=== PATIENT | male | born 1955 | race Caucasian/White ===

== ENCOUNTER 2016-11-09 12:14 | Inpatient (IN) | payer MEDICARE, MEDICAID ==
--- NOTE | 2016-11-09 12:50 | EDM.PDOC ---
ED HPI GI/ABDOMINAL - General Chief Complaint: Abdominal Pain Stated Complaint: SENT FROM [place] Time Seen by Provider: 11/09/16 12:39 Source of Information: Reports: Patient, Provider History Limitations: Reports: No limitations - History of Present Illness INITIAL COMMENTS - FREE TEXT/NARRATIVE: The patient presents with dehydration. He had a renal transplant about 11 years ago. For the past 10 days he has had nausea and vomiting. He lost about [address] Metz today and he did some labs. His creatinine is at 2.9. His baseline is about 1.26. His influenza was negative. His WBC was slightly elevated at 11.5. His Hgb was low at 12.4. He sent him up here for admission and rehydration. Timing/Duration: Reports: Day(s): () Location: generalized Quality: Reports: ache Severity: mild Context: Denies: sick contact, bad/questionable food, out of country travel, recent surgery, recent trauma, lifting, activity/exercise Associated Symptoms: Reports: loss of appetite, nausea/vomiting. Denies: chest pain, diarrhea, fever/chills - Related Data Allergies/ADRs: Allergies Allergy/AdvReac Type Severity Reaction Status Date / Time No Known Allergies Allergy Verified 11/09/16 12:51 Home Meds: Home Meds Aspirin 325 mg PO DAILY 12/10/13 [History] Atenolol 50 mg PO DAILY 12/10/13 [History] Cilostazol [Pletal] 100 mg PO BID 12/10/13 [History] Diclofenac Sodium 25 mg PO DAILY PRN 12/10/13 [History] Isradipine [Dynacirc CR] 5 mg PO DAILY 12/10/13 [History] Lisinopril [Prinivil] 2.5 mg PO DAILY 12/10/13 [History] Mycophenolate Mofetil [Cellcept] 500 mg PO QID 12/10/13 [History] Omeprazole [Prilosec] 20 mg PO TID 12/10/13 [History] Pentoxifylline [TRENtal] 400 mg PO TID 12/10/13 [History] Tacrolimus [Prograf] 1 mg PO BID 12/10/13 [History] traMADol [Ultram] 50 mg PO TID PRN 12/10/13 [History] valACYclovir HCl [Valtrex] 500 mg PO TID 12/10/13 [History] Past Medical History Other HEENT History: left eye blindness Other Dermatologic History: skin graft - Past Surgical History Other HEENT Surgeries/Procedures: PTK to left eye, laser to B numerous times Other Musculoskeletal Surgeries/Procedures:: toe removal starting in 2005; no toes remain on right and 3 remain on left ED ROS GENERAL - Review of Systems Review Of Systems: See Below Constitutional: Reports: no symptoms HEENT: Reports: No symptoms Respiratory: Reports: no symptoms Cardiovascular: Reports: No symptoms Endocrine: Reports: no symptoms GI/Abdominal: Reports: Abdominal pain, Nausea, Vomiting. Denies: Diarrhea : Reports: no symptoms Musculoskeletal: Reports: no symptoms Skin: Reports: no symptoms Neurological: Reports: no symptoms ED EXAM, GI/ABD - Physical Exam Exam: See Below Exam Limited By: No limitations General Appearance: alert, no apparent distress Ears: normal external exam Nose: normal inspection Throat/Mouth: Other (Mucus membranes are dry) Head: atraumatic, normocephalic Neck: normal inspection Respiratory/Chest: no respiratory distress, lungs clear, normal breath sounds Cardiovascular: regular rate, rhythm, no edema, no murmur GI/Abdominal: soft, non tender, no organomegaly, no mass Back Exam: normal inspection Extremities: normal inspection Course - Vital Signs Last Recorded V/S: Last Vital Signs Temp 97.1 F 11/09/16 12:54 Pulse 72 11/09/16 12:54 Resp 16 11/09/16 12:54 BP 84/54 L 11/09/16 12:54 Pulse Ox 99 11/09/16 12:54 - Orders/Labs/Meds Orders: Active Orders 24 hr Category Date Time Status Cardiac Monitoring [RC] . DIRECTED Care 11/09/16 12:55 Active Peripheral IV Care [RC] . DIRECTED Care 11/09/16 12:55 Active Sodium Chloride 0.9% [Normal Saline] 1,000 ml Med 11/09/16 13:00 Active IV .BOLUS Sodium Chloride 0.9% [Saline Flush] Med 11/09/16 12:55 Active 10 ml FLUSH ASDIRECTED PRN ED Antiemetic Medication Reflex [OM.PC] Stat Oth 11/09/16 12:55 Ordered Peripheral IV Insertion Adult [OM.PC] Stat Oth 11/09/16 12:55 Ordered Medication Orders Sodium Chloride (Normal Saline) 1,000 mls @ 1,000 mls/hr IV .BOLUS RUTH ANN Last Admin: 11/09/16 13:15 Dose: 1,000 mls/hr Sodium Chloride (Saline Flush) 10 ml FLUSH ASDIRECTED PRN PRN Reason: Keep Vein Open Last Admin: 11/09/16 12:50 Dose: 10 ml Meds: Medications Generic Name Dose Route Start Last Admin Trade Name Freq PRN Reason Stop Dose Admin Sodium Chloride 1,000 mls @ 1,000 mls/hr 11/09/16 13:00 11/09/16 13:15 Normal Saline IV 1,000 mls/hr .BOLUS RUTH ANN Administration Sodium Chloride 10 ml 11/09/16 12:55 11/09/16 12:50 Saline Flush FLUSH 10 ml ASDIRECTED PRN Administration Keep Vein Open Discontinued Medications Generic Name Dose Route Start Last Admin Trade Name Freq PRN Reason Stop Dose Admin Ondansetron HCl 4 mg 11/09/16 12:55 11/09/16 13:21 Zofran IVPUSH 11/09/16 12:56 Not Given ONETIME ONE - Re-Assessments/Exams Free Text/Narrative Re-Assessment/Exam: 11/09/16 13:20 I ordered an IV NS 1L bolus and I talked with Dr Ngo and he accepted the patient. His BP is low at 81. Departure - Departure Time of Disposition: 13:25 Disposition: Admitted As Inpatient 68 Condition: poor Clinical Impression: Dehydration, Renal insufficiency, History of renal transplantation - My Orders Last 24 Hours: My Active Orders 11/09/16 12:55 Cardiac Monitoring [RC] . DIRECTED Peripheral IV Care [RC] . DIRECTED Sodium Chloride 0.9% [Saline Flush] 10 ml FLUSH ASDIRECTED PRN ED Antiemetic Medication Reflex [OM.PC] Stat Peripheral IV Insertion Adult [OM.PC] Stat 11/09/16 13:00 Sodium Chloride 0.9% [Normal Saline] 1,000 ml IV .BOLUS - Assessment/Plan Last 24 Hours: My Active Orders 11/09/16 12:55 Cardiac Monitoring [RC] . DIRECTED Peripheral IV Care [RC] . DIRECTED Sodium Chloride 0.9% [Saline Flush] 10 ml FLUSH ASDIRECTED PRN ED Antiemetic Medication Reflex [OM.PC] Stat Peripheral IV Insertion Adult [OM.PC] Stat 11/09/16 13:00 Sodium Chloride 0.9% [Normal Saline] 1,000 ml IV .BOLUS
[2016-11-09] MEDS ORDERED: Ondansetron 4 MG/2 ML SDV IVPUSH ONE (12:55)
[2016-11-09] MEDS ORDERED: Sodium Chloride 0.9% 10 ML Syringe FLUSH PRN (12:55)
[2016-11-09] MEDS ORDERED: Sodium Chloride 0.9% 1,000 ML IV SCH (13:00)
--- NOTE | 2016-11-09 13:15 | PCM.HP ---
H&P History of Present Illness - General Date of Service: 11/09/16 Source of Information: Patient, Old records, Provider, RN notes reviewed History Limitations: Reports: No limitations - History of Present Illness Initial Comments - Free Text/Narative: This is 71 yo white with past medical hx/o HTN, PVD, Renal transplant currently on anti-rejection medications who comes in with complaints of severe dehydration associated with nausea, vomiting and reduced oral intake. Hi symptom started over 10 days ago and has been intermittent in nature. He also admits to 14lbs weight loss. He denies any recent changes on his home medications. Patient got his renal transplant 11 years ago in [place]. His last follow up with them was over 1 year ago. 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 Patient was initially seen at his PCP office and he was found to have abnormal renal labs. Therefore he was sent to ED for further evaluation and medical management. Patient is full code. - Related Data Allergies/Adverse Reactions: Allergies Allergy/AdvReac Type Severity Reaction Status Date / Time No Known Allergies Allergy Verified 11/09/16 12:51 Home Medications: Home Meds Aspirin 325 mg PO DAILY 12/10/13 [History] Atenolol 50 mg PO DAILY 12/10/13 [History] Cilostazol [Pletal] 100 mg PO BID 12/10/13 [History] Diclofenac Sodium 25 mg PO DAILY PRN 12/10/13 [History] Isradipine [Dynacirc CR] 5 mg PO DAILY 12/10/13 [History] Lisinopril [Prinivil] 2.5 mg PO DAILY 12/10/13 [History] Mycophenolate Mofetil [Cellcept] 500 mg PO QID 12/10/13 [History] Omeprazole [Prilosec] 20 mg PO TID 12/10/13 [History] Pentoxifylline [TRENtal] 400 mg PO TID 12/10/13 [History] Tacrolimus [Prograf] 1 mg PO BID 12/10/13 [History] traMADol [Ultram] 50 mg PO TID PRN 12/10/13 [History] valACYclovir HCl [Valtrex] 500 mg PO TID 12/10/13 [History] Past Medical History HEENT History: Reports: Impaired vision Other HEENT History: left eye blindness Cardiovascular History: Reports: Other (see below) Other Cardiovascular History: unsure if he has had stents Genitourinary History: Reports: Acute renal failure, Other (see below) Other Genitourinary History: kidney transplant Musculoskeletal History: Reports: Amputation Other Musculoskeletal History: toes bilaterally Endocrine/Metabolic History: Reports: Diabetes, type I Other Dermatologic History: skin graft - Past Surgical History Other HEENT Surgeries/Procedures: PTK to left eye, laser to B numerous times Other Musculoskeletal Surgeries/Procedures:: toe removal starting in 2005; no toes remain on right and 3 remain on left Social & Family History - Family History Family Medical History: Noncontributory - Tobacco Use Smoking Status *Q: Former Smoker Used Tobacco, but Quit: Yes Month Tobacco Last Used: 06/16 - Caffeine Use Caffeine Use: Reports: Soda, Tea - Recreational Drug Use Recreational Drug Use: No H&P Review of Systems - Review of Systems: Review Of Systems: See Below General: Reports: decreased appetite. Denies: fever, chills HEENT: Reports: no symptoms Pulmonary: Denies: shortness of breath Cardiovascular: Denies: chest pain Gastrointestinal: Reports: Decreased appetite, Nausea, Vomiting. Denies: Abdominal pain Genitourinary: Reports: no symptoms Musculoskeletal: Reports: no symptoms Skin: Denies: cyanosis, pruritis, rash Psychiatric: Denies: depression, anxiety, hallucinations Neurological: Denies: trouble speaking, difficulty walking, gait disturbance Hematologic/Lymphatic: Reports: no symptoms Immunologic: Reports: no symptoms Exam - Exam Exam: See Below - Vital Signs Vital Signs: Last Vital Signs Temp 36.2 C 11/09/16 12:54 Pulse 72 11/09/16 12:54 Resp 16 11/09/16 12:54 BP 84/54 L 11/09/16 12:54 Pulse Ox 99 11/09/16 12:54 Weight: 68.039 kg - Exam General: alert, oriented, cooperative, other (cachexia). No: mild distress HEENT: Conjunctiva clear, EACs clear, EOMI, Hearing intact, Nares patent, Normal nasal septum, Posterior pharynx clear, PERRLA. No: Mucosa moist & pink Neck: supple, trachea midline, 2+ carotid pulse wo bruit Lungs: Clear to auscultation, Normal respiratory effort Cardiovascular: regular rate, regular rhythm Abdomen: normal bowel sounds, soft. No: organomegaly (Male) Exam: Deferred Rectal (Males) Exam: Deferred Back Exam: normal inspection, decreased range of motion Extremities: normal inspection, normal pulses. No: clubbing, cyanosis, calf tenderness, edema Peripheral Pulses: 3+: posterior tibial (L), posterior tibial (R), dorsalis pedis (L), dorsalis pedis (R) Skin: warm, dry, intact Neuro Extensive - Mental Status: oriented x3, normal cognition, memory intact Neuro Extensive - Motor, Sensory, Reflexes: CN II-XII intact, normal gait Psychiatric: alert, normal affect, normal mood *Q Meaningful Use (ADM) - VTE *Q VTE Criteria *Q: - Stroke *Q Stroke Criteria *Q: - AMI *Q AMI Criteria *Q: Problem List Initiated/Reviewed/Updated: Yes Orders Last 24hrs: Active Orders 24 hr Category Date Time Status Cardiac Monitoring [RC] . DIRECTED Care 11/09/16 12:55 Active Peripheral IV Care [RC] . DIRECTED Care 11/09/16 12:55 Active Sodium Chloride 0.9% [Normal Saline] 1,000 ml Med 11/09/16 13:00 Active IV .BOLUS Sodium Chloride 0.9% [Saline Flush] Med 11/09/16 12:55 Active 10 ml FLUSH ASDIRECTED PRN ED Antiemetic Medication Reflex [OM.PC] Stat Oth 11/09/16 12:55 Ordered Peripheral IV Insertion Adult [OM.PC] Stat Oth 11/09/16 12:55 Ordered Medication Orders Sodium Chloride (Normal Saline) 1,000 mls @ 1,000 mls/hr IV .BOLUS RUTH ANN Sodium Chloride (Saline Flush) 10 ml FLUSH ASDIRECTED PRN PRN Reason: Keep Vein Open Assessment/Plan Comment:: Assessment/Plan: Acute: Acute Kidney Injury- Non-Oliguric - 2/2 Volume loss form GI with poor oral intake - Risk Factors: Renal transplant, NSAID/ACEI use - Baseline Cr 1.2, here is 2.9 today and BUN is 86 - Strict Is/Os - Avoid Nephrotoxic Agents if all possible - Renal U/S to assess renal function and extra-renal abnormality Orthostatic Hypotension - SBP 96 mmHg in presentation to ED - After receiving 1L NS, his SBP improved to the 90s - Continue IV Hydration Severe Dehydration - 2/2 GI Loss: 10 day hx/o Nausea or Vomiting - Aggressive IV Hydration - He looks clinically dry - Follow Up lab this evening Renal Transplant Patient - 11 year ago on Tacrolimus and Micophenolate Mofetil - Will monitor, I do not think he warrants BK/CARMENZA virus work up at this time - He is afebrile and and WBC is slightly elevated at 11.5 (normal 4-11) - Continue anti-rejection drugs Oral Candidiasis - Tongue and mouth oropharyngeal: full of fungus - May need EGD to r/o esophageal candidiasis since he is in immuno- suppressed state - He is high risk due to immuno-suppressant state - Pharmacy to start renaly dosed anti-fungal agent Weight Loss over 14 Lbs - Defer work up outpatient - Dietary consult Screening Influenza, Negative Plan: Admit to the floor Resume Home Meds except: ACEI, Trental, Tramadol, and Diclofenac Routine AM Labs PT/OT consult SW/CM for d/c planning Repeat lab later today Code status: 1 Additional orders as above
[2016-11-09] MEDS ORDERED: Sodium Chloride 0.9% 1,000 ML IV ONE ×2 (14:49→19:00)
[2016-11-09] MEDS ORDERED: Promethazine 12.5 MG in Sodium Chloride 0.9% 50 ML IV PRN (15:09)
[2016-11-09] MEDS ORDERED: Acetaminophen/HYDROcodone 325-5 MG Tab PO PRN (15:09)
[2016-11-09] MEDS ORDERED: Temazepam 15 MG Cap PO PRN (15:09)
[2016-11-09] MEDS ORDERED: Ondansetron 4 MG/2 ML SDV IV PRN (15:09)
[2016-11-09] MEDS ORDERED: Bisacodyl 5 MG Tab PO PRN (15:09)
[2016-11-09] MEDS ORDERED: Albuterol/Ipratropium 3.0-0.5 MG/3 ML Neb Soln NEB PRN (15:09)
[2016-11-09] MEDS ORDERED: LORazepam 2 MG/ML MDV IV PRN (15:09)
[2016-11-09] MEDS ORDERED: Docusate Sodium 100 MG Cap PO PRN (15:09)
[2016-11-09] MEDS ORDERED: HYDROmorphone 0.5 MG/0.5 ML Syringe IVPUSH PRN (15:09)
[2016-11-09] MEDS ORDERED: Polyethylene Glycol 3350 Powder 17 GM Packet PO PRN (15:09)
[2016-11-09] MEDS ORDERED: Acetaminophen 325 MG Tab PO PRN (15:09)
[2016-11-09] MEDS ORDERED: Metoprolol Tartrate 5 MG/5 ML SDV IVPUSH PRN (15:25)
[2016-11-09] MEDS ORDERED: hydrALAZINE 20 MG/ML SDV IVPUSH PRN (15:25)
[2016-11-09] MEDS: Sodium Chloride 0.9% 1,000 ML IV SCH ×2 (16:23→20:20)
[2016-11-09] MEDS ORDERED: Fluconazole 100 MG Tab PO ONE (18:00)
--- NOTE | 2016-11-09 19:20 | US ---
Renal ultrasound: Multiple real-time images were obtained of the left sided transplant kidney. No hydronephrosis is seen. Small cyst noted within the lower pole measuring 1.1 cm. No additional abnormality is noted. Resistivity indices are normal. Prevoid volume within the bladder is 189 mL and post void volume is 2 mL which is normal. Impression: 1. Small cyst within the lower pole of the left kidney. 2. Renal ultrasound of transplant kidney is otherwise unremarkable. Normal resistivity indices are seen. Diagnostic code #2
[2016-11-09] MEDS: Mycophenolate Mofetil 250 MG Cap PO SCH ×2 (19:30→21:53)
[2016-11-09] MEDS: CILOSTAZOL 100 MG PO SCH ×2 (19:33→20:04)
[2016-11-09] MEDS: Pantoprazole 40 MG Tab.CR PO SCH ×2 (19:35→20:04)
[2016-11-09] MEDS: Tacrolimus 1 MG Cap PO SCH (20:04)
[2016-11-09] MEDS: Lisinopril 2.5 MG Tab PO SCH (20:12)
[2016-11-09] MEDS ORDERED: valACYclovir 500 MG Tab PO SCH (21:00)
[2016-11-09] MEDS ORDERED: Potassium Chloride 20 MEQ Tab.ER PO ONE (22:11)
[2016-11-10] MEDS: Sodium Chloride 0.9% 1,000 ML IV SCH ×3 (00:52→17:44)
[2016-11-10] MEDS ORDERED: OMEPRAZOLE PO SCH (06:00)
[2016-11-10] MEDS ORDERED: Potassium Chloride 20 MEQ Tab.ER PO ONE (07:45)
[2016-11-10] MEDS ORDERED: Magnesium Sulfate/Water 2 GM in Premix Bag 1 BAG IV ONE (07:45)
--- NOTE | 2016-11-10 08:32 | PCM.PN ---
- General Info Date of Service: 11/10/16 Admission Dx/Problem (Free Text): Reymundo is seen this morning, sleeping in bed. He arouses easily. He answers yes/ no questions but does not participate in other conversations. Very flat affect. States no pain this morning, nausea has resolved. No vomiting or diarrhea. He feels generally weak. Afebrile overnight Functional Status: Reports: pain controlled, tolerating diet, ambulating ( minimal; weak), urinating. Denies: new symptoms - Review of Systems General: Reports: weakness, fatigue, malaise HEENT: Reports: no symptoms Pulmonary: Reports: no symptoms Cardiovascular: Reports: no symptoms Gastrointestinal: Reports: Nausea (minimal; improved). Denies: Diarrhea, Vomiting Genitourinary: Reports: no symptoms Musculoskeletal: Reports: no symptoms Skin: Reports: no symptoms Neurological: Reports: no symptoms Psychiatric: Reports: no symptoms - Patient Data Vitals - most recent: Last Vital Signs Temp 99.1 F 11/10/16 05:02 Pulse 93 11/10/16 05:02 Resp 12 11/10/16 05:02 BP 155/72 H 11/10/16 05:02 Pulse Ox 95 11/10/16 05:02 Weight - most recent: 129 lb 9.6 oz I&O - last 24 hours: Intake & Output 11/09/16 11/10/16 11/10/16 22:59 06:59 14:59 Intake Total 400 3884 Output Total 250 1725 Balance 150 2159 Lab Results last 24 hrs: Laboratory Results - last 24 hr 11/09/16 11/09/16 11/09/16 Range/Units 18:36 20:00 20:00 WBC (4.23-9.07) K/mm3 RBC (4.63-6.08) M/mm3 Hgb (13.7-17.5) gm/L Hct (40.1-51.0) % MCV (79.0-92.2) fl MCH (25.7-32.2) pg MCHC (32.2-35.5) g/dl RDW Std Deviation (35.1-43.9) fL Plt Count (163-337) K/mm3 MPV (9.4-12.3) fl Neut % (Auto) (34.0-67.9) % Lymph % (Auto) (21.8-53.1) % [place] % (Auto) (5.3-12.2) % Eos % (Auto) (0.8-7.0) Baso % (Auto) (0.1-1.2) % Neut # (1.78-5.38) K/mm3 Lymph # (1.32-3.57) K/mm3 Est[place] # (0.30-0.82) K/mm3 Eos # (0.04-0.54) K/mm3 Baso # (0.01-0.08) K/mm3 Manual Slide Review Sodium 137 (136-145) mEq/L Potassium 3.4 L (3.5-5.1) mEq/L Chloride 108 H (98-107) mEq/L Carbon Dioxide 16 L (21-32) mEq/L Anion Gap 16.4 H (5-15) BUN 78 H (7-18) mg/dL Creatinine 2.2 H (0.7-1.3) mg/dL Est Cr Clr Drug Dosing TNP Estimated GFR (MDRD) 31 (>60) mL/min BUN/Creatinine Ratio 35.5 H (14-18) Glucose 142 H (74-106) mg/dL Calcium 7.6 L (8.5-10.1) mg/dL Magnesium (1.8-2.4) mg/dl C-Reactive Protein 11.4 H* (<1.0) mg/dL Urine Color Yellow (Yellow) Urine Appearance Clear (Clear) Urine pH 6.0 (5.0-8.0) Ur Specific [place] 1.015 (1.005-1.030) Urine Protein Trace H (Negative) Urine Glucose (UA) Negative (Negative) Urine Ketones 1+ H (Negative) Urine Occult Blood 1+ H (Negative) Urine Nitrite Negative (Negative) Urine Bilirubin Negative (Negative) Urine Urobilinogen 0.2 (0.2-1.0) Ur Leukocyte Esterase 2+ H (Negative) Urine RBC 0-5 (0-5) /hpf Urine WBC 40-50 H (0-5) /hpf Urine WBC Clumps Few (NOT SEEN) /hpf Ur Epithelial Cells 0-5 (0-5) /hpf Urine Bacteria Moderate H (FEW) /hpf Urine Mucus Not seen (FEW) /hpf 11/10/16 11/10/16 Range/Units 05:06 05:06 WBC 11.38 H (4.23-9.07) K/mm3 RBC 3.89 L (4.63-6.08) M/mm3 Hgb 11.5 L (13.7-17.5) gm/L Hct 34.6 L (40.1-51.0) % MCV 88.9 (79.0-92.2) fl MCH 29.6 (25.7-32.2) pg MCHC 33.2 (32.2-35.5) g/dl RDW Std Deviation 43.9 (35.1-43.9) fL Plt Count 257 (163-337) K/mm3 MPV 11.0 (9.4-12.3) fl Neut % (Auto) 85.5 H (34.0-67.9) % Lymph % (Auto) 3.3 L (21.8-53.1) % [place] % (Auto) 10.5 (5.3-12.2) % Eos % (Auto) 0.2 L (0.8-7.0) Baso % (Auto) 0.1 (0.1-1.2) % Neut # 9.73 H (1.78-5.38) K/mm3 Lymph # 0.38 L (1.32-3.57) K/mm3 [place] # 1.20 H (0.30-0.82) K/mm3 Eos # 0.02 L (0.04-0.54) K/mm3 Baso # 0.01 (0.01-0.08) K/mm3 Manual Slide Review Abnormal smear Sodium 139 (136-145) mEq/L Potassium 3.1 L (3.5-5.1) mEq/L Chloride 108 H (98-107) mEq/L Carbon Dioxide 15 L (21-32) mEq/L Anion Gap 19.1 H (5-15) BUN 60 H (7-18) mg/dL Creatinine 1.9 H (0.7-1.3) mg/dL Est Cr Clr Drug Dosing 34.81 Estimated GFR (MDRD) 36 (>60) mL/min BUN/Creatinine Ratio 31.6 H (14-18) Glucose 133 H (74-106) mg/dL Calcium 8.2 L (8.5-10.1) mg/dL Magnesium 1.7 L (1.8-2.4) mg/dl C-Reactive Protein 14.8 H* (<1.0) mg/dL Urine Color (Yellow) Urine Appearance (Clear) Urine pH (5.0-8.0) Ur Specific [place] (1.005-1.030) Urine Protein (Negative) Urine Glucose (UA) (Negative) Urine Ketones (Negative) Urine Occult Blood (Negative) Urine Nitrite (Negative) Urine Bilirubin (Negative) Urine Urobilinogen (0.2-1.0) Ur Leukocyte Esterase (Negative) Urine RBC (0-5) /hpf Urine WBC (0-5) /hpf Urine WBC Clumps (NOT SEEN) /hpf Ur Epithelial Cells (0-5) /hpf Urine Bacteria (FEW) /hpf Urine Mucus (FEW) /hpf [place] Results last 24 hrs: Microbiology 11/09/16 18:36 Urine Culture - Preliminary Urine, Clean Catch Gram Negative Rods Med Orders - Current: Current Medications Acetaminophen (Tylenol) 650 mg PO Q4H PRN PRN Reason: Pain (Mild 1-3)/fever Acetaminophen/Hydrocodone Bitart ([place] 325-5 Mg) 1 tab PO Q4H PRN PRN Reason: Pain (moderate 4-6) Albuterol/Ipratropium (Duoneb 3.0-0.5 Mg/3 Ml) 3 ml NEB Q4H PRN PRN Reason: Shortness Of Breath/wheezing Aspirin (Ecotrin) 325 mg PO DAILY [facility] Bisacodyl (Dulcolax) 5 mg PO DAILY PRN PRN Reason: Constipation Cilostazol (Pletal) 50 mg PO BID [facility] Last Admin: 11/09/16 20:04 Dose: Not Given Clotrimazole (Mycelex) 10 mg PO 5XDAY [facility] Docusate Sodium (Colace) 100 mg PO BID PRN PRN Reason: Constipation Fluconazole (Diflucan) 50 mg PO DAILY [facility] Hydralazine HCl (Apresoline) 20 mg IVPUSH Q4H PRN PRN Reason: Hypertension Hydromorphone HCl (Dilaudid) 0.25 mg IVPUSH Q2H PRN PRN Reason: Pain (severe 7-10) Promethazine HCl 12.5 mg/ (Sodium Chloride) 50.5 mls @ 100 mls/hr IV Q6H PRN PRN Reason: Nausea/Vomiting Sodium Chloride (Normal Saline) 1,000 mls @ 125 mls/hr IV ASDIRECTED [facility] Last Admin: 11/10/16 00:52 Dose: 125 mls/hr Levofloxacin/Dextrose 750 mg/ (Premix) 150 mls @ 100 mls/hr IV Q48H [facility] Magnesium Sulfate 2 gm/ Premix 50 mls @ 25 mls/hr IV ONETIME ONE Stop: 11/10/16 09:44 Lisinopril (Prinivil) 2.5 mg PO BEDTIME [facility] Last Admin: 11/09/16 20:12 Dose: Not Given Lorazepam (Ativan) 1 mg IV Q6H PRN PRN Reason: Anxiety Magnesium Sulfate (Pharmacy To Dose - Magnesium Replacement) 1 dose .XX ASDIRECTED [facility] Metoprolol Tartrate (Lopressor) 5 mg IVPUSH Q4H PRN PRN Reason: Tachycardia Metoprolol Tartrate (Lopressor) 50 mg PO Q12HR [facility] Mycophenolate Mofetil (Cellcept) 500 mg PO QID [facility] Last Admin: 11/09/16 21:53 Dose: 500 mg (Travoprost [ Travatan Z] 1 Drop)* Own Med* 1 drop EYEBOTH BEDTIME [facility] Last Admin: 11/09/16 21:53 Dose: 1 drop Ondansetron HCl (Zofran) 4 mg IV Q6H PRN PRN Reason: Nausea/Vomiting Omeprazole *Own Med* 0 each PO ACBREAKFAST [facility] Last Admin: 11/10/16 05:23 Dose: 1 each Polyethylene Glycol (Miralax) 17 gm PO DAILY PRN PRN Reason: Constipation Potassium Chloride (Pharmacy To Dose - Potassium Replacement) 0 dose .XX ASDIRECTED PRN PRN Reason: RX DOSE Senna/Docusate Sodium (Senna Plus) 1 tab PO BID PRN PRN Reason: Constipation Sodium Chloride (Saline Flush) 10 ml FLUSH ASDIRECTED PRN PRN Reason: Keep Vein Open Last Admin: 11/09/16 12:50 Dose: 10 ml Tacrolimus (Prograf) 1 mg PO BID [facility] Last Admin: 11/09/16 20:04 Dose: Not Given Temazepam (Restoril) 15 mg PO BEDTIME PRN PRN Reason: Sleep Discontinued Medications Atenolol (Tenormin) 50 mg PO DAILY [facility] Fluconazole (Diflucan) 200 mg PO ONETIME ONE Stop: 11/09/16 18:01 Last Admin: 11/09/16 18:53 Dose: 200 mg Sodium Chloride (Normal Saline) 1,000 mls @ 1,000 mls/hr IV .BOLUS [facility] Last Admin: 11/09/16 13:15 Dose: 1,000 mls/hr Sodium Chloride (Normal Saline) 1,000 mls @ 1,000 mls/hr IV ONETIME ONE Stop: 11/09/16 15:48 Last Admin: 11/09/16 15:06 Dose: 1,000 mls/hr Sodium Chloride (Normal Saline) 1,000 mls @ 999 mls/hr IV ONETIME ONE Stop: 11/09/16 20:00 Last Admin: 11/09/16 19:04 Dose: 999 mls/hr Lisinopril (Prinivil) 2.5 mg PO DAILY [facility] Last Admin: 11/09/16 19:38 Dose: 2.5 mg Ondansetron HCl (Zofran) 4 mg IVPUSH ONETIME ONE Stop: 11/09/16 12:56 Last Admin: 11/09/16 13:21 Dose: Not Given Pantoprazole Sodium (Protonix) 40 mg PO TID [facility] Last Admin: 11/09/16 20:04 Dose: Not Given Potassium Chloride (Klor-Con M20) 20 meq PO ONETIME ONE Stop: 11/09/16 22:12 Last Admin: 11/09/16 22:20 Dose: 20 meq Potassium Chloride (Klor-Con M20) 40 meq PO ONETIME ONE Stop: 11/10/16 07:46 Valacyclovir HCl (Valtrex) 500 mg PO TID [facility] Last Admin: 11/09/16 20:05 Dose: Not Given - Exam Quality Assessment: DVT prophylaxis General: alert, oriented, cooperative, no acute distress, other (flat affect; thin) HEENT: Pupils equal, Pupils reactive, EOMI Neck: supple Lungs: Clear to auscultation, Normal respiratory effort, Decreased breath sounds (to bases) Cardiovascular: regular rate, regular rhythm, murmurs (grade 2-3 systolic) Abdomen: bowel sounds present, soft, no tenderness. No: rigidity, rebound, guarding, tenderness (Male) Exam: Deferred Extremities: no edema, no calf tenderness Peripheral Pulses: 1+: dorsalis pedis (L), dorsalis pedis (R) Skin: warm, dry, intact Wound/Incisions: healing well Neurological: no new focal deficit Psy/Mental Status: alert, normal mood, other (flat affect; minimally interactive unless asked yes/no questions this morning) - Problem List & Annotations (1) QUINTON (acute kidney injury) SNOMED Code(s): 54502190 Code(s): N17.9 - ACUTE KIDNEY FAILURE, UNSPECIFIED Status: Acute Priority : High Current Visit: Yes (2) Dehydration SNOMED Code(s): 57993234 Code(s): E86.0 - DEHYDRATION Status: Acute Priority: High Current Visit : Yes (3) Renal insufficiency SNOMED Code(s): 943855912 Code(s): N28.9 - DISORDER OF KIDNEY AND URETER, UNSPECIFIED Status: Chronic Priority: Medium Current Visit: Yes (4) History of renal transplantation Status: Chronic Priority: Medium Current Visit: Yes - Problem List Review Problem List Initiated/Reviewed/Updated: Yes - My Orders Last 24 Hours: My Active Orders 11/10/16 07:30 Levofloxacin/Dextrose 5%-Water [Levaquin in D5W 750 MG/150 ML] 750 mg Premix Bag 1 bag IV Q48H 11/10/16 08:18 RT Incentive Spirometry [RC] Q2HWA Turn, Cough, Deep Breathe [RC] Q2HWA 11/10/16 09:00 Metoprolol Tartrate [Lopressor] 50 mg PO Q12HR 11/10/16 10:00 Clotrimazole [Mycelex] 10 mg PO 5XDAY - Plan Plan:: Assessment/Plan: Acute: Acute Kidney Injury- Non-Oliguric - 2/2 Volume loss form GI with poor oral intake - Risk Factors: Renal transplant, NSAID/ACEI use - Baseline Cr 1.2, here is 2.9 today and BUN is 86--- improved this morning to 1.9 - Strict Is/Os - Avoid Nephrotoxic Agents if all possible - pharmacy to renal dose all meds - Renal U/S to assess renal function and extra-renal abnormality--- No acute findings on US Severe Dehydration - 2/2 GI Loss: 10 day hx/o Nausea or Vomiting - Aggressive IV Hydration - He looks clinically dry--still looks dry this morning; wt is up 3 lbs - Follow labs daily AUTI - Culture with GNR this morning - Start IV Levaquin- pending sensitivity Renal Transplant Patient - 11 year ago on Tacrolimus and Micophenolate Mofetil - Will monitor, do not think he warrants BK/CARMENZA virus work up at this time - He is afebrile and and WBC is slightly elevated at 11.5 (normal 4-11)-- stable this morning - Continue anti-rejection drugs Oral Candidiasis - Tongue and mouth oropharyngeal: full of fungus - May need EGD to r/o esophageal candidiasis since he is in immuno- suppressed state - He is high risk due to immuno-suppressant state - Pharmacy to start renaly dosed anti-fungal agent -Will add mycelex troches today Weight Loss over 14 Lbs -- up 3 this am - Cont close I&O and daily wt's - Defer work up outpatient - Dietary consult Screening Influenza, Negative Heart murmur - Patient states is chronic; unsure of how long or last echo - Will request records/echo from [place]; none done here on file; PCP is Dr. Metz--contacted medical records- nothing found back to 2013, they are checking with [facility] and will let me know. - Will obtain echocardiogram for eval. Resolved: Orthostatic Hypotension - SBP 96 mmHg in presentation to ED - After receiving 1L NS, his SBP improved to the 90s - Continue IV Hydration Plan: Admit to the floor Resume Home Meds except: ACEI, Trental, Tramadol, and Diclofenac Routine AM Labs PT/OT consult SW/CM for d/c planning Code status: 1 Additional orders as above
[2016-11-10] MEDS ORDERED: LISINOPRIL 2.5 MG PO SCH (09:00)
[2016-11-10] MEDS: Levofloxacin/Dextrose 5%-Water 750 MG in Premix Bag 1 BAG IV SCH (09:14)
[2016-11-10] MEDS: Metoprolol Tartrate 50 MG Tab PO SCH ×2 (09:20→22:28)
[2016-11-10] MEDS: Fluconazole 100 MG Tab PO SCH (09:20)
[2016-11-10] MEDS: CILOSTAZOL 100 MG PO SCH (09:21)
[2016-11-10] MEDS: Mycophenolate Mofetil 250 MG Cap PO SCH ×4 (09:27→22:24)
[2016-11-10] MEDS: Tacrolimus 1 MG Cap PO SCH ×2 (09:28→22:31)
[2016-11-10] MEDS: Clotrimazole 10 MG Troche PO SCH ×4 (10:12→22:32)
[2016-11-10] MEDS: Aspirin 325 MG Tab.EC PO SCH (10:14)
[2016-11-10] MEDS ORDERED: ATENOLOL 50 MG PO SCH (17:00)
--- NOTE | 2016-11-10 17:00 | PCM.CONSN ---
- General Info Date of Service: 11/10/16 - Patient Data Vitals - most recent: Last Vital Signs Temp 99.4 F 11/10/16 12:00 Pulse 77 11/10/16 12:00 Resp 20 11/10/16 12:00 BP 115/44 L 11/10/16 12:00 Pulse Ox 95 11/10/16 12:00 Weight - most recent: 58.786 kg I&O - last 24 hours: Intake & Output 11/10/16 11/10/16 11/10/16 07:59 15:59 23:59 Intake Total 360 Balance 360 Med Orders - Current: Current Medications Acetaminophen (Tylenol) 650 mg PO Q4H PRN PRN Reason: Pain (Mild 1-3)/fever Last Admin: 11/10/16 10:55 Dose: 650 mg Acetaminophen/Hydrocodone Bitart ([place] 325-5 Mg) 1 tab PO Q4H PRN PRN Reason: Pain (moderate 4-6) Albuterol/Ipratropium (Duoneb 3.0-0.5 Mg/3 Ml) 3 ml NEB Q4H PRN PRN Reason: Shortness Of Breath/wheezing Aspirin (Ecotrin) 325 mg PO DAILY [facility] Last Admin: 11/10/16 10:14 Dose: Not Given Bisacodyl (Dulcolax) 5 mg PO DAILY PRN PRN Reason: Constipation Cilostazol (Pletal) 50 mg PO BID [facility] Clotrimazole (Mycelex) 10 mg PO 5XDAY [facility] Last Admin: 11/10/16 13:10 Dose: 10 mg Docusate Sodium (Colace) 100 mg PO BID PRN PRN Reason: Constipation Fluconazole (Diflucan) 50 mg PO DAILY [facility] Last Admin: 11/10/16 09:20 Dose: 50 mg Hydralazine HCl (Apresoline) 20 mg IVPUSH Q4H PRN PRN Reason: Hypertension Hydromorphone HCl (Dilaudid) 0.25 mg IVPUSH Q2H PRN PRN Reason: Pain (severe 7-10) Promethazine HCl 12.5 mg/ (Sodium Chloride) 50.5 mls @ 100 mls/hr IV Q6H PRN PRN Reason: Nausea/Vomiting Sodium Chloride (Normal Saline) 1,000 mls @ 125 mls/hr IV ASDIRECTED [facility] Last Admin: 11/10/16 09:09 Dose: 125 mls/hr Levofloxacin/Dextrose 750 mg/ (Premix) 150 mls @ 100 mls/hr IV Q48H [facility] Last Admin: 11/10/16 09:14 Dose: 100 mls/hr Lisinopril (Prinivil) 2.5 mg PO BEDTIME [facility] Last Admin: 11/09/16 20:12 Dose: Not Given Lorazepam (Ativan) 1 mg IV Q6H PRN PRN Reason: Anxiety Magnesium Sulfate (Pharmacy To Dose - Magnesium Replacement) 1 dose .XX ASDIRECTED [facility] Metoprolol Tartrate (Lopressor) 5 mg IVPUSH Q4H PRN PRN Reason: Tachycardia Metoprolol Tartrate (Lopressor) 50 mg PO Q12HR [facility] Last Admin: 11/10/16 09:20 Dose: 50 mg Mycophenolate Mofetil (Cellcept) 500 mg PO QID [facility] Last Admin: 11/10/16 13:10 Dose: 500 mg Ondansetron HCl (Zofran) 4 mg IV Q6H PRN PRN Reason: Nausea/Vomiting Pantoprazole Sodium (Protonix) 40 mg PO ACBREAKFAST [facility] Travoprost (Travatan (Z)) 0 each EYEBOTH BEDTIME [facility] Polyethylene Glycol (Miralax) 17 gm PO DAILY PRN PRN Reason: Constipation Potassium Chloride (Pharmacy To Dose - Potassium Replacement) 0 dose .XX ASDIRECTED PRN PRN Reason: RX DOSE Senna/Docusate Sodium (Senna Plus) 1 tab PO BID PRN PRN Reason: Constipation Sodium Chloride (Saline Flush) 10 ml FLUSH ASDIRECTED PRN PRN Reason: Keep Vein Open Last Admin: 11/09/16 12:50 Dose: 10 ml Tacrolimus (Prograf) 1 mg PO BID [facility] Last Admin: 11/10/16 09:28 Dose: 1 mg Temazepam (Restoril) 15 mg PO BEDTIME PRN PRN Reason: Sleep Discontinued Medications Atenolol (Tenormin) 50 mg PO DAILY [facility] Cilostazol (Pletal) 50 mg PO BID [facility] Last Admin: 11/10/16 09:21 Dose: 50 mg Fluconazole (Diflucan) 200 mg PO ONETIME ONE Stop: 11/09/16 18:01 Last Admin: 11/09/16 18:53 Dose: 200 mg Sodium Chloride (Normal Saline) 1,000 mls @ 1,000 mls/hr IV .BOLUS [facility] Last Admin: 11/09/16 13:15 Dose: 1,000 mls/hr Sodium Chloride (Normal Saline) 1,000 mls @ 1,000 mls/hr IV ONETIME ONE Stop: 11/09/16 15:48 Last Admin: 11/09/16 15:06 Dose: 1,000 mls/hr Sodium Chloride (Normal Saline) 1,000 mls @ 999 mls/hr IV ONETIME ONE Stop: 11/09/16 20:00 Last Admin: 11/09/16 19:04 Dose: 999 mls/hr Magnesium Sulfate 2 gm/ Premix 50 mls @ 25 mls/hr IV ONETIME ONE Stop: 11/10/16 09:44 Last Admin: 11/10/16 10:54 Dose: 25 mls/hr Lisinopril (Prinivil) 2.5 mg PO DAILY [facility] Last Admin: 11/09/16 19:38 Dose: 2.5 mg (Travoprost [ Travatan Z] 1 Drop)* Own Med* 1 drop EYEBOTH BEDTIME [facility] Last Admin: 11/09/16 21:53 Dose: 1 drop Ondansetron HCl (Zofran) 4 mg IVPUSH ONETIME ONE Stop: 11/09/16 12:56 Last Admin: 11/09/16 13:21 Dose: Not Given Pantoprazole Sodium (Protonix) 40 mg PO TID [facility] Last Admin: 11/09/16 20:04 Dose: Not Given Omeprazole *Own Med* 0 each PO ACBREAKFAST [facility] Last Admin: 11/10/16 05:23 Dose: 1 each Potassium Chloride (Klor-Con M20) 20 meq PO ONETIME ONE Stop: 11/09/16 22:12 Last Admin: 11/09/16 22:20 Dose: 20 meq Potassium Chloride (Klor-Con M20) 40 meq PO ONETIME ONE Stop: 11/10/16 07:46 Last Admin: 11/10/16 09:19 Dose: 40 meq Valacyclovir HCl (Valtrex) 500 mg PO TID [facility] Last Admin: 11/09/16 20:05 Dose: Not Given Consult PN Assessment/Plan Procedures: Procedures ASSAY OF AMYLASE (09/12/16) ASSAY OF LIPASE (09/12/16) ASSAY OF PROTEIN URINE (09/12/16) ASSAY OF TACROLIMUS (05/09/16) ASSAY OF URINE CREATININE (09/12/16) COMPLETE CBC W/AUTO DIFF WBC (09/12/16) DETECT AGENT NOS DNA QUANT (09/12/16) GLYCOSYLATED HEMOGLOBIN TEST (09/12/16) HEPATITIS C AB TEST (01/04/16) LIPID PANEL (09/12/16) METABOLIC PANEL TOTAL CA (09/12/16) PT EVAL LOW COMPLEX 20 MIN (10/02/16) PT EVALUATION (08/11/16) RMVL DEVITAL TIS 20 CM/< (10/02/16) ROUTINE VENIPUNCTURE (07/05/16) Problem List Initiated/Reviewed/Updated: Yes Plan: surgical consult dictated VIKTORIA
[2016-11-10] MEDS: Lisinopril 2.5 MG Tab PO SCH (22:27)
[2016-11-11] MEDS: Sodium Chloride 0.9% 1,000 ML IV SCH ×2 (02:45→11:00)
[2016-11-11] MEDS: Pantoprazole 40 MG Tab.CR PO SCH (06:38)
[2016-11-11] MEDS: Clotrimazole 10 MG Troche PO SCH (06:39)
--- NOTE | 2016-11-11 07:54 | PCM.PN ---
- General Info Date of Service: 11/11/16 Admission Dx/Problem (Free Text): Reymundo is seen this morning, sleeping in bed. He arouses easily. He answers yes/ no questions but does not participate in other conversations. Very flat affect. States no pain this morning, nausea has resolved. No vomiting or diarrhea. He feels generally weak. Afebrile overnight Subjective Update: Follow Up Functional Status: Reports: pain controlled, tolerating diet, urinating. Denies : new symptoms - Review of Systems General: Denies: fever, weakness, fatigue, malaise, chills HEENT: Reports: no symptoms Pulmonary: Denies: shortness of breath Cardiovascular: Denies: chest pain, palpitations, dyspnea on exertion Gastrointestinal: Denies: Abdominal pain, Decreased appetite, Nausea, Vomiting Genitourinary: Reports: no symptoms Musculoskeletal: Reports: no symptoms Skin: Reports: no symptoms Neurological: Denies: confusion Psychiatric: Denies: depression, anxiety, hallucinations Systems Review Comment:: No overnight or acute issues. He is fairly stable. He has no new complaints. His WBC is now down to 11K from 1.38. K is still low at 3.4. His Mg is 1.7 and CRP is essentially the same at 14.3. His renal function appears to be responding well. - Patient Data Vitals - most recent: Last Vital Signs Temp 37.9 C 11/11/16 05:14 Pulse 79 11/11/16 05:14 Resp 22 H 11/11/16 05:14 BP 144/63 H 11/11/16 05:14 Pulse Ox 95 11/11/16 05:14 Weight - most recent: 58.786 kg I&O - last 24 hours: Intake & Output 11/10/16 11/11/16 11/11/16 22:59 06:59 14:59 Intake Total 1336 1447 Balance 2276 1447 Lab Results last 24 hrs: Laboratory Results - last 24 hr 11/11/16 11/11/16 Range/Units 04:33 04:33 WBC 11.00 H (4.23-9.07) K/mm3 RBC 3.45 L (4.63-6.08) M/mm3 Hgb 10.3 L (13.7-17.5) gm/L Hct 30.9 L (40.1-51.0) % MCV 89.6 (79.0-92.2) fl MCH 29.9 (25.7-32.2) pg MCHC 33.3 (32.2-35.5) g/dl RDW Std Deviation 44.4 H (35.1-43.9) fL Plt Count 232 (163-337) K/mm3 MPV 10.8 (9.4-12.3) fl Neut % (Auto) 86.3 H (34.0-67.9) % Lymph % (Auto) 4.0 L (21.8-53.1) % [place] % (Auto) 8.2 (5.3-12.2) % Eos % (Auto) 0.7 L (0.8-7.0) Baso % (Auto) 0.1 (0.1-1.2) % Neut # 9.49 H (1.78-5.38) K/mm3 Lymph # 0.44 L (1.32-3.57) K/mm3 [place] # 0.90 H (0.30-0.82) K/mm3 Eos # 0.08 (0.04-0.54) K/mm3 Baso # 0.01 (0.01-0.08) K/mm3 Manual Slide Review Abnormal smear Sodium 138 (136-145) mEq/L Potassium 3.4 L (3.5-5.1) mEq/L Chloride 111 H (98-107) mEq/L Carbon Dioxide 15 L (21-32) mEq/L Anion Gap 15.4 H (5-15) BUN 34 H (7-18) mg/dL Creatinine 1.5 H (0.7-1.3) mg/dL Est Cr Clr Drug Dosing 44.09 mL/min Estimated GFR (MDRD) 48 (>60) mL/min BUN/Creatinine Ratio 22.7 H (14-18) Glucose 108 H (74-106) mg/dL Calcium 7.9 L (8.5-10.1) mg/dL Magnesium 1.7 L (1.8-2.4) mg/dl Med Orders - Current: Current Medications Acetaminophen (Tylenol) 650 mg PO Q4H PRN PRN Reason: Pain (Mild 1-3)/fever Last Admin: 11/10/16 10:55 Dose: 650 mg Acetaminophen/Hydrocodone Bitart ([place] 325-5 Mg) 1 tab PO Q4H PRN PRN Reason: Pain (moderate 4-6) Albuterol/Ipratropium (Duoneb 3.0-0.5 Mg/3 Ml) 3 ml NEB Q4H PRN PRN Reason: Shortness Of Breath/wheezing Aspirin (Ecotrin) 325 mg PO DAILY COUNT INCLUDES [facility] Last Admin: 11/10/16 10:14 Dose: Not Given Bisacodyl (Dulcolax) 5 mg PO DAILY PRN PRN Reason: Constipation Cilostazol (Pletal) 50 mg PO BID COUNT INCLUDES [facility] Last Admin: 11/10/16 22:30 Dose: 50 mg Clotrimazole (Mycelex) 10 mg PO 5XDAY COUNT INCLUDES [facility] Last Admin: 11/11/16 06:39 Dose: 10 mg Docusate Sodium (Colace) 100 mg PO BID PRN PRN Reason: Constipation Fluconazole (Diflucan) 50 mg PO DAILY COUNT INCLUDES [facility] Last Admin: 11/10/16 09:20 Dose: 50 mg Hydralazine HCl (Apresoline) 20 mg IVPUSH Q4H PRN PRN Reason: Hypertension Hydromorphone HCl (Dilaudid) 0.25 mg IVPUSH Q2H PRN PRN Reason: Pain (severe 7-10) Promethazine HCl 12.5 mg/ (Sodium Chloride) 50.5 mls @ 100 mls/hr IV Q6H PRN PRN Reason: Nausea/Vomiting Sodium Chloride (Normal Saline) 1,000 mls @ 125 mls/hr IV ASDIRECTED COUNT INCLUDES THE [facility] Last Admin: 11/11/16 02:45 Dose: 125 mls/hr Levofloxacin/Dextrose 750 mg/ (Premix) 150 mls @ 100 mls/hr IV Q48H COUNT INCLUDES [facility] Last Admin: 11/10/16 09:14 Dose: 100 mls/hr Sodium Chloride (Normal Saline) 250 mls @ 999 mls/hr IV ASDIRECTED COUNT INCLUDES [facility] Lisinopril (Prinivil) 2.5 mg PO BEDTIME COUNT INCLUDES [facility] Last Admin: 11/10/16 22:27 Dose: 2.5 mg Lorazepam (Ativan) 1 mg IV Q6H PRN PRN Reason: Anxiety Magnesium Sulfate (Pharmacy To Dose - Magnesium Replacement) 1 dose .XX ASDIRECTED COUNT INCLUDES THE [facility] Metoprolol Tartrate (Lopressor) 5 mg IVPUSH Q4H PRN PRN Reason: Tachycardia Metoprolol Tartrate (Lopressor) 50 mg PO Q12HR COUNT INCLUDES [facility] Last Admin: 11/10/16 22:28 Dose: 50 mg Mycophenolate Mofetil (Cellcept) 500 mg PO QID COUNT INCLUDES [facility] Last Admin: 11/10/16 22:24 Dose: 500 mg Non-Formulary Medication (Atenolol/Chlorthalidone [Tenoretic 50]) 1 tab PO DAILY COUNT INCLUDES [facility] Ondansetron HCl (Zofran) 4 mg IV Q6H PRN PRN Reason: Nausea/Vomiting Pantoprazole Sodium (Protonix) 40 mg PO ACBREAKFAST COUNT INCLUDES [facility] Last Admin: 11/11/16 06:38 Dose: 40 mg Travoprost (Travatan (Z)) 0 each EYEBOTH BEDTIME COUNT INCLUDES [facility] Last Admin: 11/10/16 22:31 Dose: 1 each Polyethylene Glycol (Miralax) 17 gm PO DAILY PRN PRN Reason: Constipation Potassium Chloride (Pharmacy To Dose - Potassium Replacement) 0 dose .XX ASDIRECTED PRN PRN Reason: RX DOSE Senna/Docusate Sodium (Senna Plus) 1 tab PO BID PRN PRN Reason: Constipation Sodium Chloride (Saline Flush) 10 ml FLUSH ASDIRECTED PRN PRN Reason: Keep Vein Open Last Admin: 11/09/16 12:50 Dose: 10 ml Tacrolimus (Prograf) 1 mg PO BID COUNT INCLUDES [facility] Last Admin: 11/10/16 22:31 Dose: 1 mg Temazepam (Restoril) 15 mg PO BEDTIME PRN PRN Reason: Sleep Discontinued Medications Atenolol (Tenormin) 50 mg PO DAILY COUNT INCLUDES [facility] Cilostazol (Pletal) 50 mg PO BID COUNT INCLUDES [facility] Last Admin: 11/10/16 09:21 Dose: 50 mg Fluconazole (Diflucan) 200 mg PO ONETIME ONE Stop: 11/09/16 18:01 Last Admin: 11/09/16 18:53 Dose: 200 mg Sodium Chloride (Normal Saline) 1,000 mls @ 1,000 mls/hr IV .BOLUS COUNT INCLUDES THE [facility] Last Admin: 11/09/16 13:15 Dose: 1,000 mls/hr Sodium Chloride (Normal Saline) 1,000 mls @ 1,000 mls/hr IV ONETIME ONE Stop: 11/09/16 15:48 Last Admin: 11/09/16 15:06 Dose: 1,000 mls/hr Sodium Chloride (Normal Saline) 1,000 mls @ 999 mls/hr IV ONETIME ONE Stop: 11/09/16 20:00 Last Admin: 11/09/16 19:04 Dose: 999 mls/hr Magnesium Sulfate 2 gm/ Premix 50 mls @ 25 mls/hr IV ONETIME ONE Stop: 11/10/16 09:44 Last Admin: 11/10/16 10:54 Dose: 25 mls/hr Lisinopril (Prinivil) 2.5 mg PO DAILY COUNT INCLUDES [facility] Last Admin: 11/09/16 19:38 Dose: 2.5 mg (Travoprost [ Travatan Z] 1 Drop)* Own Med* 1 drop EYEBOTH BEDTIME COUNT INCLUDES THE [facility] Last Admin: 11/09/16 21:53 Dose: 1 drop Ondansetron HCl (Zofran) 4 mg IVPUSH ONETIME ONE Stop: 11/09/16 12:56 Last Admin: 11/09/16 13:21 Dose: Not Given Pantoprazole Sodium (Protonix) 40 mg PO TID COUNT INCLUDES THE [facility] Last Admin: 11/09/16 20:04 Dose: Not Given Omeprazole *Own Med* 0 each PO ACBREAKFAST COUNT INCLUDES THE [facility] Last Admin: 11/10/16 05:23 Dose: 1 each Potassium Chloride (Klor-Con M20) 20 meq PO ONETIME ONE Stop: 11/09/16 22:12 Last Admin: 11/09/16 22:20 Dose: 20 meq Potassium Chloride (Klor-Con M20) 40 meq PO ONETIME ONE Stop: 11/10/16 07:46 Last Admin: 11/10/16 09:19 Dose: 40 meq Valacyclovir HCl (Valtrex) 500 mg PO TID COUNT INCLUDES THE [facility] Last Admin: 11/09/16 20:05 Dose: Not Given - Exam General: alert, oriented, cooperative, no acute distress, other (Appears weak and cachectic) HEENT: Pupils equal, Pupils reactive, EOMI, Mucous membr. moist/pink, Other ( oropharyngeal fungus) Neck: supple, trachea midline, no JVD Lungs: Normal respiratory effort, Decreased breath sounds, Crackles, Rales Cardiovascular: regular rate, regular rhythm, murmurs Abdomen: bowel sounds present, soft, no tenderness, no distension (Male) Exam: Deferred Back Exam: normal inspection, decreased range of motion Extremities: no edema, normal pulses, no tenderness/swelling, no clubbing, no cyanosis, no calf tenderness Peripheral Pulses: 3+: posterior tibial (L), posterior tibial (R), dorsalis pedis (L), dorsalis pedis (R) Skin: warm, dry, intact Neurological: no new focal deficit Psy/Mental Status: alert, normal affect, normal mood - Problem List Review Problem List Initiated/Reviewed/Updated: Yes - My Orders Last 24 Hours: My Active Orders 11/10/16 09:42 Transfer Patient (Change bed) [ADT] Routine 11/10/16 10:42 Pantoprazole [Protonix] 40 mg PO ACBREAKFAST 11/10/16 10:44 Patient's Own Medication [Ptom] 0 each EYEBOTH BEDTIME 11/10/16 19:00 Patient Status [ADT] Routine 11/10/16 21:00 Cilostazol [Pletal] 50 mg PO BID 11/11/16 07:48 CRP [C-REACTIVE PROTEIN] [CHEM] Urgent 11/11/16 08:00 Sodium Chloride 0.9% [Normal Saline] 250 ml IV ASDIRECTED 11/11/16 09:00 Atenolol/Chlorthalidone [Tenoretic 50] 1 tab PO DAILY 11/12/16 05:11 CRP [C-REACTIVE PROTEIN] [CHEM] AM 11/13/16 05:11 CRP [C-REACTIVE PROTEIN] [CHEM] AM 11/14/16 05:11 CRP [C-REACTIVE PROTEIN] [CHEM] AM 11/15/16 05:11 CRP [C-REACTIVE PROTEIN] [CHEM] AM - Plan Plan:: Assessment/Plan: Acute: Acute Kidney Injury- Non-Oliguric, Improving - 2/2 Volume loss form GI with poor oral intake - Risk Factors: Renal transplant, NSAID/ACEI use - Baseline Cr 1.2, here is 2.9 today and BUN is 86--- continues to improve, he is now at 1.5 - Strict Is/Os - Avoid Nephrotoxic Agents if all possible - pharmacy to renal dose all meds - Renal U/S to assess renal function and extra-renal abnormality--- No acute findings on US AUTI - Culture with Klebsiella Oxytoca - Sensitive to IV Levaquin- continue current ATB Renal Transplant Patient, Stable - 11 year ago on Tacrolimus and Micophenolate Mofetil - Will monitor, do not think he warrants BK/CARMENZA virus work up at this time - Continue anti-rejection drugs Oral Candidiasis - Tongue and mouth oropharyngeal: full of fungus - May need EGD to r/o esophageal candidiasis since he is in immuno- suppressed state - He is high risk due to immuno-suppressant state - Continue antifungal agent - Consider EGD to r/o fungal esophagitis (which could be affecting his oral intake i.e. weight loss) Weight Loss over 14 Lbs -- up 3 this am - Cont close I&O and daily wt's - Defer work up outpatient - Dietary following Heart murmur - Patient states is chronic; unsure of how long or last echo - Will request records/echo from [place]; none done here on file; PCP is Dr. Metz--contacted medical records- nothing found back to 2013, they are checking with [facility] and will let me know. - Repeat 2D echo completed, awaiting final report Resolved: Orthostatic Hypotension - SBP 96 mmHg in presentation to ED - After receiving 1L NS, his SBP improved to the 90s - Continue IV Hydration S/p Severe Dehydration - 2/2 GI Loss: 10 day hx/o Nausea or Vomiting - Aggressive IV Hydration - He looks clinically dry--still looks dry this morning; wt is up 3 lbs - Follow labs daily Plan: He remains clinically stable Continue current treatment Dr. Latif following, may consider EGD Sunday Resume Home Meds except: ACEI, Trental, Tramadol, and Diclofenac Routine AM Labs Change IVF rate tot 50 cc/hr Hold HCTZ BP med Bumex 0.5 mg IVP BID x 2 doses only Continue PT/OT SW/CM for d/c planning Code status: 1 Additional orders as above
[2016-11-11] MEDS ORDERED: Sodium Chloride 0.9% 250 ML IV SCH (08:00)
[2016-11-11] MEDS ORDERED: CHLORTHALIDONE PO SCH (09:00)
[2016-11-11] MEDS ORDERED: ATENOLOL PO SCH (09:00)
--- NOTE | 2016-11-11 10:50 | PCM.CONSN ---
- General Info Date of Service: 11/11/16 Admission Dx/Problem (Free Text): Reymundo is seen this morning, sleeping in bed. He arouses easily. He answers yes/ no questions but does not participate in other conversations. Very flat affect. States no pain this morning, nausea has resolved. No vomiting or diarrhea. He feels generally weak. Afebrile overnight Functional Status: Reports: pain controlled - Review of Systems General: Reports: weakness HEENT: Reports: no symptoms Pulmonary: Reports: no symptoms Gastrointestinal: Reports: No symptoms - Patient Data Vitals - most recent: Last Vital Signs Temp 98.8 F 11/11/16 08:14 Pulse 73 11/11/16 08:14 Resp 20 11/11/16 08:14 BP 111/63 11/11/16 08:14 Pulse Ox 95 11/11/16 08:14 Weight - most recent: 58.786 kg I&O - last 24 hours: Intake & Output 11/10/16 11/11/16 11/11/16 23:59 07:59 15:59 Intake Total 2276 1647 0 Balance 2276 1647 0 Lab Results last 24 hrs: Laboratory Results - last 24 hr 11/11/16 11/11/16 11/11/16 Range/Units 04:33 04:33 04:33 WBC 11.00 H (4.23-9.07) K/mm3 RBC 3.45 L (4.63-6.08) M/mm3 Hgb 10.3 L (13.7-17.5) gm/L Hct 30.9 L (40.1-51.0) % MCV 89.6 (79.0-92.2) fl MCH 29.9 (25.7-32.2) pg MCHC 33.3 (32.2-35.5) g/dl RDW Std Deviation 44.4 H (35.1-43.9) fL Plt Count 232 (163-337) K/mm3 MPV 10.8 (9.4-12.3) fl Neut % (Auto) 86.3 H (34.0-67.9) % Lymph % (Auto) 4.0 L (21.8-53.1) % [place] % (Auto) 8.2 (5.3-12.2) % Eos % (Auto) 0.7 L (0.8-7.0) Baso % (Auto) 0.1 (0.1-1.2) % Neut # 9.49 H (1.78-5.38) K/mm3 Lymph # 0.44 L (1.32-3.57) K/mm3 [place] # 0.90 H (0.30-0.82) K/mm3 Eos # 0.08 (0.04-0.54) K/mm3 Baso # 0.01 (0.01-0.08) K/mm3 Manual Slide Review Abnormal smear Sodium 138 (136-145) mEq/L Potassium 3.4 L (3.5-5.1) mEq/L Chloride 111 H (98-107) mEq/L Carbon Dioxide 15 L (21-32) mEq/L Anion Gap 15.4 H (5-15) BUN 34 H (7-18) mg/dL Creatinine 1.5 H (0.7-1.3) mg/dL Est Cr Clr Drug Dosing 44.09 mL/min Estimated GFR (MDRD) 48 (>60) mL/min BUN/Creatinine Ratio 22.7 H (14-18) Glucose 108 H (74-106) mg/dL Calcium 7.9 L (8.5-10.1) mg/dL Magnesium 1.7 L (1.8-2.4) mg/dl C-Reactive Protein 14.3 H* (<1.0) mg/dL Med Orders - Current: Current Medications Acetaminophen (Tylenol) 650 mg PO Q4H PRN PRN Reason: Pain (Mild 1-3)/fever Last Admin: 11/10/16 10:55 Dose: 650 mg Acetaminophen/Hydrocodone Bitart ([place] 325-5 Mg) 1 tab PO Q4H PRN PRN Reason: Pain (moderate 4-6) Albuterol/Ipratropium (Duoneb 3.0-0.5 Mg/3 Ml) 3 ml NEB Q4H PRN PRN Reason: Shortness Of Breath/wheezing Aspirin (Ecotrin) 325 mg PO DAILY [facility] Last Admin: 11/10/16 10:14 Dose: Not Given Bisacodyl (Dulcolax) 5 mg PO DAILY PRN PRN Reason: Constipation Bumetanide (Bumex) 0.5 mg IVPUSH BID@0900,1800 [facility] Stop: 11/11/16 18:01 Cilostazol (Pletal) 50 mg PO BID [facility] Last Admin: 11/10/16 22:30 Dose: 50 mg Docusate Sodium (Colace) 100 mg PO BID PRN PRN Reason: Constipation Fluconazole (Diflucan) 50 mg PO DAILY [facility] Last Admin: 11/10/16 09:20 Dose: 50 mg Hydralazine HCl (Apresoline) 20 mg IVPUSH Q4H PRN PRN Reason: Hypertension Hydromorphone HCl (Dilaudid) 0.25 mg IVPUSH Q2H PRN PRN Reason: Pain (severe 7-10) Promethazine HCl 12.5 mg/ (Sodium Chloride) 50.5 mls @ 100 mls/hr IV Q6H PRN PRN Reason: Nausea/Vomiting Sodium Chloride (Normal Saline) 1,000 mls @ 125 mls/hr IV ASDIRECTED [facility] Last Admin: 11/11/16 02:45 Dose: 125 mls/hr Levofloxacin/Dextrose 750 mg/ (Premix) 150 mls @ 100 mls/hr IV Q48H [facility] Last Admin: 11/10/16 09:14 Dose: 100 mls/hr Magnesium Sulfate 2 gm/ Premix 50 mls @ 25 mls/hr IV ONETIME ONE Stop: 11/11/16 12:59 Lisinopril (Prinivil) 2.5 mg PO BEDTIME [facility] Last Admin: 11/10/16 22:27 Dose: 2.5 mg Lorazepam (Ativan) 1 mg IV Q6H PRN PRN Reason: Anxiety Magnesium Sulfate (Pharmacy To Dose - Magnesium Replacement) 1 dose .XX ASDIRECTED [facility] Metoprolol Tartrate (Lopressor) 5 mg IVPUSH Q4H PRN PRN Reason: Tachycardia Metoprolol Tartrate (Lopressor) 50 mg PO Q12HR [facility] Last Admin: 11/10/16 22:28 Dose: 50 mg Mycophenolate Mofetil (Cellcept) 500 mg PO QID [facility] Last Admin: 11/10/16 22:24 Dose: 500 mg Ondansetron HCl (Zofran) 4 mg IV Q6H PRN PRN Reason: Nausea/Vomiting Pantoprazole Sodium (Protonix) 40 mg PO ACBREAKFAST [facility] Last Admin: 03/11/17 06:38 Dose: 40 mg Travoprost (Travatan (Z)) 0 each EYEBOTH BEDTIME [facility] Last Admin: 11/10/16 22:31 Dose: 1 each Atenolol/Chlorthalidone [ Tenoretic 50] 0 each PO DAILY [facility] Polyethylene Glycol (Miralax) 17 gm PO DAILY PRN PRN Reason: Constipation Potassium Chloride (Pharmacy To Dose - Potassium Replacement) 0 dose .XX ASDIRECTED PRN PRN Reason: RX DOSE Senna/Docusate Sodium (Senna Plus) 1 tab PO BID PRN PRN Reason: Constipation Sodium Chloride (Saline Flush) 10 ml FLUSH ASDIRECTED PRN PRN Reason: Keep Vein Open Last Admin: 11/09/16 12:50 Dose: 10 ml Tacrolimus (Prograf) 1 mg PO BID [facility] Last Admin: 11/10/16 22:31 Dose: 1 mg Temazepam (Restoril) 15 mg PO BEDTIME PRN PRN Reason: Sleep Discontinued Medications Atenolol (Tenormin) 50 mg PO DAILY [facility] Cilostazol (Pletal) 50 mg PO BID [facility] Last Admin: 11/10/16 09:21 Dose: 50 mg Clotrimazole (Mycelex) 10 mg PO 5XDAY [facility] Last Admin: 11/11/16 06:39 Dose: 10 mg Fluconazole (Diflucan) 200 mg PO ONETIME ONE Stop: 11/09/16 18:01 Last Admin: 11/09/16 18:53 Dose: 200 mg Sodium Chloride (Normal Saline) 1,000 mls @ 1,000 mls/hr IV .BOLUS [facility] Last Admin: 11/09/16 13:15 Dose: 1,000 mls/hr Sodium Chloride (Normal Saline) 1,000 mls @ 1,000 mls/hr IV ONETIME ONE Stop: 11/09/16 15:48 Last Admin: 11/09/16 15:06 Dose: 1,000 mls/hr Sodium Chloride (Normal Saline) 1,000 mls @ 999 mls/hr IV ONETIME ONE Stop: 11/09/16 20:00 Last Admin: 11/09/16 19:04 Dose: 999 mls/hr Magnesium Sulfate 2 gm/ Premix 50 mls @ 25 mls/hr IV ONETIME ONE Stop: 11/10/16 09:44 Last Admin: 11/10/16 10:54 Dose: 25 mls/hr Sodium Chloride (Normal Saline) 250 mls @ 999 mls/hr IV ASDIRECTED [facility] Lisinopril (Prinivil) 2.5 mg PO DAILY [facility] Last Admin: 11/09/16 19:38 Dose: 2.5 mg (Travoprost [ Travatan Z] 1 Drop)* Own Med* 1 drop EYEBOTH BEDTIME [facility] Last Admin: 11/09/16 21:53 Dose: 1 drop Ondansetron HCl (Zofran) 4 mg IVPUSH ONETIME ONE Stop: 11/09/16 12:56 Last Admin: 11/09/16 13:21 Dose: Not Given Pantoprazole Sodium (Protonix) 40 mg PO TID [facility] Last Admin: 11/09/16 20:04 Dose: Not Given Omeprazole *Own Med* 0 each PO ACBREAKFAST [facility] Last Admin: 11/10/16 05:23 Dose: 1 each Potassium Chloride (Klor-Con M20) 20 meq PO ONETIME ONE Stop: 11/09/16 22:12 Last Admin: 11/09/16 22:20 Dose: 20 meq Potassium Chloride (Klor-Con M20) 40 meq PO ONETIME ONE Stop: 11/10/16 07:46 Last Admin: 11/10/16 09:19 Dose: 40 meq Valacyclovir HCl (Valtrex) 500 mg PO TID [facility] Last Admin: 11/09/16 20:05 Dose: Not Given - Exam General: alert, oriented Lungs: Clear to auscultation, Normal respiratory effort Abdomen: bowel sounds present, soft, no tenderness, no distension Consult PN Assessment/Plan Procedures: Procedures ASSAY OF AMYLASE (09/12/16) ASSAY OF LIPASE (09/12/16) ASSAY OF PROTEIN URINE (09/12/16) ASSAY OF TACROLIMUS (05/09/16) ASSAY OF URINE CREATININE (09/12/16) COMPLETE CBC W/AUTO DIFF WBC (09/12/16) DETECT AGENT NOS DNA QUANT (09/12/16) GLYCOSYLATED HEMOGLOBIN TEST (09/12/16) HEPATITIS C AB TEST (01/04/16) LIPID PANEL (09/12/16) METABOLIC PANEL TOTAL CA (09/12/16) PT EVAL LOW COMPLEX 20 MIN (10/02/16) PT EVALUATION (08/11/16) RMVL DEVITAL TIS 20 CM/< (10/02/16) ROUTINE VENIPUNCTURE (07/05/16) Problem List Initiated/Reviewed/Updated: Yes My Orders last 24 hours: My Active Orders 11/11/16 Breakfast NPO [Nothing Per Oral Diet] [DIET] paln is to proceed with EGD on Sunday discussed the procedure with the pt he understand and consents. VIKTORIA
[2016-11-11] MEDS ORDERED: Magnesium Sulfate/Water 2 GM in Premix Bag 1 BAG IV ONE (11:00)
[2016-11-11] MEDS: Aspirin 325 MG Tab.EC PO SCH ×2 (11:28→11:32)
[2016-11-11] MEDS: Bumetanide 1 MG/4 ML MDV IVPUSH SCH ×2 (11:28→18:30)
[2016-11-11] MEDS: Mycophenolate Mofetil 250 MG Cap PO SCH ×4 (11:28→21:14)
[2016-11-11] MEDS: Tacrolimus 1 MG Cap PO SCH ×2 (11:28→21:14)
[2016-11-11] MEDS: Fluconazole 100 MG Tab PO SCH (11:29)
[2016-11-11] MEDS: Potassium Chloride 20 MEQ Tab.ER PO SCH ×2 (11:29→15:12)
[2016-11-11] MEDS: Metoprolol Tartrate 50 MG Tab PO SCH ×2 (11:29→21:13)
--- NOTE | 2016-11-12 00:25 | PCM.PN ---
- General Info Date of Service: 11/12/16 Admission Dx/Problem (Free Text): Reymundo is seen this morning, sleeping in bed. He arouses easily. He answers yes/ no questions but does not participate in other conversations. Very flat affect. States no pain this morning, nausea has resolved. No vomiting or diarrhea. He feels generally weak. Afebrile overnight Subjective Update: Follow Up Functional Status: Reports: pain controlled, tolerating diet, urinating. Denies : new symptoms - Review of Systems General: Denies: fever, weakness, fatigue, chills HEENT: Reports: no symptoms Pulmonary: Denies: shortness of breath Cardiovascular: Denies: chest pain Gastrointestinal: Denies: Abdominal pain, Nausea, Vomiting Genitourinary: Reports: no symptoms Musculoskeletal: Reports: no symptoms Skin: Reports: no symptoms Neurological: Denies: confusion Psychiatric: Denies: depression, anxiety, hallucinations Systems Review Comment:: No overnight or acute issues. He states "I'm fine". He is afebrile w/o leukocytosis. His K is no 3.8, Cr is 1.4, and CRP is 9.8. He has no new complaints. - Patient Data Vitals - most recent: Last Vital Signs Temp 37.1 C 11/11/16 20:39 Pulse 71 11/11/16 21:13 Resp 20 11/11/16 20:39 BP 115/60 11/11/16 21:13 Pulse Ox 97 11/11/16 20:39 Weight - most recent: 58.786 kg I&O - last 24 hours: Intake & Output 11/11/16 11/11/16 11/12/16 14:59 22:59 07:59 Intake Total 0 1010 Output Total 200 Balance 0 810 Lab Results last 24 hrs: Laboratory Results - last 24 hr 11/11/16 11/11/16 11/11/16 Range/Units 04:33 04:33 04:33 WBC 11.00 H (4.23-9.07) K/mm3 RBC 3.45 L (4.63-6.08) M/mm3 Hgb 10.3 L (13.7-17.5) gm/L Hct 30.9 L (40.1-51.0) % MCV 89.6 (79.0-92.2) fl MCH 29.9 (25.7-32.2) pg MCHC 33.3 (32.2-35.5) g/dl RDW Std Deviation 44.4 H (35.1-43.9) fL Plt Count 232 (163-337) K/mm3 MPV 10.8 (9.4-12.3) fl Neut % (Auto) 86.3 H (34.0-67.9) % Lymph % (Auto) 4.0 L (21.8-53.1) % [place] % (Auto) 8.2 (5.3-12.2) % Eos % (Auto) 0.7 L (0.8-7.0) Baso % (Auto) 0.1 (0.1-1.2) % Neut # 9.49 H (1.78-5.38) K/mm3 Lymph # 0.44 L (1.32-3.57) K/mm3 [place] # 0.90 H (0.30-0.82) K/mm3 Eos # 0.08 (0.04-0.54) K/mm3 Baso # 0.01 (0.01-0.08) K/mm3 Manual Slide Review Abnormal smear Sodium 138 (136-145) mEq/L Potassium 3.4 L (3.5-5.1) mEq/L Chloride 111 H (98-107) mEq/L Carbon Dioxide 15 L (21-32) mEq/L Anion Gap 15.4 H (5-15) BUN 34 H (7-18) mg/dL Creatinine 1.5 H (0.7-1.3) mg/dL Est Cr Clr Drug Dosing 44.09 mL/min Estimated GFR (MDRD) 48 (>60) mL/min BUN/Creatinine Ratio 22.7 H (14-18) Glucose 108 H (74-106) mg/dL Calcium 7.9 L (8.5-10.1) mg/dL Magnesium 1.7 L (1.8-2.4) mg/dl C-Reactive Protein 14.3 H* (<1.0) mg/dL Med Orders - Current: Current Medications Acetaminophen (Tylenol) 650 mg PO Q4H PRN PRN Reason: Pain (Mild 1-3)/fever Last Admin: 11/10/16 10:55 Dose: 650 mg Acetaminophen/Hydrocodone Bitart ([place] 325-5 Mg) 1 tab PO Q4H PRN PRN Reason: Pain (moderate 4-6) Albuterol/Ipratropium (Duoneb 3.0-0.5 Mg/3 Ml) 3 ml NEB Q4H PRN PRN Reason: Shortness Of Breath/wheezing Aspirin (Ecotrin) 325 mg PO DAILY [facility] Last Admin: 11/11/16 11:32 Dose: Not Given Bisacodyl (Dulcolax) 5 mg PO DAILY PRN PRN Reason: Constipation Cilostazol (Pletal) 50 mg PO BID [facility] Last Admin: 11/11/16 21:12 Dose: 50 mg Docusate Sodium (Colace) 100 mg PO BID PRN PRN Reason: Constipation Fluconazole (Diflucan) 50 mg PO DAILY [facility] Last Admin: 11/11/16 11:29 Dose: 50 mg Hydralazine HCl (Apresoline) 20 mg IVPUSH Q4H PRN PRN Reason: Hypertension Hydromorphone HCl (Dilaudid) 0.25 mg IVPUSH Q2H PRN PRN Reason: Pain (severe 7-10) Promethazine HCl 12.5 mg/ (Sodium Chloride) 50.5 mls @ 100 mls/hr IV Q6H PRN PRN Reason: Nausea/Vomiting Levofloxacin/Dextrose 750 mg/ (Premix) 150 mls @ 100 mls/hr IV Q48H [facility] Last Admin: 11/10/16 09:14 Dose: 100 mls/hr Sodium Chloride (Normal Saline) 1,000 mls @ 50 mls/hr IV ASDIRECTED [facility] Last Admin: 11/11/16 11:00 Dose: 50 mls/hr Lisinopril (Prinivil) 2.5 mg PO BEDTIME [facility] Last Admin: 11/10/16 22:27 Dose: 2.5 mg Lorazepam (Ativan) 1 mg IV Q6H PRN PRN Reason: Anxiety Magnesium Sulfate (Pharmacy To Dose - Magnesium Replacement) 1 dose .XX ASDIRECTED [facility] Metoprolol Tartrate (Lopressor) 5 mg IVPUSH Q4H PRN PRN Reason: Tachycardia Metoprolol Tartrate (Lopressor) 50 mg PO Q12HR [facility] Last Admin: 11/11/16 21:13 Dose: 50 mg Mycophenolate Mofetil (Cellcept) 500 mg PO QID [facility] Last Admin: 11/11/16 21:14 Dose: 500 mg Ondansetron HCl (Zofran) 4 mg IV Q6H PRN PRN Reason: Nausea/Vomiting Pantoprazole Sodium (Protonix) 40 mg PO ACBREAKFAST [facility] Last Admin: 11/11/16 06:38 Dose: 40 mg Travoprost (Travatan (Z)) 0 each EYEBOTH BEDTIME [facility] Last Admin: 11/11/16 21:14 Dose: 1 each Polyethylene Glycol (Miralax) 17 gm PO DAILY PRN PRN Reason: Constipation Potassium Chloride (Pharmacy To Dose - Potassium Replacement) 0 dose .XX ASDIRECTED PRN PRN Reason: RX DOSE Senna/Docusate Sodium (Senna Plus) 1 tab PO BID PRN PRN Reason: Constipation Sodium Chloride (Saline Flush) 10 ml FLUSH ASDIRECTED PRN PRN Reason: Keep Vein Open Last Admin: 11/09/16 12:50 Dose: 10 ml Tacrolimus (Prograf) 1 mg PO BID [facility] Last Admin: 11/11/16 21:14 Dose: 1 mg Temazepam (Restoril) 15 mg PO BEDTIME PRN PRN Reason: Sleep Discontinued Medications Atenolol (Tenormin) 50 mg PO DAILY [facility] Bumetanide (Bumex) 0.5 mg IVPUSH BID@0900,1800 [facility] Stop: 11/11/16 18:01 Last Admin: 11/11/16 18:30 Dose: 0.5 mg Cilostazol (Pletal) 50 mg PO BID [facility] Last Admin: 11/10/16 09:21 Dose: 50 mg Clotrimazole (Mycelex) 10 mg PO 5XDAY [facility] Last Admin: 11/11/16 06:39 Dose: 10 mg Fluconazole (Diflucan) 200 mg PO ONETIME ONE Stop: 11/09/16 18:01 Last Admin: 11/09/16 18:53 Dose: 200 mg Sodium Chloride (Normal Saline) 1,000 mls @ 1,000 mls/hr IV .BOLUS [facility] Last Admin: 11/09/16 13:15 Dose: 1,000 mls/hr Sodium Chloride (Normal Saline) 1,000 mls @ 1,000 mls/hr IV ONETIME ONE Stop: 11/09/16 15:48 Last Admin: 11/09/16 15:06 Dose: 1,000 mls/hr Sodium Chloride (Normal Saline) 1,000 mls @ 125 mls/hr IV ASDIRECTED [facility] Stop: 11/11/16 09:00 Last Admin: 11/11/16 02:45 Dose: 125 mls/hr Sodium Chloride (Normal Saline) 1,000 mls @ 999 mls/hr IV ONETIME ONE Stop: 11/09/16 20:00 Last Admin: 11/09/16 19:04 Dose: 999 mls/hr Magnesium Sulfate 2 gm/ Premix 50 mls @ 25 mls/hr IV ONETIME ONE Stop: 11/10/16 09:44 Last Admin: 11/10/16 10:54 Dose: 25 mls/hr Sodium Chloride (Normal Saline) 250 mls @ 999 mls/hr IV ASDIRECTED [facility] Magnesium Sulfate 2 gm/ Premix 50 mls @ 25 mls/hr IV ONETIME ONE Stop: 11/11/16 12:59 Last Admin: 11/11/16 11:30 Dose: 25 mls/hr Lisinopril (Prinivil) 2.5 mg PO DAILY [facility] Last Admin: 11/09/16 19:38 Dose: 2.5 mg (Travoprost [ Travatan Z] 1 Drop)* Own Med* 1 drop EYEBOTH BEDTIME [facility] Last Admin: 11/09/16 21:53 Dose: 1 drop Ondansetron HCl (Zofran) 4 mg IVPUSH ONETIME ONE Stop: 11/09/16 12:56 Last Admin: 11/09/16 13:21 Dose: Not Given Pantoprazole Sodium (Protonix) 40 mg PO TID [facility] Last Admin: 11/09/16 20:04 Dose: Not Given Omeprazole *Own Med* 0 each PO ACBREAKFAST [facility] Last Admin: 11/10/16 05:23 Dose: 1 each Atenolol/Chlorthalidone [ Tenoretic 50] 0 each PO DAILY [facility] Potassium Chloride (Klor-Con M20) 20 meq PO ONETIME ONE Stop: 11/09/16 22:12 Last Admin: 11/09/16 22:20 Dose: 20 meq Potassium Chloride (Klor-Con M20) 40 meq PO ONETIME ONE Stop: 11/10/16 07:46 Last Admin: 11/10/16 09:19 Dose: 40 meq Potassium Chloride (Klor-Con M20) 20 meq PO Q3H [facility] Stop: 11/11/16 14:01 Last Admin: 11/11/16 15:12 Dose: 20 meq Valacyclovir HCl (Valtrex) 500 mg PO TID [facility] Last Admin: 11/09/16 20:05 Dose: Not Given - Exam General: alert, oriented, cooperative, no acute distress, other (cachectic and looks exhausted) HEENT: Pupils equal, Pupils reactive, EOMI, Mucous membr. moist/pink Neck: supple, trachea midline, no JVD, no thyromegaly Lungs: Normal respiratory effort, Decreased breath sounds Cardiovascular: regular rate, regular rhythm, murmurs Abdomen: bowel sounds present, soft, no tenderness, no distension (Male) Exam: Deferred Back Exam: normal inspection, decreased range of motion Extremities: no edema, normal pulses, no tenderness/swelling, no clubbing, no cyanosis, no calf tenderness Peripheral Pulses: 2+: dorsalis pedis (L), dorsalis pedis (R) Skin: warm, dry, intact Neurological: no new focal deficit Psy/Mental Status: alert, normal affect, depressed - Problem List Review Problem List Initiated/Reviewed/Updated: Yes - My Orders Last 24 Hours: My Active Orders 11/11/16 11:00 Sodium Chloride 0.9% [Normal Saline] 1,000 ml IV ASDIRECTED 11/12/16 05:11 CRP [C-REACTIVE PROTEIN] [CHEM] AM 11/13/16 05:11 CRP [C-REACTIVE PROTEIN] [CHEM] AM 11/14/16 05:11 CRP [C-REACTIVE PROTEIN] [CHEM] AM 11/15/16 05:11 CRP [C-REACTIVE PROTEIN] [CHEM] AM - Plan Plan:: Assessment/Plan: Acute: Acute Kidney Injury- Non-Oliguric, Continues to Improve - 2/2 Volume loss form GI with poor oral intake - Risk Factors: Renal transplant, NSAID/ACEI use - Baseline Cr 1.2, here is 2.9 today and BUN is 86--- continues to improve, he is now at 1.5 - Strict Is/Os - Avoid Nephrotoxic Agents if all possible - pharmacy to renal dose all meds - Renal U/S to assess renal function and extra-renal abnormality--- No acute findings on US AUTI, Improving - Culture with Klebsiella Oxytoca - Sensitive to IV Levaquin (3rd day)- continue current ATB Renal Transplant Patient, Stable - 11 year ago on Tacrolimus and Micophenolate Mofetil - Will monitor, do not think he warrants BK/CARMENZA virus work up at this time - Continue anti-rejection drugs Oral Candidiasis - Tongue and mouth oropharyngeal: full of fungus - May need EGD to r/o esophageal candidiasis since he is in immuno- suppressed state - He is high risk due to immuno-suppressant state - Continue antifungal agent - Consider EGD to r/o fungal esophagitis (which could be affecting his oral intake i.e. weight loss) Weight Loss over 14 Lbs -- up 3 this am - Cont close I&O and daily wt's - Defer work up outpatient - Dietary following Heart murmur - Patient states is chronic; unsure of how long or last echo - Will request records/echo from [facility]; none done here on file; PCP is Dr. Metz--contacted medical records- nothing found back to 2013, they are checking with [facility] and will let me know. - Repeat 2D echo completed, awaiting final report Resolved: Orthostatic Hypotension - SBP 96 mmHg in presentation to ED - After receiving 1L NS, his SBP improved to the 90s - Continue IV Hydration S/p Severe Dehydration - 2/2 GI Loss: 10 day hx/o Nausea or Vomiting - Aggressive IV Hydration - He looks clinically dry--still looks dry this morning; wt is up 3 lbs - Follow labs daily Plan: He remains clinically stable Continue current treatment Dr. Latif following, may consider EGD Sunday Hold: ACEI, Trental, Tramadol, and Diclofenac Routine AM Labs Continue PT/OT SW/CM for d/c planning Code status: 1 Additional orders as above LOS anticipate > 96 hrs due complexity of presenting illness.
[2016-11-12] MEDS: Levofloxacin/Dextrose 5%-Water 750 MG in Premix Bag 1 BAG IV SCH (06:54)
[2016-11-12] MEDS: Pantoprazole 40 MG Tab.CR PO SCH (06:54)
[2016-11-12] MEDS: Aspirin 325 MG Tab.EC PO SCH (09:03)
[2016-11-12] MEDS: Metoprolol Tartrate 50 MG Tab PO SCH ×3 (09:03→20:02)
[2016-11-12] MEDS: Mycophenolate Mofetil 250 MG Cap PO SCH ×4 (09:03→19:59)
[2016-11-12] MEDS: Fluconazole 100 MG Tab PO SCH (09:03)
[2016-11-12] MEDS: Tacrolimus 1 MG Cap PO SCH ×2 (09:04→19:59)
[2016-11-12] MEDS ORDERED: Magnesium Sulfate/Water 2 GM in Premix Bag 1 BAG IV ONE (12:00)
[2016-11-13] MEDS: Pantoprazole 40 MG Tab.CR PO SCH (05:43)
[2016-11-13] MEDS: Sodium Chloride 0.9% 1,000 ML IV SCH ×2 (06:00→23:35)
[2016-11-13] MEDS: Metoprolol Tartrate 50 MG Tab PO SCH ×2 (08:20→23:49)
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
[2016-11-13] MEDS ORDERED: Magnesium Sulfate/Water 2 GM in Premix Bag 1 BAG IV ONE (09:30)
--- NOTE | 2016-11-13 10:32 | PCM.PREANE ---
Preanesthetic Assessment - ANESTHESIA/TRANSFUSION/FAMILY HX Anesthesia/Transfusion History: Prior Anesthesia (no prob), Prior Transfusion Family History of Anesthesia Reaction: No - REVIEW OF SYSTEMS Constitutional: Reports: fever (100.2 few days ago), feeling ill, unintentional weight loss (14 pounds) [employer]: Reports: no symptoms Respiratory: Reports: no symptoms Cardiovascular: Reports: blood pressure problem GI: Reports: diarrhea Other: Reports: easy bruising - PHYSICAL ASSESSMENT HR: 69 O2 Sat by Pulse Oximetry: 96 RR: 17 BP: 123/65 Temp: 97.0 F Vital Signs: Last Vital Signs Temp 97.0 F 11/13/16 07:59 Pulse 69 11/13/16 08:20 Resp 17 11/13/16 07:59 BP 123/65 11/13/16 08:20 Pulse Ox 96 11/13/16 07:59 Height: 5 ft 10 in Weight: 61.326 kg NPO Status Date: 11/13/16 NPO Status Time: 00:00 ASA Class: 3 Mental Status: alert & oriented x3 Airway Class: Mallampati = 1 Dentition: Reports: dentures (top and bottom) Thyro-Mental Finger Breadths: 3 Mouth Opening Finger Breadths: 3 ROM/Head Extension: full Respiratory Status: lungs clear to auscultation bilaterally Cardiovascular Status: regular rate & rhythm, normal S1, S2, no murmur, blood pressure WNL - LAB Values: Laboratory Last Values WBC 6.05 K/mm3 (4.23-9.07) 11/13/16 06:42 RBC 3.68 M/mm3 (4.63-6.08) L 11/13/16 06:42 Hgb 10.9 gm/L (13.7-17.5) L 11/13/16 06:42 Hct 33.4 % (40.1-51.0) L 11/13/16 06:42 MCV 90.8 fl (79.0-92.2) 11/13/16 06:42 MCH 29.6 pg (25.7-32.2) 11/13/16 06:42 MCHC 32.6 g/dl (32.2-35.5) 11/13/16 06:42 RDW Std Deviation 47.7 fL (35.1-43.9) H 11/13/16 06:42 Plt Count 264 K/mm3 (163-337) 11/13/16 06:42 MPV 10.2 fl (9.4-12.3) 11/13/16 06:42 Neut % (Auto) 76.8 % (34.0-67.9) H 11/13/16 06:42 Lymph % (Auto) 12.2 % (21.8-53.1) L 11/13/16 06:42 [place] % (Auto) 7.3 % (5.3-12.2) 11/13/16 06:42 Eos % (Auto) 2.3 (0.8-7.0) 11/13/16 06:42 Baso % (Auto) 0.2 % (0.1-1.2) 11/13/16 06:42 Neut # 4.65 K/mm3 (1.78-5.38) 11/13/16 06:42 Lymph # 0.74 K/mm3 (1.32-3.57) L 11/13/16 06:42 [place] # 0.44 K/mm3 (0.30-0.82) 11/13/16 06:42 Eos # 0.14 K/mm3 (0.04-0.54) 11/13/16 06:42 Baso # 0.01 K/mm3 (0.01-0.08) 11/13/16 06:42 Manual Slide Review Abnormal smear 11/12/16 04:54 Sodium 144 mEq/L (136-145) 11/13/16 06:42 Potassium 4.4 mEq/L (3.5-5.1) 11/13/16 06:42 Chloride 116 mEq/L (98-107) H 11/13/16 06:42 Carbon Dioxide 20 mEq/L (21-32) L 11/13/16 06:42 Anion Gap 12.4 (5-15) 11/13/16 06:42 BUN 21 mg/dL (7-18) H 11/13/16 06:42 Creatinine 1.3 mg/dL (0.7-1.3) 11/13/16 06:42 Est Cr Clr Drug Dosing 53.07 mL/min 11/13/16 06:42 Estimated GFR (MDRD) 57 mL/min (>60) 11/13/16 06:42 BUN/Creatinine Ratio 16.2 (14-18) 11/13/16 06:42 Glucose 97 mg/dL (74-106) 11/13/16 06:42 Calcium 8.1 mg/dL (8.5-10.1) L 11/13/16 06:42 Magnesium 1.7 mg/dl (1.8-2.4) L 11/13/16 06:42 C-Reactive Protein 5.0 mg/dL (<1.0) H* 11/13/16 06:42 Urine Color Yellow (Yellow) 11/09/16 18:36 Urine Appearance Clear (Clear) 11/09/16 18:36 Urine pH 6.0 (5.0-8.0) 11/09/16 18:36 Ur Specific [place] 1.015 (1.005-1.030) 11/09/16 18:36 Urine Protein Trace (Negative) H 11/09/16 18:36 Urine Glucose (UA) Negative (Negative) 11/09/16 18:36 Urine Ketones 1+ (Negative) H 11/09/16 18:36 Urine Occult Blood 1+ (Negative) H 11/09/16 18:36 Urine Nitrite Negative (Negative) 11/09/16 18:36 Urine Bilirubin Negative (Negative) 11/09/16 18:36 Urine Urobilinogen 0.2 (0.2-1.0) 11/09/16 18:36 Ur Leukocyte Esterase 2+ (Negative) H 11/09/16 18:36 Urine RBC 0-5 /hpf (0-5) 11/09/16 18:36 Urine WBC 40-50 /hpf (0-5) H 11/09/16 18:36 Urine WBC Clumps Few /hpf (NOT SEEN) 11/09/16 18:36 Ur Epithelial Cells 0-5 /hpf (0-5) 11/09/16 18:36 Urine Bacteria Moderate /hpf (FEW) H 11/09/16 18:36 Urine Mucus Not seen /hpf (FEW) 11/09/16 18:36 - ALLERGIES Allergies/Adverse Reactions: Allergies Allergy/AdvReac Type Severity Reaction Status Date / Time No Known Allergies Allergy Verified 11/09/16 12:51 - BLOOD Blood Available: No - ANESTHESIA PLAN Medication Ordered: Betablocker Beta Ning: Atenolol Beta-Ning Last Dose Date: 11/13/16 Beta-Ning Last Dose Time: 08:20 Anesthesia Type Planned: MAC - ACKNOWLEDGEMENTS Pt an appropriate candidate for the planned anesthesia: Yes Alternatives and risks of anesthesia discussed w pt/guardian: Yes Pt/Guardian understands and agree with anesthesia plan: Yes PreAnesthesia Questionnaire HEENT History: Reports: Impaired vision Other HEENT History: left eye blindness Cardiovascular History: Reports: Other (see below) Other Cardiovascular History: unsure if he has had stents Respiratory History: Reports: None Gastrointestinal History: Reports: GERD Genitourinary History: Reports: Acute renal failure, Other (see below) Other Genitourinary History: kidney transplant Musculoskeletal History: Reports: Amputation Other Musculoskeletal History: toes bilaterally Endocrine/Metabolic History: Reports: Diabetes, type I (previously) 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 Other Immunologic History: Kidney transplant Dermatologic History: Reports: None Other Dermatologic History: skin graft - Infectious Disease History Infectious Disease History: Reports: Chicken pox, Influenza, Shingles - Past Surgical History HEENT Surgical History: Reports: Eye surgery Other HEENT Surgeries/Procedures: PTK to left eye, laser to B numerous times Female Surgical History: Reports: Other (see below) (kidney transplant and pancreatic transplant) Other Musculoskeletal Surgeries/Procedures:: toe removal starting in 2005; no toes remain on right and 3 remain on left - SUBSTANCE USE Smoking Status *Q: Former Smoker (quit 2 years ago) Tobacco Use Within Last Twelve Months: Smokeless Tobacco (none since november 01) Second Hand Smoke Exposure: No Days Per Week of Alcohol Use: 1 (1-5 times per year) Date of Last Drink: 11/06/16 Time of Last Drink: 19:00 Recreational Drug Use History: No Recreational Drug Type: Reports: LSD (Acid) (greater than 10 years), Marijuana/ Hashish - HOME MEDS Home Medications: Home Meds Aspirin 325 mg PO DAILY 12/10/13 [History] Cilostazol [Pletal] 100 mg PO BID 12/10/13 [History] Lisinopril [Prinivil] 2.5 mg PO BEDTIME 12/10/13 [History] Mycophenolate Mofetil [Cellcept] 500 mg PO QID 12/10/13 [History] Omeprazole [Prilosec] 20 mg PO ACBREAKFAST 12/10/13 [History] Tacrolimus [Prograf] 1 mg PO BID 12/10/13 [History] Travoprost [Travatan Z] 1 drop OP BEDTIME 11/09/16 [History] Atenolol/Chlorthalidone [Tenoretic 50] 1 tab PO DAILY 11/10/16 [History] - CURRENT (IN HOUSE) MEDS Current Meds: Current Medications Acetaminophen (Tylenol) 650 mg PO Q4H PRN PRN Reason: Pain (Mild 1-3)/fever Last Admin: 11/10/16 10:55 Dose: 650 mg Acetaminophen/Hydrocodone Bitart (Nursery 325-5 Mg) 1 tab PO Q4H PRN PRN Reason: Pain (moderate 4-6) Albuterol/Ipratropium (Duoneb 3.0-0.5 Mg/3 Ml) 3 ml NEB Q4H PRN PRN Reason: Shortness Of Breath/wheezing Aspirin (Ecotrin) 325 mg PO DAILY [facility] Last Admin: 11/12/16 09:03 Dose: Not Given Bisacodyl (Dulcolax) 5 mg PO DAILY PRN PRN Reason: Constipation Cilostazol (Pletal) 50 mg PO BID [facility] Last Admin: 11/12/16 20:02 Dose: Not Given Docusate Sodium (Colace) 100 mg PO BID PRN PRN Reason: Constipation Fluconazole (Diflucan) 50 mg PO DAILY [facility] Last Admin: 11/12/16 09:03 Dose: 50 mg Hydralazine HCl (Apresoline) 20 mg IVPUSH Q4H PRN PRN Reason: Hypertension Hydromorphone HCl (Dilaudid) 0.25 mg IVPUSH Q2H PRN PRN Reason: Pain (severe 7-10) Promethazine HCl 12.5 mg/ (Sodium Chloride) 50.5 mls @ 100 mls/hr IV Q6H PRN PRN Reason: Nausea/Vomiting Levofloxacin/Dextrose 750 mg/ (Premix) 150 mls @ 100 mls/hr IV Q48H [facility] Last Admin: 11/12/16 06:54 Dose: 100 mls/hr Sodium Chloride (Normal Saline) 1,000 mls @ 50 mls/hr IV ASDIRECTED [facility] Last Admin: 11/13/16 06:00 Dose: 50 mls/hr Magnesium Sulfate 2 gm/ Premix 50 mls @ 25 mls/hr IV ONETIME ONE Stop: 11/13/16 11:29 Last Admin: 11/13/16 08:36 Dose: 25 mls/hr Lisinopril (Prinivil) 2.5 mg PO BEDTIME [facility] Last Admin: 11/10/16 22:27 Dose: 2.5 mg Lorazepam (Ativan) 1 mg IV Q6H PRN PRN Reason: Anxiety Magnesium Oxide (Magnesium Oxide) 400 mg PO BID [facility] Magnesium Sulfate (Pharmacy To Dose - Magnesium Replacement) 1 dose .XX ASDIRECTED [facility] Metoprolol Tartrate (Lopressor) 5 mg IVPUSH Q4H PRN PRN Reason: Tachycardia Metoprolol Tartrate (Lopressor) 50 mg PO Q12HR [facility] Last Admin: 11/13/16 08:20 Dose: 50 mg Mycophenolate Mofetil (Cellcept) 500 mg PO QID [facility] Last Admin: 11/12/16 19:59 Dose: 500 mg Ondansetron HCl (Zofran) 4 mg IV Q6H PRN PRN Reason: Nausea/Vomiting Pantoprazole Sodium (Protonix) 40 mg PO ACBREAKFAST [facility] Last Admin: 11/13/16 05:43 Dose: Not Given Travoprost (Travatan (Z)) 0 each EYEBOTH BEDTIME [facility] Last Admin: 11/12/16 20:02 Dose: 1 each Polyethylene Glycol (Miralax) 17 gm PO DAILY PRN PRN Reason: Constipation Potassium Chloride (Pharmacy To Dose - Potassium Replacement) 0 dose .XX ASDIRECTED PRN PRN Reason: RX DOSE Senna/Docusate Sodium (Senna Plus) 1 tab PO BID PRN PRN Reason: Constipation Sodium Chloride (Saline Flush) 10 ml FLUSH ASDIRECTED PRN PRN Reason: Keep Vein Open Last Admin: 11/09/16 12:50 Dose: 10 ml Tacrolimus (Prograf) 1 mg PO BID [facility] Last Admin: 11/12/16 19:59 Dose: 1 mg Temazepam (Restoril) 15 mg PO BEDTIME PRN PRN Reason: Sleep Discontinued Medications Atenolol (Tenormin) 50 mg PO DAILY [facility] Bumetanide (Bumex) 0.5 mg IVPUSH BID@0900,1800 [facility] Stop: 11/11/16 18:01 Last Admin: 11/11/16 18:30 Dose: 0.5 mg Cilostazol (Pletal) 50 mg PO BID [facility] Last Admin: 11/10/16 09:21 Dose: 50 mg Clotrimazole (Mycelex) 10 mg PO 5XDAY [facility] Last Admin: 11/11/16 06:39 Dose: 10 mg Fluconazole (Diflucan) 200 mg PO ONETIME ONE Stop: 11/09/16 18:01 Last Admin: 11/09/16 18:53 Dose: 200 mg Sodium Chloride (Normal Saline) 1,000 mls @ 1,000 mls/hr IV .BOLUS [facility] Last Admin: 11/09/16 13:15 Dose: 1,000 mls/hr Sodium Chloride (Normal Saline) 1,000 mls @ 1,000 mls/hr IV ONETIME ONE Stop: 11/09/16 15:48 Last Admin: 11/09/16 15:06 Dose: 1,000 mls/hr Sodium Chloride (Normal Saline) 1,000 mls @ 125 mls/hr IV ASDIRECTED [facility] Stop: 11/11/16 09:00 Last Admin: 11/11/16 02:45 Dose: 125 mls/hr Sodium Chloride (Normal Saline) 1,000 mls @ 999 mls/hr IV ONETIME ONE Stop: 11/09/16 20:00 Last Admin: 11/09/16 19:04 Dose: 999 mls/hr Magnesium Sulfate 2 gm/ Premix 50 mls @ 25 mls/hr IV ONETIME ONE Stop: 11/10/16 09:44 Last Admin: 11/10/16 10:54 Dose: 25 mls/hr Sodium Chloride (Normal Saline) 250 mls @ 999 mls/hr IV ASDIRECTED [facility] Magnesium Sulfate 2 gm/ Premix 50 mls @ 25 mls/hr IV ONETIME ONE Stop: 11/11/16 12:59 Last Admin: 11/11/16 11:30 Dose: 25 mls/hr Magnesium Sulfate 2 gm/ Premix 50 mls @ 25 mls/hr IV ONETIME ONE Stop: 11/12/16 13:59 Last Admin: 11/12/16 13:10 Dose: 25 mls/hr Lisinopril (Prinivil) 2.5 mg PO DAILY [facility] Last Admin: 11/09/16 19:38 Dose: 2.5 mg (Travoprost [ Travatan Z] 1 Drop)* Own Med* 1 drop EYEBOTH BEDTIME [facility] Last Admin: 11/09/16 21:53 Dose: 1 drop Ondansetron HCl (Zofran) 4 mg IVPUSH ONETIME ONE Stop: 11/09/16 12:56 Last Admin: 11/09/16 13:21 Dose: Not Given Pantoprazole Sodium (Protonix) 40 mg PO TID [facility] Last Admin: 11/09/16 20:04 Dose: Not Given Omeprazole *Own Med* 0 each PO ACBREAKFAST [facility] Last Admin: 11/10/16 05:23 Dose: 1 each Atenolol/Chlorthalidone [ Tenoretic 50] 0 each PO DAILY [facility] Potassium Chloride (Klor-Con M20) 20 meq PO ONETIME ONE Stop: 11/09/16 22:12 Last Admin: 11/09/16 22:20 Dose: 20 meq Potassium Chloride (Klor-Con M20) 40 meq PO ONETIME ONE Stop: 11/10/16 07:46 Last Admin: 11/10/16 09:19 Dose: 40 meq Potassium Chloride (Klor-Con M20) 20 meq PO Q3H [facility] Stop: 11/11/16 14:01 Last Admin: 11/11/16 15:12 Dose: 20 meq Valacyclovir HCl (Valtrex) 500 mg PO TID [facility] Last Admin: 11/09/16 20:05 Dose: Not Given
--- NOTE | 2016-11-13 10:36 | PCM.PN ---
<Charline Pradhan M - Last Filed: 11/13/16 10:31> - General Info Date of Service: 11/13/16 Admission Dx/Problem (Free Text): Reymundo is seen this morning, doing well. Slept well, no c/o pain/discomfort. Weight is up. Appetite is up. Energy is slowly returning. He is scheduled for EGD with Dr. Latif this morning. Labs are improved. VSS. Functional Status: Reports: pain controlled (denies c/o pain; no nausea/vomiting ), tolerating diet (is NPO this am for EGD), ambulating, urinating. Denies: new symptoms - Review of Systems General: Reports: no symptoms HEENT: Reports: no symptoms Pulmonary: Reports: no symptoms Cardiovascular: Reports: no symptoms Gastrointestinal: Reports: No symptoms Genitourinary: Reports: no symptoms Musculoskeletal: Reports: no symptoms Skin: Reports: no symptoms Neurological: Reports: no symptoms Psychiatric: Reports: no symptoms - Patient Data Vitals - most recent: Last Vital Signs Temp 97.0 F 11/13/16 07:59 Pulse 69 11/13/16 08:20 Resp 17 11/13/16 07:59 BP 123/65 11/13/16 08:20 Pulse Ox 96 11/13/16 07:59 Weight - most recent: 61.326 kg I&O - last 24 hours: Intake & Output 11/12/16 11/13/16 11/13/16 22:59 06:59 14:59 Intake Total 2245 1600 Output Total 450 1300 Balance 1795 300 Lab Results last 24 hrs: Laboratory Results - last 24 hr 11/13/16 11/13/16 Range/Units 06:42 06:42 WBC 6.05 (4.23-9.07) K/mm3 RBC 3.68 L (4.63-6.08) M/mm3 Hgb 10.9 L (13.7-17.5) gm/L Hct 33.4 L (40.1-51.0) % MCV 90.8 (79.0-92.2) fl MCH 29.6 (25.7-32.2) pg MCHC 32.6 (32.2-35.5) g/dl RDW Std Deviation 47.7 H (35.1-43.9) fL Plt Count 264 (163-337) K/mm3 MPV 10.2 (9.4-12.3) fl Neut % (Auto) 76.8 H (34.0-67.9) % Lymph % (Auto) 12.2 L (21.8-53.1) % Lee % (Auto) 7.3 (5.3-12.2) % Eos % (Auto) 2.3 (0.8-7.0) Baso % (Auto) 0.2 (0.1-1.2) % Neut # 4.65 (1.78-5.38) K/mm3 Lymph # 0.74 L (1.32-3.57) K/mm3 Lee # 0.44 (0.30-0.82) K/mm3 Eos # 0.14 (0.04-0.54) K/mm3 Baso # 0.01 (0.01-0.08) K/mm3 Sodium 144 (136-145) mEq/L Potassium 4.4 (3.5-5.1) mEq/L Chloride 116 H (98-107) mEq/L Carbon Dioxide 20 L (21-32) mEq/L Anion Gap 12.4 (5-15) BUN 21 H (7-18) mg/dL Creatinine 1.3 (0.7-1.3) mg/dL Est Cr Clr Drug Dosing 53.07 mL/min Estimated GFR (MDRD) 57 (>60) mL/min BUN/Creatinine Ratio 16.2 (14-18) Glucose 97 (74-106) mg/dL Calcium 8.1 L (8.5-10.1) mg/dL Magnesium 1.7 L (1.8-2.4) mg/dl C-Reactive Protein 5.0 H* (<1.0) mg/dL Med Orders - Current: Current Medications Acetaminophen (Tylenol) 650 mg PO Q4H PRN PRN Reason: Pain (Mild 1-3)/fever Last Admin: 11/10/16 10:55 Dose: 650 mg Acetaminophen/Hydrocodone Bitart (Atkins 325-5 Mg) 1 tab PO Q4H PRN PRN Reason: Pain (moderate 4-6) Albuterol/Ipratropium (Duoneb 3.0-0.5 Mg/3 Ml) 3 ml NEB Q4H PRN PRN Reason: Shortness Of Breath/wheezing Aspirin (Ecotrin) 325 mg PO DAILY PENDING SALE TO [facility] Last Admin: 11/12/16 09:03 Dose: Not Given Bisacodyl (Dulcolax) 5 mg PO DAILY PRN PRN Reason: Constipation Cilostazol (Pletal) 50 mg PO BID PENDING SALE TO [facility] Last Admin: 11/12/16 20:02 Dose: Not Given Docusate Sodium (Colace) 100 mg PO BID PRN PRN Reason: Constipation Fluconazole (Diflucan) 50 mg PO DAILY PENDING SALE TO [facility] Last Admin: 11/12/16 09:03 Dose: 50 mg Hydralazine HCl (Apresoline) 20 mg IVPUSH Q4H PRN PRN Reason: Hypertension Hydromorphone HCl (Dilaudid) 0.25 mg IVPUSH Q2H PRN PRN Reason: Pain (severe 7-10) Promethazine HCl 12.5 mg/ (Sodium Chloride) 50.5 mls @ 100 mls/hr IV Q6H PRN PRN Reason: Nausea/Vomiting Levofloxacin/Dextrose 750 mg/ (Premix) 150 mls @ 100 mls/hr IV Q48H PENDING SALE TO [facility] Last Admin: 11/12/16 06:54 Dose: 100 mls/hr Sodium Chloride (Normal Saline) 1,000 mls @ 50 mls/hr IV ASDIRECTED PENDING SALE TO [facility] Last Admin: 11/13/16 06:00 Dose: 50 mls/hr Magnesium Sulfate 2 gm/ Premix 50 mls @ 25 mls/hr IV ONETIME ONE Stop: 11/13/16 11:29 Last Admin: 11/13/16 08:36 Dose: 25 mls/hr Lisinopril (Prinivil) 2.5 mg PO BEDTIME PENDING SALE TO [facility] Last Admin: 11/10/16 22:27 Dose: 2.5 mg Lorazepam (Ativan) 1 mg IV Q6H PRN PRN Reason: Anxiety Magnesium Oxide (Magnesium Oxide) 400 mg PO BID PENDING SALE TO [facility] Magnesium Sulfate (Pharmacy To Dose - Magnesium Replacement) 1 dose .XX ASDIRECTED PENDING SALE TO [facility] Metoprolol Tartrate (Lopressor) 5 mg IVPUSH Q4H PRN PRN Reason: Tachycardia Metoprolol Tartrate (Lopressor) 50 mg PO Q12HR PENDING SALE TO [facility] Last Admin: 11/13/16 08:20 Dose: 50 mg Mycophenolate Mofetil (Cellcept) 500 mg PO QID PENDING SALE TO [facility] Last Admin: 11/12/16 19:59 Dose: 500 mg Ondansetron HCl (Zofran) 4 mg IV Q6H PRN PRN Reason: Nausea/Vomiting Pantoprazole Sodium (Protonix) 40 mg PO ACBREAKFAST PENDING SALE TO [facility] Last Admin: 11/13/16 05:43 Dose: Not Given Travoprost (Travatan (Z)) 0 each EYEBOTH BEDTIME PENDING SALE TO [facility] Last Admin: 11/12/16 20:02 Dose: 1 each Polyethylene Glycol (Miralax) 17 gm PO DAILY PRN PRN Reason: Constipation Potassium Chloride (Pharmacy To Dose - Potassium Replacement) 0 dose .XX ASDIRECTED PRN PRN Reason: RX DOSE Senna/Docusate Sodium (Senna Plus) 1 tab PO BID PRN PRN Reason: Constipation Sodium Chloride (Saline Flush) 10 ml FLUSH ASDIRECTED PRN PRN Reason: Keep Vein Open Last Admin: 11/09/16 12:50 Dose: 10 ml Tacrolimus (Prograf) 1 mg PO BID PENDING SALE TO [facility] Last Admin: 11/12/16 19:59 Dose: 1 mg Temazepam (Restoril) 15 mg PO BEDTIME PRN PRN Reason: Sleep Discontinued Medications Atenolol (Tenormin) 50 mg PO DAILY PENDING SALE TO [facility] Bumetanide (Bumex) 0.5 mg IVPUSH BID@0900,1800 PENDING SALE TO [facility] Stop: 11/11/16 18:01 Last Admin: 11/11/16 18:30 Dose: 0.5 mg Cilostazol (Pletal) 50 mg PO BID PENDING SALE TO [facility] Last Admin: 11/10/16 09:21 Dose: 50 mg Clotrimazole (Mycelex) 10 mg PO 5XDAY PENDING SALE TO [facility] Last Admin: 11/11/16 06:39 Dose: 10 mg Fluconazole (Diflucan) 200 mg PO ONETIME ONE Stop: 11/09/16 18:01 Last Admin: 11/09/16 18:53 Dose: 200 mg Sodium Chloride (Normal Saline) 1,000 mls @ 1,000 mls/hr IV .BOLUS PENDING SALE TO [facility] Last Admin: 11/09/16 13:15 Dose: 1,000 mls/hr Sodium Chloride (Normal Saline) 1,000 mls @ 1,000 mls/hr IV ONETIME ONE Stop: 11/09/16 15:48 Last Admin: 11/09/16 15:06 Dose: 1,000 mls/hr Sodium Chloride (Normal Saline) 1,000 mls @ 125 mls/hr IV ASDIRECTED RUTH ANN Stop: 11/11/16 09:00 Last Admin: 11/11/16 02:45 Dose: 125 mls/hr Sodium Chloride (Normal Saline) 1,000 mls @ 999 mls/hr IV ONETIME ONE Stop: 11/09/16 20:00 Last Admin: 11/09/16 19:04 Dose: 999 mls/hr Magnesium Sulfate 2 gm/ Premix 50 mls @ 25 mls/hr IV ONETIME ONE Stop: 11/10/16 09:44 Last Admin: 11/10/16 10:54 Dose: 25 mls/hr Sodium Chloride (Normal Saline) 250 mls @ 999 mls/hr IV ASDIRECTED RUTH ANN Magnesium Sulfate 2 gm/ Premix 50 mls @ 25 mls/hr IV ONETIME ONE Stop: 11/11/16 12:59 Last Admin: 11/11/16 11:30 Dose: 25 mls/hr Magnesium Sulfate 2 gm/ Premix 50 mls @ 25 mls/hr IV ONETIME ONE Stop: 11/12/16 13:59 Last Admin: 11/12/16 13:10 Dose: 25 mls/hr Lisinopril (Prinivil) 2.5 mg PO DAILY PENDING SALE TO [facility] Last Admin: 11/09/16 19:38 Dose: 2.5 mg (Travoprost [ Travatan Z] 1 Drop)* Own Med* 1 drop EYEBOTH BEDTIME PENDING SALE TO [facility] Last Admin: 11/09/16 21:53 Dose: 1 drop Ondansetron HCl (Zofran) 4 mg IVPUSH ONETIME ONE Stop: 11/09/16 12:56 Last Admin: 11/09/16 13:21 Dose: Not Given Pantoprazole Sodium (Protonix) 40 mg PO TID RUTH ANN Last Admin: 11/09/16 20:04 Dose: Not Given Omeprazole *Own Med* 0 each PO ACBREAKFAST PENDING SALE TO [facility] Last Admin: 11/10/16 05:23 Dose: 1 each Atenolol/Chlorthalidone [ Tenoretic 50] 0 each PO DAILY PENDING SALE TO [facility] Potassium Chloride (Klor-Con M20) 20 meq PO ONETIME ONE Stop: 11/09/16 22:12 Last Admin: 11/09/16 22:20 Dose: 20 meq Potassium Chloride (Klor-Con M20) 40 meq PO ONETIME ONE Stop: 11/10/16 07:46 Last Admin: 11/10/16 09:19 Dose: 40 meq Potassium Chloride (Klor-Con M20) 20 meq PO Q3H PENDING SALE TO [facility] Stop: 11/11/16 14:01 Last Admin: 11/11/16 15:12 Dose: 20 meq Valacyclovir HCl (Valtrex) 500 mg PO TID PENDING SALE TO [facility] Last Admin: 11/09/16 20:05 Dose: Not Given - Exam Quality Assessment: DVT prophylaxis General: alert, oriented, cooperative, no acute distress HEENT: Pupils equal, Pupils reactive, EOMI, Mucous membr. moist/pink Neck: supple Lungs: Clear to auscultation, Normal respiratory effort, Decreased breath sounds (to bases) Cardiovascular: regular rate, regular rhythm, murmurs Abdomen: bowel sounds present, soft, no tenderness (Male) Exam: Deferred Extremities: no edema, no calf tenderness Peripheral Pulses: 1+: dorsalis pedis (L), dorsalis pedis (R) Neurological: no new focal deficit Psy/Mental Status: alert, normal affect, normal mood - Problem List & Annotations (1) QUINTON (acute kidney injury) SNOMED Code(s): 30235250 Code(s): N17.9 - ACUTE KIDNEY FAILURE, UNSPECIFIED Status: Resolved Priority: High Current Visit: Yes (2) Dehydration SNOMED Code(s): 24345693 Code(s): E86.0 - DEHYDRATION Status: Resolved Priority: High Current Visit: Yes (3) Renal insufficiency SNOMED Code(s): 478093547 Code(s): N28.9 - DISORDER OF KIDNEY AND URETER, UNSPECIFIED Status: Chronic Priority: Medium Current Visit: Yes (4) History of renal transplantation Status: Chronic Priority: Medium Current Visit: Yes (5) Oral candidiasis SNOMED Code(s): 73098744 Code(s): B37.0 - CANDIDAL STOMATITIS Status: Resolved Priority: High Current Visit: Yes (6) Immunosuppressed status SNOMED Code(s): 73313989 Code(s): D89.9 - DISORDER INVOLVING THE IMMUNE MECHANISM, UNSPECIFIED Status: Chronic Current Visit: Yes (7) Hypomagnesemia SNOMED Code(s): 376172130 Code(s): E83.42 - HYPOMAGNESEMIA Status: Acute Current Visit: Yes - Problem List Review Problem List Initiated/Reviewed/Updated: Yes - Plan Plan:: Assessment/Plan: Acute: Acute Kidney Injury- Non-Oliguric, Continues to Improve---Resolved - 2/2 Volume loss form GI with poor oral intake - Risk Factors: Renal transplant, NSAID/ACEI use - Baseline Cr 1.2, here is 2.9 today and BUN is 86--- continues to improve - Strict Is/Os - Avoid Nephrotoxic Agents if all possible - pharmacy to renal dose all meds - Renal U/S to assess renal function and extra-renal abnormality--- No acute findings on US AUTI, Improving-- will repeat UA today - Culture with Klebsiella Oxytoca - Sensitive to IV Levaquin (3rd day)- continue current ATB -- will plan to dc home on Bactrim Renal Transplant Patient, Stable; chronic immunosuppressed state - 11 year ago on Tacrolimus and Micophenolate Mofetil - Will monitor, do not think he warrants BK/CARMENZA virus work up at this time - Continue anti-rejection drugs Oral Candidiasis - Tongue and mouth oropharyngeal: full of fungus - May need EGD to r/o esophageal candidiasis since he is in immuno- suppressed state - He is high risk due to immuno-suppressant state - Continue antifungal agent - Consider EGD to r/o fungal esophagitis (which could be affecting his oral intake i.e. weight loss)-- scheduled this morning with Dr. Latif Weight Loss over 14 Lbs -- up 3 this am - Cont close I&O and daily wt's - Defer work up outpatient - Dietary following Heart murmur - Patient states is chronic; unsure of how long or last echo - Will request records/echo from [place]; none done here on file; PCP is Dr. Metz--contacted medical records- nothing found back to 2013, they are checking with [facility] and will let me know. - Repeat 2D echo completed, EF at 60%, mild hypokinesis Resolved: Orthostatic Hypotension - SBP 96 mmHg in presentation to ED - After receiving 1L NS, his SBP improved to the 90s - Continue IV Hydration S/p Severe Dehydration - 2/2 GI Loss: 10 day hx/o Nausea or Vomiting - Aggressive IV Hydration - He looks clinically dry--still looks dry this morning; wt is up 3 lbs - Follow labs daily Plan: He remains clinically stable Continue current treatment Dr. Latif following, EGD Sunday Hold: ACEI, Trental, Tramadol, and Diclofenac Routine AM Labs Continue PT/OT SW/CM for d/c planning Code status: 1 Additional orders as above LOS anticipate > 96 hrs due complexity of presenting illness. <Dung Ngo T - Last Filed: 11/13/16 12:24> - Patient Data Vitals - most recent: Last Vital Signs Temp 36.1 C 11/13/16 10:39 Pulse 69 11/13/16 10:39 Resp 17 11/13/16 10:39 BP 123/65 11/13/16 10:39 Pulse Ox 96 11/13/16 10:39 I&O - last 24 hours: Intake & Output 11/12/16 11/13/16 11/13/16 22:59 06:59 14:59 Intake Total 2245 1600 Output Total 450 1300 Balance 1795 300 Lab Results last 24 hrs: Laboratory Results - last 24 hr 11/13/16 11/13/16 Range/Units 06:42 06:42 WBC 6.05 (4.23-9.07) K/mm3 RBC 3.68 L (4.63-6.08) M/mm3 Hgb 10.9 L (13.7-17.5) gm/L Hct 33.4 L (40.1-51.0) % MCV 90.8 (79.0-92.2) fl MCH 29.6 (25.7-32.2) pg MCHC 32.6 (32.2-35.5) g/dl RDW Std Deviation 47.7 H (35.1-43.9) fL Plt Count 264 (163-337) K/mm3 MPV 10.2 (9.4-12.3) fl Neut % (Auto) 76.8 H (34.0-67.9) % Lymph % (Auto) 12.2 L (21.8-53.1) % Lee % (Auto) 7.3 (5.3-12.2) % Eos % (Auto) 2.3 (0.8-7.0) Baso % (Auto) 0.2 (0.1-1.2) % Neut # 4.65 (1.78-5.38) K/mm3 Lymph # 0.74 L (1.32-3.57) K/mm3 Lee # 0.44 (0.30-0.82) K/mm3 Eos # 0.14 (0.04-0.54) K/mm3 Baso # 0.01 (0.01-0.08) K/mm3 Sodium 144 (136-145) mEq/L Potassium 4.4 (3.5-5.1) mEq/L Chloride 116 H (98-107) mEq/L Carbon Dioxide 20 L (21-32) mEq/L Anion Gap 12.4 (5-15) BUN 21 H (7-18) mg/dL Creatinine 1.3 (0.7-1.3) mg/dL Est Cr Clr Drug Dosing 53.07 mL/min Estimated GFR (MDRD) 57 (>60) mL/min BUN/Creatinine Ratio 16.2 (14-18) Glucose 97 (74-106) mg/dL Calcium 8.1 L (8.5-10.1) mg/dL Magnesium 1.7 L (1.8-2.4) mg/dl C-Reactive Protein 5.0 H* (<1.0) mg/dL Med Orders - Current: Current Medications Acetaminophen (Tylenol) 650 mg PO Q4H PRN PRN Reason: Pain (Mild 1-3)/fever Last Admin: 11/10/16 10:55 Dose: 650 mg Acetaminophen/Hydrocodone Bitart (Atkins 325-5 Mg) 1 tab PO Q4H PRN PRN Reason: Pain (moderate 4-6) Albuterol/Ipratropium (Duoneb 3.0-0.5 Mg/3 Ml) 3 ml NEB Q4H PRN PRN Reason: Shortness Of Breath/wheezing Aspirin (Ecotrin) 325 mg PO DAILY PENDING SALE TO [facility] Last Admin: 11/12/16 09:03 Dose: Not Given Bisacodyl (Dulcolax) 5 mg PO DAILY PRN PRN Reason: Constipation Cilostazol (Pletal) 50 mg PO BID PENDING SALE TO [facility] Last Admin: 11/12/16 20:02 Dose: Not Given Docusate Sodium (Colace) 100 mg PO BID PRN PRN Reason: Constipation Fluconazole (Diflucan) 50 mg PO DAILY PENDING SALE TO [facility] Last Admin: 11/12/16 09:03 Dose: 50 mg Hydralazine HCl (Apresoline) 20 mg IVPUSH Q4H PRN PRN Reason: Hypertension Hydromorphone HCl (Dilaudid) 0.25 mg IVPUSH Q2H PRN PRN Reason: Pain (severe 7-10) Promethazine HCl 12.5 mg/ (Sodium Chloride) 50.5 mls @ 100 mls/hr IV Q6H PRN PRN Reason: Nausea/Vomiting Levofloxacin/Dextrose 750 mg/ (Premix) 150 mls @ 100 mls/hr IV Q48H PENDING SALE TO [facility] Last Admin: 11/12/16 06:54 Dose: 100 mls/hr Sodium Chloride (Normal Saline) 1,000 mls @ 50 mls/hr IV ASDIRECTED PENDING SALE TO [facility] Last Admin: 11/13/16 06:00 Dose: 50 mls/hr Lisinopril (Prinivil) 2.5 mg PO BEDTIME PENDING SALE TO [facility] Last Admin: 11/10/16 22:27 Dose: 2.5 mg Lorazepam (Ativan) 1 mg IV Q6H PRN PRN Reason: Anxiety Magnesium Oxide (Magnesium Oxide) 400 mg PO BID PENDING SALE TO [facility] Magnesium Sulfate (Pharmacy To Dose - Magnesium Replacement) 1 dose .XX ASDIRECTED PENDING SALE TO [facility] Metoprolol Tartrate (Lopressor) 5 mg IVPUSH Q4H PRN PRN Reason: Tachycardia Metoprolol Tartrate (Lopressor) 50 mg PO Q12HR PENDING SALE TO [facility] Last Admin: 11/13/16 08:20 Dose: 50 mg Mycophenolate Mofetil (Cellcept) 500 mg PO QID PENDING SALE TO [facility] Last Admin: 11/12/16 19:59 Dose: 500 mg Ondansetron HCl (Zofran) 4 mg IV Q6H PRN PRN Reason: Nausea/Vomiting Pantoprazole Sodium (Protonix) 40 mg PO ACBREAKFAST PENDING SALE TO [facility] Last Admin: 11/13/16 05:43 Dose: Not Given Travoprost (Travatan (Z)) 0 each EYEBOTH BEDTIME PENDING SALE TO [facility] Last Admin: 11/12/16 20:02 Dose: 1 each Polyethylene Glycol (Miralax) 17 gm PO DAILY PRN PRN Reason: Constipation Potassium Chloride (Pharmacy To Dose - Potassium Replacement) 0 dose .XX ASDIRECTED PRN PRN Reason: RX DOSE Senna/Docusate Sodium (Senna Plus) 1 tab PO BID PRN PRN Reason: Constipation Sodium Chloride (Saline Flush) 10 ml FLUSH ASDIRECTED PRN PRN Reason: Keep Vein Open Last Admin: 11/09/16 12:50 Dose: 10 ml Tacrolimus (Prograf) 1 mg PO BID PENDING SALE TO [facility] Last Admin: 11/12/16 19:59 Dose: 1 mg Temazepam (Restoril) 15 mg PO BEDTIME PRN PRN Reason: Sleep Discontinued Medications Atenolol (Tenormin) 50 mg PO DAILY PENDING SALE TO [facility] Bumetanide (Bumex) 0.5 mg IVPUSH BID@0900,1800 PENDING SALE TO [facility] Stop: 11/11/16 18:01 Last Admin: 11/11/16 18:30 Dose: 0.5 mg Cilostazol (Pletal) 50 mg PO BID PENDING SALE TO [facility] Last Admin: 11/10/16 09:21 Dose: 50 mg Clotrimazole (Mycelex) 10 mg PO 5XDAY PENDING SALE TO [facility] Last Admin: 11/11/16 06:39 Dose: 10 mg Fentanyl (Sublimaze) Confirm Administered Dose 100 mcg .ROUTE .STK-MED ONE Stop: 11/13/16 11:52 Fluconazole (Diflucan) 200 mg PO ONETIME ONE Stop: 11/09/16 18:01 Last Admin: 11/09/16 18:53 Dose: 200 mg Sodium Chloride (Normal Saline) 1,000 mls @ 1,000 mls/hr IV .BOLUS PENDING SALE TO [facility] Last Admin: 11/09/16 13:15 Dose: 1,000 mls/hr Sodium Chloride (Normal Saline) 1,000 mls @ 1,000 mls/hr IV ONETIME ONE Stop: 11/09/16 15:48 Last Admin: 11/09/16 15:06 Dose: 1,000 mls/hr Sodium Chloride (Normal Saline) 1,000 mls @ 125 mls/hr IV ASDIRECTED PENDING SALE TO [facility] Stop: 11/11/16 09:00 Last Admin: 11/11/16 02:45 Dose: 125 mls/hr Sodium Chloride (Normal Saline) 1,000 mls @ 999 mls/hr IV ONETIME ONE Stop: 11/09/16 20:00 Last Admin: 11/09/16 19:04 Dose: 999 mls/hr Magnesium Sulfate 2 gm/ Premix 50 mls @ 25 mls/hr IV ONETIME ONE Stop: 11/10/16 09:44 Last Admin: 11/10/16 10:54 Dose: 25 mls/hr Sodium Chloride (Normal Saline) 250 mls @ 999 mls/hr IV ASDIRECTED RUTH ANN Magnesium Sulfate 2 gm/ Premix 50 mls @ 25 mls/hr IV ONETIME ONE Stop: 11/11/16 12:59 Last Admin: 11/11/16 11:30 Dose: 25 mls/hr Magnesium Sulfate 2 gm/ Premix 50 mls @ 25 mls/hr IV ONETIME ONE Stop: 11/12/16 13:59 Last Admin: 11/12/16 13:10 Dose: 25 mls/hr Magnesium Sulfate 2 gm/ Premix 50 mls @ 25 mls/hr IV ONETIME ONE Stop: 11/13/16 11:29 Last Admin: 11/13/16 08:36 Dose: 25 mls/hr Lidocaine HCl (Lidocaine 1%) Confirm Administered Dose 4 ml .ROUTE .STK-MED ONE Stop: 11/13/16 11:08 Lisinopril (Prinivil) 2.5 mg PO DAILY PENDING SALE TO [facility] Last Admin: 11/09/16 19:38 Dose: 2.5 mg (Travoprost [ Travatan Z] 1 Drop)* Own Med* 1 drop EYEBOTH BEDTIME PENDING SALE TO [facility] Last Admin: 11/09/16 21:53 Dose: 1 drop Ondansetron HCl (Zofran) 4 mg IVPUSH ONETIME ONE Stop: 11/09/16 12:56 Last Admin: 11/09/16 13:21 Dose: Not Given Pantoprazole Sodium (Protonix) 40 mg PO TID PENDING SALE TO [facility] Last Admin: 11/09/16 20:04 Dose: Not Given Omeprazole *Own Med* 0 each PO ACBREAKFAST PENDING SALE TO [facility] Last Admin: 11/10/16 05:23 Dose: 1 each Atenolol/Chlorthalidone [ Tenoretic 50] 0 each PO DAILY PENDING SALE TO [facility] Potassium Chloride (Klor-Con M20) 20 meq PO ONETIME ONE Stop: 11/09/16 22:12 Last Admin: 11/09/16 22:20 Dose: 20 meq Potassium Chloride (Klor-Con M20) 40 meq PO ONETIME ONE Stop: 11/10/16 07:46 Last Admin: 11/10/16 09:19 Dose: 40 meq Potassium Chloride (Klor-Con M20) 20 meq PO Q3H PENDING SALE TO [facility] Stop: 11/11/16 14:01 Last Admin: 11/11/16 15:12 Dose: 20 meq Propofol (Diprivan 20 Ml) Confirm Administered Dose 200 mg .ROUTE .STK-MED ONE Stop: 11/13/16 11:08 Valacyclovir HCl (Valtrex) 500 mg PO TID PENDING SALE TO [facility] Last Admin: 11/09/16 20:05 Dose: Not Given - My Orders Last 24 Hours: My Active Orders 11/13/16 09:00 Magnesium Oxide 400 mg PO BID 11/14/16 05:11 CRP [C-REACTIVE PROTEIN] [CHEM] AM 11/15/16 05:11 CRP [C-REACTIVE PROTEIN] [CHEM] AM
[2016-11-13] MEDS ORDERED: Lidocaine 1% 2 ML SDV ONE (11:07)
[2016-11-13] MEDS ORDERED: Propofol 200 MG/20 ML SDV ONE (11:07)
[2016-11-13] MEDS ORDERED: fentaNYL 100 MCG/2 ML SDV ONE (11:51)
--- NOTE | 2016-11-13 12:04 | PCM.OPNOTE ---
- General Post-Op/Procedure Note Date of Surgery/Procedure: 11/13/16 Operative Procedure(s): EGD with bx Pre Op Diagnosis: nausea and vomiting Post-Op Diagnosis: Same Anesthesia Technique: MAC Primary Surgeon: Ishaan Latif EBL in mLs: 0 Complications: None Condition: Good Free Text/Narrative:: Intake & Output 11/12/16 11/13/16 11/13/16 23:59 07:59 15:59 Intake Total 2245 1600 Output Total 450 1300 Balance 1795 300
--- NOTE | 2016-11-13 12:56 | PCM48HPAN ---
Post Anesthesia Note - EVALUATION WITHIN 48HRS OF ANESTHETIC Vital Signs in Normal Range: Yes Patient Participated in Evaluation: Yes Respiratory Function Stable: Yes Airway Patent: Yes Cardiovascular Function Stable: Yes Hydration Status Stable: Yes Pain Control Satisfactory: Yes Nausea and Vomiting Control Satisfactory: Yes Mental Status Recovered: Yes
[2016-11-13] MEDS: Fluconazole 100 MG Tab PO SCH (13:18)
[2016-11-13] MEDS: Tacrolimus 1 MG Cap PO SCH ×2 (13:19→20:56)
[2016-11-13] MEDS: Aspirin 325 MG Tab.EC PO SCH (13:20)
[2016-11-13] MEDS: Magnesium Oxide 400 MG Tab PO SCH ×2 (13:20→20:53)
[2016-11-13] MEDS: Mycophenolate Mofetil 250 MG Cap PO SCH ×4 (13:20→20:55)
[2016-11-14] MEDS: Levofloxacin/Dextrose 5%-Water 750 MG in Premix Bag 1 BAG IV SCH (06:29)
[2016-11-14] MEDS: Pantoprazole 40 MG Tab.CR PO SCH (06:29)
--- NOTE | 2016-11-14 07:42 | OR ---
DATE OF OPERATION: 11/13/2016 SURGEON: Ishaan Latfi MD PREOPERATIVE DIAGNOSIS: Nausea and vomiting. POSTOPERATIVE DIAGNOSIS: Nausea and vomiting. OPERATION PERFORMED: EGD with biopsy done under IV sedation. FINDINGS: There are reticular pattern of mucosa noted in the first and second portion of the duodenum. This was biopsied. There were no ulcerations in the duodenum. The pyloric channel was unremarkable. Antrum, body, and cardia of the stomach did not show any acute pathology except for a large gastric bolus undigested food with poor gastric and antral peristalsis. Biopsy of the antrum was done. J-maneuver was performed showing an intact hiatus and the rest of the esophagus did not show any acute pathology. DESCRIPTION OF PROCEDURE: The patient was taken to the operating room, placed in a supine position, connected to monitoring equipment, given IV sedation, placed in left lateral position, bite block was inserted. A video Olympus gastroscope was placed in a posterior oropharynx. Under direct vision, threaded past the cricopharyngeus, down the esophagus in the stomach. The stomach was insufflated and the scope was passed through the pylorus to the second portion of the duodenum. Second portion of the duodenum, duodenal bulb showed a reticular pattern of mucosa which was biopsied. The pattern was not recognized. The pyloric channel, antrum, body, cardia, fundus of the stomach did not show any acute pathology of mucosa, but there was undigested gastric vegetable matter and poor peristalsis in emptying of the stomach. Rest of the J-maneuver demonstrated intact hiatus and the scope was withdrawn into the GE junction which located at 40 cm and did not show any acute pathology. The rest of the esophagus viewed as the scope withdrawn, it was normal. The patient tolerated the procedure, sent to recovery room in a stable condition. ANESTHESIA: ESTIMATED BLOOD LOSS: MMODAL /[id number]
--- NOTE | 2016-11-14 09:59 | PCM.DCSUM1 ---
Discharge Summary - Hospital Course Free Text/Narrative:: This is 71 yo white with past medical hx/o HTN, PVD, Renal transplant currently on anti-rejection medications who comes in with complaints of severe dehydration associated with nausea, vomiting and reduced oral intake. Hi symptom started over 10 days ago and has been intermittent in nature. He also admits to 14lbs+ weight loss. He denies any recent changes on his home medications. Patient is s/p renal transplant 11 years ago in [place]. Patient was initially seen at his PCP office and he was found to have abnormal renal labs. Therefore he was sent to ED for further evaluation and medical management. Patient is full code. Hospitalist service is contacted for admission for acute renal failure, dehydration, nausea and vomiting. Patient was initially placed in observation status then admitted to medical surgical unit for AUTI, dehydration, acute kidney injury, nausea/vomiting and weight loss. Urine culture grew klebsiella bacteria sensitive to levaquin which he was on x 3 days/doses; also sensitive to bactrim which he will be discharged home on. He had significant oral thrush/xavier infection for which he was started on fluconazole, Dr Ngo recommends 14 day course. He underwent EGD evaluation with Dr. Latif for possible esophageal candidiasis as cause/ contributing factor for recent weight loss. Biopsies were taken during endoscopy and pending. Also concern for delayed gastric emptying as large, undigested food bolus was noted. Recommended gastric emptying study to be done as outpatient with PCP. With hydration and resumption of oral intake creatinine/ GFR slowly improved to normal. He had no further vomiting upon admission and nausea improved after the first day or tow. Appetite slowly returned as did energy. He worked with PT/OT who recommended walker as outpatient. He will follow up with PCP, Dr. eMtz within 5-7 days of discharge. Will schedule patient for gastric emptying study with results to Dr. Metz, also for follow up labs of CBC and BMP prior to follow up visit with Dr. Metz. Call placed and discussed case, patient stay with Dr. Metz today. - Discharge Data Discharge Date: 11/14/16 (admit date 11/10/16) Discharge Disposition: Home, Self-Care 01 Condition: Good - Discharge Diagnosis/Problem(s) (1) QUINTON (acute kidney injury) SNOMED Code(s): 58256874 ICD Code: N17.9 - ACUTE KIDNEY FAILURE, UNSPECIFIED Status: Resolved Priority: High Current Visit: Yes (2) Dehydration SNOMED Code(s): 23482842 ICD Code: E86.0 - DEHYDRATION Status: Resolved Priority: High Current Visit: Yes (3) Renal insufficiency SNOMED Code(s): 903583865 ICD Code: N28.9 - DISORDER OF KIDNEY AND URETER, UNSPECIFIED Status: Chronic Priority: Medium Current Visit: Yes (4) History of renal transplantation Status: Chronic Priority: Medium Current Visit: Yes (5) Oral candidiasis SNOMED Code(s): 03931498 ICD Code: B37.0 - CANDIDAL STOMATITIS Status: Resolved Priority: High Current Visit: Yes (6) Immunosuppressed status SNOMED Code(s): 89911313 ICD Code: D89.9 - DISORDER INVOLVING THE IMMUNE MECHANISM, UNSPECIFIED Status: Chronic Current Visit: Yes (7) Hypomagnesemia SNOMED Code(s): 705221294 ICD Code: E83.42 - HYPOMAGNESEMIA Status: Acute Current Visit: Yes - Patient Summary/Data Operative Procedure(s) Performed: EGD with bx Complications: None Consults: General Surgery, Dr. Latif Labs Pending at D/C: None Recommended Follow-up Testing/Procedures: Follow up with Dr. Metz within 5-7 days of discharge -Consider gastric emptying study for ? delayed emptying noted on EGD per Dr. Latif Importance of adequate hydration Small frequent meals Follow up with Dr. Latif in 2 weeks for recheck after EGD Follow up with Nephrology as scheduled Planned Operative Procedure(s) after DC: None Hospital Course: As above - Patient Instructions Diet: Heart Healthy Diet, Low Sodium Activity: As Tolerated Showering/Bathing: May Shower Notify Provider of: Fever, Increased Pain, Swelling and Redness, Nausea and/or Vomiting - Discharge Plan Prescriptions/Med Rec: Metoprolol Tartrate [Lopressor] 50 mg PO Q12HR #60 tablet Fluconazole [Diflucan] 50 mg PO DAILY #8 tablet Magnesium Oxide 400 mg PO BID #60 tablet Sulfamethoxazole/Trimethoprim [Bactrim Ds Tablet] 1 each PO BID #20 tablet Home Medications: Home Meds Aspirin 325 mg PO DAILY 12/10/13 [History] Cilostazol [Pletal] 100 mg PO BID 12/10/13 [History] Lisinopril [Prinivil] 2.5 mg PO BEDTIME 12/10/13 [History] Mycophenolate Mofetil [Cellcept] 500 mg PO QID 12/10/13 [History] Omeprazole [Prilosec] 20 mg PO ACBREAKFAST 12/10/13 [History] Tacrolimus [Prograf] 1 mg PO BID 12/10/13 [History] Travoprost [Travatan Z] 1 drop OP BEDTIME 11/09/16 [History] Fluconazole [Diflucan] 50 mg PO DAILY #8 tablet 11/14/16 [Rx] Magnesium Oxide 400 mg PO BID #60 tablet 11/14/16 [Rx] Metoprolol Tartrate [Lopressor] 50 mg PO Q12HR #60 tablet 11/14/16 [Rx] Sulfamethoxazole/Trimethoprim [Bactrim Ds Tablet] 1 each PO BID #20 tablet 11/14 [Rx] Patient Handouts: Dehydration, Adult, [id number], Chronic Kidney Disease, Urinary Tract Infection, Adult Referrals: Vicente Metz MD [Primary Care Provider] - 11/20/16 1:00 pm Garland Goddard MD [Ordering Only Provider] - 12/01/16 2:00 pm (this appt. is in [place].) - Discharge Summary/Plan Comment DC Time >30 min.: Yes (40 min) - General Info Date of Service: 11/14/16 Admission Dx/Problem (Free Text: Reymundo is seen this morning, doing well. Slept well, no c/o pain/discomfort. Weight is up. Appetite is up. Energy is slowly returning. He had EGD with bx done yesterday with Dr. Latif. Eating this morning, tolerating well thus far. Functional Status: Reports: pain controlled, tolerating diet, ambulating, urinating. Denies: new symptoms - Review of Systems General: Reports: No Symptoms HEENT: Reports: no symptoms Pulmonary: Reports: no symptoms Cardiovascular: Reports: No Symptoms Gastrointestinal: Reports: No symptoms Genitourinary: Reports: no symptoms Musculoskeletal: Reports: no symptoms Skin: Reports: no symptoms Neurological: Reports: No Symptoms Psychiatric: Reports: no symptoms - Patient Data Vitals - Most Recent: Last Vital Signs Temp 98.2 F 11/14/16 04:46 Pulse 64 11/14/16 09:11 Resp 17 11/14/16 09:11 BP 134/70 11/14/16 09:11 Pulse Ox 96 11/14/16 09:11 Weight - Most Recent: 135 lb I&O - Last 24 hours: Intake & Output 11/13/16 11/14/16 11/14/16 22:59 06:59 14:59 Intake Total 665 1400 Output Total 1000 1000 Balance -335 400 Lab Results - Last 24 hrs: Laboratory Results - last 24 hr 11/13/16 11/14/16 11/14/16 Range/Units 17:15 04:43 04:43 WBC 4.28 (4.23-9.07) K/mm3 RBC 3.65 L (4.63-6.08) M/mm3 Hgb 10.7 L (13.7-17.5) gm/L Hct 33.7 L (40.1-51.0) % MCV 92.3 H (79.0-92.2) fl MCH 29.3 (25.7-32.2) pg MCHC 31.8 L (32.2-35.5) g/dl RDW Std Deviation 49.1 H (35.1-43.9) fL Plt Count 267 (163-337) K/mm3 MPV 10.7 (9.4-12.3) fl Neut % (Auto) 72.8 H (34.0-67.9) % Lymph % (Auto) 16.8 L (21.8-53.1) % Hill % (Auto) 7.2 (5.3-12.2) % Eos % (Auto) 2.1 (0.8-7.0) Baso % (Auto) 0.2 (0.1-1.2) % Neut # 3.11 (1.78-5.38) K/mm3 Lymph # 0.72 L (1.32-3.57) K/mm3 Hill # 0.31 (0.30-0.82) K/mm3 Eos # 0.09 (0.04-0.54) K/mm3 Baso # 0.01 (0.01-0.08) K/mm3 Sodium (136-145) mEq/L Potassium (3.5-5.1) mEq/L Chloride (98-107) mEq/L Carbon Dioxide (21-32) mEq/L Anion Gap (5-15) BUN (7-18) mg/dL Creatinine (0.7-1.3) mg/dL Est Cr Clr Drug Dosing mL/min Estimated GFR (MDRD) (>60) mL/min BUN/Creatinine Ratio (14-18) Glucose (74-106) mg/dL Calcium (8.5-10.1) mg/dL C-Reactive Protein 3.4 H* (<1.0) mg/dL Urine Color Straw (Yellow) Urine Appearance Clear (Clear) Urine pH 6.5 (5.0-8.0) Ur Specific [place] 1.020 (1.005-1.030) Urine Protein Negative (Negative) Urine Glucose (UA) Negative (Negative) Urine Ketones Negative (Negative) Urine Occult Blood Negative (Negative) Urine Nitrite Negative (Negative) Urine Bilirubin Negative (Negative) Urine Urobilinogen 0.2 (0.2-1.0) Ur Leukocyte Esterase Negative (Negative) Urine RBC Not seen (0-5) /hpf Urine WBC 0-5 (0-5) /hpf Ur Squamous Epith Cells 0-5 (0-5) /hpf Urine Bacteria Not seen (FEW) /hpf Urine Mucus Not seen (FEW) /hpf / Range/Units 04:43 WBC (4.23-9.07) K/mm3 RBC (4.63-6.08) M/mm3 Hgb (13.7-17.5) gm/L Hct (40.1-51.0) % MCV (79.0-92.2) fl MCH (25.7-32.2) pg MCHC (32.2-35.5) g/dl RDW Std Deviation (35.1-43.9) fL Plt Count (163-337) K/mm3 MPV (9.4-12.3) fl Neut % (Auto) (34.0-67.9) % Lymph % (Auto) (21.8-53.1) % Hill % (Auto) (5.3-12.2) % Eos % (Auto) (0.8-7.0) Baso % (Auto) (0.1-1.2) % Neut # (1.78-5.38) K/mm3 Lymph # (1.32-3.57) K/mm3 Hill # (0.30-0.82) K/mm3 Eos # (0.04-0.54) K/mm3 Baso # (0.01-0.08) K/mm3 Sodium 145 (136-145) mEq/L Potassium 4.5 (3.5-5.1) mEq/L Chloride 115 H (98-107) mEq/L Carbon Dioxide 19 L (21-32) mEq/L Anion Gap 15.5 H (5-15) BUN 19 H (7-18) mg/dL Creatinine 1.1 (0.7-1.3) mg/dL Est Cr Clr Drug Dosing 62.63 mL/min Estimated GFR (MDRD) > 60 (>60) mL/min BUN/Creatinine Ratio 17.3 (14-18) Glucose 103 (74-106) mg/dL Calcium 8.0 L (8.5-10.1) mg/dL C-Reactive Protein (<1.0) mg/dL Urine Color (Yellow) Urine Appearance (Clear) Urine pH (5.0-8.0) Ur Specific [place] (1.005-1.030) Urine Protein (Negative) Urine Glucose (UA) (Negative) Urine Ketones (Negative) Urine Occult Blood (Negative) Urine Nitrite (Negative) Urine Bilirubin (Negative) Urine Urobilinogen (0.2-1.0) Ur Leukocyte Esterase (Negative) Urine RBC (0-5) /hpf Urine WBC (0-5) /hpf Ur Squamous Epith Cells (0-5) /hpf Urine Bacteria (FEW) /hpf Urine Mucus (FEW) /hpf Med Orders - Current: Current Medications Acetaminophen (Tylenol) 650 mg PO Q4H PRN PRN Reason: Pain (Mild 1-3)/fever Last Admin: 11/10/16 10:55 Dose: 650 mg Acetaminophen/Hydrocodone Bitart ([place] 325-5 Mg) 1 tab PO Q4H PRN PRN Reason: Pain (moderate 4-6) Albuterol/Ipratropium (Duoneb 3.0-0.5 Mg/3 Ml) 3 ml NEB Q4H PRN PRN Reason: Shortness Of Breath/wheezing Aspirin (Ecotrin) 325 mg PO DAILY RUTH ANN Last Admin: 11/13/16 13:20 Dose: Not Given Bisacodyl (Dulcolax) 5 mg PO DAILY PRN PRN Reason: Constipation Cilostazol (Pletal) 50 mg PO BID [facility] Last Admin: 11/13/16 20:52 Dose: 50 mg Docusate Sodium (Colace) 100 mg PO BID PRN PRN Reason: Constipation Fluconazole (Diflucan) 50 mg PO DAILY [facility] Last Admin: 11/13/16 13:18 Dose: 50 mg Hydralazine HCl (Apresoline) 20 mg IVPUSH Q4H PRN PRN Reason: Hypertension Hydromorphone HCl (Dilaudid) 0.25 mg IVPUSH Q2H PRN PRN Reason: Pain (severe 7-10) Promethazine HCl 12.5 mg/ (Sodium Chloride) 50.5 mls @ 100 mls/hr IV Q6H PRN PRN Reason: Nausea/Vomiting Levofloxacin/Dextrose 750 mg/ (Premix) 150 mls @ 100 mls/hr IV Q48H [facility] Last Admin: 11/14/16 06:29 Dose: 100 mls/hr Sodium Chloride (Normal Saline) 1,000 mls @ 50 mls/hr IV ASDIRECTED [facility] Last Admin: 11/13/16 23:35 Dose: 50 mls/hr Lisinopril (Prinivil) 2.5 mg PO BEDTIME [facility] Last Admin: 11/10/16 22:27 Dose: 2.5 mg Lorazepam (Ativan) 1 mg IV Q6H PRN PRN Reason: Anxiety Magnesium Oxide (Magnesium Oxide) 400 mg PO BID [facility] Last Admin: 11/13/16 20:53 Dose: 400 mg Magnesium Sulfate (Pharmacy To Dose - Magnesium Replacement) 1 dose .XX ASDIRECTED [facility] Metoprolol Tartrate (Lopressor) 5 mg IVPUSH Q4H PRN PRN Reason: Tachycardia Metoprolol Tartrate (Lopressor) 50 mg PO Q12HR [facility] Last Admin: 11/13/16 23:49 Dose: Not Given Mycophenolate Mofetil (Cellcept) 500 mg PO QID [facility] Last Admin: 11/13/16 20:55 Dose: 500 mg Ondansetron HCl (Zofran) 4 mg IV Q6H PRN PRN Reason: Nausea/Vomiting Pantoprazole Sodium (Protonix) 40 mg PO ACBREAKFAST [facility] Last Admin: 11/14/16 06:29 Dose: 40 mg Travoprost (Travatan (Z)) 0 each EYEBOTH BEDTIME [facility] Last Admin: 11/13/16 20:55 Dose: 1 each Polyethylene Glycol (Miralax) 17 gm PO DAILY PRN PRN Reason: Constipation Potassium Chloride (Pharmacy To Dose - Potassium Replacement) 0 dose .XX ASDIRECTED PRN PRN Reason: RX DOSE Senna/Docusate Sodium (Senna Plus) 1 tab PO BID PRN PRN Reason: Constipation Sodium Chloride (Saline Flush) 10 ml FLUSH ASDIRECTED PRN PRN Reason: Keep Vein Open Last Admin: 11/09/16 12:50 Dose: 10 ml Tacrolimus (Prograf) 1 mg PO BID [facility] Last Admin: 11/13/16 20:56 Dose: 1 mg Temazepam (Restoril) 15 mg PO BEDTIME PRN PRN Reason: Sleep Discontinued Medications Atenolol (Tenormin) 50 mg PO DAILY [facility] Bumetanide (Bumex) 0.5 mg IVPUSH BID@0900,1800 [facility] Stop: 11/11/16 18:01 Last Admin: 11/11/16 18:30 Dose: 0.5 mg Cilostazol (Pletal) 50 mg PO BID [facility] Last Admin: 11/10/16 09:21 Dose: 50 mg Clotrimazole (Mycelex) 10 mg PO 5XDAY [facility] Last Admin: 11/11/16 06:39 Dose: 10 mg Fentanyl (Sublimaze) Confirm Administered Dose 100 mcg .ROUTE .STK-MED ONE Stop: 11/13/16 11:52 Fluconazole (Diflucan) 200 mg PO ONETIME ONE Stop: 11/09/16 18:01 Last Admin: 11/09/16 18:53 Dose: 200 mg Sodium Chloride (Normal Saline) 1,000 mls @ 1,000 mls/hr IV .BOLUS [facility] Last Admin: 11/09/16 13:15 Dose: 1,000 mls/hr Sodium Chloride (Normal Saline) 1,000 mls @ 1,000 mls/hr IV ONETIME ONE Stop: 11/09/16 15:48 Last Admin: 11/09/16 15:06 Dose: 1,000 mls/hr Sodium Chloride (Normal Saline) 1,000 mls @ 125 mls/hr IV ASDIRECTED [facility] Stop: 11/11/16 09:00 Last Admin: 11/11/16 02:45 Dose: 125 mls/hr Sodium Chloride (Normal Saline) 1,000 mls @ 999 mls/hr IV ONETIME ONE Stop: 11/09/16 20:00 Last Admin: 11/09/16 19:04 Dose: 999 mls/hr Magnesium Sulfate 2 gm/ Premix 50 mls @ 25 mls/hr IV ONETIME ONE Stop: 11/10/16 09:44 Last Admin: 11/10/16 10:54 Dose: 25 mls/hr Sodium Chloride (Normal Saline) 250 mls @ 999 mls/hr IV ASDIRECTED [facility] Magnesium Sulfate 2 gm/ Premix 50 mls @ 25 mls/hr IV ONETIME ONE Stop: 11/11/16 12:59 Last Admin: 11/11/16 11:30 Dose: 25 mls/hr Magnesium Sulfate 2 gm/ Premix 50 mls @ 25 mls/hr IV ONETIME ONE Stop: 11/12/16 13:59 Last Admin: 11/12/16 13:10 Dose: 25 mls/hr Magnesium Sulfate 2 gm/ Premix 50 mls @ 25 mls/hr IV ONETIME ONE Stop: 11/13/16 11:29 Last Admin: 11/13/16 08:36 Dose: 25 mls/hr Lidocaine HCl (Lidocaine 1%) Confirm Administered Dose 4 ml .ROUTE .STK-MED ONE Stop: 11/13/16 11:08 Lisinopril (Prinivil) 2.5 mg PO DAILY [facility] Last Admin: 11/09/16 19:38 Dose: 2.5 mg (Travoprost [ Travatan Z] 1 Drop)* Own Med* 1 drop EYEBOTH BEDTIME [facility] Last Admin: 11/09/16 21:53 Dose: 1 drop Ondansetron HCl (Zofran) 4 mg IVPUSH ONETIME ONE Stop: 11/09/16 12:56 Last Admin: 11/09/16 13:21 Dose: Not Given Pantoprazole Sodium (Protonix) 40 mg PO TID [facility] Last Admin: 11/09/16 20:04 Dose: Not Given Omeprazole *Own Med* 0 each PO ACBREAKFAST [facility] Last Admin: 11/10/16 05:23 Dose: 1 each Atenolol/Chlorthalidone [ Tenoretic 50] 0 each PO DAILY [facility] Potassium Chloride (Klor-Con M20) 20 meq PO ONETIME ONE Stop: 11/09/16 22:12 Last Admin: 11/09/16 22:20 Dose: 20 meq Potassium Chloride (Klor-Con M20) 40 meq PO ONETIME ONE Stop: 11/10/16 07:46 Last Admin: 11/10/16 09:19 Dose: 40 meq Potassium Chloride (Klor-Con M20) 20 meq PO Q3H [facility] Stop: 11/11/16 14:01 Last Admin: 11/11/16 15:12 Dose: 20 meq Propofol (Diprivan 20 Ml) Confirm Administered Dose 200 mg .ROUTE .STK-MED ONE Stop: 11/13/16 11:08 Valacyclovir HCl (Valtrex) 500 mg PO TID [facility] Last Admin: 11/09/16 20:05 Dose: Not Given - Exam Quality Assessment: Reports: DVT prophylaxis General: Reports: alert, oriented, cooperative, no acute distress HEENT: Reports: Pupils equal, Pupils reactive, EOMI, Mucous membr. moist/pink Neck: Reports: supple Lungs: Reports: Clear to auscultation, Normal respiratory effort Cardiovascular: Reports: Regular Rate, Regular Rhythm, Murmurs (grade 2 systolic ) Abdomen: Reports: bowel sounds present, soft, no tenderness (Male) Exam: Deferred Rectal (Males) Exam: Deferred Extremities: Reports: no edema Skin: Reports: warm, dry, intact Neurological: Reports: no new focal deficit Psy/Mental Status: Reports: alert, normal affect, normal mood *Q Meaningful Use (DIS) - VTE *Q VTE Criteria *Q: - Stroke *Q Stroke Criteria *Q: - AMI *Q AMI Criteria *Q:
[2016-11-14] MEDS: Magnesium Oxide 400 MG Tab PO SCH (10:17)
[2016-11-14] MEDS: Fluconazole 100 MG Tab PO SCH (10:17)
[2016-11-14] MEDS: Aspirin 325 MG Tab.EC PO SCH ×2 (10:21→10:27)
[2016-11-14] MEDS: Metoprolol Tartrate 50 MG Tab PO SCH (10:21)
[2016-11-14] MEDS: Mycophenolate Mofetil 250 MG Cap PO SCH ×3 (10:22→18:17)
[2016-11-14] MEDS: Tacrolimus 1 MG Cap PO SCH (10:25)
[2016-11-14 16:51] VITALS: BP 142/70
== END 2016-11-14 17:07 | disposition home or self-care (01) | DRG 690 ==
LOC: JD.ED 12:14 → JD.MS 13:30 → JD.ICU 13:30 → UNDOADMIN 13:30 → JD.MS 14:25 → UNDOADMOB 14:25 → JD.MS 14:25 → INTOOBSV 14:25 → JD.MS 11-10 09:00 → OBSVTOIN 11-10 09:00 → UNDOADMOB 11-10 09:00 → INTOOBSV 11-10 09:00 → JD.MS 11-10 09:00 → JD.ICU 11-10 09:42 → INTOOBSV 11-10 09:42 → JD.MS 11-10 09:42 → OBSVTOIN 11-10 09:42 → JD.MS 11-10 09:42 → JD.ICU 11-10 18:21 → JD.MS 11-10 18:21 → UNDODISIN 11-14 17:07
PROVIDERS: ADMIT Internal Medicine; ATTEND Internal Medicine
PROC: 0DB68ZX Excision of Stomach, Via Natural or Artificial Opening Endoscopic, Diagnostic (ICD-10-PCS; principal; 2016-11-13)
DX: N39.0 Urinary tract infection, site not specified (principal); N17.9 Acute kidney failure, unspecified; B37.0 Candidal stomatitis; Z94.0 Kidney transplant status; E86.0 Dehydration; B96.1 Klebsiella pneumoniae [K. pneumoniae] as the cause of diseases classified elsewhere; R11.2 Nausea with vomiting, unspecified; I95.1 Orthostatic hypotension; R01.1 Cardiac murmur, unspecified; E83.42 Hypomagnesemia; D89.9 Disorder involving the immune mechanism, unspecified; N28.9 Disorder of kidney and ureter, unspecified; Z79.82 Long term (current) use of aspirin; Z79.899 Other long term (current) drug therapy; E10.9 Type 1 diabetes mellitus without complications; Z87.891 Personal history of nicotine dependence
CPT/HCPCS: 36415 ×2; 76770; 80048 ×2; 81001; 83735; 85025; 86140 ×2; 87086; 96360; 99285; A9270 ×7; J7040 ×6; J7050; 87088; 87186; 88305; 88305-26; 93306; 96361; 96365; 96375; 97116-GP; 97161-GP; 97165-GO; 97530-GP; 99222; 99232; 99239; 99284; G0378; J1956; J2704; J3010; J3475

== ENCOUNTER 2017-03-26 13:14 | Inpatient (IN) | payer MEDICARE, MEDICAID ==
[2017-03-26] MEDS ORDERED: Sodium Chloride 0.9% 10 ML Syringe FLUSH PRN (13:41)
[2017-03-26] MEDS ORDERED: Sodium Chloride 0.9% 1,000 ML IV SCH (14:00)
--- NOTE | 2017-03-26 15:44 | CR ---
Chest: Portable view of the chest was obtained. Comparison: No previous study. Heart size within normal limits for portable technique. Previous sternotomy is noted. Minimal blunting of the lateral left costophrenic angle is seen with adjacent parenchymal scar which is likely chronic. No acute infiltrates are seen. Old healed right sided rib fractures are noted. Impression: 1. Incidental findings. Nothing acute is identified on portable chest x-ray. Diagnostic code #2
[2017-03-26] MEDS ORDERED: Sodium Chloride 0.9% 1,000 ML IV ONE (15:46)
--- NOTE | 2017-03-26 16:45 | EDM.PDOC ---
ED HPI GENERAL MEDICAL PROBLEM - General Chief Complaint: Cardiovascular Problem Stated Complaint: DEHYDRATED Time Seen by Provider: 03/26/17 13:41 Source of Information: Reports: Patient, RN Notes Reviewed - History of Present Illness INITIAL COMMENTS - FREE TEXT/NARRATIVE: 61-year-old male comes in feeling weak and dizzy. He feels like he is "dehydrated". Does have history of diabetes with "renal and pancreatic transplant. He denies being out in the heat excessively. Appetite and fluid intake has been somewhat down although patient cannot really describe why. No chest or abdominal pain at this time. No fever or chills. No excessive back discomfort. No voiding symptomatology. - Related Data Allergies Allergy/AdvReac Type Severity Reaction Status Date / Time No Known Allergies Allergy Verified 03/26/17 21:16 Home Meds: Home Meds RX: Cilostazol [Pletal] 100 mg PO BID 12/10/13 [History] RX: Lisinopril [Prinivil] 2.5 mg PO BEDTIME 12/10/13 [History] RX: Mycophenolate Mofetil [Cellcept] 500 mg PO QID 12/10/13 [History] RX: Omeprazole [Prilosec] 20 mg PO ACBREAKFAST 12/10/13 [History] RX: Tacrolimus [Prograf] 1 mg PO BID 12/10/13 [History] RX: Travoprost [Travatan Z] 1 drop OP BEDTIME 11/09/16 [History] RX: Atenolol 50 mg PO DAILY 03/27/17 [History] Past Medical History HEENT History: Reports: Impaired Vision Other HEENT History: left eye blindness Cardiovascular History: Reports: Other (See Below) Other Cardiovascular History: unsure if he has had stents Respiratory History: Reports: None Gastrointestinal History: Reports: GERD Genitourinary History: Reports: Acute Renal Failure, Other (See Below) Other Genitourinary History: kidney transplant Musculoskeletal History: Reports: Amputation Other Musculoskeletal History: toes bilaterally Endocrine/Metabolic History: Reports: Diabetes, Type I Immunologic History: Reports: Solid Organ Transplant Other Immunologic History: Kidney transplant Dermatologic History: Reports: None Other Dermatologic History: skin graft - Infectious Disease History Infectious Disease History: Reports: Chicken Pox, Influenza, Shingles - Past Surgical History HEENT Surgical History: Reports: Eye Surgery Other Musculoskeletal Surgeries/Procedures:: toe removal starting in 2005; no toes remain on right and 3 remain on left Dermatological Surgical History: Reports: Skin Graft Social & Family History - Family History Family Medical History: Noncontributory HEENT: Reports: Impaired Vision Cardiac: Reports: Other (See Below) Other Cardiac Family History: Possibly something with mom's heart. Pt unsure. GI: Reports: None : Reports: Other (See Below) Other Family History: Gallbladder removal appendectomy - father. Musculoskeletal: Reports: Arthritis Neurological: Reports: Cerebral Aneurysms, Neuropathy, Diabetic Other Neurological Family History: Dad of hematoma in head. Mother - neuropathy. Endocrine/Metabolic: Reports: Diabetes, Type I Oncologic: Reports: Lymphoma - Tobacco Use Smoking Status *Q: Current Every Day Smoker Years of Tobacco use: 8 Packs/Tins Daily: 0.5 Used Tobacco, but Quit: Yes Month Tobacco Last Used: 06/16 Second Hand Smoke Exposure: No - Caffeine Use Caffeine Use: Reports: Soda - Alcohol Use Days Per Week of Alcohol Use: 1 (1-5 times per year) - Recreational Drug Use Recreational Drug Use: No Drug Use in Last 12 Months: No Recreational Drug Type: Reports: LSD (Acid) (greater than 10 years), Marijuana/ Hashish Recreational Drug Use Frequency: Not Used In Over 6 Months ED ROS GENERAL - Review of Systems Review Of Systems: See Below Constitutional: Reports: Malaise, Fatigue, Decreased Appetite. Denies: Fever, Chills, Diaphoresis HEENT: Reports: Other. Denies: Throat Pain Respiratory: Denies: Shortness of Breath (Mouth does feel dry), Pleuritic Chest Pain Cardiovascular: Denies: Chest Pain Endocrine: Reports: Fatigue GI/Abdominal: Denies: Abdominal Pain, Diarrhea, Nausea, Vomiting : Reports: No Symptoms Musculoskeletal: Reports: No Symptoms Skin: Reports: No Symptoms Neurological: Reports: Weakness. Denies: Numbness, Tingling, Trouble Speaking ( Generalized) ED EXAM, GENERAL - Physical Exam Exam: See Below General Appearance: Alert, No Apparent Distress Eye Exam: Bilateral Eye: PERRL Throat/Mouth: Normal Inspection, Normal Oropharynx Head: No: Facial Swelling Neck: Supple Respiratory/Chest: No Respiratory Distress, Lungs Clear, Normal Breath Sounds Cardiovascular: Regular Rate, Rhythm GI/Abdominal: Soft, Non-Tender. No: Guarding Back Exam: No: CVA Tenderness (L), CVA Tenderness (R) Extremities: Normal Inspection Neurological: Alert, Oriented Skin Exam: Warm, Dry, Normal Color Course - Vital Signs Last Recorded V/S: Last Vital Signs Temp 98.9 F 03/29/17 02:36 Pulse 61 03/29/17 02:30 Resp 17 03/29/17 02:30 BP 144/63 H 03/29/17 02:30 Pulse Ox 97 03/29/17 02:30 - Orders/Labs/Meds Orders: Active Orders 24 hr Category Date Time Status BASIC METABOLIC PANEL,BMP [CHEM] DAILY Lab 03/29/17 05:00 Ordered CBC WITH AUTO DIFF [HEME] DAILY Lab 03/29/17 05:00 Ordered CBC WITH AUTO DIFF [HEME] DAILY Lab 03/30/17 05:00 Ordered CRP [C-REACTIVE PROTEIN] [CHEM] DAILY Lab 03/29/17 05:00 Ordered MAGNESIUM [CHEM] DAILY Lab 03/29/17 05:00 Ordered Medication Orders Acetaminophen (Tylenol) 650 mg PO Q4H PRN PRN Reason: Pain/Fever Last Admin: 03/27/17 03:48 Dose: 650 mg Atenolol (Tenormin) 50 mg PO DAILY [facility] Last Admin: 03/28/17 09:37 Dose: 50 mg Admin: 03/27/17 14:09 Dose: 50 mg Hydralazine HCl (Apresoline) 20 mg IVPUSH Q8H PRN PRN Reason: Hypertension Sodium Chloride (Sodium Chloride 0.45%) 1,000 mls @ 75 mls/hr IV ASDIRECTED [facility] Last Admin: 03/29/17 02:25 Dose: 75 mls/hr Infusion: 03/29/17 01:00 Dose: 75 mls/hr Admin: 03/28/17 11:40 Dose: 75 mls/hr Infusion: 03/28/17 10:18 Dose: 200 mls/hr Admin: 03/28/17 05:18 Dose: 200 mls/hr Infusion: 03/28/17 05:10 Dose: 200 mls/hr Admin: 03/28/17 00:10 Dose: 200 mls/hr Infusion: 03/28/17 00:06 Dose: 200 mls/hr Admin: 03/27/17 19:06 Dose: 200 mls/hr Infusion: 03/27/17 17:47 Dose: 200 mls/hr Admin: 03/27/17 12:47 Dose: 200 mls/hr Infusion: 03/27/17 12:47 Dose: 200 mls/hr Admin: 03/27/17 11:47 Dose: 200 mls/hr Meropenem 500 mg/ Sodium (Chloride) 100 mls @ 200 mls/hr IV Q8H [facility] Last Admin: 03/28/17 23:14 Dose: 200 mls/hr Infusion: 03/28/17 16:51 Dose: 200 mls/hr Admin: 03/28/17 16:21 Dose: 200 mls/hr Latanoprost (Xalatan 0.005% Ophth Soln) 0 ml EYEBOTH BEDTIME [facility] Last Admin: 03/28/17 20:21 Dose: 1 drop Admin: 03/27/17 20:34 Dose: 1 drop Admin: 03/26/17 22:22 Dose: 1 drop Nicotine (Habitrol) 21 mg TRDERM DAILY [facility] Last Admin: 03/28/17 09:43 Dose: Not Given Admin: 03/27/17 09:22 Dose: Not Given Ondansetron HCl (Zofran) 4 mg IVPUSH Q8H PRN PRN Reason: Nausea/Vomiting Pantoprazole Sodium (Protonix) 40 mg PO ACBREAKFAST [facility] Last Admin: 03/28/17 05:26 Dose: 40 mg Admin: 03/27/17 05:37 Dose: 40 mg Tacrolimus 1 Mg Cap* (Own Med) 0 each PO BID [facility] Last Admin: 03/28/17 20:21 Dose: 1 each Admin: 03/28/17 09:43 Dose: 1 each Admin: 03/27/17 20:34 Dose: 1 each Admin: 03/27/17 09:25 Dose: 1 each Mycophenolate Mofetil 250 Mg Cap Own Med 0 each PO QID [facility] Last Admin: 03/28/17 20:20 Dose: 2 each Admin: 03/28/17 16:21 Dose: 2 each Admin: 03/28/17 13:24 Dose: 2 each Admin: 03/28/17 09:43 Dose: 2 each Admin: 03/27/17 20:34 Dose: 500 each Admin: 07/25/17 18:05 Dose: 500 each Admin: 03/27/17 12:48 Dose: 500 each Admin: 03/27/17 09:24 Dose: 500 each Potassium Chloride (Potassium Chloride) 60 meq PO BID [facility] ANN Last Admin: 03/28/17 20:19 Dose: 60 meq Admin: 03/28/17 09:41 Dose: 60 meq Admin: 03/27/17 20:31 Dose: Not Given Admin: 03/27/17 09:32 Dose: Not Given Sodium Chloride (Saline Flush) 10 ml FLUSH ASDIRECTED PRN PRN Reason: Keep Vein Open Last Admin: 03/26/17 13:49 Dose: 10 ml Labs: Laboratory Tests 03/26/17 03/26/17 03/26/17 Range/Units 13:58 13:58 16:59 WBC 6.46 (4.23-9.07) K/mm3 RBC 3.59 L (4.63-6.08) M/mm3 Hgb 10.6 L (13.7-17.5) gm/L Hct 33.0 L (40.1-51.0) % MCV 91.9 (79.0-92.2) fl MCH 29.5 (25.7-32.2) pg MCHC 32.1 L (32.2-35.5) g/dl RDW Std Deviation 42.2 (35.1-43.9) fL Plt Count 191 (163-337) K/mm3 MPV 10.4 (9.4-12.3) fl Neut % (Auto) 78.9 H (34.0-67.9) % Lymph % (Auto) 6.7 L (21.8-53.1) % [place] % (Auto) 13.6 H (5.3-12.2) % Eos % (Auto) 0.5 L (0.8-7.0) Baso % (Auto) 0.0 L (0.1-1.2) % Neut # (Auto) 5.10 (1.78-5.38) K/mm3 Lymph # (Auto) 0.43 L (1.32-3.57) K/mm3 [place] # (Auto) 0.88 H (0.30-0.82) K/mm3 Eos # (Auto) 0.03 L (0.04-0.54) K/mm3 Baso # (Auto) 0.00 L (0.01-0.08) K/mm3 Manual Slide Review Abnormal smear Sodium 140 141 (136-145) mEq/L Potassium 3.3 L 3.2 L (3.5-5.1) mEq/L Chloride 106 109 H (98-107) mEq/L Carbon Dioxide 20 L 20 L (21-32) mEq/L Anion Gap 17.3 H 15.2 H (5-15) BUN 35 H 33 H (7-18) mg/dL Creatinine 3.3 H 2.8 H (0.7-1.3) mg/dL Est Cr Clr Drug Dosing 20.41 24.06 mL/min Estimated GFR (MDRD) 19 23 (>60) mL/min BUN/Creatinine Ratio 10.6 L 11.8 L (14-18) Glucose 110 H 97 (74-106) mg/dL POC Glucose (70-105) mg/dL Hemoglobin A1c (4.50-6.20) % Calcium 8.7 8.0 L (8.5-10.1) mg/dL Magnesium (1.8-2.4) mg/dl Total Bilirubin 0.3 0.2 (0.2-1.0) mg/dL AST 13 L 10 L (15-37) U/L ALT 9 L 9 L (16-63) U/L Alkaline Phosphatase 61 55 (46-116) U/L Troponin I 0.025 (0.00-0.056) ng/mL C-Reactive Protein (<1.0) mg/dL Total Protein 6.7 5.9 L (6.4-8.2) g/dl Albumin 2.8 L 2.4 L (3.4-5.0) g/dl Globulin 3.9 3.5 gm/dL Albumin/Globulin Ratio 0.7 L 0.7 L (1-2) Urine Color (Yellow) Urine Appearance (Clear) Urine pH (5.0-8.0) Ur Specific [place] (1.005-1.030) Urine Protein (Negative) Urine Glucose (UA) (Negative) Urine Ketones (Negative) Urine Occult Blood (Negative) Urine Nitrite (Negative) Urine Bilirubin (Negative) Urine Urobilinogen (0.2-1.0) Ur Leukocyte Esterase (Negative) Urine RBC (0-5) /hpf Urine WBC (0-5) /hpf Ur Epithelial Cells (0-5) /hpf Urine Bacteria (FEW) /hpf Urine Mucus (FEW) /hpf 03/26/17 03/26/17 03/27/17 Range/Units 17:34 21:31 06:05 WBC (4.23-9.07) K/mm3 RBC (4.63-6.08) M/mm3 Hgb (13.7-17.5) gm/L Hct (40.1-51.0) % MCV (79.0-92.2) fl MCH (25.7-32.2) pg MCHC (32.2-35.5) g/dl RDW Std Deviation (35.1-43.9) fL Plt Count (163-337) K/mm3 MPV (9.4-12.3) fl Neut % (Auto) (34.0-67.9) % Lymph % (Auto) (21.8-53.1) % [place] % (Auto) (5.3-12.2) % Eos % (Auto) (0.8-7.0) Baso % (Auto) (0.1-1.2) % Neut # (Auto) (1.78-5.38) K/mm3 Lymph # (Auto) (1.32-3.57) K/mm3 [place] # (Auto) (0.30-0.82) K/mm3 Eos # (Auto) (0.04-0.54) K/mm3 Baso # (Auto) (0.01-0.08) K/mm3 Manual Slide Review Sodium (136-145) mEq/L Potassium (3.5-5.1) mEq/L Chloride (98-107) mEq/L Carbon Dioxide (21-32) mEq/L Anion Gap (5-15) BUN (7-18) mg/dL Creatinine (0.7-1.3) mg/dL Est Cr Clr Drug Dosing mL/min Estimated GFR (MDRD) (>60) mL/min BUN/Creatinine Ratio (14-18) Glucose (74-106) mg/dL POC Glucose 137 H 106 H (70-105) mg/dL Hemoglobin A1c (4.50-6.20) % Calcium (8.5-10.1) mg/dL Magnesium (1.8-2.4) mg/dl Total Bilirubin (0.2-1.0) mg/dL AST (15-37) U/L ALT (16-63) U/L Alkaline Phosphatase (46-116) U/L Troponin I (0.00-0.056) ng/mL C-Reactive Protein (<1.0) mg/dL Total Protein (6.4-8.2) g/dl Albumin (3.4-5.0) g/dl Globulin gm/dL Albumin/Globulin Ratio (1-2) Urine Color Yellow (Yellow) Urine Appearance Clear (Clear) Urine pH 6.0 (5.0-8.0) Ur Specific [place] 1.015 (1.005-1.030) Urine Protein 1+ H (Negative) Urine Glucose (UA) Negative (Negative) Urine Ketones Negative (Negative) Urine Occult Blood Trace-lysed H (Negative) Urine Nitrite Negative (Negative) Urine Bilirubin Negative (Negative) Urine Urobilinogen 0.2 (0.2-1.0) Ur Leukocyte Esterase 2+ H (Negative) Urine RBC 0-5 (0-5) /hpf Urine WBC 50-75 H (0-5) /hpf Ur Epithelial Cells 5-10 H (0-5) /hpf Urine Bacteria Moderate H (FEW) /hpf Urine Mucus Few (FEW) /hpf 03/27/17 03/27/17 03/27/17 Range/Units 06:40 06:40 06:40 WBC 6.26 (4.23-9.07) K/mm3 RBC 3.44 L (4.63-6.08) M/mm3 Hgb 10.5 L (13.7-17.5) gm/L Hct 31.5 L (40.1-51.0) % MCV 91.6 (79.0-92.2) fl MCH 30.5 (25.7-32.2) pg MCHC 33.3 (32.2-35.5) g/dl RDW Std Deviation 42.3 (35.1-43.9) fL Plt Count 310 (163-337) K/mm3 MPV 10.9 (9.4-12.3) fl Neut % (Auto) 82.0 H (34.0-67.9) % Lymph % (Auto) 6.9 L (21.8-53.1) % [place] % (Auto) 10.4 (5.3-12.2) % Eos % (Auto) 0.2 L (0.8-7.0) Baso % (Auto) 0.2 (0.1-1.2) % Neut # (Auto) 5.14 (1.78-5.38) K/mm3 Lymph # (Auto) 0.43 L (1.32-3.57) K/mm3 [place] # (Auto) 0.65 (0.30-0.82) K/mm3 Eos # (Auto) 0.01 L (0.04-0.54) K/mm3 Baso # (Auto) 0.01 (0.01-0.08) K/mm3 Manual Slide Review Abnormal smear Sodium 138 (136-145) mEq/L Potassium 3.3 L (3.5-5.1) mEq/L Chloride 105 (98-107) mEq/L Carbon Dioxide 18 L (21-32) mEq/L Anion Gap 18.3 H (5-15) BUN 25 H (7-18) mg/dL Creatinine 2.2 H (0.7-1.3) mg/dL Est Cr Clr Drug Dosing 30.01 mL/min Estimated GFR (MDRD) 31 (>60) mL/min BUN/Creatinine Ratio 11.4 L (14-18) Glucose 109 H (74-106) mg/dL POC Glucose (70-105) mg/dL Hemoglobin A1c 5.70 (4.50-6.20) % Calcium 8.2 L (8.5-10.1) mg/dL Magnesium 1.5 L (1.8-2.4) mg/dl Total Bilirubin (0.2-1.0) mg/dL AST (15-37) U/L ALT (16-63) U/L Alkaline Phosphatase (46-116) U/L Troponin I (0.00-0.056) ng/mL C-Reactive Protein 11.9 H* (<1.0) mg/dL Total Protein (6.4-8.2) g/dl Albumin (3.4-5.0) g/dl Globulin gm/dL Albumin/Globulin Ratio (1-2) Urine Color (Yellow) Urine Appearance (Clear) Urine pH (5.0-8.0) Ur Specific [place] (1.005-1.030) Urine Protein (Negative) Urine Glucose (UA) (Negative) Urine Ketones (Negative) Urine Occult Blood (Negative) Urine Nitrite (Negative) Urine Bilirubin (Negative) Urine Urobilinogen (0.2-1.0) Ur Leukocyte Esterase (Negative) Urine RBC (0-5) /hpf Urine WBC (0-5) /hpf Ur Epithelial Cells (0-5) /hpf Urine Bacteria (FEW) /hpf Urine Mucus (FEW) /hpf Meds: Medications Generic Name Dose Route Start Last Admin Trade Name Freq PRN Reason Stop Dose Admin Acetaminophen 650 mg 03/27/17 03:12 03/27/17 03:48 Tylenol PO 650 mg Q4H PRN Administration Pain/Fever Atenolol 50 mg 03/27/17 13:30 03/28/17 09:37 Tenormin PO 50 mg DAILY RUTH ANN Administration Hydralazine HCl 20 mg 03/26/17 20:31 Apresoline IVPUSH Q8H PRN Hypertension Sodium Chloride 1,000 mls @ 75 mls/hr 03/27/17 11:00 03/29/17 02:25 Sodium Chloride 0.45% IV 75 mls/hr ASDIRECTED RUTH ANN Administration Meropenem 500 mg/ Sodium 100 mls @ 200 mls/hr 03/28/17 15:00 03/28/17 23:14 Chloride IV 200 mls/hr Q8H R[facility] Administration Latanoprost 0 ml 03/26/17 21:00 03/28/17 20:21 Xalatan 0.005% Ophth Soln EYEBOTH 1 drop BEDTIME [facility] Administration Nicotine 21 mg 03/27/17 09:00 03/28/17 09:43 Habitrol TRDERM Not Given DAILY [facility] Ondansetron HCl 4 mg 03/26/17 20:28 Zofran IVPUSH Q8H PRN Nausea/Vomiting Pantoprazole Sodium 40 mg 03/27/17 06:00 03/28/17 05:26 Protonix PO 40 mg ACBREAKFAST RUTH ANN Administration Tacrolimus 1 Mg Cap* 0 each 03/27/17 09:00 03/28/17 20:21 Own Med PO 1 each BID R[facility] ANN Administration Mycophenolate 0 each 03/27/17 09:00 03/28/17 20:20 Mofetil 250 Mg Cap PO 2 each Own Med QID RUTH ANN Administration Potassium Chloride 60 meq 03/27/17 09:15 03/28/17 20:19 Potassium Chloride PO 60 meq BID RUTH ANN Administration Sodium Chloride 10 ml 03/26/17 13:41 03/26/17 13:49 Saline Flush FLUSH 10 ml ASDIRECTED PRN Administration Keep Vein Open Discontinued Medications Generic Name Dose Route Start Last Admin Trade Name Freq PRN Reason Stop Dose Admin Ceftriaxone Sodium Confirm 03/26/17 18:41 03/26/17 18:43 Rocephin Administered 03/26/17 18:42 Not Given Dose 1 gm IV .STK-MED ONE Dextrose/Water 50 ml 03/26/17 20:26 Dextrose 50% In Water IVPUSH ASDIRECTED PRN Hypoglycemia Sodium Chloride 1,000 mls @ 999 mls/hr 03/26/17 14:00 03/26/17 13:51 Normal Saline IV 999 mls/hr ONETIME RUTH ANN Administration Sodium Chloride 1,000 mls @ 999 mls/hr 03/26/17 15:46 03/26/17 15:48 Normal Saline IV 03/26/17 16:46 999 mls/hr ONETIME ONE Administration Sodium Chloride 1,000 mls @ 75 mls/hr 03/26/17 16:48 03/26/17 16:50 Normal Saline IV 03/27/17 06:07 75 mls/hr NOW STA Administration Ceftriaxone Sodium 1,000 mg/ 50 mls @ 200 mls/hr 03/26/17 18:34 03/26/17 22: 22 Sodium Chloride IV 03/26/17 18:48 Not Given ONETIME ONE Sodium Chloride Confirm 03/26/17 18:41 03/26/17 18:43 Normal Saline Administered 03/26/17 18:42 Not Given Dose 100 mls @ as directed .ROUTE .STK-MED ONE Ceftriaxone Sodium 1 gm/ 100 mls @ 200 mls/hr 03/26/17 18:42 03/26/17 18:43 Sodium Chloride IV 03/26/17 19:11 200 mls/hr NOW STA Administration Sodium Chloride 1,000 mls @ 999 mls/hr 03/26/17 20:15 03/26/17 22:13 Sodium Chloride 0.45% IV 03/26/17 21:16 999 mls/hr ASDIRECTED RUTH ANN Administration Ceftriaxone Sodium 2 gm/ 100 mls @ 200 mls/hr 03/27/17 13:00 03/27/17 12:48 Sodium Chloride IV 200 mls/hr Q24H RUTH ANN Administration Sodium Chloride 1,000 mls @ 200 mls/hr 03/26/17 21:17 03/27/17 05:37 Sodium Chloride 0.45% IV 150 mls/hr ASDIRECTED RUTH ANN Administration Magnesium Sulfate 2 gm/ Premix 50 mls @ 25 mls/hr 03/27/17 18:44 03/27/17 19: 06 IV 03/27/17 20:43 25 mls/hr ONETIME ONE Administration Meropenem 1 gm/ Sodium 100 mls @ 200 mls/hr 03/28/17 09:00 Chloride IV Q8H RUTH ANN Levofloxacin/Dextrose 750 mg/ 150 mls @ 100 mls/hr 03/28/17 09:00 03/28/17 09 :33 Premix IV 100 mls/hr Q24H RUTH ANN Administration Magnesium Sulfate 4 gm/ Premix 100 mls @ 50 mls/hr 03/28/17 09:08 03/28/17 10 :58 IV 03/28/17 11:07 50 mls/hr ONETIME ONE Administration Insulin Aspart 0 unit 03/26/17 22:00 03/27/17 11:02 Novolog SUBCUT Not Given QIDACANDBED [facility] Protocol Latanoprost 0 ml 03/26/17 22:30 03/27/17 03:09 Xalatan 0.005% [facility] EYEBO 03/26/17 22:31 Not Given ONETIME ONE Metoprolol Tartrate 50 mg 03/27/17 09:00 Lopressor PO DAILY [facility] Metoprolol Tartrate 25 mg 03/27/17 09:00 03/27/17 09:23 Lopressor PO Not Given Q12HR R[facility] ANN Mycophenolate Mofetil 500 mg 03/26/17 21:00 03/26/17 22:20 Cellcept PO 500 mg QID RUTH ANN Administration Mycophenolate Mofetil 500 mg 03/26/17 22:15 Cellcept PO ONETIME RUTH ANN Tacrolimus 1 mg 03/26/17 21:00 03/26/17 22:21 Prograf PO 1 mg BID RUTH ANN Administration Tacrolimus 1 mg 03/26/17 22:15 03/26/17 22:20 Prograf PO 03/26/17 22:16 1 mg ONETIME ONE Administration - Re-Assessments/Exams Free Text/Narrative Re-Assessment/Exam: 03/26/17 18:35 I have discussed this with Dr. 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 He believes it is safe to admit him, treat him with IV fluid IV antibiotics here and as long as he gets better over the next 24-48 hours that would be very acceptable. If he is not responding as expected then transfer may be necessary. Departure - Departure Time of Disposition: 18:24 Disposition: Admitted As Inpatient 68 Condition: Serious Clinical Impression: Renal insufficiency, Dehydration UTI (urinary tract infection) Qualifiers: Urinary tract infection type: site unspecified Hematuria presence: without hematuria Qualified Code(s): N39.0 - Urinary tract infection, site not specified ED Communication - Discussed Case With (1) Discussed Case With (1): Admitting Provider (Dr Man, decision to admit at about 18:30.)
[2017-03-26] MEDS ORDERED: Sodium Chloride 0.9% 1,000 ML IV STA (16:48)
[2017-03-26] MEDS ORDERED: cefTRIAXone 1,000 MG in Sodium Chloride 0.9% 50 ML IV ONE (18:34)
[2017-03-26] MEDS ORDERED: Sodium Chloride 0.9% 100 ML ONE (18:41)
[2017-03-26] MEDS ORDERED: cefTRIAXone 1 GM AdvVial IV ONE (18:41)
[2017-03-26] MEDS ORDERED: cefTRIAXone 1 GM in Sodium Chloride 0.9% 100 ML IV STA (18:42)
[2017-03-26] MEDS ORDERED: Sodium Chloride 0.45% 1,000 ML IV SCH (20:15)
--- NOTE | 2017-03-26 20:23 | PCM.HP ---
H&P History of Present Illness - General Date of Service: 03/26/17 Admit Problem/Dx: Admission Diagnosis/Problem Admission Diagnosis/Problem Renal insufficiency Source of Information: Provider History Limitations: Reports: No Limitations - History of Present Illness Initial Comments - Free Text/Narative: 61 year old renal transplant on Cellcept/Prograf presents with gen weakness/ malaise; UA documents AUTI. Also has acute renal failure/pre-renal with dehydration. Also admits to decreased appetite and dizziness. Has has decreased fluid intake as well. Onset of Symptoms: Reports: Unknown/Unsure Duration of Symptoms: Reports: Hour(s):, Getting Worse Location: Reports: Generalized Severity: Moderate Improves with: Reports: Medication Worsens with: Reports: None Associated Symptoms: Reports: Fever/Chills, Malaise, Nausea/Vomiting, Weakness - Related Data Allergies/Adverse Reactions: Allergies Allergy/AdvReac Type Severity Reaction Status Date / Time No Known Allergies Allergy Verified 03/26/17 13:31 Home Medications: Home Meds Cilostazol [Pletal] 100 mg PO BID 12/10/13 [History] Lisinopril [Prinivil] 2.5 mg PO BEDTIME 12/10/13 [History] Mycophenolate Mofetil [Cellcept] 500 mg PO QID 12/10/13 [History] Omeprazole [Prilosec] 20 mg PO ACBREAKFAST 12/10/13 [History] Tacrolimus [Prograf] 1 mg PO BID 12/10/13 [History] Travoprost [Travatan Z] 1 drop OP BEDTIME 11/09/16 [History] Metoprolol Tartrate [Lopressor] 50 mg PO DAILY 03/26/17 [History] Past Medical History HEENT History: Reports: Impaired Vision Other HEENT History: left eye blindness Cardiovascular History: Reports: Other (See Below) Other Cardiovascular History: unsure if he has had stents Respiratory History: Reports: None Gastrointestinal History: Reports: GERD Genitourinary History: Reports: Acute Renal Failure, Other (See Below) Other Genitourinary History: kidney transplant Musculoskeletal History: Reports: Amputation Other Musculoskeletal History: toes bilaterally Endocrine/Metabolic History: Reports: Diabetes, Type I Immunologic History: Reports: Solid Organ Transplant Other Immunologic History: Kidney transplant Dermatologic History: Reports: None Other Dermatologic History: skin graft - Infectious Disease History Infectious Disease History: Reports: Chicken Pox, Influenza, Shingles - Past Surgical History HEENT Surgical History: Reports: Eye Surgery Other Musculoskeletal Surgeries/Procedures:: toe removal starting in 2006; no toes remain on right and 3 remain on left Dermatological Surgical History: Reports: Skin Graft Social & Family History - Family History Family Medical History: Noncontributory HEENT: Reports: Impaired Vision Cardiac: Reports: Other (See Below) Other Cardiac Family History: Possibly something with mom's heart. Pt unsure. GI: Reports: None : Reports: Other (See Below) Other Family History: Gallbladder removal appendectomy - father. Musculoskeletal: Reports: Arthritis Neurological: Reports: Cerebral Aneurysms, Neuropathy, Diabetic Other Neurological Family History: Dad of hematoma in head. Mother - neuropathy. Endocrine/Metabolic: Reports: Diabetes, Type I Oncologic: Reports: Lymphoma - Tobacco Use Smoking Status *Q: Current Every Day Smoker Years of Tobacco use: 8 Packs/Tins Daily: 0.5 Used Tobacco, but Quit: Yes Month Tobacco Last Used: 06/16 Second Hand Smoke Exposure: No - Caffeine Use Caffeine Use: Reports: Soda - Alcohol Use Days Per Week of Alcohol Use: 1 (1-5 times per year) - Recreational Drug Use Recreational Drug Use: No Drug Use in Last 12 Months: No Recreational Drug Type: Reports: LSD (Acid) (greater than 10 years), Marijuana/ Hashish Recreational Drug Use Frequency: Not Used In Over 6 Months H&P Review of Systems - Review of Systems: Review Of Systems: See Below General: Reports: Malaise, Weakness, Fatigue, Decreased Appetite HEENT: Reports: No Symptoms Pulmonary: Reports: No Symptoms Cardiovascular: Reports: No Symptoms Gastrointestinal: Reports: No Symptoms Genitourinary: Reports: No Symptoms Musculoskeletal: Reports: No Symptoms Skin: Reports: No Symptoms Psychiatric: Reports: No Symptoms Neurological: Reports: No Symptoms Hematologic/Lymphatic: Reports: No Symptoms Exam - Exam Exam: See Below - Vital Signs Vital Signs: Last Vital Signs Temp 36.6 C 03/26/17 13:27 Pulse 73 03/26/17 13:27 Resp 19 03/26/17 13:27 BP 120/70 03/26/17 13:27 Pulse Ox 99 03/26/17 13:27 Weight: 59.874 kg - Exam Quality Assessment: DVT Prophylaxis General: Alert, Oriented HEENT: Nares Patent, Normal Nasal Septum, Pupils Equal, Pupils Reactive Neck: Supple, Trachea Midline Lungs: Normal Respiratory Effort Cardiovascular: Regular Rate, Regular Rhythm GI/Abdominal Exam: Normal Bowel Sounds, Soft, Non-Tender, No Organomegaly, No Distention (Male) Exam: Deferred Rectal (Males) Exam: Deferred Back Exam: Normal Inspection Extremities: Normal Inspection Skin: Warm Neurological: Cranial Nerves Intact, Reflexes Equal Bilateral Neuro Extensive - Mental Status: Alert, Oriented x3 Neuro Extensive - Motor, Sensory, Reflexes: CN II-XII Intact Psychiatric: Alert - Patient Data Result Diagrams: 03/26/17 13:58 03/26/17 16:59 *Q Meaningful Use (ADM) - VTE *Q VTE Criteria *Q: - Stroke *Q Stroke Criteria *Q: - AMI *Q AMI Criteria *Q: - Problem List (1) Dehydration SNOMED Code(s): 41962788 ICD Code: E86.0 - DEHYDRATION Status: Acute Current Visit: Yes (2) Renal insufficiency SNOMED Code(s): 306457382, 830131564 ICD Code: N28.9 - DISORDER OF KIDNEY AND URETER, UNSPECIFIED Status: Acute Current Visit: Yes (3) UTI (urinary tract infection) SNOMED Code(s): 97683758 ICD Code: N39.0 - URINARY TRACT INFECTION, SITE NOT SPECIFIED Status: Acute Current Visit: Yes Qualifiers: Urinary tract infection type: site unspecified Hematuria presence: without hematuria Qualified Code(s): N39.0 - Urinary tract infection, site not specified (4) History of renal transplantation Status: Chronic Priority: Medium Current Visit: No (5) Immunosuppressed status SNOMED Code(s): 26718031 ICD Code: D89.9 - DISORDER INVOLVING THE IMMUNE MECHANISM, UNSPECIFIED Status: Chronic Current Visit: No Problem List Initiated/Reviewed/Updated: Yes Orders Last 24hrs: Active Orders 24 hr Category Date Time Status Admission Status [Patient Status] [ADT] Routine ADT 03/26/17 19:42 Active Activity as Tolerated [RC] .Routine Care 03/26/17 20:11 Ordered Antiembolic Devices [RC] PER UNIT ROUTINE Care 03/26/17 20:14 Ordered Vital Signs [RC] PER UNIT ROUTINE Care 03/26/17 20:10 Ordered Consult to Occupational Therapy [OT Evaluation and Cons 03/26/17 20:09 Ordered Treatment] [CONS] Routine Consult to Physical Therapy [PT Evaluation and Cons 03/26/17 20:09 Ordered Treatment] [CONS] Routine Consult to Tractor Trailer Operator [CONS] Routine Cons 03/26/17 20:09 Ordered Heart Healthy Diet [DIET] Diet 03/27/17 Breakfast Ordered Renal Non-Dialysis Diet [DIET] Diet 03/27/17 Breakfast Ordered BASIC METABOLIC PANEL,BMP [CHEM] DAILY Lab 03/27/17 05:00 Ordered BASIC METABOLIC PANEL,BMP [CHEM] DAILY Lab 03/28/17 05:00 Ordered BASIC METABOLIC PANEL,BMP [CHEM] DAILY Lab 03/29/17 05:00 Ordered CRP [C-REACTIVE PROTEIN] [CHEM] DAILY Lab 03/27/17 05:00 Ordered CRP [C-REACTIVE PROTEIN] [CHEM] DAILY Lab 03/28/17 05:00 Ordered CRP [C-REACTIVE PROTEIN] [CHEM] DAILY Lab 03/29/17 05:00 Ordered CULTURE BLOOD [BC] Stat Lab 03/26/17 20:13 Ordered CULTURE BLOOD [BC] Stat Lab 03/26/17 20:13 Ordered MAGNESIUM [CHEM] DAILY Lab 03/27/17 05:00 Ordered MAGNESIUM [CHEM] DAILY Lab 03/28/17 05:00 Ordered MAGNESIUM [CHEM] DAILY Lab 03/29/17 05:00 Ordered Metoprolol Tartrate [Lopressor] Med 03/27/17 09:00 Ordered 25 mg PO Q12HR Mycophenolate Mofetil [Cellcept] Med 03/26/17 21:00 Ordered 500 mg PO QID Omeprazole Med 03/27/17 06:00 Ordered 20 mg PO ACBREAKFAST Sodium Chloride 0.45% 1,000 ml Med 03/26/17 20:15 Ordered IV ASDIRECTED Tacrolimus [Prograf] Med 03/26/17 21:00 Ordered 1 mg PO BID Travoprost [Travatan Z] Med 03/26/17 21:00 Ordered 1 drop OP BEDTIME cefTRIAXone [Rocephin] 2 gm Med 03/27/17 13:00 Ordered Sodium Chloride 0.9% [Normal Saline] 100 ml IV Q24H Blood Culture x2 Reflex Set [OM.PC] Stat Oth 03/26/17 20:13 Ordered SILVERIO Hose [Antiembolic Hose] [OM.PC] Routine Oth 03/26/17 20:14 Ordered Code Status [Resuscitation Status] Routine Resus Stat 03/26/17 20:10 Ordered Medication Orders Sodium Chloride (Normal Saline) 1,000 mls @ 999 mls/hr IV ONETIME RUTH ANN Last Admin: 03/26/17 13:51 Dose: 999 mls/hr Sodium Chloride (Normal Saline) 1,000 mls @ 75 mls/hr IV NOW STA Stop: 03/27/17 06:07 Last Admin: 03/26/17 16:50 Dose: 75 mls/hr Sodium Chloride (Sodium Chloride 0.45%) 1,000 mls @ 999 mls/hr IV ASDIRECTED RUTH ANN Ceftriaxone Sodium 2 gm/ (Sodium Chloride) 100 mls @ 200 mls/hr IV Q24H [facility]UTH ANN Mycophenolate Mofetil (Cellcept) 500 mg PO QID RUTH ANN Non-Formulary Medication (Travoprost [Travatan Z]) 1 drop OP BEDTIME [facility] Non-Formulary Medication (Omeprazole) 20 mg PO ACBREAKFAST RUTH ANN Sodium Chloride (Saline Flush) 10 ml FLUSH ASDIRECTED PRN PRN Reason: Keep Vein Open Last Admin: 03/26/17 13:49 Dose: 10 ml Tacrolimus (Prograf) 1 mg PO BID [facility] Assessment/Plan Comment:: Impression: Renal Transplant/immune suppressed ARF/Dehydration AUTI Chronic Tobacco HTN DM HLD PAD Plan: IVF ATBs Home meds Daily Labs SW/PT/OT DVT/GI prophylaxis
[2017-03-26] MEDS ORDERED: 50% Dextrose in Water 50 ML Syringe IVPUSH PRN (20:26)
[2017-03-26] MEDS ORDERED: Ondansetron 4 MG/2 ML SDV IVPUSH PRN (20:28)
[2017-03-26] MEDS ORDERED: hydrALAZINE 20 MG/ML SDV IVPUSH PRN (20:31)
[2017-03-26] MEDS ORDERED: MYCOPHENOLATE MOFETIL 250 MG PO SCH ×2 (21:00→22:15)
[2017-03-26] MEDS ORDERED: TACROLIMUS 1 MG PO SCH (21:00)
[2017-03-26] MEDS: Latanoprost 0.005% Ophth Soln 2.5 ML Bottle EYEBOTH ONE ×2 (22:14→22:19)
[2017-03-26] MEDS ORDERED: TACROLIMUS 1 MG PO ONE (22:15)
[2017-03-26] MEDS: Latanoprost 0.005% Ophth Soln 2.5 ML Bottle EYEBOTH SCH (22:22)
[2017-03-26] MEDS: Insulin Aspart 100 Units/ML 3 ML Pen SUBCUT SCH (22:22)
[2017-03-26] MEDS: Sodium Chloride 0.45% 1,000 ML IV SCH (23:39)
[2017-03-27] MEDS: Latanoprost 0.005% Ophth Soln 2.5 ML Bottle EYEBOTH ONE (03:09)
[2017-03-27] MEDS ORDERED: Acetaminophen 325 MG Tab PO PRN (03:12)
[2017-03-27] MEDS: Pantoprazole 40 MG Tab.CR PO SCH (05:37)
[2017-03-27] MEDS: Sodium Chloride 0.45% 1,000 ML IV SCH ×4 (05:37→19:06)
[2017-03-27] MEDS: Insulin Aspart 100 Units/ML 3 ML Pen SUBCUT SCH ×2 (08:03→11:02)
[2017-03-27] MEDS ORDERED: Metoprolol Tartrate 50 MG Tab PO SCH (09:00)
[2017-03-27] MEDS ORDERED: Metoprolol Tartrate 25 MG Tab PO SCH (09:00)
[2017-03-27] MEDS: Nicotine 21 MG/24 Hr Patch TRDERM SCH (09:22)
[2017-03-27] MEDS: MYCOPHENOLATE MOFETIL 250 MG PO SCH ×4 (09:24→20:34)
[2017-03-27] MEDS: TACROLIMUS 1 MG PO SCH ×2 (09:25→20:34)
[2017-03-27] MEDS: Potassium Chloride 10% 20 MEQ/15 ML Soln 30 ML UD Cup PO SCH ×2 (09:32→20:31)
[2017-03-27] MEDS ORDERED: cefTRIAXone 2 GM in Sodium Chloride 0.9% 100 ML IV SCH (13:00)
--- NOTE | 2017-03-27 13:16 | PCM.PN ---
- General Info Date of Service: 03/27/17 Functional Status: Reports: Tolerating Diet, Ambulating - Review of Systems General: Reports: No Symptoms HEENT: Reports: No Symptoms Pulmonary: Reports: No Symptoms Cardiovascular: Reports: No Symptoms Gastrointestinal: Reports: No Symptoms Genitourinary: Reports: No Symptoms Musculoskeletal: Reports: No Symptoms Skin: Reports: No Symptoms Neurological: Reports: No Symptoms Psychiatric: Reports: No Symptoms - Patient Data Vitals - Most Recent: Last Vital Signs Temp 36.4 C 03/27/17 08:46 Pulse 64 03/27/17 09:23 Resp 14 03/27/17 08:46 BP 128/61 03/27/17 09:23 Pulse Ox 98 03/27/17 08:46 Weight - Most Recent: 58.695 kg I&O - Last 24 Hours: Intake & Output 03/26/17 03/27/17 03/27/17 22:59 06:59 14:59 Intake Total 1303 Balance 1303 Lab Results Last 24 Hours: Laboratory Results - last 24 hr 03/27/17 Range/Units 10:55 POC Glucose 127 H (70-105) mg/dL Med Orders - Current: Current Medications Acetaminophen (Tylenol) 650 mg PO Q4H PRN PRN Reason: Pain/Fever Last Admin: 03/27/17 03:48 Dose: 650 mg Dextrose/Water (Dextrose 50% In Water) 50 ml IVPUSH ASDIRECTED PRN PRN Reason: Hypoglycemia Hydralazine HCl (Apresoline) 20 mg IVPUSH Q8H PRN PRN Reason: Hypertension Ceftriaxone Sodium 2 gm/ (Sodium Chloride) 100 mls @ 200 mls/hr IV Q24H [facility] Last Admin: 03/27/17 12:48 Dose: 200 mls/hr Sodium Chloride (Sodium Chloride 0.45%) 1,000 mls @ 200 mls/hr IV ASDIRECTED [facility] Last Admin: 03/27/17 12:47 Dose: 200 mls/hr Insulin Aspart (Novolog) 0 unit SUBCUT QIDACANDBED [facility] PRN Reason: Protocol Last Admin: 03/27/17 11:02 Dose: Not Given Latanoprost (Xalatan 0.005% Ophth Soln) 0 ml EYEBOTH BEDTIME [facility] Last Admin: 03/26/17 22:22 Dose: 1 drop Metoprolol Tartrate (Lopressor) 25 mg PO Q12HR [facility] Last Admin: 03/27/17 09:23 Dose: Not Given Nicotine (Habitrol) 21 mg TRDERM DAILY [facility] Last Admin: 03/27/17 09:22 Dose: Not Given Ondansetron HCl (Zofran) 4 mg IVPUSH Q8H PRN PRN Reason: Nausea/Vomiting Pantoprazole Sodium (Protonix) 40 mg PO ACBREAKFAST [facility] Last Admin: 03/27/17 05:37 Dose: 40 mg Tacrolimus 1 Mg Cap* (Own Med) 0 each PO BID [facility] Last Admin: 03/27/17 09:25 Dose: 1 each Mycophenolate Mofetil 250 Mg Cap Own Med 0 each PO QID [facility] Last Admin: 03/27/17 12:48 Dose: 500 each Potassium Chloride (Potassium Chloride) 60 meq PO BID [facility] Last Admin: 03/27/17 09:32 Dose: Not Given Sodium Chloride (Saline Flush) 10 ml FLUSH ASDIRECTED PRN PRN Reason: Keep Vein Open Last Admin: 03/26/17 13:49 Dose: 10 ml Discontinued Medications Ceftriaxone Sodium (Rocephin) Confirm Administered Dose 1 gm IV .STK-MED ONE Stop: 03/26/17 18:42 Last Admin: 03/26/17 18:43 Dose: Not Given Sodium Chloride (Normal Saline) 1,000 mls @ 999 mls/hr IV ONETIME [facility] Last Admin: 03/26/17 13:51 Dose: 999 mls/hr Sodium Chloride (Normal Saline) 1,000 mls @ 999 mls/hr IV ONETIME ONE Stop: 03/26/17 16:46 Last Admin: 03/26/17 15:48 Dose: 999 mls/hr Sodium Chloride (Normal Saline) 1,000 mls @ 75 mls/hr IV NOW STA Stop: 03/27/17 06:07 Last Admin: 03/26/17 16:50 Dose: 75 mls/hr Ceftriaxone Sodium 1,000 mg/ (Sodium Chloride) 50 mls @ 200 mls/hr IV ONETIME ONE Stop: 03/26/17 18:48 Last Admin: 03/26/17 22:22 Dose: Not Given Sodium Chloride (Normal Saline) Confirm Administered Dose 100 mls @ as directed .ROUTE .STK-MED ONE Stop: 03/26/17 18:42 Last Admin: 03/26/17 18:43 Dose: Not Given Ceftriaxone Sodium 1 gm/ (Sodium Chloride) 100 mls @ 200 mls/hr IV NOW STA Stop: 03/26/17 19:11 Last Admin: 03/26/17 18:43 Dose: 200 mls/hr Sodium Chloride (Sodium Chloride 0.45%) 1,000 mls @ 999 mls/hr IV ASDIRECTED RUTH ANN Stop: 03/26/17 21:16 Last Admin: 03/26/17 22:13 Dose: 999 mls/hr Sodium Chloride (Sodium Chloride 0.45%) 1,000 mls @ 200 mls/hr IV ASDIRECTED [facility] Last Admin: 03/27/17 05:37 Dose: 150 mls/hr Latanoprost (Xalatan 0.005% Ophth Soln) 0 ml EYEBOTH ONETIME ONE Stop: 03/26/17 22:31 Last Admin: 03/27/17 03:09 Dose: Not Given Metoprolol Tartrate (Lopressor) 50 mg PO DAILY [facility] Mycophenolate Mofetil (Cellcept) 500 mg PO QID [facility] Last Admin: 03/26/17 22:20 Dose: 500 mg Mycophenolate Mofetil (Cellcept) 500 mg PO ONETIME RUTH ANN Tacrolimus (Prograf) 1 mg PO BID [facility] Last Admin: 03/26/17 22:21 Dose: 1 mg Tacrolimus (Prograf) 1 mg PO ONETIME ONE Stop: 03/26/17 22:16 Last Admin: 03/26/17 22:20 Dose: 1 mg - Exam Quality Assessment: DVT Prophylaxis General: Alert, Oriented, Cooperative, No Acute Distress HEENT: Pupils Equal, Pupils Reactive, EOMI Neck: Supple, Trachea Midline, No JVD Lungs: Clear to Auscultation Cardiovascular: Regular Rate, Regular Rhythm GI/Abdominal Exam: Normal Bowel Sounds, Soft, Non-Tender, No Organomegaly, No Distention (Male) Exam: Deferred Back Exam: Normal Inspection Extremities: Normal Inspection Skin: Warm Neurological: No New Focal Deficit Psy/Mental Status: Alert - Problem List & Annotations (1) Dehydration SNOMED Code(s): 48889142 Code(s): E86.0 - DEHYDRATION Status: Acute Current Visit: Yes (2) Renal insufficiency SNOMED Code(s): 446755447, 526230682 Code(s): N28.9 - DISORDER OF KIDNEY AND URETER, UNSPECIFIED Status: Acute Current Visit: Yes (3) UTI (urinary tract infection) SNOMED Code(s): 68035506 Code(s): N39.0 - URINARY TRACT INFECTION, SITE NOT SPECIFIED Status: Acute Current Visit: Yes Qualifiers: Urinary tract infection type: site unspecified Hematuria presence: without hematuria Qualified Code(s): N39.0 - Urinary tract infection, site not specified (4) History of renal transplantation Status: Chronic Priority: Medium Current Visit: No (5) Immunosuppressed status SNOMED Code(s): 10925687 Code(s): D89.9 - DISORDER INVOLVING THE IMMUNE MECHANISM, UNSPECIFIED Status: Chronic Current Visit: No - Problem List Review Problem List Initiated/Reviewed/Updated: Yes - My Orders Last 24 Hours: My Active Orders 03/27/17 11:00 Sodium Chloride 0.45% 1,000 ml IV ASDIRECTED - Plan Plan:: Impression: Renal Transplant/immune suppressed ARF/Dehydration AUTI Chronic Tobacco HTN DM HLD PAD Plan: IVF ATBs Home meds Daily Labs SW/PT/OT DVT/GI prophylaxis
[2017-03-27] MEDS: Atenolol 50 MG Tab PO SCH (14:09)
[2017-03-27] MEDS ORDERED: Magnesium Sulfate/Water 2 GM in Premix Bag 1 BAG IV ONE (18:44)
[2017-03-27] MEDS: Latanoprost 0.005% Ophth Soln 2.5 ML Bottle EYEBOTH SCH (20:34)
[2017-03-28] MEDS: Sodium Chloride 0.45% 1,000 ML IV SCH ×3 (00:10→11:40)
[2017-03-28] MEDS: Pantoprazole 40 MG Tab.CR PO SCH (05:26)
[2017-03-28] MEDS ORDERED: Levofloxacin/Dextrose 5%-Water 750 MG in Premix Bag 1 BAG IV SCH (09:00)
[2017-03-28] MEDS ORDERED: Meropenem 1 GM in Sodium Chloride 0.9% 100 ML IV SCH (09:00)
[2017-03-28] MEDS ORDERED: Magnesium Sulfate/Water 4 GM in Premix Bag 1 BAG IV ONE (09:08)
[2017-03-28] MEDS: Atenolol 50 MG Tab PO SCH (09:37)
[2017-03-28] MEDS: Potassium Chloride 10% 20 MEQ/15 ML Soln 30 ML UD Cup PO SCH ×2 (09:41→20:19)
[2017-03-28] MEDS: Nicotine 21 MG/24 Hr Patch TRDERM SCH (09:43)
[2017-03-28] MEDS: TACROLIMUS 1 MG PO SCH ×2 (09:43→20:21)
[2017-03-28] MEDS: MYCOPHENOLATE MOFETIL 250 MG PO SCH ×4 (09:43→20:20)
--- NOTE | 2017-03-28 14:10 | PCM.PN ---
- General Info Date of Service: 03/28/17 Functional Status: Reports: Pain Controlled, Tolerating Diet, Ambulating, Urinating - Review of Systems General: Reports: No Symptoms HEENT: Reports: No Symptoms Pulmonary: Reports: No Symptoms Cardiovascular: Reports: No Symptoms Gastrointestinal: Reports: No Symptoms Genitourinary: Reports: No Symptoms Musculoskeletal: Reports: No Symptoms Skin: Reports: No Symptoms Neurological: Reports: No Symptoms Psychiatric: Reports: No Symptoms - Patient Data Vitals - Most Recent: Last Vital Signs Temp 36.7 C 03/28/17 11:24 Pulse 59 L 03/28/17 11:24 Resp 14 03/28/17 11:24 BP 136/72 03/28/17 11:24 Pulse Ox 100 03/28/17 11:24 Weight - Most Recent: 58.468 kg I&O - Last 24 Hours: Intake & Output 03/27/17 03/28/17 03/28/17 22:59 06:59 14:59 Intake Total 1403 2550 Output Total 1100 2950 Balance 303 -400 Lab Results Last 24 Hours: Laboratory Results - last 24 hr 03/27/17 03/27/17 03/28/17 Range/Units 16:52 21:34 06:00 WBC (4.23-9.07) K/mm3 RBC (4.63-6.08) M/mm3 Hgb (13.7-17.5) gm/L Hct (40.1-51.0) % MCV (79.0-92.2) fl MCH (25.7-32.2) pg MCHC (32.2-35.5) g/dl RDW Std Deviation (35.1-43.9) fL Plt Count (163-337) K/mm3 MPV (9.4-12.3) fl Neut % (Auto) (34.0-67.9) % Lymph % (Auto) (21.8-53.1) % Bowman % (Auto) (5.3-12.2) % Eos % (Auto) (0.8-7.0) Baso % (Auto) (0.1-1.2) % Neut # (Auto) (1.78-5.38) K/mm3 Lymph # (Auto) (1.32-3.57) K/mm3 Bowman # (Auto) (0.30-0.82) K/mm3 Eos # (Auto) (0.04-0.54) K/mm3 Baso # (Auto) (0.01-0.08) K/mm3 Manual Slide Review Sodium 140 (136-145) mEq/L Potassium 3.2 L (3.5-5.1) mEq/L Chloride 109 H (98-107) mEq/L Carbon Dioxide 19 L (21-32) mEq/L Anion Gap 15.2 H (5-15) BUN 17 (7-18) mg/dL Creatinine 1.3 (0.7-1.3) mg/dL Est Cr Clr Drug Dosing 50.60 mL/min Estimated GFR (MDRD) 57 (>60) mL/min BUN/Creatinine Ratio 13.1 L (14-18) Glucose 97 (74-106) mg/dL POC Glucose 115 H 99 (70-105) mg/dL Calcium 8.3 L (8.5-10.1) mg/dL Magnesium 1.7 L (1.8-2.4) mg/dl C-Reactive Protein 10.6 H* (<1.0) mg/dL Triglycerides 82 (<150) mg/dL Cholesterol 86 (<200) mg/dL LDL Cholesterol Direct 50 (<100) mg/dL HDL Cholesterol 25.0 L (40-59) mg/dL 03/28/17 Range/Units 06:00 WBC 4.75 (4.23-9.07) K/mm3 RBC 3.52 L (4.63-6.08) M/mm3 Hgb 10.2 L (13.7-17.5) gm/L Hct 32.0 L (40.1-51.0) % MCV 90.9 (79.0-92.2) fl MCH 29.0 (25.7-32.2) pg MCHC 31.9 L (32.2-35.5) g/dl RDW Std Deviation 42.4 (35.1-43.9) fL Plt Count 190 (163-337) K/mm3 MPV 10.8 (9.4-12.3) fl Neut % (Auto) 77.3 H (34.0-67.9) % Lymph % (Auto) 9.1 L (21.8-53.1) % Bowman % (Auto) 12.2 (5.3-12.2) % Eos % (Auto) 0.8 (0.8-7.0) Baso % (Auto) 0.0 L (0.1-1.2) % Neut # (Auto) 3.67 (1.78-5.38) K/mm3 Lymph # (Auto) 0.43 L (1.32-3.57) K/mm3 Bowman # (Auto) 0.58 (0.30-0.82) K/mm3 Eos # (Auto) 0.04 (0.04-0.54) K/mm3 Baso # (Auto) 0.00 L (0.01-0.08) K/mm3 Manual Slide Review Abnormal smear Sodium (136-145) mEq/L Potassium (3.5-5.1) mEq/L Chloride (98-107) mEq/L Carbon Dioxide (21-32) mEq/L Anion Gap (5-15) BUN (7-18) mg/dL Creatinine (0.7-1.3) mg/dL Est Cr Clr Drug Dosing mL/min Estimated GFR (MDRD) (>60) mL/min BUN/Creatinine Ratio (14-18) Glucose (74-106) mg/dL POC Glucose (70-105) mg/dL Calcium (8.5-10.1) mg/dL Magnesium (1.8-2.4) mg/dl C-Reactive Protein (<1.0) mg/dL Triglycerides (<150) mg/dL Cholesterol (<200) mg/dL LDL Cholesterol Direct (<100) mg/dL HDL Cholesterol (40-59) mg/dL Med Orders - Current: Current Medications Acetaminophen (Tylenol) 650 mg PO Q4H PRN PRN Reason: Pain/Fever Last Admin: 03/27/17 03:48 Dose: 650 mg Atenolol (Tenormin) 50 mg PO DAILY [facility] Last Admin: 03/28/17 09:37 Dose: 50 mg Hydralazine HCl (Apresoline) 20 mg IVPUSH Q8H PRN PRN Reason: Hypertension Sodium Chloride (Sodium Chloride 0.45%) 1,000 mls @ 75 mls/hr IV ASDIRECTED RUTH ANN Last Admin: 03/28/17 11:40 Dose: 75 mls/hr Meropenem 500 mg/ Sodium (Chloride) 100 mls @ 200 mls/hr IV Q8H [facility] Latanoprost (Xalatan 0.005% Ophth Soln) 0 ml EYEBOTH BEDTIME [facility] Last Admin: 03/27/17 20:34 Dose: 1 drop Nicotine (Habitrol) 21 mg TRDERM DAILY [facility] Last Admin: 03/28/17 09:43 Dose: Not Given Ondansetron HCl (Zofran) 4 mg IVPUSH Q8H PRN PRN Reason: Nausea/Vomiting Pantoprazole Sodium (Protonix) 40 mg PO ACBREAKFAST [facility] Last Admin: 03/28/17 05:26 Dose: 40 mg Tacrolimus 1 Mg Cap* (Own Med) 0 each PO BID [facility] Last Admin: 03/28/17 09:43 Dose: 1 each Mycophenolate Mofetil 250 Mg Cap Own Med 0 each PO QID [facility] Last Admin: 03/28/17 13:24 Dose: 2 each Potassium Chloride (Potassium Chloride) 60 meq PO BID [facility] Last Admin: 03/28/17 09:41 Dose: 60 meq Sodium Chloride (Saline Flush) 10 ml FLUSH ASDIRECTED PRN PRN Reason: Keep Vein Open Last Admin: 03/26/17 13:49 Dose: 10 ml Discontinued Medications Ceftriaxone Sodium (Rocephin) Confirm Administered Dose 1 gm IV .STK-MED ONE Stop: 03/26/17 18:42 Last Admin: 03/26/17 18:43 Dose: Not Given Dextrose/Water (Dextrose 50% In Water) 50 ml IVPUSH ASDIRECTED PRN PRN Reason: Hypoglycemia Sodium Chloride (Normal Saline) 1,000 mls @ 999 mls/hr IV ONETIME [facility] Last Admin: 03/26/17 13:51 Dose: 999 mls/hr Sodium Chloride (Normal Saline) 1,000 mls @ 999 mls/hr IV ONETIME ONE Stop: 03/26/17 16:46 Last Admin: 03/26/17 15:48 Dose: 999 mls/hr Sodium Chloride (Normal Saline) 1,000 mls @ 75 mls/hr IV NOW STA Stop: 03/27/17 06:07 Last Admin: 03/26/17 16:50 Dose: 75 mls/hr Ceftriaxone Sodium 1,000 mg/ (Sodium Chloride) 50 mls @ 200 mls/hr IV ONETIME ONE Stop: 03/26/17 18:48 Last Admin: 03/26/17 22:22 Dose: Not Given Sodium Chloride (Normal Saline) Confirm Administered Dose 100 mls @ as directed .ROUTE .STK-MED ONE Stop: 03/26/17 18:42 Last Admin: 03/26/17 18:43 Dose: Not Given Ceftriaxone Sodium 1 gm/ (Sodium Chloride) 100 mls @ 200 mls/hr IV NOW STA Stop: 03/26/17 19:11 Last Admin: 03/26/17 18:43 Dose: 200 mls/hr Sodium Chloride (Sodium Chloride 0.45%) 1,000 mls @ 999 mls/hr IV ASDIRECTED [facility] Stop: 03/26/17 21:16 Last Admin: 03/26/17 22:13 Dose: 999 mls/hr Ceftriaxone Sodium 2 gm/ (Sodium Chloride) 100 mls @ 200 mls/hr IV Q24H [facility] Last Admin: 03/27/17 12:48 Dose: 200 mls/hr Sodium Chloride (Sodium Chloride 0.45%) 1,000 mls @ 200 mls/hr IV ASDIRECTED [facility] Last Admin: 03/27/17 05:37 Dose: 150 mls/hr Magnesium Sulfate 2 gm/ Premix 50 mls @ 25 mls/hr IV ONETIME ONE Stop: 03/27/17 20:43 Last Admin: 03/27/17 19:06 Dose: 25 mls/hr Meropenem 1 gm/ Sodium (Chloride) 100 mls @ 200 mls/hr IV Q8H [facility] Levofloxacin/Dextrose 750 mg/ (Premix) 150 mls @ 100 mls/hr IV Q24H [facility] Last Admin: 03/28/17 09:33 Dose: 100 mls/hr Magnesium Sulfate 4 gm/ Premix 100 mls @ 50 mls/hr IV ONETIME ONE Stop: 03/28/17 11:07 Last Admin: 03/28/17 10:58 Dose: 50 mls/hr Insulin Aspart (Novolog) 0 unit SUBCUT QIDACANDBED [facility] PRN Reason: Protocol Last Admin: 03/27/17 11:02 Dose: Not Given Latanoprost (Xalatan 0.005% Ophth Soln) 0 ml EYEBOTH ONETIME ONE Stop: 03/26/17 22:31 Last Admin: 03/27/17 03:09 Dose: Not Given Metoprolol Tartrate (Lopressor) 50 mg PO DAILY [facility] Metoprolol Tartrate (Lopressor) 25 mg PO Q12HR [facility] Last Admin: 03/27/17 09:23 Dose: Not Given Mycophenolate Mofetil (Cellcept) 500 mg PO QID [facility] Last Admin: 03/26/17 22:20 Dose: 500 mg Mycophenolate Mofetil (Cellcept) 500 mg PO ONETIME [facility] Tacrolimus (Prograf) 1 mg PO BID [facility] Last Admin: 03/26/17 22:21 Dose: 1 mg Tacrolimus (Prograf) 1 mg PO ONETIME ONE Stop: 03/26/17 22:16 Last Admin: 03/26/17 22:20 Dose: 1 mg - Exam Quality Assessment: DVT Prophylaxis General: Alert, Oriented, Cooperative, No Acute Distress HEENT: Pupils Equal, Pupils Reactive, EOMI, Mucous Membr. Moist/Second [place] Neck: Supple, Trachea Midline, No JVD Lungs: Clear to Auscultation, Normal Respiratory Effort Cardiovascular: Regular Rate, Regular Rhythm GI/Abdominal Exam: Normal Bowel Sounds, Soft, Non-Tender, No Organomegaly, No Distention (Male) Exam: Deferred Back Exam: Normal Inspection Extremities: Normal Inspection Skin: Warm Neurological: No New Focal Deficit, Normal Gait, Normal Speech Psy/Mental Status: Alert, Normal Affect, Normal Mood - Problem List & Annotations (1) Dehydration SNOMED Code(s): 67792211 Code(s): E86.0 - DEHYDRATION Status: Acute Current Visit: Yes (2) Renal insufficiency SNOMED Code(s): 926733264, 749346242 Code(s): N28.9 - DISORDER OF KIDNEY AND URETER, UNSPECIFIED Status: Acute Current Visit: Yes (3) UTI (urinary tract infection) SNOMED Code(s): 30093639 Code(s): N39.0 - URINARY TRACT INFECTION, SITE NOT SPECIFIED Status: Acute Current Visit: Yes Qualifiers: Qualified Code(s): N39.0 - Urinary tract infection, site not specified (4) History of renal transplantation Status: Chronic Priority: Medium Current Visit: No (5) Immunosuppressed status SNOMED Code(s): 17288427 Code(s): D89.9 - DISORDER INVOLVING THE 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
[2017-03-28] MEDS: Meropenem 500 MG in Sodium Chloride 0.9% 100 ML IV SCH ×2 (16:21→23:14)
[2017-03-28] MEDS: Latanoprost 0.005% Ophth Soln 2.5 ML Bottle EYEBOTH SCH (20:21)
[2017-03-29] MEDS: Sodium Chloride 0.45% 1,000 ML IV SCH ×2 (02:25→20:16)
[2017-03-29] MEDS: Meropenem 500 MG in Sodium Chloride 0.9% 100 ML IV SCH ×2 (06:45→15:42)
[2017-03-29] MEDS: Pantoprazole 40 MG Tab.CR PO SCH (06:45)
[2017-03-29] MEDS: Atenolol 50 MG Tab PO SCH (09:20)
[2017-03-29] MEDS: Nicotine 21 MG/24 Hr Patch TRDERM SCH (09:24)
[2017-03-29] MEDS: Potassium Chloride 10% 20 MEQ/15 ML Soln 30 ML UD Cup PO SCH ×2 (09:24→20:35)
[2017-03-29] MEDS: TACROLIMUS 1 MG PO SCH ×2 (09:24→20:36)
[2017-03-29] MEDS: MYCOPHENOLATE MOFETIL 250 MG PO SCH ×4 (09:24→20:36)
--- NOTE | 2017-03-29 11:48 | PCM.PN ---
<Charline Pradhan M - Last Filed: 03/29/17 11:43> - General Info Date of Service: 03/29/17 Admission Dx/Problem (Free Text): Admission Diagnosis/Problem Admission Diagnosis/Problem Renal insufficiency Reymundo is seen this morning resting comfortably in bed this morning. Slept "as well as I could have". Denies pain. No nausea. Appetite is "fine". Urination is without problems, using urinal. No diarrhea with IV abx- on Meropenem for AUTI. Functional Status: Reports: Pain Controlled, Tolerating Diet, Ambulating, Urinating. Denies: New Symptoms - Review of Systems General: Reports: No Symptoms, Weakness (resolveing), Fatigue (chronic but improved from admit) HEENT: Reports: No Symptoms Pulmonary: Reports: No Symptoms. Denies: Shortness of Breath Cardiovascular: Reports: No Symptoms. Denies: Chest Pain, Palpitations, Dyspnea on Exertion Gastrointestinal: Reports: No Symptoms. Denies: Abdominal Pain, Diarrhea, Nausea, Vomiting Genitourinary: Reports: No Symptoms. Denies: Dysuria, Frequency, Burning, Pain , Flank Pain Neurological: Reports: No Symptoms - Patient Data Vitals - Most Recent: Last Vital Signs Temp 98.6 F 03/29/17 08:09 Pulse 63 03/29/17 09:20 Resp 14 03/29/17 08:09 BP 115/64 03/29/17 09:20 Pulse Ox 99 03/29/17 08:09 Weight - Most Recent: 59.285 kg I&O - Last 24 Hours: Intake & Output 03/28/17 03/29/17 03/29/17 22:59 06:59 14:59 Intake Total 1963 1685 120 Output Total 400 1725 Balance 1563 -40 120 Lab Results Last 24 Hours: Laboratory Results - last 24 hr 03/29/17 03/29/17 Range/Units 07:00 07:00 WBC 4.18 L (4.23-9.07) K/mm3 RBC 3.93 L (4.63-6.08) M/mm3 Hgb 11.6 L (13.7-17.5) gm/L Hct 36.0 L (40.1-51.0) % MCV 91.6 (79.0-92.2) fl MCH 29.5 (25.7-32.2) pg MCHC 32.2 (32.2-35.5) g/dl RDW Std Deviation 44.3 H (35.1-43.9) fL Plt Count 242 (163-337) K/mm3 MPV 10.5 (9.4-12.3) fl Neut % (Auto) 70.9 H (34.0-67.9) % Lymph % (Auto) 12.4 L (21.8-53.1) % [place] % (Auto) 14.1 H (5.3-12.2) % Eos % (Auto) 1.9 (0.8-7.0) Baso % (Auto) 0.2 (0.1-1.2) % Neut # (Auto) 2.96 (1.78-5.38) K/mm3 Lymph # (Auto) 0.52 L (1.32-3.57) K/mm3 [place] # (Auto) 0.59 (0.30-0.82) K/mm3 Eos # (Auto) 0.08 (0.04-0.54) K/mm3 Baso # (Auto) 0.01 (0.01-0.08) K/mm3 Sodium 141 (136-145) mEq/L Potassium 4.6 (3.5-5.1) mEq/L Chloride 109 H (98-107) mEq/L Carbon Dioxide 23 (21-32) mEq/L Anion Gap 13.6 (5-15) BUN 16 (7-18) mg/dL Creatinine 1.1 (0.7-1.3) mg/dL Est Cr Clr Drug Dosing 60.63 mL/min Estimated GFR (MDRD) > 60 (>60) mL/min BUN/Creatinine Ratio 14.5 (14-18) Glucose 93 (74-106) mg/dL Calcium 8.8 (8.5-10.1) mg/dL Magnesium 2.2 (1.8-2.4) mg/dl C-Reactive Protein 6.5 H* (<1.0) mg/dL Med Orders - Current: Current Medications Acetaminophen (Tylenol) 650 mg PO Q4H PRN PRN Reason: Pain/Fever Last Admin: 03/27/17 03:48 Dose: 650 mg Atenolol (Tenormin) 50 mg PO DAILY [facility] Last Admin: 03/29/17 09:20 Dose: 50 mg Hydralazine HCl (Apresoline) 20 mg IVPUSH Q8H PRN PRN Reason: Hypertension Sodium Chloride (Sodium Chloride 0.45%) 1,000 mls @ 75 mls/hr IV ASDIRECTED [facility] Last Admin: 03/29/17 02:25 Dose: 75 mls/hr Meropenem 500 mg/ Sodium (Chloride) 100 mls @ 200 mls/hr IV Q8H [facility] Last Admin: 03/29/17 06:45 Dose: 200 mls/hr Latanoprost (Xalatan 0.005% Ophth Soln) 0 ml EYEBOTH BEDTIME [facility] Last Admin: 03/28/17 20:21 Dose: 1 drop Nicotine (Habitrol) 21 mg TRDERM DAILY [facility] Last Admin: 03/29/17 09:24 Dose: Not Given Ondansetron HCl (Zofran) 4 mg IVPUSH Q8H PRN PRN Reason: Nausea/Vomiting Pantoprazole Sodium (Protonix) 40 mg PO ACBREAKFAST [facility] Last Admin: 03/29/17 06:45 Dose: 40 mg Tacrolimus 1 Mg Cap* (Own Med) 0 each PO BID [facility] Last Admin: 03/29/17 09:24 Dose: 1 each Mycophenolate Mofetil 250 Mg Cap Own Med 0 each PO QID [facility] Last Admin: 03/29/17 09:24 Dose: 2 each Potassium Chloride (Potassium Chloride) 60 meq PO BID [facility] Last Admin: 03/29/17 09:24 Dose: Not Given Sodium Chloride (Saline Flush) 10 ml FLUSH ASDIRECTED PRN PRN Reason: Keep Vein Open Last Admin: 03/26/17 13:49 Dose: 10 ml Discontinued Medications Ceftriaxone Sodium (Rocephin) Confirm Administered Dose 1 gm IV .STK-MED ONE Stop: 03/26/17 18:42 Last Admin: 03/26/17 18:43 Dose: Not Given Dextrose/Water (Dextrose 50% In Water) 50 ml IVPUSH ASDIRECTED PRN PRN Reason: Hypoglycemia Sodium Chloride (Normal Saline) 1,000 mls @ 999 mls/hr IV ONETIME [facility] Last Admin: 03/26/17 13:51 Dose: 999 mls/hr Sodium Chloride (Normal Saline) 1,000 mls @ 999 mls/hr IV ONETIME ONE Stop: 03/26/17 16:46 Last Admin: 03/26/17 15:48 Dose: 999 mls/hr Sodium Chloride (Normal Saline) 1,000 mls @ 75 mls/hr IV NOW STA Stop: 03/27/17 06:07 Last Admin: 03/26/17 16:50 Dose: 75 mls/hr Ceftriaxone Sodium 1,000 mg/ (Sodium Chloride) 50 mls @ 200 mls/hr IV ONETIME ONE Stop: 03/26/17 18:48 Last Admin: 03/26/17 22:22 Dose: Not Given Sodium Chloride (Normal Saline) Confirm Administered Dose 100 mls @ as directed .ROUTE .STK-MED ONE Stop: 03/26/17 18:42 Last Admin: 03/26/17 18:43 Dose: Not Given Ceftriaxone Sodium 1 gm/ (Sodium Chloride) 100 mls @ 200 mls/hr IV NOW STA Stop: 03/26/17 19:11 Last Admin: 03/26/17 18:43 Dose: 200 mls/hr Sodium Chloride (Sodium Chloride 0.45%) 1,000 mls @ 999 mls/hr IV ASDIRECTED [facility] Stop: 03/26/17 21:16 Last Admin: 03/26/17 22:13 Dose: 999 mls/hr Ceftriaxone Sodium 2 gm/ (Sodium Chloride) 100 mls @ 200 mls/hr IV Q24H [facility] Last Admin: 03/27/17 12:48 Dose: 200 mls/hr Sodium Chloride (Sodium Chloride 0.45%) 1,000 mls @ 200 mls/hr IV ASDIRECTED [facility] Last Admin: 03/27/17 05:37 Dose: 150 mls/hr Magnesium Sulfate 2 gm/ Premix 50 mls @ 25 mls/hr IV ONETIME ONE Stop: 03/27/17 20:43 Last Admin: 03/27/17 19:06 Dose: 25 mls/hr Meropenem 1 gm/ Sodium (Chloride) 100 mls @ 200 mls/hr IV Q8H [facility] Levofloxacin/Dextrose 750 mg/ (Premix) 150 mls @ 100 mls/hr IV Q24H [facility] Last Admin: 03/28/17 09:33 Dose: 100 mls/hr Magnesium Sulfate 4 gm/ Premix 100 mls @ 50 mls/hr IV ONETIME ONE Stop: 03/28/17 11:07 Last Admin: 03/28/17 10:58 Dose: 50 mls/hr Insulin Aspart (Novolog) 0 unit SUBCUT QIDACANDBED [facility] PRN Reason: Protocol Last Admin: 03/27/17 11:02 Dose: Not Given Latanoprost (Xalatan 0.005% Ophth Soln) 0 ml EYEBOTH ONETIME ONE Stop: 03/26/17 22:31 Last Admin: 03/27/17 03:09 Dose: Not Given Metoprolol Tartrate (Lopressor) 50 mg PO DAILY [facility] Metoprolol Tartrate (Lopressor) 25 mg PO Q12HR [facility] Last Admin: 03/27/17 09:23 Dose: Not Given Mycophenolate Mofetil (Cellcept) 500 mg PO QID [facility] Last Admin: 03/26/17 22:20 Dose: 500 mg Mycophenolate Mofetil (Cellcept) 500 mg PO ONETIME [facility] Tacrolimus (Prograf) 1 mg PO BID [facility] Last Admin: 03/26/17 22:21 Dose: 1 mg Tacrolimus (Prograf) 1 mg PO ONETIME ONE Stop: 03/26/17 22:16 Last Admin: 03/26/17 22:20 Dose: 1 mg - Exam Quality Assessment: DVT Prophylaxis General: Alert, Oriented, Cooperative, No Acute Distress, Other (thin) HEENT: Pupils Equal, Pupils Reactive, EOMI, Mucous Membr. Moist/[place] Neck: Supple Lungs: Clear to Auscultation, Normal Respiratory Effort Cardiovascular: Regular Rate, Regular Rhythm GI/Abdominal Exam: Normal Bowel Sounds, Soft, Non-Tender (Male) Exam: Deferred Extremities: Normal Inspection, No Pedal Edema Peripheral Pulses: 1+: Dorsalis Pedis (L), Dorsalis Pedis (R) Neurological: No New Focal Deficit Psy/Mental Status: Alert, Normal Affect, Normal Mood - Problem List & Annotations (1) UTI (urinary tract infection) SNOMED Code(s): 25658635 Code(s): N39.0 - URINARY TRACT INFECTION, SITE NOT SPECIFIED Status: Acute Priority: High Current Visit: Yes Qualifiers: Urinary tract infection type: site unspecified Hematuria presence: without hematuria Qualified Code(s): N39.0 - Urinary tract infection, site not specified (2) Hypokalemia SNOMED Code(s): 91190148 Code(s): E87.6 - HYPOKALEMIA Status: Resolved Priority: High Current Visit: Yes (3) Hypomagnesemia SNOMED Code(s): 194458122 Code(s): E83.42 - HYPOMAGNESEMIA Status: Acute Current Visit: No (4) QUINTON (acute kidney injury) SNOMED Code(s): 92764053 Code(s): N17.9 - ACUTE KIDNEY FAILURE, UNSPECIFIED Status: Resolved Priority: High Current Visit: No (5) Dehydration SNOMED Code(s): 21080186 Code(s): E86.0 - DEHYDRATION Status: Resolved Priority: High Current Visit: Yes (6) Renal insufficiency SNOMED Code(s): 674554747, 666068057 Code(s): N28.9 - DISORDER OF KIDNEY AND URETER, UNSPECIFIED Status: Chronic Priority: Medium Current Visit: No (7) History of renal transplantation Status: Chronic Priority: Medium Current Visit: No (8) Immunosuppressed status SNOMED Code(s): 13172758 Code(s): D89.9 - DISORDER INVOLVING THE IMMUNE MECHANISM, UNSPECIFIED Status: Chronic Current Visit: No - Problem List Review Problem List Initiated/Reviewed/Updated: Yes - Plan Plan:: Impression/plan: AUTI- Enterobacter by culture -IV Meropenem -IVF for hydration as "I don't like to drink a lot of water" -Follow labs daily Dehydration- resolved Acute renal failure- improved to resolved- creatinine 1.1 today, crcl and GFR bot at 60 today Hypokalemia/hypomagnesemia- resolved-- 4.6/2.2 respectively today - Cont to follow am labs Renal Transplant/immune suppressed Chronic: Tobacco: Nicotine patch- refuses HTN- cont home meds- stable HLD- cont home meds PAD- cont home meds Other: GI/DVT prophylax PT/OT--state at prior level of care and safe for DC home CM/SW for assist with DC planning Patient is Full Code status Plan one more day of IV abx for 3 days total of IV, then plan 7 days of oral levaquin --sensitive to levaquin as well <Catina Man - Last Filed: 03/29/17 16:36> - Patient Data Vitals - Most Recent: Last Vital Signs Temp 37.2 C 03/29/17 12:00 Pulse 78 03/29/17 12:00 Resp 14 03/29/17 12:00 BP 125/70 03/29/17 12:00 Pulse Ox 98 03/29/17 12:00 I&O - Last 24 Hours: Intake & Output 03/29/17 03/29/17 03/29/17 06:59 14:59 22:59 Intake Total 1685 120 360 Output Total 1725 Balance -40 120 360 Lab Results Last 24 Hours: Laboratory Results - last 24 hr 03/29/17 03/29/17 Range/Units 07:00 07:00 WBC 4.18 L (4.23-9.07) K/mm3 RBC 3.93 L (4.63-6.08) M/mm3 Hgb 11.6 L (13.7-17.5) gm/L Hct 36.0 L (40.1-51.0) % MCV 91.6 (79.0-92.2) fl MCH 29.5 (25.7-32.2) pg MCHC 32.2 (32.2-35.5) g/dl RDW Std Deviation 44.3 H (35.1-43.9) fL Plt Count 242 (163-337) K/mm3 MPV 10.5 (9.4-12.3) fl Neut % (Auto) 70.9 H (34.0-67.9) % Lymph % (Auto) 12.4 L (21.8-53.1) % [place] % (Auto) 14.1 H (5.3-12.2) % Eos % (Auto) 1.9 (0.8-7.0) Baso % (Auto) 0.2 (0.1-1.2) % Neut # (Auto) 2.96 (1.78-5.38) K/mm3 Lymph # (Auto) 0.52 L (1.32-3.57) K/mm3 [place] # (Auto) 0.59 (0.30-0.82) K/mm3 Eos # (Auto) 0.08 (0.04-0.54) K/mm3 Baso # (Auto) 0.01 (0.01-0.08) K/mm3 Sodium 141 (136-145) mEq/L Potassium 4.6 (3.5-5.1) mEq/L Chloride 109 H (98-107) mEq/L Carbon Dioxide 23 (21-32) mEq/L Anion Gap 13.6 (5-15) BUN 16 (7-18) mg/dL Creatinine 1.1 (0.7-1.3) mg/dL Est Cr Clr Drug Dosing 60.63 mL/min Estimated GFR (MDRD) > 60 (>60) mL/min BUN/Creatinine Ratio 14.5 (14-18) Glucose 93 (74-106) mg/dL Calcium 8.8 (8.5-10.1) mg/dL Magnesium 2.2 (1.8-2.4) mg/dl C-Reactive Protein 6.5 H* (<1.0) mg/dL Med Orders - Current: Current Medications Acetaminophen (Tylenol) 650 mg PO Q4H PRN PRN Reason: Pain/Fever Last Admin: 03/27/17 03:48 Dose: 650 mg Atenolol (Tenormin) 50 mg PO DAILY [facility] Last Admin: 03/29/17 09:20 Dose: 50 mg Hydralazine HCl (Apresoline) 20 mg IVPUSH Q8H PRN PRN Reason: Hypertension Sodium Chloride (Sodium Chloride 0.45%) 1,000 mls @ 75 mls/hr IV ASDIRECTED [facility] Last Admin: 03/29/17 02:25 Dose: 75 mls/hr Meropenem 500 mg/ Sodium (Chloride) 100 mls @ 200 mls/hr IV Q8H [facility] Last Admin: 03/29/17 15:42 Dose: 100 mls/hr Latanoprost (Xalatan 0.005% Ophth Soln) 0 ml EYEBOTH BEDTIME [facility] Last Admin: 03/28/17 20:21 Dose: 1 drop Nicotine (Habitrol) 21 mg TRDERM DAILY [facility] Last Admin: 03/29/17 09:24 Dose: Not Given Ondansetron HCl (Zofran) 4 mg IVPUSH Q8H PRN PRN Reason: Nausea/Vomiting Pantoprazole Sodium (Protonix) 40 mg PO ACBREAKFAST [facility] Last Admin: 03/29/17 06:45 Dose: 40 mg Tacrolimus 1 Mg Cap* (Own Med) 0 each PO BID [facility] Last Admin: 03/29/17 09:24 Dose: 1 each Mycophenolate Mofetil 250 Mg Cap Own Med 0 each PO QID [facility] Last Admin: 03/29/17 13:01 Dose: 2 each Potassium Chloride (Potassium Chloride) 60 meq PO BID [facility] Last Admin: 03/29/17 09:24 Dose: Not Given Sodium Chloride (Saline Flush) 10 ml FLUSH ASDIRECTED PRN PRN Reason: Keep Vein Open Last Admin: 03/26/17 13:49 Dose: 10 ml Discontinued Medications Ceftriaxone Sodium (Rocephin) Confirm Administered Dose 1 gm IV .STK-MED ONE Stop: 03/26/17 18:42 Last Admin: 03/26/17 18:43 Dose: Not Given Dextrose/Water (Dextrose 50% In Water) 50 ml IVPUSH ASDIRECTED PRN PRN Reason: Hypoglycemia Sodium Chloride (Normal Saline) 1,000 mls @ 999 mls/hr IV ONETIME [facility] Last Admin: 03/26/17 13:51 Dose: 999 mls/hr Sodium Chloride (Normal Saline) 1,000 mls @ 999 mls/hr IV ONETIME ONE Stop: 03/26/17 16:46 Last Admin: 03/26/17 15:48 Dose: 999 mls/hr Sodium Chloride (Normal Saline) 1,000 mls @ 75 mls/hr IV NOW STA Stop: 03/27/17 06:07 Last Admin: 03/26/17 16:50 Dose: 75 mls/hr Ceftriaxone Sodium 1,000 mg/ (Sodium Chloride) 50 mls @ 200 mls/hr IV ONETIME ONE Stop: 03/26/17 18:48 Last Admin: 03/26/17 22:22 Dose: Not Given Sodium Chloride (Normal Saline) Confirm Administered Dose 100 mls @ as directed .ROUTE .STK-MED ONE Stop: 03/26/17 18:42 Last Admin: 03/26/17 18:43 Dose: Not Given Ceftriaxone Sodium 1 gm/ (Sodium Chloride) 100 mls @ 200 mls/hr IV NOW STA Stop: 03/26/17 19:11 Last Admin: 03/26/17 18:43 Dose: 200 mls/hr Sodium Chloride (Sodium Chloride 0.45%) 1,000 mls @ 999 mls/hr IV ASDIRECTED [facility] Stop: 03/26/17 21:16 Last Admin: 03/26/17 22:13 Dose: 999 mls/hr Ceftriaxone Sodium 2 gm/ (Sodium Chloride) 100 mls @ 200 mls/hr IV Q24H [facility] Last Admin: 03/27/17 12:48 Dose: 200 mls/hr Sodium Chloride (Sodium Chloride 0.45%) 1,000 mls @ 200 mls/hr IV ASDIRECTED [facility] Last Admin: 03/27/17 05:37 Dose: 150 mls/hr Magnesium Sulfate 2 gm/ Premix 50 mls @ 25 mls/hr IV ONETIME ONE Stop: 03/27/17 20:43 Last Admin: 03/27/17 19:06 Dose: 25 mls/hr Meropenem 1 gm/ Sodium (Chloride) 100 mls @ 200 mls/hr IV Q8H [facility] Levofloxacin/Dextrose 750 mg/ (Premix) 150 mls @ 100 mls/hr IV Q24H [facility] Last Admin: 03/28/17 09:33 Dose: 100 mls/hr Magnesium Sulfate 4 gm/ Premix 100 mls @ 50 mls/hr IV ONETIME ONE Stop: 03/28/17 11:07 Last Admin: 03/28/17 10:58 Dose: 50 mls/hr Insulin Aspart (Novolog) 0 unit SUBCUT QIDACANDBED [facility] PRN Reason: Protocol Last Admin: 03/27/17 11:02 Dose: Not Given Latanoprost (Xalatan 0.005% Oph Soln) 0 ml EYEBOTH ONETIME ONE Stop: 03/26/17 22:31 Last Admin: 03/27/17 03:09 Dose: Not Given Metoprolol Tartrate (Lopressor) 50 mg PO DAILY [facility] Metoprolol Tartrate (Lopressor) 25 mg PO Q12HR [facility] Last Admin: 03/27/17 09:23 Dose: Not Given Mycophenolate Mofetil (Cellcept) 500 mg PO QID [facility] Last Admin: 03/26/17 22:20 Dose: 500 mg Mycophenolate Mofetil (Cellcept) 500 mg PO ONETIME [facility] Tacrolimus (Prograf) 1 mg PO BID [facility] Last Admin: 03/26/17 22:21 Dose: 1 mg Tacrolimus (Prograf) 1 mg PO ONETIME ONE Stop: 03/26/17 22:16 Last Admin: 03/26/17 22:20 Dose: 1 mg - Problem List & Annotations (1) Dehydration SNOMED Code(s): 11343083 Code(s): E86.0 - DEHYDRATION Status: Resolved Priority: High Current Visit: Yes (2) Renal insufficiency SNOMED Code(s): 198428983, 708547606 Code(s): N28.9 - DISORDER OF KIDNEY AND URETER, UNSPECIFIED Status: Acute Current Visit: Yes (3) UTI (urinary tract infection) SNOMED Code(s): 95079590 Code(s): N39.0 - URINARY TRACT INFECTION, SITE NOT SPECIFIED Status: Acute Priority: High Current Visit: Yes Qualifiers: Urinary tract infection type: site unspecified Hematuria presence: without hematuria Qualified Code(s): N39.0 - Urinary tract infection, site not specified (4) History of renal transplantation Status: Chronic Priority: Medium Current Visit: No (5) Immunosuppressed status SNOMED Code(s): 01516483 Code(s): D89.9 - DISORDER INVOLVING THE IMMUNE MECHANISM, UNSPECIFIED Status: Chronic Current Visit: No - Plan Plan:: DC 03/30/17
[2017-03-29] MEDS: Latanoprost 0.005% Ophth Soln 2.5 ML Bottle EYEBOTH SCH (20:35)
[2017-03-30] MEDS: Meropenem 500 MG in Sodium Chloride 0.9% 100 ML IV SCH ×2 (00:18→06:16)
[2017-03-30] MEDS: Pantoprazole 40 MG Tab.CR PO SCH (06:26)
--- NOTE | 2017-03-30 07:25 | PCM.DCSUM1 ---
<Charline Pradhan - Last Filed: 03/30/17 07:26> Discharge Summary - Hospital Course Free Text/Narrative:: 61-year-old male comes into ER feeling weak and dizzy. He feels like he is "dehydrated". Does have history of diabetes with renal and pancreatic transplant. He denies being out in the heat excessively. Appetite and fluid intake has been somewhat down although patient cannot really describe why, has been on his couch x 2 days waiting for a friend to bring him in. No chest or abdominal pain at this time. No fever or chills. No excessive back discomfort. No voiding symptomatology. He was hospitalized a month or so ago for dehydration and hypokalemia. Hospitalist service is consulted for admission for AUTI, hypokalemia and dehydration. UC grew enterobacter; sensitive to merrem. Potassium and magnesium were replaced and normalized. PT/OT were consulted, determined he was at prior level , could be discharged home safely. VS remained stable, afebrile. Appetite returned. He rec'd 3 days of IV merrem and will be discharged home today with 10 days of PO levaquin, also sensitive based on sensitivity. He is to follow up with PCP, Dr. Metz early next week with recheck of labs, BMP, mag, CBC. - Discharge Data Discharge Date: 03/30/17 (admit date 03/27/17) Discharge Disposition: Home, Self-Care 01 Condition: Good - Discharge Diagnosis/Problem(s) (1) UTI (urinary tract infection) SNOMED Code(s): 48812229 ICD Code: N39.0 - URINARY TRACT INFECTION, SITE NOT SPECIFIED Status: Acute Priority: High Qualifiers: Urinary tract infection type: site unspecified Hematuria presence: without hematuria Qualified Code(s): N39.0 - Urinary tract infection, site not specified (2) Hypokalemia SNOMED Code(s): 09584350 ICD Code: E87.6 - HYPOKALEMIA Status: Resolved Priority: High (3) Hypomagnesemia SNOMED Code(s): 021001611 ICD Code: E83.42 - HYPOMAGNESEMIA Status: Acute (4) QUINTON (acute kidney injury) SNOMED Code(s): 91099125 ICD Code: N17.9 - ACUTE KIDNEY FAILURE, UNSPECIFIED Status: Resolved Priority: High (5) Dehydration SNOMED Code(s): 74930614 ICD Code: E86.0 - DEHYDRATION Status: Resolved Priority: High (6) Renal insufficiency SNOMED Code(s): 952317463, 596641953 ICD Code: N28.9 - DISORDER OF KIDNEY AND URETER, UNSPECIFIED Status: Chronic Priority: Medium (7) History of renal transplantation Status: Chronic Priority: Medium (8) Immunosuppressed status SNOMED Code(s): 68096961 ICD Code: D89.9 - DISORDER INVOLVING THE IMMUNE MECHANISM, UNSPECIFIED Status: Chronic - Patient Summary/Data Operative Procedure(s) Performed: None Complications: None Consults: None Labs Pending at D/C: None Recommended Follow-up Testing/Procedures: Push fluids Follow up with Dr. Metz early next week with labs prior to recheck potassium and magnesium Continue with usual home medications and antibiotic as prescribed Planned Operative Procedure(s) after DC: None Hospital Course: As above - Patient Instructions Diet: Usual Diet as Tolerated Activity: As Tolerated Driving: Do Not Drive Showering/Bathing: May Shower Notify Provider of: Fever, Increased Pain, Swelling and Redness, Nausea and/or Vomiting - Discharge Plan Prescriptions/Med Rec: Levofloxacin [Levaquin] 750 mg PO DAILY #10 tablet Nicotine [Habitrol] 21 mg TRDERM DAILY #30 patch Home Medications: Home Meds Cilostazol [Pletal] 100 mg PO BID 12/10/13 [History] Lisinopril [Prinivil] 2.5 mg PO BEDTIME 12/10/13 [History] Mycophenolate Mofetil [Cellcept] 500 mg PO QID 12/10/13 [History] Omeprazole [Prilosec] 20 mg PO ACBREAKFAST 12/10/13 [History] Tacrolimus [Prograf] 1 mg PO BID 12/10/13 [History] Travoprost [Travatan Z] 1 drop OP BEDTIME 11/09/16 [History] Atenolol 50 mg PO DAILY 03/27/17 [History] Levofloxacin [Levaquin] 750 mg PO DAILY #10 tablet 03/30/17 [Rx] Nicotine [Habitrol] 21 mg TRDERM DAILY #30 patch 03/30/17 [Rx] Patient Handouts: Urinary Tract Infection, Adult, [id number], Smokeless Tobacco Use, Chronic Kidney Disease Referrals: Vicente Metz MD [Primary Care Provider] - - Discharge Summary/Plan Comment DC Time >30 min.: Yes (40 min) - General Info Date of Service: 03/30/17 Admission Dx/Problem (Free Text: Admission Diagnosis/Problem Admission Diagnosis/Problem Renal insufficiency Reymundo is seen this morning resting comfortably in bed this morning. Slept "as well as I could have". Denies pain. No nausea. Appetite is "fine". Urination is without problems, using urinal. No diarrhea with IV abx- on Meropenem for AUTI. Anxious for DC home today Functional Status: Reports: Pain Controlled, Tolerating Diet, Ambulating, Urinating. Denies: New Symptoms - Review of Systems General: Reports: No Symptoms HEENT: Reports: No Symptoms Pulmonary: Reports: No Symptoms Cardiovascular: Reports: No Symptoms Gastrointestinal: Reports: No Symptoms Genitourinary: Reports: No Symptoms Musculoskeletal: Reports: No Symptoms Skin: Reports: No Symptoms Neurological: Reports: No Symptoms Psychiatric: Reports: No Symptoms - Patient Data Vitals - Most Recent: Last Vital Signs Temp 98.0 F 03/30/17 04:00 Pulse 70 03/30/17 04:00 Resp 16 03/30/17 04:00 BP 120/68 03/30/17 04:00 Pulse Ox 99 03/30/17 04:00 Weight - Most Recent: 58.74 kg I&O - Last 24 hours: Intake & Output 03/29/17 03/30/17 03/30/17 22:59 06:59 14:59 Intake Total 1623 1365 Output Total 1750 2050 Balance -127 -685 Lab Results - Last 24 hrs: Laboratory Results - last 24 hr 03/29/17 03/29/17 03/30/17 Range/Units 07:00 07:00 05:50 WBC 4.18 L 3.25 L (4.23-9.07) K/mm3 RBC 3.93 L 3.74 L (4.63-6.08) M/mm3 Hgb 11.6 L 11.0 L (13.7-17.5) gm/L Hct 36.0 L 34.6 L (40.1-51.0) % MCV 91.6 92.5 H (79.0-92.2) fl MCH 29.5 29.4 (25.7-32.2) pg MCHC 32.2 31.8 L (32.2-35.5) g/dl RDW Std Deviation 44.3 H 44.8 H (35.1-43.9) fL Plt Count 242 260 (163-337) K/mm3 MPV 10.5 10.7 (9.4-12.3) fl Neut % (Auto) 70.9 H 70.2 H (34.0-67.9) % Lymph % (Auto) 12.4 L 15.1 L (21.8-53.1) % Wright % (Auto) 14.1 H 11.4 (5.3-12.2) % Eos % (Auto) 1.9 1.8 (0.8-7.0) Baso % (Auto) 0.2 0.3 (0.1-1.2) % Neut # (Auto) 2.96 2.28 (1.78-5.38) K/mm3 Lymph # (Auto) 0.52 L 0.49 L (1.32-3.57) K/mm3 Wright # (Auto) 0.59 0.37 (0.30-0.82) K/mm3 Eos # (Auto) 0.08 0.06 (0.04-0.54) K/mm3 Baso # (Auto) 0.01 0.01 (0.01-0.08) K/mm3 Sodium 141 (136-145) mEq/L Potassium 4.6 (3.5-5.1) mEq/L Chloride 109 H (98-107) mEq/L Carbon Dioxide 23 (21-32) mEq/L Anion Gap 13.6 (5-15) BUN 16 (7-18) mg/dL Creatinine 1.1 (0.7-1.3) mg/dL Est Cr Clr Drug Dosing 60.63 mL/min Estimated GFR (MDRD) > 60 (>60) mL/min BUN/Creatinine Ratio 14.5 (14-18) Glucose 93 (74-106) mg/dL Calcium 8.8 (8.5-10.1) mg/dL Magnesium 2.2 (1.8-2.4) mg/dl C-Reactive Protein 6.5 H* (<1.0) mg/dL 03/30/17 Range/Units 05:50 WBC (4.23-9.07) K/mm3 RBC (4.63-6.08) M/mm3 Hgb (13.7-17.5) gm/L Hct (40.1-51.0) % MCV (79.0-92.2) fl MCH (25.7-32.2) pg MCHC (32.2-35.5) g/dl RDW Std Deviation (35.1-43.9) fL Plt Count (163-337) K/mm3 MPV (9.4-12.3) fl Neut % (Auto) (34.0-67.9) % Lymph % (Auto) (21.8-53.1) % Wright % (Auto) (5.3-12.2) % Eos % (Auto) (0.8-7.0) Baso % (Auto) (0.1-1.2) % Neut # (Auto) (1.78-5.38) K/mm3 Lymph # (Auto) (1.32-3.57) K/mm3 Wright # (Auto) (0.30-0.82) K/mm3 Eos # (Auto) (0.04-0.54) K/mm3 Baso # (Auto) (0.01-0.08) K/mm3 Sodium 141 (136-145) mEq/L Potassium 4.8 (3.5-5.1) mEq/L Chloride 109 H (98-107) mEq/L Carbon Dioxide 26 (21-32) mEq/L Anion Gap 10.8 (5-15) BUN 19 H (7-18) mg/dL Creatinine 1.0 (0.7-1.3) mg/dL Est Cr Clr Drug Dosing 66.08 mL/min Estimated GFR (MDRD) > 60 (>60) mL/min BUN/Creatinine Ratio 19.0 H (14-18) Glucose 92 (74-106) mg/dL Calcium 9.0 (8.5-10.1) mg/dL Magnesium 1.8 (1.8-2.4) mg/dl C-Reactive Protein 4.1 H* (<1.0) mg/dL Med Orders - Current: Current Medications Acetaminophen (Tylenol) 650 mg PO Q4H PRN PRN Reason: Pain/Fever Last Admin: 03/27/17 03:48 Dose: 650 mg Atenolol (Tenormin) 50 mg PO DAILY [facility] Last Admin: 03/29/17 09:20 Dose: 50 mg Hydralazine HCl (Apresoline) 20 mg IVPUSH Q8H PRN PRN Reason: Hypertension Sodium Chloride (Sodium Chloride 0.45%) 1,000 mls @ 75 mls/hr IV ASDIRECTED [facility] Last Admin: 03/29/17 20:16 Dose: 75 mls/hr Meropenem 500 mg/ Sodium (Chloride) 100 mls @ 200 mls/hr IV Q8H [facility] Last Admin: 03/30/17 06:16 Dose: Not Given Latanoprost (Xalatan 0.005% Ophth Soln) 0 ml EYEBOTH BEDTIME [facility] Last Admin: 03/29/17 20:35 Dose: 1 drop Nicotine (Habitrol) 21 mg TRDERM DAILY [facility] Last Admin: 03/29/17 09:24 Dose: Not Given Ondansetron HCl (Zofran) 4 mg IVPUSH Q8H PRN PRN Reason: Nausea/Vomiting Pantoprazole Sodium (Protonix) 40 mg PO ACBREAKFAST [facility] Last Admin: 03/30/17 06:26 Dose: 40 mg Tacrolimus 1 Mg Cap* (Own Med) 0 each PO BID [facility] Last Admin: 03/29/17 20:36 Dose: 1 each Mycophenolate Mofetil 250 Mg Cap Own Med 0 each PO QID [facility] Last Admin: 03/29/17 20:36 Dose: 2 each Potassium Chloride (Potassium Chloride) 60 meq PO BID [facility] Last Admin: 03/29/17 20:35 Dose: Not Given Sodium Chloride (Saline Flush) 10 ml FLUSH ASDIRECTED PRN PRN Reason: Keep Vein Open Last Admin: 03/26/17 13:49 Dose: 10 ml Discontinued Medications Ceftriaxone Sodium (Rocephin) Confirm Administered Dose 1 gm IV .STK-MED ONE Stop: 03/26/17 18:42 Last Admin: 03/26/17 18:43 Dose: Not Given Dextrose/Water (Dextrose 50% In Water) 50 ml IVPUSH ASDIRECTED PRN PRN Reason: Hypoglycemia Sodium Chloride (Normal Saline) 1,000 mls @ 999 mls/hr IV ONETIME [facility] Last Admin: 03/26/17 13:51 Dose: 999 mls/hr Sodium Chloride (Normal Saline) 1,000 mls @ 999 mls/hr IV ONETIME ONE Stop: 03/26/17 16:46 Last Admin: 03/26/17 15:48 Dose: 999 mls/hr Sodium Chloride (Normal Saline) 1,000 mls @ 75 mls/hr IV NOW STA Stop: 03/27/17 06:07 Last Admin: 03/26/17 16:50 Dose: 75 mls/hr Ceftriaxone Sodium 1,000 mg/ (Sodium Chloride) 50 mls @ 200 mls/hr IV ONETIME ONE Stop: 03/26/17 18:48 Last Admin: 03/26/17 22:22 Dose: Not Given Sodium Chloride (Normal Saline) Confirm Administered Dose 100 mls @ as directed .ROUTE .STK-MED ONE Stop: 03/26/17 18:42 Last Admin: 03/26/17 18:43 Dose: Not Given Ceftriaxone Sodium 1 gm/ (Sodium Chloride) 100 mls @ 200 mls/hr IV NOW STA Stop: 03/26/17 19:11 Last Admin: 03/26/17 18:43 Dose: 200 mls/hr Sodium Chloride (Sodium Chloride 0.45%) 1,000 mls @ 999 mls/hr IV ASDIRECTED [facility] Stop: 03/26/17 21:16 Last Admin: 03/26/17 22:13 Dose: 999 mls/hr Ceftriaxone Sodium 2 gm/ (Sodium Chloride) 100 mls @ 200 mls/hr IV Q24H [facility] Last Admin: 03/27/17 12:48 Dose: 200 mls/hr Sodium Chloride (Sodium Chloride 0.45%) 1,000 mls @ 200 mls/hr IV ASDIRECTED [facility] Last Admin: 03/27/17 05:37 Dose: 150 mls/hr Magnesium Sulfate 2 gm/ Premix 50 mls @ 25 mls/hr IV ONETIME ONE Stop: 03/27/17 20:43 Last Admin: 03/27/17 19:06 Dose: 25 mls/hr Meropenem 1 gm/ Sodium (Chloride) 100 mls @ 200 mls/hr IV Q8H [facility] Levofloxacin/Dextrose 750 mg/ (Premix) 150 mls @ 100 mls/hr IV Q24H [facility] Last Admin: 03/28/17 09:33 Dose: 100 mls/hr Magnesium Sulfate 4 gm/ Premix 100 mls @ 50 mls/hr IV ONETIME ONE Stop: 03/28/17 11:07 Last Admin: 03/28/17 10:58 Dose: 50 mls/hr Insulin Aspart (Novolog) 0 unit SUBCUT QIDACANDBED [facility] PRN Reason: Protocol Last Admin: 03/27/17 11:02 Dose: Not Given Latanoprost (Xalatan 0.005% Ophth Soln) 0 ml EYEBOTH ONETIME ONE Stop: 03/26/17 22:31 Last Admin: 03/27/17 03:09 Dose: Not Given Metoprolol Tartrate (Lopressor) 50 mg PO DAILY [facility] Metoprolol Tartrate (Lopressor) 25 mg PO Q12HR [facility] Last Admin: 03/27/17 09:23 Dose: Not Given Mycophenolate Mofetil (Cellcept) 500 mg PO QID [facility] Last Admin: 03/26/17 22:20 Dose: 500 mg Mycophenolate Mofetil (Cellcept) 500 mg PO ONETIME [facility] Tacrolimus (Prograf) 1 mg PO BID [facility] Last Admin: 03/26/17 22:21 Dose: 1 mg Tacrolimus (Prograf) 1 mg PO ONETIME ONE Stop: 03/26/17 22:16 Last Admin: 03/26/17 22:20 Dose: 1 mg - Exam Quality Assessment: Reports: DVT Prophylaxis General: Reports: Alert, Oriented, Cooperative, No Acute Distress, Other (thin) HEENT: Reports: Pupils Equal, Pupils Reactive, EOMI, Mucous Membr. Moist/[place] Neck: Reports: Supple Lungs: Reports: Clear to Auscultation, Normal Respiratory Effort, Decreased Breath Sounds (bases) Cardiovascular: Reports: Regular Rate, Regular Rhythm GI/Abdominal Exam: Normal Bowel Sounds, Soft, Non-Tender (Male) Exam: Deferred Rectal (Males) Exam: Deferred Extremities: Normal Inspection, No Pedal Edema Neurological: Reports: No New Focal Deficit Psy/Mental Status: Reports: Alert, Normal Affect, Normal Mood *Q Meaningful Use (DIS) - VTE *Q VTE Criteria *Q: - Stroke *Q Stroke Criteria *Q: - AMI *Q AMI Criteria *Q: <Catina Man Last Filed: 03/30/17 19:24> Discharge Summary - Hospital Course Free Text/Narrative:: Agree with above - Discharge Diagnosis/Problem(s) (1) Dehydration SNOMED Code(s): 56435367 ICD Code: E86.0 - DEHYDRATION Status: Resolved Priority: High (2) Renal insufficiency SNOMED Code(s): 277424757, 059407684 ICD Code: N28.9 - DISORDER OF KIDNEY AND URETER, UNSPECIFIED Status: Acute (3) UTI (urinary tract infection) SNOMED Code(s): 34504886 ICD Code: N39.0 - URINARY TRACT INFECTION, SITE NOT SPECIFIED Status: Acute Priority: High Qualifiers: Urinary tract infection type: site unspecified Hematuria presence: without hematuria Qualified Code(s): N39.0 - Urinary tract infection, site not specified (4) History of renal transplantation Status: Chronic Priority: Medium (5) Immunosuppressed status SNOMED Code(s): 59101774 ICD Code: D89.9 - DISORDER INVOLVING THE IMMUNE MECHANISM, UNSPECIFIED Status: Chronic - Patient Data Vitals - Most Recent: Last Vital Signs Temp 36.9 C 03/30/17 12:01 Pulse 70 03/30/17 12:01 Resp 12 03/30/17 12:01 BP 113/79 03/30/17 12:01 Pulse Ox 100 03/30/17 12:01 I&O - Last 24 hours: Intake & Output 03/30/17 03/30/17 03/30/17 06:59 14:59 22:59 Intake Total 1365 710 Output Total 2050 600 Balance -685 110 Lab Results - Last 24 hrs: Laboratory Results - last 24 hr 03/30/17 03/30/17 Range/Units 05:50 05:50 WBC 3.25 L (4.23-9.07) K/mm3 RBC 3.74 L (4.63-6.08) M/mm3 Hgb 11.0 L (13.7-17.5) gm/L Hct 34.6 L (40.1-51.0) % MCV 92.5 H (79.0-92.2) fl MCH 29.4 (25.7-32.2) pg MCHC 31.8 L (32.2-35.5) g/dl RDW Std Deviation 44.8 H (35.1-43.9) fL Plt Count 260 (163-337) K/mm3 MPV 10.7 (9.4-12.3) fl Neut % (Auto) 70.2 H (34.0-67.9) % Lymph % (Auto) 15.1 L (21.8-53.1) % Wright % (Auto) 11.4 (5.3-12.2) % Eos % (Auto) 1.8 (0.8-7.0) Baso % (Auto) 0.3 (0.1-1.2) % Neut # (Auto) 2.28 (1.78-5.38) K/mm3 Lymph # (Auto) 0.49 L (1.32-3.57) K/mm3 Wright # (Auto) 0.37 (0.30-0.82) K/mm3 Eos # (Auto) 0.06 (0.04-0.54) K/mm3 Baso # (Auto) 0.01 (0.01-0.08) K/mm3 Sodium 141 (136-145) mEq/L Potassium 4.8 (3.5-5.1) mEq/L Chloride 109 H (98-107) mEq/L Carbon Dioxide 26 (21-32) mEq/L Anion Gap 10.8 (5-15) BUN 19 H (7-18) mg/dL Creatinine 1.0 (0.7-1.3) mg/dL Est Cr Clr Drug Dosing 66.08 mL/min Estimated GFR (MDRD) > 60 (>60) mL/min BUN/Creatinine Ratio 19.0 H (14-18) Glucose 92 (74-106) mg/dL Calcium 9.0 (8.5-10.1) mg/dL Magnesium 1.8 (1.8-2.4) mg/dl C-Reactive Protein 4.1 H* (<1.0) mg/dL Med Orders - Current: Current Medications Discontinued Medications Acetaminophen (Tylenol) 650 mg PO Q4H PRN PRN Reason: Pain/Fever Last Admin: 03/27/17 03:48 Dose: 650 mg Atenolol (Tenormin) 50 mg PO DAILY [facility] Last Admin: 03/30/17 09:07 Dose: 50 mg Ceftriaxone Sodium (Rocephin) Confirm Administered Dose 1 gm IV .STK-MED ONE Stop: 03/26/17 18:42 Last Admin: 03/26/17 18:43 Dose: Not Given Dextrose/Water (Dextrose 50% In Water) 50 ml IVPUSH ASDIRECTED PRN PRN Reason: Hypoglycemia Hydralazine HCl (Apresoline) 20 mg IVPUSH Q8H PRN PRN Reason: Hypertension Sodium Chloride (Normal Saline) 1,000 mls @ 999 mls/hr IV ONETIME [facility] Last Admin: 03/26/17 13:51 Dose: 999 mls/hr Sodium Chloride (Normal Saline) 1,000 mls @ 999 mls/hr IV ONETIME ONE Stop: 03/26/17 16:46 Last Admin: 03/26/17 15:48 Dose: 999 mls/hr Sodium Chloride (Normal Saline) 1,000 mls @ 75 mls/hr IV NOW STA Stop: 03/27/17 06:07 Last Admin: 03/26/17 16:50 Dose: 75 mls/hr Ceftriaxone Sodium 1,000 mg/ (Sodium Chloride) 50 mls @ 200 mls/hr IV ONETIME ONE Stop: 03/26/17 18:48 Last Admin: 03/26/17 22:22 Dose: Not Given Sodium Chloride (Normal Saline) Confirm Administered Dose 100 mls @ as directed .ROUTE .STK-MED ONE Stop: 03/26/17 18:42 Last Admin: 03/26/17 18:43 Dose: Not Given Ceftriaxone Sodium 1 gm/ (Sodium Chloride) 100 mls @ 200 mls/hr IV NOW STA Stop: 03/26/17 19:11 Last Admin: 03/26/17 18:43 Dose: 200 mls/hr Sodium Chloride (Sodium Chloride 0.45%) 1,000 mls @ 999 mls/hr IV ASDIRECTED [facility] Stop: 03/26/17 21:16 Last Admin: 03/26/17 22:13 Dose: 999 mls/hr Ceftriaxone Sodium 2 gm/ (Sodium Chloride) 100 mls @ 200 mls/hr IV Q24H [facility] Last Admin: 03/27/17 12:48 Dose: 200 mls/hr Sodium Chloride (Sodium Chloride 0.45%) 1,000 mls @ 200 mls/hr IV ASDIRECTED [facility] Last Admin: 03/27/17 05:37 Dose: 150 mls/hr Sodium Chloride (Sodium Chloride 0.45%) 1,000 mls @ 75 mls/hr IV ASDIRECTED [facility] Last Admin: 03/29/17 20:16 Dose: 75 mls/hr Magnesium Sulfate 2 gm/ Premix 50 mls @ 25 mls/hr IV ONETIME ONE Stop: 03/27/17 20:43 Last Admin: 03/27/17 19:06 Dose: 25 mls/hr Meropenem 1 gm/ Sodium (Chloride) 100 mls @ 200 mls/hr IV Q8H [facility] Levofloxacin/Dextrose 750 mg/ (Premix) 150 mls @ 100 mls/hr IV Q24H [facility] Last Admin: 03/28/17 09:33 Dose: 100 mls/hr Magnesium Sulfate 4 gm/ Premix 100 mls @ 50 mls/hr IV ONETIME ONE Stop: 03/28/17 11:07 Last Admin: 03/28/17 10:58 Dose: 50 mls/hr Meropenem 500 mg/ Sodium (Chloride) 100 mls @ 200 mls/hr IV Q8H [facility] Last Admin: 03/30/17 06:16 Dose: Not Given Insulin Aspart (Novolog) 0 unit SUBCUT QIDACANDBED [facility] PRN Reason: Protocol Last Admin: 03/27/17 11:02 Dose: Not Given Latanoprost (Xalatan 0.005% Ophth Soln) 0 ml EYEBOTH BEDTIME [facility] Last Admin: 03/29/17 20:35 Dose: 1 drop Latanoprost (Xalatan 0.005% Ophth Soln) 0 ml EYEBOTH ONETIME ONE Stop: 03/26/17 22:31 Last Admin: 03/27/17 03:09 Dose: Not Given Metoprolol Tartrate (Lopressor) 50 mg PO DAILY [facility] Metoprolol Tartrate (Lopressor) 25 mg PO Q12HR [facility] Last Admin: 03/27/17 09:23 Dose: Not Given Mycophenolate Mofetil (Cellcept) 500 mg PO QID [facility] Last Admin: 03/26/17 22:20 Dose: 500 mg Mycophenolate Mofetil (Cellcept) 500 mg PO ONETIME [facility] Nicotine (Habitrol) 21 mg TRDERM DAILY [facility] Last Admin: 03/30/17 09:08 Dose: Not Given Ondansetron HCl (Zofran) 4 mg IVPUSH Q8H PRN PRN Reason: Nausea/Vomiting Pantoprazole Sodium (Protonix) 40 mg PO ACBREAKFAST [facility] Last Admin: 03/30/17 06:26 Dose: 40 mg Tacrolimus 1 Mg Cap* (Own Med) 0 each PO BID [facility] Last Admin: 03/30/17 09:07 Dose: 1 each Mycophenolate Mofetil 250 Mg Cap Own Med 0 each PO QID [facility] Last Admin: 03/30/17 09:06 Dose: 2 each Potassium Chloride (Potassium Chloride) 60 meq PO BID [facility] Last Admin: 03/29/17 20:35 Dose: Not Given Sodium Chloride (Saline Flush) 10 ml FLUSH ASDIRECTED PRN PRN Reason: Keep Vein Open Last Admin: 03/26/17 13:49 Dose: 10 ml Tacrolimus (Prograf) 1 mg PO BID [facility] Last Admin: 03/26/17 22:21 Dose: 1 mg Tacrolimus (Prograf) 1 mg PO ONETIME ONE Stop: 03/26/17 22:16 Last Admin: 03/26/17 22:20 Dose: 1 mg *Q Meaningful Use (DIS) - VTE *Q VTE Criteria *Q: - Stroke *Q Stroke Criteria *Q: - AMI *Q AMI Criteria *Q:
[2017-03-30] MEDS: MYCOPHENOLATE MOFETIL 250 MG PO SCH (09:06)
[2017-03-30] MEDS: TACROLIMUS 1 MG PO SCH (09:07)
[2017-03-30] MEDS: Atenolol 50 MG Tab PO SCH (09:07)
[2017-03-30] MEDS: Nicotine 21 MG/24 Hr Patch TRDERM SCH (09:08)
[2017-03-30 12:03] VITALS: BP 113/79
== END 2017-03-30 12:30 | disposition home or self-care (01) | DRG 690 ==
LOC: JD.ED 13:14 → JD.MS 19:31 → UNDOADMOB 19:31 → JD.MS 19:42 → OBSVTOIN 03-27 09:44
PROVIDERS: ADMIT Internal Medicine Cardiovascular Disease; ATTEND Internal Medicine Cardiovascular Disease
DX: R42 Dizziness and giddiness (principal); N39.0 Urinary tract infection, site not specified; N17.9 Acute kidney failure, unspecified; B96.89 Other specified bacterial agents as the cause of diseases classified elsewhere; H54.0 Blindness, both eyes; K21.9 Gastro-esophageal reflux disease without esophagitis; E87.6 Hypokalemia; E86.0 Dehydration; N28.9 Disorder of kidney and ureter, unspecified; Z98.85 Transplanted organ removal status; D89.9 Disorder involving the immune mechanism, unspecified; F17.200 Nicotine dependence, unspecified, uncomplicated; I10 Essential (primary) hypertension; E10.9 Type 1 diabetes mellitus without complications; E78.5 Hyperlipidemia, unspecified; I73.9 Peripheral vascular disease, unspecified; Z79.899 Other long term (current) drug therapy
CPT/HCPCS: 36415 ×2; 71010; 80048; 80053 ×2; 81001; 82962 ×2; 83036; 83735; 84484; 85025 ×2; 86140; 87040 ×2; 87086; 93005; 96361; 96365; 97162; 97165; 99285; A9270 ×6; J0696; J7030 ×4; J7040 ×3; J7050; 80061; 87088; 87186; 97112-GP; 97116-GP; 97530-GP; 99284; G0378; J1956; J2185; J3475

== ENCOUNTER 2018-10-13 16:35 | Inpatient (IN) | payer MEDICARE, MEDICAID ==
--- NOTE | 2018-10-13 17:13 | EDM.PDOC ---
ED HPI GENERAL MEDICAL PROBLEM - General Chief Complaint: Abdominal Pain Stated Complaint: DEHYDRATION Time Seen by Provider: 10/13/18 16:43 Source of Information: Reports: Patient, RN Notes Reviewed History Limitations: Reports: No Limitations - History of Present Illness INITIAL COMMENTS - FREE TEXT/NARRATIVE: The patient is a history of type 1 diabetes, status post a kidney and pancreas transplant in 2004. He presents with malaise. He states that he has had a decreased appetite over the past 4 or 5 days, although he has been drinking fluids. He has had mild left upper quadrant point tenderness since this morning. He has recurrent watery diarrhea. No recent fever, nausea, vomiting, urinary symptoms, chest pain, palpitations, or dyspnea. The patient states that he believes that he is dehydrated, as he has been on previous occasions, and that he is getting "real pissed" because this is recurring. Review of prior medical records indicates that the patient was seen in this ED on 03/26/2017 and 08/18/2018, both with a complaint of dehydration. On the former visit, his sodium was normal at 140, but his BUN/Cr were elevated at 35/ 3.3. On the latter visit, his sodium was also normal at 138, but his BUN/Cr were elevated at 51/2.0. The patient reports an approximately 30 pound unintentional weight loss over the past 2 years. The patient's PCP is Dr. Metz. His Credit Collector is Dr. Goddard. Left Abdominal Pain Score (Numeric/FACES): 1 - Related Data Allergies Allergy/AdvReac Type Severity Reaction Status Date / Time No Known Allergies Allergy Verified 10/13/18 16:44 Home Meds: Home Meds Cilostazol [Pletal] 100 mg PO BID 12/10/13 [History] Lisinopril [Prinivil] 2.5 mg PO BEDTIME 12/10/13 [History] Mycophenolate Mofetil [Cellcept] 1,000 mg PO BID 12/10/13 [History] Omeprazole [Prilosec] 20 mg PO ACBREAKFAST 12/10/13 [History] Tacrolimus [Prograf] 1 mg PO BID 12/10/13 [History] Travoprost [Travatan Z] 1 drop OP BEDTIME 11/09/16 [History] Atenolol 50 mg PO DAILY 03/27/17 [History] Cyanocobalamin (Vitamin B-12) [Vitamin B-12] 1,000 mcg PO Q60D 03/30/18 [History ] Fluticasone Propionate [Flonase] 1 spray NASBOTH DAILY PRN 03/30/18 [History] traMADol [Ultram] 50 mg PO Q6H 03/30/18 [History] Past Medical History HEENT History: Reports: Impaired Vision (blind left eye) Cardiovascular History: Reports: CAD Gastrointestinal History: Reports: GERD Genitourinary History: Reports: Acute Renal Failure Endocrine/Metabolic History: Reports: Diabetes, Type I (resolved after pancreas transplant 2004) Hematologic History: Reports: Anemia - Infectious Disease History Infectious Disease History: Reports: Chicken Pox, Influenza, Shingles - Past Surgical History HEENT Surgical History: Reports: Oral Surgery (Dentures), Radial Keratotomy Cardiovascular Surgical History: Reports: Coronary Artery Bypass (x 2 vessel, 1999) GI Surgical History: Reports: Colonoscopy (x 1), Other (See Below) (Pancreas transplant 2004) Male Surgical History: Reports: Other (See Below) (idney transplant 2004) Musculoskeletal Surgical History: Reports: Amputation (5 right toes, 2 left toes ) Dermatological Surgical History: Reports: Skin Graft (2 burn) Social & Family History - Family History Family Medical History: Noncontributory HEENT: Reports: Impaired Vision Cardiac: Reports: Other (See Below) Other Cardiac Family History: Possibly something with mom's heart. Pt unsure. GI: Reports: None : Reports: Other (See Below) Other Family History: Gallbladder removal appendectomy - father. Musculoskeletal: Reports: Arthritis Neurological: Reports: Cerebral Aneurysms, Neuropathy, Diabetic Other Neurological Family History: Dad of hematoma in head. Mother - neuropathy. Endocrine/Metabolic: Reports: Diabetes, Type I Oncologic: Reports: Lymphoma - Tobacco Use Smoking Status *Q: Former Smoker Years of Tobacco use: 45 Packs/Tins Daily: 1 Month/Year Tobacco Last Used: Quit 2015 - Caffeine Use Caffeine Use: Reports: Soda, Tea Other Caffeine Use: 1 can of moutain dew every couple of days but drinks lots of tea everyday he reports. - Alcohol Use Alcohol Use History: Yes Alcohol Use Frequency: Rarely - Recreational Drug Use Recreational Drug Use: Yes Drug Use in Last 12 Months: No Recreational Drug Type: Reports: Marijuana/Hashish (last smoked in the 1970s) - Living Situation & Occupation Living situation: Reports: Single, Alone Occupation: Unemployed ED ROS GENERAL - Review of Systems Review Of Systems: ROS reveals no pertinent complaints other than HPI. ED EXAM, GENERAL - Physical Exam Exam: See Below Exam Limited By: No Limitations General Appearance: Alert, No Apparent Distress, Thin Eye Exam: Bilateral Eye: EOMI, Normal Inspection Ears: Normal External Exam, Hearing Grossly Normal Nose: Normal Inspection Throat/Mouth: Normal Inspection, Normal Lips, Normal Voice, No Airway Compromise Head: Atraumatic, Normocephalic Neck: Normal Inspection, Full Range of Motion Respiratory/Chest: No Respiratory Distress, Lungs Clear, Normal Breath Sounds, No Accessory Muscle Use Cardiovascular: Normal Peripheral Pulses, Regular Rate, Rhythm, No Edema, No Gallop, No JVD, No Rub, Systolic Murmur (rumbling, heard best at the apex) Peripheral Pulses: 4+: Radial (L), Radial (R) GI/Abdominal: Normal Bowel Sounds, Soft, No Organomegaly, No Distention, No Abnormal Bruit, No Mass, Tender (Point tenderness to the left upper quadrant, left anterior axillary line only. Nontender elsewhere.) (Male) Exam: Deferred Rectal (Males) Exam: Deferred Back Exam: Normal Inspection, Full Range of Motion. No: CVA Tenderness (L), CVA Tenderness (R) Extremities: No Pedal Edema, Normal Capillary Refill Neurological: Alert, Oriented, Normal Cognition, No Motor/Sensory Deficits Psychiatric: Normal Affect Skin Exam: Warm, Dry, Intact, Normal Color, No Rash EKG INTERPRETATION EKG Date: 10/13/18 Time: 17:18 Rhythm: NSR Rate (Beats/Min): 65 [place]: LAD-Left [place] Deviation P-Wave: Enlarged (+ DELVIN) QRS: LBBB QT: Prolonged (QTc 494 ms) Comparison: No Change (03/28/2017) Course - Vital Signs Last Recorded V/S: Last Vital Signs Temp 37.1 C 10/13/18 16:44 Pulse 65 10/13/18 16:44 Resp 16 10/13/18 16:44 BP 127/69 10/13/18 16:44 Pulse Ox 99 10/13/18 16:44 Orthostatic Blood Pressure [ 96/55 Standing] Orthostatic Blood Pressure [ 142/63 Supine] - Orders/Labs/Meds Orders: Active Orders 24 hr Category Date Time Status EKG Documentation Completion [RC] STAT Care 10/13/18 17:11 Active Orthostatic Vital Signs [RC] STAT Care 10/13/18 17:11 Active Orthostatic Vital Signs [RC] STAT Care 10/13/18 17:31 Active Abdomen 1V Upright [CR] Stat Exams 10/13/18 17:28 Taken RED BLOOD CELLS LP [BBK] Stat Lab 10/13/18 17:30 Received TYPE AND SCREEN [BBK] Stat Lab 10/13/18 17:30 Received UA W/MICROSCOPIC [URIN] Stat Lab 10/13/18 17:10 Ordered Magnesium Sulfate/Water [Magnesium Sulfate 2 GM in Med 10/13/18 18:18 Active Water 50 ML] 2 gm Premix Bag 1 bag IV ONETIME Transfuse PRBC [Transfuse Red Blood Cells] [COMM] Stat Oth 10/13/18 17:57 Ordered Medication Orders Magnesium Sulfate 2 gm/ Premix 50 mls @ 50 mls/hr IV ONETIME ONE Stop: 10/13/18 19:17 Labs: Laboratory Tests 10/13/18 10/13/18 Range/Units 17:30 17:30 WBC 6.69 (4.23-9.07) K/mm3 RBC 2.39 L (4.63-6.08) M/mm3 Hgb 7.0 L* (13.7-17.5) gm/L Hct 23.4 L (40.1-51.0) % MCV 97.9 H (79.0-92.2) fl MCH 29.3 (25.7-32.2) pg MCHC 29.9 L (32.2-35.5) g/dl RDW Std Deviation 57.0 H (35.1-43.9) fL Plt Count 227 (163-337) K/mm3 MPV 10.8 (9.4-12.3) fl Neutrophils % (Manual) 95 H (40-60) % Band Neutrophils % 0 (0-10) % Lymphocytes % (Manual) 3 L (20-40) % Atypical Lymphs % 0 % Monocytes % (Manual) 2 (2-10) % Eosinophils % (Manual) 0 L (0.8-7.0) % Basophils % (Manual) 0 L (0.2-1.2) Platelet Estimate Adequate Plt Morphology Comment Normal Hypochromasia 1+ slight Poikilocytosis 3+ marked Anisocytosis 1+ slight Target Cells 1+ slight [place] Cells 1+ slight Acanthocytes (Spur) 1+ slight RBC Morph Comment Not Reportable Sodium 142 (136-145) mEq/L Potassium 3.2 L (3.5-5.1) mEq/L Chloride 108 H (98-107) mEq/L Carbon Dioxide 22 (21-32) mEq/L Anion Gap 15.2 H (5-15) BUN 39 H (7-18) mg/dL Creatinine 1.5 H (0.7-1.3) mg/dL Est Cr Clr Drug Dosing 39.98 mL/min Estimated GFR (MDRD) 48 (>60) mL/min BUN/Creatinine Ratio 26.0 H (14-18) Glucose 103 (74-106) mg/dL Calcium 8.0 L (8.5-10.1) mg/dL Magnesium 1.5 L (1.8-2.4) mg/dl Total Bilirubin 0.4 (0.2-1.0) mg/dL AST 8 L (15-37) U/L ALT 14 L (16-63) U/L Alkaline Phosphatase 71 (46-116) U/L Troponin I 0.021 (0.00-0.056) ng/mL Total Protein 6.1 L (6.4-8.2) g/dl Albumin 2.6 L (3.4-5.0) g/dl Globulin 3.5 gm/dL Albumin/Globulin Ratio 0.7 L (1-2) Lipase 97 (73-393) U/L TSH 3rd Generation 3.262 (0.358-3.74) uIU/mL Meds: Medications Generic Name Dose Route Start Last Admin Trade Name Freq PRN Reason Stop Dose Admin Magnesium Sulfate 2 gm/ Premix 50 mls @ 50 mls/hr 10/13/18 18:18 IV 10/13/18 19:17 ONETIME ONE Discontinued Medications Generic Name Dose Route Start Last Admin Trade Name Freq PRN Reason Stop Dose Admin Sodium Chloride 1,000 mls @ 150 mls/hr 10/13/18 17:15 10/13/18 17:21 Normal Saline IV 150 mls/hr ASDIRECTED RUTH ANN Administration Sodium Chloride 1,000 mls @ 999 mls/hr 10/13/18 17:30 Normal Saline IV 10/13/18 18:30 ONETIME ONE - Re-Assessments/Exams Free Text/Narrative Re-Assessment/Exam: 10/13/18 17:30 The patient is orthostatic. I will order a 1 L bolus of NS. 10/13/18 17:56 The patient's H/H has returned significantly depressed at 7.0/23.4. It was 9.2/ 30.5 on 09/04/2018, but 8.0/23.9 on 08/18/2018. The patient states that he received a PRBC transfusion in [place] - he does not recall how many units - in August, which is likely why his hemoglobin edy. I do not have the patient's renal function back, however, with the patient receiving IV fluid to treat his orthostasis, his hemoglobin will likely drop significantly more, therefore the patient would likely benefit from a PRBC transfusion. I lambert order 2 Units. 10/13/18 18:01 Single view upright abdominal radiograph appears to demonstrate gaseous distention of the colon at the splenic flexure and descending colon. No small bowel markings are noticed. No free air. Sternotomy wires incidentally noted. Surgical clips are incidentally noted in the epigastrium, including above the hemidiaphragms, in the vicinity of the normal anatomic position of the gallbladder, as well as in the pelvis. Formal read per the Radiologist pending. 10/13/18 18:18 The patient's potassium has returned depressed at 3.2, but his magnesium is also present 1.5. His BUN/Cr are elevated at 39/1.5. They were 25/1.5 on 2018. The patient will require supplemental potassium, but his magnesium and needs to be replaced first. I have ordered a 2 g Mg-rider. We are still awaiting the patient's urinalysis and his repeat orthostatics. I am going to recommend admission to the hospital. 10/13/18 18:27 The above test results and my recommendation for admission to the hospital were discussed with the patient. The patient is agreeable to remaining admitted. Case then discussed with Dr. Man at 18:25. She will come by the ED to evaluate the patient. 10/13/18 18:48 Dr. Man has evaluated the patient and is willing to admit him to the hospital , provided Dr. Rodríguez would be willing to perform a colonoscopy, if the need arose. Case then discussed with Dr. Rodríguez at 18:46. She is willing to perform a colonoscopy, if the need arises. I will therefore admit the patient to Dr. Man. Departure - Departure Time of Disposition: 18:49 Disposition: Admitted As Inpatient 68 Condition: Fair Clinical Impression: Chronic renal insufficiency, Orthostasis, Hypokalemia, Hypomagnesemia, Failure to thrive, Dilatation of colon Anemia Qualifiers: Anemia type: unspecified type Qualified Code(s): D64.9 - Anemia, unspecified - Discharge Information *PRESCRIPTION DRUG MONITORING PROGRAM REVIEWED*: Not Applicable *COPY OF PRESCRIPTION DRUG MONITORING REPORT IN PATIENT FELICIANO: Not Applicable Referrals: Vicente Metz MD [Primary Care Provider] - Garland Goddard MD [Ordering Only Provider] - Teresa Rodríguez MD [Physician] - - My Orders Last 24 Hours: My Active Orders 10/13/18 17:10 UA W/MICROSCOPIC [URIN] Stat 10/13/18 17:11 EKG Documentation Completion [RC] STAT Orthostatic Vital Signs [RC] STAT 10/13/18 17:28 Abdomen 1V Upright [CR] Stat 10/13/18 17:30 RED BLOOD CELLS LP [BBK] Stat TYPE AND SCREEN [BBK] Stat 10/13/18 17:31 Orthostatic Vital Signs [RC] STAT 10/13/18 17:57 Transfuse PRBC [Transfuse Red Blood Cells] [COMM] Stat 10/13/18 18:18 Magnesium Sulfate/Water [Magnesium Sulfate 2 GM in Water 50 ML] 2 gm Premix Bag 1 bag IV ONETIME - Assessment/Plan Last 24 Hours: My Active Orders 10/13/18 17:10 UA W/MICROSCOPIC [URIN] Stat 10/13/18 17:11 EKG Documentation Completion [RC] STAT Orthostatic Vital Signs [RC] STAT 10/13/18 17:28 Abdomen 1V Upright [CR] Stat 10/13/18 17:30 RED BLOOD CELLS LP [BBK] Stat TYPE AND SCREEN [BBK] Stat 10/13/18 17:31 Orthostatic Vital Signs [RC] STAT 10/13/18 17:57 Transfuse PRBC [Transfuse Red Blood Cells] [COMM] Stat 10/13/18 18:18 Magnesium Sulfate/Water [Magnesium Sulfate 2 GM in Water 50 ML] 2 gm Premix Bag 1 bag IV ONETIME
[2018-10-13] MEDS ORDERED: Sodium Chloride 0.9% 1,000 ML IV SCH (17:15)
[2018-10-13] MEDS ORDERED: Sodium Chloride 0.9% 1,000 ML IV ONE (17:30)
[2018-10-13] MEDS ORDERED: Magnesium Sulfate/Water 2 GM in Premix Bag 1 BAG IV ONE ×2 (18:18→21:10)
[2018-10-13] MEDS ORDERED: FLUTICASONE PROPIONATE NASBOTH PRN (21:09)
[2018-10-13] MEDS ORDERED: Furosemide 40 MG/4 ML VIAL IVPUSH ONE (21:13)
[2018-10-13] MEDS ORDERED: Ondansetron 4 MG/2 ML SDV IVPUSH PRN (21:15)
[2018-10-13] MEDS ORDERED: Acetaminophen 325 MG Tab PO PRN (21:15)
[2018-10-13] MEDS ORDERED: Temazepam 7.5 MG Cap PO PRN (21:21)
[2018-10-13] MEDS: cefTRIAXone 2 GM in Sodium Chloride 0.9% 100 ML IV SCH (22:41)
[2018-10-13] MEDS: Potassium Chloride 20 MEQ Tab.ER PO SCH (22:47)
[2018-10-13] MEDS: traMADol 50 MG Tab PO SCH (22:53)
[2018-10-14] MEDS: traMADol 50 MG Tab PO SCH (05:48)
--- NOTE | 2018-10-14 06:52 | CR ---
Abdomen: Upright view of the abdomen was obtained. Gas is noted within the colon mostly within the splenic flexure which is felt to be within normal limits. No free air is seen. Minimal scarring within the left lung base is noted. Vascular calcification is noted. Multiple surgical clips are partially visualized within the pelvis. Prior sternotomy is also partially visualized. Impression: 1. Incidental findings as noted above. Nothing acute is appreciated. Diagnostic code #2
--- NOTE | 2018-10-14 07:49 | PCM.HP ---
H&P History of Present Illness - General Date of Service: 10/14/18 Admit Problem/Dx: Admission Diagnosis/Problem Admission Diagnosis/Problem Anemia Source of Information: Patient, Old Records, Provider, RN, RN Notes Reviewed History Limitations: Reports: No Limitations - History of Present Illness Initial Comments - Free Text/Narative: Reymundo Rocha is a 62 yo male who presents to our ED the evening of 10/13/2018 with malaise. He is type I diabetic and is status post kidney and pancreatic transplant in 2004. He reports he had a decreased appetite over the past for 5 days but has been trying to drink fluids. Reports mild left upper quadrant point tenderness and recurrent watery diarrhea. Denies any fever, nausea, vomiting, urinary symptoms, chest pain, palpitations, or dyspnea. Reports he believes he is dehydrated and has been on several previous occasions. He is quite upset that this is continuing to be reoccurring. He was in our ED on 03/26 and 08/18/18 with dehydration. On the first mention prior visit his sodium was normal at 140 but his BUN and creatinine were elevated at 35 and 3.3 respectively. On the latter visit his sodium was normal at 138 but is even and creatinine were elevated at 51 and 2.0 respectively. He reports he has a 30 pound unintentional weight loss over the past 2 years. In the ED twelve-lead EKG was obtained showing sinus rhythm at 65 bpm with left axis deviation and large P wave and a left bundle branch block. QTC was noted to be 494. No significant change from 03/28/2017. Temp was 37.1C. Pulse 65. Respirations 16. Blood pressure 127/69. Pulse ox 99%. Orthostatic blood pressures were positive. Labs are obtained: WBC is 6.69. Hemoglobin very low at 7.0. Hematocrit 23.4. He is macrocytic. Platelet good at 227,000. Neutrophils were elevated at 95. There is no bandemia. Sodium is 142. Potassium 3.2. Chloride 108. Carbon dioxide 22. Anion gap 15.2. BUN is 39. Creatinine 1.5. EGFR is 48. Glucose 13. Calcium 8.0. Magnesium 1.5. Therapy 0.5. AST is 80, ALT 14, alkaline phosphatase 71. Troponin 0.021. Protein 6.1. Albumin is low at 2.6. Lipase is 97. TSH is good at 3.262. He is given 2 g of magnesium and 1 L fluid bolus. He started on MS 150 mils an hour. ED provider does note that he has a history of low hemoglobin being 9.2 on 09/04/2018 and 8.0 on 08/18/2018. He reportedly has had a blood transfusion in August in [place] but does not recall how many units. Chest x-ray is obtained showing incidental findings and nothing acute. 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 He is a former smoker. His PCP is Dr. Metz. And his community relations police lieutenant is Dr. Goddard. Left Abdominal Pain Score (Numeric/FACES): 1 - Related Data Allergies/Adverse Reactions: Allergies Allergy/AdvReac Type Severity Reaction Status Date / Time No Known Allergies Allergy Verified 10/14/18 02:32 Home Medications: Home Meds Cilostazol [Pletal] 100 mg PO BID 12/10/13 [History] Mycophenolate Mofetil [Cellcept] 500 mg PO QID 12/10/13 [History] Omeprazole [Prilosec] 20 mg PO ACBREAKFAST 12/10/13 [History] Tacrolimus [Prograf] 1 mg PO BID 12/10/13 [History] Travoprost [Travatan Z] 2 drop EYEBOTH BEDTIME 11/09/16 [History] Atenolol 50 mg PO DAILY 03/27/17 [History] Cyanocobalamin (Vitamin B-12) [Vitamin B-12] 1,000 mcg IM Q60D 03/30/18 [History ] Fluticasone Propionate [Flonase] 1 spray NASBOTH DAILY PRN 03/30/18 [History] traMADol [Ultram] 50 mg PO Q6H PRN 03/30/18 [History] Past Medical History HEENT History: Reports: Impaired Vision, Other (See Below) Other HEENT History: blind in the left eye, wears glasses Cardiovascular History: Reports: CAD Other Cardiovascular History: unsure if he has had stents; double bypass 1999 Respiratory History: Reports: None Gastrointestinal History: Reports: GERD Genitourinary History: Reports: Acute Renal Failure Other Genitourinary History: kidney transplant; pancreas transplant 2004 [employer] History: Reports: None Musculoskeletal History: Reports: Amputation Other Musculoskeletal History: toes bilaterally Neurological History: Reports: None Psychiatric History: Reports: None Endocrine/Metabolic History: Reports: Diabetes, Type I Hematologic History: Reports: Anemia Immunologic History: Reports: Solid Organ Transplant Other Immunologic History: Kidney transplant Oncologic (Cancer) History: Reports: None Dermatologic History: Reports: None Other Dermatologic History: skin graft - Infectious Disease History Infectious Disease History: Reports: Chicken Pox, Influenza, Measles, Shingles - Past Surgical History Head Surgeries/Procedures: Reports: None HEENT Surgical History: Reports: Oral Surgery, Radial Keratotomy Cardiovascular Surgical History: Reports: Coronary Artery Bypass Respiratory Surgical History: Reports: None GI Surgical History: Reports: Colonoscopy, Other (See Below) Male Surgical History: Reports: Other (See Below) Endocrine Surgical History: Reports: None Neurological Surgical History: Reports: None Musculoskeletal Surgical History: Reports: Amputation Oncologic Surgical History: Reports: None Dermatological Surgical History: Reports: Skin Graft Social & Family History - Family History Family Medical History: Noncontributory HEENT: Reports: Impaired Vision Cardiac: Reports: Other (See Below) Other Cardiac Family History: Possibly something with mom's heart. Pt unsure. Respiratory: Reports: None GI: Reports: None : Reports: Other (See Below) Other Family History: Gallbladder removal appendectomy - father. Musculoskeletal: Reports: Arthritis Neurological: Reports: Cerebral Aneurysms, Neuropathy, Diabetic Other Neurological Family History: Dad of hematoma in head. Mother - neuropathy. Endocrine/Metabolic: Reports: Diabetes, Type I Oncologic: Reports: Lymphoma - Tobacco Use Smoking Status *Q: Former Smoker Years of Tobacco use: 45 Packs/Tins Daily: 1 Used Tobacco, but Quit: No Month/Year Tobacco Last Used: Quit 2015 Second Hand Smoke Exposure: No - Caffeine Use Caffeine Use: Reports: Soda Other Caffeine Use: pt reports that he drinks one can of mountain dew daily and does not drink any other form of caffeine. - Recreational Drug Use Recreational Drug Use: No Drug Use in Last 12 Months: No Recreational Drug Type: Reports: Marijuana/Hashish (last smoked in the 1970s) - Living Situation & Occupation Living situation: Reports: Single, Alone Occupation: Unemployed H&P Review of Systems - Review of Systems: Review Of Systems: See Below General: Reports: Malaise, Weakness, Fatigue, Decreased Appetite, Weight Loss. Denies: Fever, Chills HEENT: Reports: No Symptoms. Denies: Rhinitis, Post Nasal Drip, Sinus Congestion Pulmonary: Reports: Cough (for sometime ). Denies: Shortness of Breath, Wheezing, Sputum Cardiovascular: Reports: No Symptoms. Denies: Chest Pain, Palpitations, Dyspnea on Exertion, Edema, Syncope Gastrointestinal: Reports: Diarrhea (chronic ). Denies: Abdominal Pain, Constipation, Nausea, Vomiting Genitourinary: Reports: Frequency, Urgency. Denies: Pain Musculoskeletal: Reports: No Symptoms. Denies: Neck Pain Skin: Reports: No Symptoms. Denies: Cyanosis Psychiatric: Reports: No Symptoms. Denies: Confusion Neurological: Reports: No Symptoms Hematologic/Lymphatic: Reports: No Symptoms Immunologic: Reports: No Symptoms Exam - Exam Exam: See Below - Vital Signs Vital Signs: Last Vital Signs Temp 99.7 F 10/14/18 06:54 Pulse 69 10/14/18 06:54 Resp 16 10/14/18 06:54 BP 142/76 H 10/14/18 06:54 Pulse Ox 99 10/14/18 06:54 Orthostatic Blood Pressure [ 96/55 Standing] Orthostatic Blood Pressure [ 142/63 Supine] Weight: 111 lb 1.6 oz - Exam Quality Assessment: DVT Prophylaxis General: Alert, Oriented, Cooperative. No: Mild Distress HEENT: Conjunctiva Clear, EACs Clear, EOMI, Hearing Intact, Mucosa Moist & [place] , Normal Nasal Septum, Posterior Pharynx Clear, PERRLA Neck: Supple, Trachea Midline Lungs: Clear to Auscultation, Normal Respiratory Effort Cardiovascular: Regular Rate, Regular Rhythm GI/Abdominal Exam: Normal Bowel Sounds, Soft, Non-Tender, No Organomegaly, No Distention, No Abnormal Bruit, No Mass, Pelvis Stable (Male) Exam: Deferred Rectal (Males) Exam: Deferred Back Exam: Normal Inspection, Full Range of Motion Extremities: Normal Inspection, Normal Range of Motion, Non-Tender, No Pedal Edema, Normal Capillary Refill Peripheral Pulses: 4+: Radial (L), Radial (R), Dorsalis Pedis (L), Dorsalis Pedis (R) Skin: Warm, Dry, Intact Neurological: Cranial Nerves Intact (grossly ) Neuro Extensive - Mental Status: Alert, Oriented x3, Normal Mood/Affect, Normal Cognition - Patient Data Lab Results Last 24 hrs: Laboratory Results - last 24 hr 10/13/18 10/13/18 10/13/18 Range/Units 17:30 17:30 17:30 WBC 6.69 (4.23-9.07) K/mm3 RBC 2.39 L (4.63-6.08) M/mm3 Hgb 7.0 L* (13.7-17.5) gm/L Hct 23.4 L (40.1-51.0) % MCV 97.9 H (79.0-92.2) fl MCH 29.3 (25.7-32.2) pg MCHC 29.9 L (32.2-35.5) g/dl RDW Std Deviation 57.0 H (35.1-43.9) fL Plt Count 227 (163-337) K/mm3 MPV 10.8 (9.4-12.3) fl Neut % (Auto) (34.0-67.9) % Lymph % (Auto) (21.8-53.1) % [place] % (Auto) (5.3-12.2) % Eos % (Auto) (0.8-7.0) Baso % (Auto) (0.1-1.2) % Neut # (Auto) (1.78-5.38) K/mm3 Lymph # (Auto) (1.32-3.57) K/mm3 [place] # (Auto) (0.30-0.82) K/mm3 Eos # (Auto) (0.04-0.54) K/mm3 Baso # (Auto) (0.01-0.08) K/mm3 Neutrophils % (Manual) 95 H (40-60) % Band Neutrophils % 0 (0-10) % Lymphocytes % (Manual) 3 L (20-40) % Atypical Lymphs % 0 % Monocytes % (Manual) 2 (2-10) % Eosinophils % (Manual) 0 L (0.8-7.0) % Basophils % (Manual) 0 L (0.2-1.2) Platelet Estimate Adequate Plt Morphology Comment Normal Hypochromasia 1+ slight Poikilocytosis 3+ marked Anisocytosis 1+ slight Target Cells 1+ slight [place] Cells 1+ slight Acanthocytes (Spur) 1+ slight RBC Morph Comment Not Reportable Sodium 142 (136-145) mEq/L Potassium 3.2 L (3.5-5.1) mEq/L Chloride 108 H (98-107) mEq/L Carbon Dioxide 22 (21-32) mEq/L Anion Gap 15.2 H (5-15) BUN 39 H (7-18) mg/dL Creatinine 1.5 H (0.7-1.3) mg/dL Est Cr Clr Drug Dosing 39.98 mL/min Estimated GFR (MDRD) 48 (>60) mL/min BUN/Creatinine Ratio 26.0 H (14-18) Glucose 103 (74-106) mg/dL Lactic Acid (0.4-2.0) mmol/L Calcium 8.0 L (8.5-10.1) mg/dL Magnesium 1.5 L (1.8-2.4) mg/dl Total Bilirubin 0.4 (0.2-1.0) mg/dL AST 8 L (15-37) U/L ALT 14 L (16-63) U/L Alkaline Phosphatase 71 (46-116) U/L Troponin I 0.021 (0.00-0.056) ng/mL C-Reactive Protein (<1.0) mg/dL Total Protein 6.1 L (6.4-8.2) g/dl Albumin 2.6 L (3.4-5.0) g/dl Globulin 3.5 gm/dL Albumin/Globulin Ratio 0.7 L (1-2) Lipase 97 (73-393) U/L TSH 3rd Generation 3.262 (0.358-3.74) uIU/mL Urine Color (Yellow) Urine Appearance (Clear) Urine pH (5.0-8.0) Ur Specific [place] (1.005-1.030) Urine Protein (Negative) Urine Glucose (UA) (Negative) Urine Ketones (Negative) Urine Occult Blood (Negative) Urine Nitrite (Negative) Urine Bilirubin (Negative) Urine Urobilinogen (0.2-1.0) Ur Leukocyte Esterase (Negative) Urine RBC (0-5) /hpf Urine WBC (0-5) /hpf Urine WBC Clumps (NOT SEEN) /hpf Ur Epithelial Cells (0-5) /hpf Urine Bacteria (FEW) /hpf Urine Mucus (FEW) /hpf Mycoplasma pneumon IgM (NEGATIVE) Blood Type O POSITIVE Gel Antibody Screen Negative Crossmatch See Detail 10/13/18 10/13/18 10/13/18 Range/Units 18:48 21:20 21:55 WBC (4.23-9.07) K/mm3 RBC (4.63-6.08) M/mm3 Hgb (13.7-17.5) gm/L Hct (40.1-51.0) % MCV (79.0-92.2) fl MCH (25.7-32.2) pg MCHC (32.2-35.5) g/dl RDW Std Deviation (35.1-43.9) fL Plt Count (163-337) K/mm3 MPV (9.4-12.3) fl Neut % (Auto) (34.0-67.9) % Lymph % (Auto) (21.8-53.1) % [place] % (Auto) (5.3-12.2) % Eos % (Auto) (0.8-7.0) Baso % (Auto) (0.1-1.2) % Neut # (Auto) (1.78-5.38) K/mm3 Lymph # (Auto) (1.32-3.57) K/mm3 [place] # (Auto) (0.30-0.82) K/mm3 Eos # (Auto) (0.04-0.54) K/mm3 Baso # (Auto) (0.01-0.08) K/mm3 Neutrophils % (Manual) (40-60) % Band Neutrophils % (0-10) % Lymphocytes % (Manual) (20-40) % Atypical Lymphs % % Monocytes % (Manual) (2-10) % Eosinophils % (Manual) (0.8-7.0) % Basophils % (Manual) (0.2-1.2) Platelet Estimate Plt Morphology Comment Hypochromasia Poikilocytosis Anisocytosis Target Cells [place] Cells Acanthocytes (Spur) RBC Morph Comment Sodium (136-145) mEq/L Potassium (3.5-5.1) mEq/L Chloride (98-107) mEq/L Carbon Dioxide (21-32) mEq/L Anion Gap (5-15) BUN (7-18) mg/dL Creatinine (0.7-1.3) mg/dL Est Cr Clr Drug Dosing mL/min Estimated GFR (MDRD) (>60) mL/min BUN/Creatinine Ratio (14-18) Glucose (74-106) mg/dL Lactic Acid 0.9 (0.4-2.0) mmol/L Calcium (8.5-10.1) mg/dL Magnesium (1.8-2.4) mg/dl Total Bilirubin (0.2-1.0) mg/dL AST (15-37) U/L ALT (16-63) U/L Alkaline Phosphatase (46-116) U/L Troponin I (0.00-0.056) ng/mL C-Reactive Protein (<1.0) mg/dL Total Protein (6.4-8.2) g/dl Albumin (3.4-5.0) g/dl Globulin gm/dL Albumin/Globulin Ratio (1-2) Lipase (73-393) U/L TSH 3rd Generation (0.358-3.74) uIU/mL Urine Color Yellow (Yellow) Urine Appearance Cloudy H (Clear) Urine pH 6.0 (5.0-8.0) Ur Specific [place] 1.015 (1.005-1.030) Urine Protein 1+ H (Negative) Urine Glucose (UA) Negative (Negative) Urine Ketones Negative (Negative) Urine Occult Blood Trace-intact H (Negative) Urine Nitrite Positive H (Negative) Urine Bilirubin Negative (Negative) Urine Urobilinogen 0.2 (0.2-1.0) Ur Leukocyte Esterase 3+ H (Negative) Urine RBC 0-5 (0-5) /hpf Urine WBC 40-50 H (0-5) /hpf Urine WBC Clumps Occasional (NOT SEEN) /hpf Ur Epithelial Cells 0-5 (0-5) /hpf Urine Bacteria Many H (FEW) /hpf Urine Mucus Not seen (FEW) /hpf Mycoplasma pneumon IgM Negative (NEGATIVE) Blood Type Gel Antibody Screen Crossmatch 10/14/18 10/14/18 Range/Units 05:44 05:44 WBC 8.64 (4.23-9.07) K/mm3 RBC 3.55 L (4.63-6.08) M/mm3 Hgb 10.6 L (13.7-17.5) gm/L Hct 32.0 L (40.1-51.0) % MCV 90.1 (79.0-92.2) fl MCH 29.9 (25.7-32.2) pg MCHC 33.1 (32.2-35.5) g/dl RDW Std Deviation 63.2 H (35.1-43.9) fL Plt Count 196 (163-337) K/mm3 MPV 11.1 (9.4-12.3) fl Neut % (Auto) 88.1 H (34.0-67.9) % Lymph % (Auto) 4.6 L (21.8-53.1) % [place] % (Auto) 6.4 (5.3-12.2) % Eos % (Auto) 0.5 L (0.8-7.0) Baso % (Auto) 0.1 (0.1-1.2) % Neut # (Auto) 7.61 H (1.78-5.38) K/mm3 Lymph # (Auto) 0.40 L (1.32-3.57) K/mm3 [place] # (Auto) 0.55 (0.30-0.82) K/mm3 Eos # (Auto) 0.04 (0.04-0.54) K/mm3 Baso # (Auto) 0.01 (0.01-0.08) K/mm3 Neutrophils % (Manual) (40-60) % Band Neutrophils % (0-10) % Lymphocytes % (Manual) (20-40) % Atypical Lymphs % % Monocytes % (Manual) (2-10) % Eosinophils % (Manual) (0.8-7.0) % Basophils % (Manual) (0.2-1.2) Platelet Estimate Plt Morphology Comment Hypochromasia Poikilocytosis Anisocytosis Target Cells [place] Cells Acanthocytes (Spur) RBC Morph Comment Sodium 142 (136-145) mEq/L Potassium 2.9 L (3.5-5.1) mEq/L Chloride 106 (98-107) mEq/L Carbon Dioxide 23 (21-32) mEq/L Anion Gap 15.9 H (5-15) BUN 34 H (7-18) mg/dL Creatinine 1.2 (0.7-1.3) mg/dL Est Cr Clr Drug Dosing 46.66 mL/min Estimated GFR (MDRD) > 60 (>60) mL/min BUN/Creatinine Ratio 28.3 H (14-18) Glucose 98 (74-106) mg/dL Lactic Acid (0.4-2.0) mmol/L Calcium 8.3 L (8.5-10.1) mg/dL Magnesium 2.1 (1.8-2.4) mg/dl Total Bilirubin (0.2-1.0) mg/dL AST (15-37) U/L ALT (16-63) U/L Alkaline Phosphatase (46-116) U/L Troponin I 0.038 (0.00-0.056) ng/mL C-Reactive Protein 8.9 H* (<1.0) mg/dL Total Protein (6.4-8.2) g/dl Albumin (3.4-5.0) g/dl Globulin gm/dL Albumin/Globulin Ratio (1-2) Lipase (73-393) U/L TSH 3rd Generation (0.358-3.74) uIU/mL Urine Color (Yellow) Urine Appearance (Clear) Urine pH (5.0-8.0) Ur Specific [place] (1.005-1.030) Urine Protein (Negative) Urine Glucose (UA) (Negative) Urine Ketones (Negative) Urine Occult Blood (Negative) Urine Nitrite (Negative) Urine Bilirubin (Negative) Urine Urobilinogen (0.2-1.0) Ur Leukocyte Esterase (Negative) Urine RBC (0-5) /hpf Urine WBC (0-5) /hpf Urine WBC Clumps (NOT SEEN) /hpf Ur Epithelial Cells (0-5) /hpf Urine Bacteria (FEW) /hpf Urine Mucus (FEW) /hpf Mycoplasma pneumon IgM (NEGATIVE) Blood Type Gel Antibody Screen Crossmatch Result Diagrams: 10/14/18 05:44 10/14/18 05:44 [place] Results Last 24 hrs: Microbiology 10/13/18 21:37 Anaerobic Blood Culture - Final Blood - Venous 10/13/18 21:20 Influenza Type A Antigen Screen - Final Nasopharyngeal Swab NEGATIVE INFLUENZA A VIRUS AG Influenza Type B Antigen Screen - Final NEGATIVE INFLUENZA B VIRUS AG - Problem List (1) Anemia SNOMED Code(s): 620394538 ICD Code: D64.9 - ANEMIA, UNSPECIFIED Status: Acute Current Visit: Yes Qualifiers: Anemia type: unspecified type Qualified Code(s): D64.9 - Anemia, unspecified (2) Chronic renal insufficiency SNOMED Code(s): 970421984 ICD Code: N18.9 - CHRONIC KIDNEY DISEASE, UNSPECIFIED Status: Acute Current Visit: Yes (3) Dilatation of colon SNOMED Code(s): 20774035 ICD Code: K59.39 - OTHER [place] Status: Acute Current Visit: Yes (4) Hypokalemia SNOMED Code(s): 39637797 ICD Code: E87.6 - HYPOKALEMIA Status: Acute Current Visit: Yes (5) Hypomagnesemia SNOMED Code(s): 093085357 ICD Code: E83.42 - HYPOMAGNESEMIA Status: Acute Current Visit: Yes (6) Orthostasis SNOMED Code(s): 97596884 ICD Code: I95.1 - ORTHOSTATIC HYPOTENSION Status: Acute Current Visit: Yes (7) Dehydration SNOMED Code(s): 45202259 ICD Code: E86.0 - DEHYDRATION Status: Acute Current Visit: No (8) UTI (urinary tract infection) SNOMED Code(s): 44559433 ICD Code: N39.0 - URINARY TRACT INFECTION, SITE NOT SPECIFIED Status: Acute Priority: High Current Visit: Yes Qualifiers: Urinary tract infection type: site unspecified Hematuria presence: without hematuria Qualified Code(s): N39.0 - Urinary tract infection, site not specified Problem List Initiated/Reviewed/Updated: Yes Orders Last 24hrs: Active Orders 24 hr Category Date Time Status Admission Status [Patient Status] [ADT] Routine ADT 10/13/18 19:33 Active Antiembolic Devices [RC] 09,21 Care 10/13/18 21:23 Active Clear Liquid Diet [DIET] Diet 10/14/18 Breakfast Active CXR [Chest 2V] [CR] Routine Exams 10/14/18 07:00 Ordered BASIC METABOLIC PANEL,BMP [CHEM] DAILY Lab 10/15/18 05:00 Ordered BASIC METABOLIC PANEL,BMP [CHEM] DAILY Lab 10/16/18 05:00 Ordered BASIC METABOLIC PANEL,BMP [CHEM] DAILY Lab 10/17/18 05:00 Ordered BASIC METABOLIC PANEL,BMP [CHEM] DAILY Lab 10/18/18 05:00 Ordered CBC WITH AUTO DIFF [HEME] DAILY Lab 10/14/18 05:44 Results CBC WITH AUTO DIFF [HEME] DAILY Lab 10/15/18 05:00 Ordered CBC WITH AUTO DIFF [HEME] DAILY Lab 10/16/18 05:00 Ordered CBC WITH AUTO DIFF [HEME] DAILY Lab 10/17/18 05:00 Ordered CBC WITH AUTO DIFF [HEME] DAILY Lab 10/18/18 05:00 Ordered CRP [C-REACTIVE PROTEIN] [CHEM] DAILY Lab 10/15/18 05:00 Ordered CRP [C-REACTIVE PROTEIN] [CHEM] DAILY Lab 10/16/18 05:00 Ordered CRP [C-REACTIVE PROTEIN] [CHEM] DAILY Lab 10/17/18 05:00 Ordered CRP [C-REACTIVE PROTEIN] [CHEM] DAILY Lab 10/18/18 05:00 Ordered CULTURE BLOOD [BC] Stat Lab 10/13/18 21:37 Results CULTURE BLOOD [BC] Stat Lab 10/13/18 21:55 Received CULTURE URINE [RM] Routine Lab 10/13/18 20:40 Received MAGNESIUM [CHEM] DAILY Lab 10/15/18 05:00 Ordered MAGNESIUM [CHEM] DAILY Lab 10/16/18 05:00 Ordered MAGNESIUM [CHEM] DAILY Lab 10/17/18 05:00 Ordered MAGNESIUM [CHEM] DAILY Lab 10/18/18 05:00 Ordered RESPIRATORY PANEL Routine Lab 10/13/18 21:20 Received STREP PNEUMONIAE ANTIGEN [MREF] Routine Lab 10/14/18 06:15 Received Acetaminophen [Tylenol] Med 10/13/18 21:15 Active 650 mg PO Q6H PRN Atenolol [Tenormin] Med 10/14/18 09:00 Active 50 mg PO DAILY Cilostazol [Pletal] Med 10/14/18 09:00 Active 100 mg PO BID Flunisolide [Nasalide Nasal [place]] Med 10/13/18 21:24 Active 0 ml NASBOTH Q12H PRN Mycophenolate Mofetil [Cellcept] Med 10/14/18 09:00 Active 1,000 mg PO BID Ondansetron [Zofran] Med 10/13/18 21:15 Active 4 mg IVPUSH Q8H PRN Potassium Chloride [Klor-Con M20] Med 10/13/18 21:15 Active 40 meq PO BID Tacrolimus [Prograf] Med 10/14/18 09:00 Active 1 mg PO BID Temazepam [Restoril] Med 10/13/18 21:21 Active 7.5 mg PO BEDTIME PRN Travoprost [Travatan Z] Med 10/14/18 21:00 Pending 1 drop OP BEDTIME cefTRIAXone [Rocephin] 2 gm Med 10/13/18 21:30 Active Sodium Chloride 0.9% [Normal Saline] 100 ml IV Q24H traMADol [Ultram] Med 10/13/18 21:30 Active 50 mg PO Q6H Blood Culture x2 Reflex Set [OM.PC] Stat Ot 10/13/18 21:19 Ordered Isolation [COMM] Routine Oth 10/13/18 21:20 Ordered SILVERIO Hose [Antiembolic Hose] [OM.PC] Routine Oth 10/13/18 21:23 Ordered Transfuse PRBC [Transfuse Red Blood Cells] [COMM] Stat Oth 10/13/18 17:57 Ordered Code Status [Resuscitation Status] Routine Resus Stat 10/14/18 01:15 Ordered Medication Orders Acetaminophen (Tylenol) 650 mg PO Q6H PRN PRN Reason: Pain/Fever Atenolol (Tenormin) 50 mg PO DAILY [facility] Cilostazol (Pletal) 100 mg PO BID [facility] Flunisolide (Nasalide Nasal [place]) 0 ml NASBOTH Q12H PRN PRN Reason: CONGESTION Ceftriaxone Sodium 2 gm/ (Sodium Chloride) 100 mls @ 200 mls/hr IV Q24H [facility] Last Admin: 10/13/18 22:41 Dose: 200 mls/hr Mycophenolate Mofetil (Cellcept) 1,000 mg PO BID [facility] Non-Formulary Medication (Travoprost [Travatan Z]) 1 drop OP BEDTIME [facility] Ondansetron HCl (Zofran) 4 mg IVPUSH Q8H PRN PRN Reason: Nausea/Vomiting Potassium Chloride (Klor-Con M20) 40 meq PO BID [facility] Stop: 10/15/18 09:01 Last Admin: 10/13/18 22:47 Dose: 40 meq Tacrolimus (Prograf) 1 mg PO BID [facility] Temazepam (Restoril) 7.5 mg PO BEDTIME PRN PRN Reason: Insomnia Tramadol HCl (Ultram) 50 mg PO Q6H [facility] Last Admin: 10/14/18 05:48 Dose: Not Given Admin: 10/13/18 22:53 Dose: Not Given Assessment/Plan Comment:: I/P: Acute: Anemia -Acute on chronic -Reports history of blood transfusions in past -Prior H/H on 09/04/18 was 7.0/23.4 and on 08/18/18 was 8.0/23.9 -Hgb 7.0-->10.6 -Hct 23.4-->32 -Orthostatic in ED -1L fluid bolus given in ED -Transfused 2 units in ED -Occult blood ordered -No known melena or hematochezia from both patient and nursing -Consider surgical consult if apparent GI loss -Continue to monitor -Recheck H/H at 1700 today -Reticulocyte count -Iron Panel ordered Hypomagnesemia -Magnesium 1.5-->2.1 -Supplemented in ED Hypokalemia -Potassium 3.2-->2.9 -Supplementation ordered -Repeat at 1700 today UTI -UA noted cloudy urine with 1+ protein, Trace-intact occult blood, Positive nitrite, 3+ leukocyte esterase, 40-50 WBCs, many bacteria -Rocephin 2gm started -IV fluids as ordered -Urine culture pending Chronic: Left eye blindness CAD GERD Type I DM which resolved after pancreas transplant in 2004 S/P renal and pancreatic transplant in 2004 Anemia S/P amputation of 5 right toes and 2 left toes Plan: Admit to medical floor on telemetry Other orders as indicated above Routine AM labs Home medications as ordered PT/OT CM/SW for discharge planning Manager Fraud consult for weight loss Obtain old records Code status: Full code; PCP: Dr. Metz; Reading Recovery Teacher: Dr. Goddard
[2018-10-14] MEDS ORDERED: traMADol 50 MG Tab PO PRN (08:00)
[2018-10-14] MEDS: Potassium Chloride 20 MEQ Tab.ER PO SCH ×2 (09:40→21:09)
[2018-10-14] MEDS: Atenolol 50 MG Tab PO SCH (09:42)
[2018-10-14] MEDS: Mycophenolate Mofetil 250 MG Cap PO SCH ×2 (09:44→21:17)
[2018-10-14] MEDS: Tacrolimus 1 MG Cap PO SCH ×2 (09:46→21:16)
--- NOTE | 2018-10-14 12:56 | CR ---
Chest: Two views of the chest are obtained. Comparison: Prior chest x-ray of 03/26/17. Slight scarring is noted within the left base which is stable causing minimal tenting of the left hemidiaphragm. No acute parenchymal change is seen within the chest. Heart size and mediastinum are within normal limits. Sternotomy is noted. Lungs are slightly hyperinflated suggesting emphysematous change. Incidental old healed right-sided rib fractures are noted. Impression: 1. Probable emphysematous change. 2. Other incidental findings. Nothing acute is seen. Diagnostic code #2
[2018-10-14] MEDS ORDERED: Latanoprost 0.005% Ophth Soln 2.5 ML Bottle EYEBOTH ONE (13:15)
[2018-10-14] MEDS: cefTRIAXone 2 GM in Sodium Chloride 0.9% 100 ML IV SCH (21:03)
[2018-10-14] MEDS: Latanoprost 0.005% Ophth Soln 2.5 ML Bottle EYEBOTH SCH (21:09)
[2018-10-15] MEDS: Potassium Chloride 10 MEQ in Premix Bag 1 BAG IV SCH (07:57)
[2018-10-15] MEDS: Potassium Chloride 20 MEQ Tab.ER PO SCH (09:14)
[2018-10-15] MEDS: Tacrolimus 1 MG Cap PO SCH ×2 (09:15→22:30)
[2018-10-15] MEDS: Mycophenolate Mofetil 250 MG Cap PO SCH ×2 (09:15→22:30)
[2018-10-15] MEDS: Atenolol 50 MG Tab PO SCH (10:16)
--- NOTE | 2018-10-15 11:46 | PCM.PN ---
- General Info Date of Service: 10/15/18 Admission Dx/Problem (Free Text): Admission Diagnosis/Problem Admission Diagnosis/Problem Anemia Subjective Update: In to see Reymundo. He is sitting in the chair eating a meal. His Hgb has doped to 9.1 today. Suspect earlier Hgb levels were falsely higher than should have been. Will recheck Hbg today and tomorrow to ensure stability. Reticulocyte count is low. Will order manual diff tomorrow. Otherwise he feels much better. No nursing concerns. Infectious workup has been negative. Functional Status: Reports: Pain Controlled, Tolerating Diet, Ambulating, Urinating. Denies: New Symptoms - Review of Systems General: Reports: Weakness (improving ), Fatigue (improving ), Malaise ( improving ). Denies: Fever, Chills HEENT: Reports: No Symptoms. Denies: Headaches, Sore Throat Pulmonary: Reports: No Symptoms. Denies: Shortness of Breath, Cough, Sputum, Wheezing Cardiovascular: Reports: No Symptoms. Denies: Chest Pain, Palpitations, Edema, Lightheadedness Gastrointestinal: Reports: No Symptoms. Denies: Abdominal Pain, Constipation, Diarrhea, Nausea, Vomiting Genitourinary: Reports: No Symptoms. Denies: Pain Musculoskeletal: Reports: No Symptoms Skin: Reports: No Symptoms Neurological: Reports: No Symptoms. Denies: Confusion Psychiatric: Reports: No Symptoms - Patient Data Vitals - Most Recent: Last Vital Signs Temp 98.8 F 10/15/18 09:51 Pulse 64 10/15/18 09:13 Resp 16 10/15/18 09:13 BP 94/48 L 10/15/18 09:13 Pulse Ox 100 10/15/18 09:13 Orthostatic Blood Pressure [ 96/55 Standing] Orthostatic Blood Pressure [ 142/63 Supine] Weight - Most Recent: 111 lb 1.596 oz I&O - Last 24 Hours: Intake & Output 10/14/18 10/15/18 10/15/18 22:59 06:59 14:59 Intake Total 820 600 480 Output Total 800 500 Balance 20 100 480 Lab Results Last 24 Hours: Laboratory Results - last 24 hr 10/13/18 10/14/18 10/14/18 Range/Units 21:20 18:09 18:09 WBC (4.23-9.07) K/mm3 RBC (4.63-6.08) M/mm3 Hgb 10.1 L (13.7-17.5) gm/L Hct 31.7 L (40.1-51.0) % MCV (79.0-92.2) fl MCH (25.7-32.2) pg MCHC (32.2-35.5) g/dl RDW Std Deviation (35.1-43.9) fL Plt Count (163-337) K/mm3 MPV (9.4-12.3) fl Neut % (Auto) (34.0-67.9) % Lymph % (Auto) (21.8-53.1) % [place] % (Auto) (5.3-12.2) % Eos % (Auto) (0.8-7.0) Baso % (Auto) (0.1-1.2) % Neut # (Auto) (1.78-5.38) K/mm3 Lymph # (Auto) (1.32-3.57) K/mm3 [place] # (Auto) (0.30-0.82) K/mm3 Eos # (Auto) (0.04-0.54) K/mm3 Baso # (Auto) (0.01-0.08) K/mm3 Manual Slide Review Percent Retic 0.34 L (0.51-1.81) % Sodium (136-145) mEq/L Potassium 3.0 L (3.5-5.1) mEq/L Chloride (98-107) mEq/L Carbon Dioxide (21-32) mEq/L Anion Gap (5-15) BUN (7-18) mg/dL Creatinine (0.7-1.3) mg/dL Est Cr Clr Drug Dosing mL/min Estimated GFR (MDRD) (>60) mL/min BUN/Creatinine Ratio (14-18) Glucose (74-106) mg/dL Calcium (8.5-10.1) mg/dL Magnesium (1.8-2.4) mg/dl Iron (65-175) ug/dL TIBC (100-400) ug/dL % Saturation (20-55) % Transferrin (202-364) mg/dL C-Reactive Protein (<1.0) mg/dL Adenovirus (PCR) Not detected (Not Detected) B. pertussis DNA (PCR) Not detected (Not Detected) B.parapertussis DNA PCR Not detected (Not Detected) C. pneumoniae DNA (PCR) Not detected (Not Detected) Coronavirus (PCR) Not detected (Not Detected) Human Metapneumovir PCR Not detected (Not Detected) Influenza A (RT-PCR) Not detected (Not Detected) Influenza B (RT-PCR) Not detected (Not Detected) M. pneumoniae (PCR) Not detected (Not Detected) Parainfluen 1,2,3,4 PCR Not detected (Not Detected) RSV (PCR) Not detected (Not Detected) Entero/Rhino (PCR) Not detected (Not Detected) 10/15/18 10/15/18 10/15/18 Range/Units 05:45 05:45 05:45 WBC 4.64 (4.23-9.07) K/mm3 RBC 3.12 L (4.63-6.08) M/mm3 Hgb 9.1 L (13.7-17.5) gm/L Hct 29.0 L (40.1-51.0) % MCV 92.9 H (79.0-92.2) fl MCH 29.2 (25.7-32.2) pg MCHC 31.4 L (32.2-35.5) g/dl RDW Std Deviation 64.0 H (35.1-43.9) fL Plt Count 163 (163-337) K/mm3 MPV 11.3 (9.4-12.3) fl Neut % (Auto) 80.9 H (34.0-67.9) % Lymph % (Auto) 7.5 L (21.8-53.1) % [place] % (Auto) 9.9 (5.3-12.2) % Eos % (Auto) 1.1 (0.8-7.0) Baso % (Auto) 0.2 (0.1-1.2) % Neut # (Auto) 3.75 (1.78-5.38) K/mm3 Lymph # (Auto) 0.35 L (1.32-3.57) K/mm3 [place] # (Auto) 0.46 (0.30-0.82) K/mm3 Eos # (Auto) 0.05 (0.04-0.54) K/mm3 Baso # (Auto) 0.01 (0.01-0.08) K/mm3 Manual Slide Review Abnormal smear Percent Retic (0.51-1.81) % Sodium 142 (136-145) mEq/L Potassium 3.5 (3.5-5.1) mEq/L Chloride 108 H (98-107) mEq/L Carbon Dioxide 23 (21-32) mEq/L Anion Gap 14.5 (5-15) BUN 33 H (7-18) mg/dL Creatinine 1.3 (0.7-1.3) mg/dL Est Cr Clr Drug Dosing 41.52 mL/min Estimated GFR (MDRD) 56 (>60) mL/min BUN/Creatinine Ratio 25.4 H (14-18) Glucose 91 (74-106) mg/dL Calcium 8.3 L (8.5-10.1) mg/dL Magnesium 1.9 (1.8-2.4) mg/dl Iron 76 (65-175) ug/dL TIBC 95 L (100-400) ug/dL % Saturation 80 H (20-55) % Transferrin 76 L (202-364) mg/dL C-Reactive Protein 7.4 H* (<1.0) mg/dL Adenovirus (PCR) (Not Detected) B. pertussis DNA (PCR) (Not Detected) B.parapertussis DNA PCR (Not Detected) C. pneumoniae DNA (PCR) (Not Detected) Coronavirus (PCR) (Not Detected) Human Metapneumovir PCR (Not Detected) Influenza A (RT-PCR) (Not Detected) Influenza B (RT-PCR) (Not Detected) M. pneumoniae (PCR) (Not Detected) Parainfluen 1,2,3,4 PCR (Not Detected) RSV (PCR) (Not Detected) Entero/Rhino (PCR) (Not Detected) [place] Results Last 24 Hours: Microbiology 10/15/18 09:54 Occult Blood - Final Stool / Feces 10/13/18 20:40 Urine Culture - Preliminary Urine, Clean Catch Escherichia Coli Gram Positive Cocci 10/13/18 21:37 Aerobic Blood Culture - Preliminary Blood - Venous NO GROWTH AFTER 1 DAY Anaerobic Blood Culture - Final 10/13/18 21:55 Aerobic Blood Culture - Preliminary Blood - Venous - Lab Draw NO GROWTH AFTER 1 DAY Anaerobic Blood Culture - Preliminary NO GROWTH AFTER 1 DAY 10/13/18 20:40 Streptococcus pneumoniae Antigen (M - Final Urine Med Orders - Current: Current Medications Acetaminophen (Tylenol) 650 mg PO Q6H PRN PRN Reason: Pain/Fever Atenolol (Tenormin) 50 mg PO DAILY [facility] Last Admin: 10/15/18 10:16 Dose: Not Given Cilostazol (Pletal) 100 mg PO BID [facility] Last Admin: 10/15/18 09:14 Dose: 100 mg Flunisolide (Nasalide Nasal [place]) 0 ml NASBOTH Q12H PRN PRN Reason: CONGESTION Ceftriaxone Sodium 2 gm/ (Sodium Chloride) 100 mls @ 200 mls/hr IV Q24H [facility] Last Admin: 10/14/18 21:03 Dose: 200 mls/hr Latanoprost (Xalatan 0.005% [facility]) 0 ml EYEBOTH BEDTIME [facility] Last Admin: 10/14/18 21:09 Dose: 1 drop Mycophenolate Mofetil (Cellcept) 1,000 mg PO BID [facility] Last Admin: 10/15/18 09:15 Dose: 1,000 mg Ondansetron HCl (Zofran) 4 mg IVPUSH Q8H PRN PRN Reason: Nausea/Vomiting Tacrolimus (Prograf) 1 mg PO BID [facility] Last Admin: 10/15/18 09:15 Dose: 1 mg Temazepam (Restoril) 7.5 mg PO BEDTIME PRN PRN Reason: Insomnia Tramadol HCl (Ultram) 50 mg PO Q6H PRN PRN Reason: PAIN Discontinued Medications Furosemide (Lasix) 40 mg IVPUSH NOW ONE Stop: 10/13/18 21:14 Last Admin: 10/13/18 22:42 Dose: 40 mg Sodium Chloride (Normal Saline) 1,000 mls @ 150 mls/hr IV ASDIRECTED [facility] Last Admin: 10/13/18 17:21 Dose: 150 mls/hr Sodium Chloride (Normal Saline) 1,000 mls @ 999 mls/hr IV ONETIME ONE Stop: 10/13/18 18:30 Last Admin: 10/13/18 23:28 Dose: Not Given Magnesium Sulfate 2 gm/ Premix 50 mls @ 50 mls/hr IV ONETIME ONE Stop: 10/13/18 19:17 Last Admin: 10/13/18 18:48 Dose: 50 mls/hr Magnesium Sulfate 2 gm/ Premix 50 mls @ 25 mls/hr IV ONETIME ONE Stop: 10/13/18 23:09 Last Admin: 10/13/18 23:24 Dose: 25 mls/hr Potassium Chloride 10 meq/ (Premix) 100 mls @ 100 mls/hr IV Q1H [facility] Stop: 10/15/18 10:44 Last Admin: 10/15/18 07:57 Dose: Not Given Latanoprost (Xalatan 0.005% Op[facility] Soln) 0 ml EYEBOTH ONETIME ONE Stop: 10/14/18 13:16 Last Admin: 10/14/18 13:45 Dose: 1 drop Potassium Chloride (Klor-Con M20) 40 meq PO BID [facility] Stop: 10/15/18 09:01 Last Admin: 10/15/18 09:14 Dose: 40 meq Tramadol HCl (Ultram) 50 mg PO Q6H [facility] Last Admin: 10/14/18 05:48 Dose: Not Given - Exam Quality Assessment: DVT Prophylaxis General: Alert, Oriented, Cooperative, No Acute Distress HEENT: Pupils Equal, Pupils Reactive, EOMI, Mucous Membr. Moist/[place] Neck: Supple, Trachea Midline, No JVD Lungs: Clear to Auscultation, Normal Respiratory Effort Cardiovascular: Regular Rate, Regular Rhythm GI/Abdominal Exam: Normal Bowel Sounds, Soft, Non-Tender, No Distention, No Abnormal Bruit (Male) Exam: Deferred Back Exam: Normal Inspection, Full Range of Motion Extremities: Normal Inspection, Normal Range of Motion, Non-Tender, No Pedal Edema, Normal Capillary Refill Peripheral Pulses: 2+: Radial (L), Radial (R), Dorsalis Pedis (L), Dorsalis Pedis (R) Skin: Warm, Dry, Intact Neurological: No New Focal Deficit Psy/Mental Status: Alert - Problem List & Annotations (1) Anemia SNOMED Code(s): 896181504 Code(s): D64.9 - ANEMIA, UNSPECIFIED Status: Acute Current Visit: Yes Qualifiers: Anemia type: unspecified type Qualified Code(s): D64.9 - Anemia, unspecified (2) Chronic renal insufficiency SNOMED Code(s): 252400303 Code(s): N18.9 - CHRONIC KIDNEY DISEASE, UNSPECIFIED Status: Acute Current Visit: Yes (3) Hypokalemia SNOMED Code(s): 83309668 Code(s): E87.6 - HYPOKALEMIA Status: Resolved Current Visit: Yes (4) Hypomagnesemia SNOMED Code(s): 021984936 Code(s): E83.42 - HYPOMAGNESEMIA Status: Acute Current Visit: Yes (5) Orthostasis SNOMED Code(s): 69627257 Code(s): I95.1 - ORTHOSTATIC HYPOTENSION Status: Acute Current Visit: Yes (6) Dehydration SNOMED Code(s): 98888488 Code(s): E86.0 - DEHYDRATION Status: Acute Current Visit: No (7) UTI (urinary tract infection) SNOMED Code(s): 43694954 Code(s): N39.0 - URINARY TRACT INFECTION, SITE NOT SPECIFIED Status: Acute Priority: High Current Visit: Yes Qualifiers: Urinary tract infection type: site unspecified Hematuria presence: without hematuria Qualified Code(s): N39.0 - Urinary tract infection, site not specified - Problem List Review Problem List Initiated/Reviewed/Updated: Yes - My Orders Last 24 Hours: My Active Orders 10/14/18 13:31 Consult to Case Management/Operating Room Scheduler [CONS] Routine OT Evaluation and Treatment [CONS] Routine PT Evaluation and Treatment [CONS] Routine 10/14/18 14:32 Consult to Importer Exporter [CONS] Routine Consult to Spiritual Care [CONS] Routine 10/15/18 16:00 HEMOGLOBIN/HEMATOCRIT,HH [HEME] Routine - Plan Plan:: I/P: Acute: Anemia -Acute on chronic -Reports history of blood transfusions in past -Prior H/H on 09/04/18 was 7.0/23.4 and on 08/18/18 was 8.0/23.9 -Hgb 7.0-->10.6-->10.1-->9.1 -Hct 23.4-->32-->31.7-->29 -Orthostatic in ED -1L fluid bolus given in ED -Transfused 2 units in ED -Occult blood Negative -No known melena or hematochezia from both patient and nursing -Consider surgical consult if apparent GI loss -Continue to monitor -Re-check HH at 1600 today -Reticulocyte count low (0.34) -Iron Panel: Iron 76, TIBC 95, % saturation 80, Transferrin 76 -Suggest heme/oncology and nephrology consult after discharge -Erythropoietin level ordered UTI -UA noted cloudy urine with 1+ protein, Trace-intact occult blood, Positive nitrite, 3+ leukocyte esterase, 40-50 WBCs, many bacteria -Rocephin 2gm started -IV fluids as ordered -Urine culture: Gram negative rods so far -No leukocytosis -CRP 8.9-->7.4 Resolved: Hypomagnesemia -Magnesium 1.5-->2.1 -Supplemented in ED Hypokalemia -Potassium 3.2-->2.9-->3.0-->3.5 -Supplementation ordered -Repeat at 1700 today Chronic: Left eye blindness CAD GERD 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 Metz; [employer] Floor[employer]: Dr. Goddard
[2018-10-15] MEDS ORDERED: Sodium Chloride 0.9% 500 ML IV ONE (21:45)
[2018-10-15] MEDS: Calcium Carbonate 500 MG Tab.Chew PO PRN (22:20)
[2018-10-15] MEDS: Latanoprost 0.005% Ophth Soln 2.5 ML Bottle EYEBOTH SCH (22:21)
[2018-10-15] MEDS: cefTRIAXone 2 GM in Sodium Chloride 0.9% 100 ML IV SCH (23:01)
[2018-10-16] MEDS: Calcium Carbonate 500 MG Tab.Chew PO PRN ×4 (03:19→21:59)
[2018-10-16] MEDS: Tacrolimus 1 MG Cap PO SCH ×2 (08:59→21:49)
[2018-10-16] MEDS: Pantoprazole 40 MG Tab.CR PO SCH (08:59)
[2018-10-16] MEDS: Mycophenolate Mofetil 250 MG Cap PO SCH ×2 (08:59→21:49)
[2018-10-16] MEDS: Atenolol 25 MG Tab PO SCH (09:01)
[2018-10-16] MEDS ORDERED: Sodium Chloride 0.9% 250 ML IV SCH (11:45)
--- NOTE | 2018-10-16 11:47 | PCM.PN ---
- General Info Date of Service: 10/16/18 Admission Dx/Problem (Free Text): Admission Diagnosis/Problem Admission Diagnosis/Problem Anemia Subjective Update: In to see Reymundo. He is sitting in the chair eating a meal. His Hgb has doped to 9.1 today. Suspect earlier Hgb levels were falsely higher than should have been. Will recheck Hbg today and tomorrow to ensure stability. Reticulocyte count is low. Will order manual diff tomorrow. Otherwise he feels much better. No nursing concerns. Infectious workup has been negative. Functional Status: Reports: Pain Controlled, Tolerating Diet, Ambulating, Urinating. Denies: New Symptoms - Review of Systems General: Reports: No Symptoms, Weakness. Denies: Fever, Fatigue, Malaise, Chills HEENT: Reports: No Symptoms. Denies: Headaches, Sore Throat Pulmonary: Reports: No Symptoms. Denies: Shortness of Breath, Pleuritic Chest Pain, Cough, Sputum, Wheezing Cardiovascular: Reports: No Symptoms. Denies: Chest Pain, Palpitations, Dyspnea on Exertion, Edema, Lightheadedness Gastrointestinal: Reports: Decreased Appetite. Denies: Abdominal Pain, Constipation, Diarrhea, Nausea, Vomiting Genitourinary: Reports: No Symptoms. Denies: Pain Musculoskeletal: Reports: No Symptoms Skin: Reports: No Symptoms Neurological: Reports: No Symptoms. Denies: Confusion, Difficulty Walking, Gait Disturbance Psychiatric: Reports: No Symptoms - Patient Data Vitals - Most Recent: Last Vital Signs Temp 97.5 F 10/16/18 08:36 Pulse 68 10/16/18 09:01 Resp 14 10/16/18 08:36 BP 108/55 L 10/16/18 09:01 Pulse Ox 97 10/16/18 08:36 Orthostatic Blood Pressure [ 96/55 Standing] Orthostatic Blood Pressure [ 142/63 Supine] Weight - Most Recent: 112 lb 1.6 oz I&O - Last 24 Hours: Intake & Output 10/15/18 10/16/18 10/16/18 22:59 06:59 14:59 Intake Total 1060 900 300 Output Total 300 550 Balance 760 350 300 Lab Results Last 24 Hours: Laboratory Results - last 24 hr 10/13/18 10/15/18 10/16/18 Range/Units 17:30 17:30 06:05 WBC (4.23-9.07) K/mm3 RBC (4.63-6.08) M/mm3 Hgb 8.8 L (13.7-17.5) gm/L Hct 28.8 L (40.1-51.0) % MCV (79.0-92.2) fl MCH (25.7-32.2) pg MCHC (32.2-35.5) g/dl RDW Std Deviation (35.1-43.9) fL Plt Count (163-337) K/mm3 MPV (9.4-12.3) fl Neutrophils % (Manual) (40-60) % Band Neutrophils % (0-10) % Lymphocytes % (Manual) (20-40) % Atypical Lymphs % % Monocytes % (Manual) (2-10) % Eosinophils % (Manual) (0.8-7.0) % Basophils % (Manual) (0.2-1.2) Platelet Estimate Hypochromasia Anisocytosis Microcytosis Macrocytosis RBC Morph Comment Sodium 143 (136-145) mEq/L Potassium 3.7 (3.5-5.1) mEq/L Chloride 111 H (98-107) mEq/L Carbon Dioxide 24 (21-32) mEq/L Anion Gap 11.7 (5-15) BUN 33 H (7-18) mg/dL Creatinine 1.2 (0.7-1.3) mg/dL Est Cr Clr Drug Dosing 46.66 mL/min Estimated GFR (MDRD) > 60 (>60) mL/min BUN/Creatinine Ratio 27.5 H (14-18) Glucose 83 (74-106) mg/dL Calcium 8.2 L (8.5-10.1) mg/dL Magnesium 1.8 (1.8-2.4) mg/dl C-Reactive Protein 4.3 H* (<1.0) mg/dL Blood Type O POSITIVE Gel Antibody Screen Negative Crossmatch See Detail 10/16/18 Range/Units 06:05 WBC 4.62 (4.23-9.07) K/mm3 RBC 2.99 L (4.63-6.08) M/mm3 Hgb 8.7 L (13.7-17.5) gm/L Hct 28.3 L (40.1-51.0) % MCV 94.6 H (79.0-92.2) fl MCH 29.1 (25.7-32.2) pg MCHC 30.7 L (32.2-35.5) g/dl RDW Std Deviation 64.4 H (35.1-43.9) fL Plt Count 150 L (163-337) K/mm3 MPV 10.5 (9.4-12.3) fl Neutrophils % (Manual) 72 H (40-60) % Band Neutrophils % 7 (0-10) % Lymphocytes % (Manual) 11 L (20-40) % Atypical Lymphs % 0 % Monocytes % (Manual) 9 (2-10) % Eosinophils % (Manual) 1 (0.8-7.0) % Basophils % (Manual) 0 L (0.2-1.2) Platelet Estimate Adequate Hypochromasia 2+ moderate Anisocytosis 2+ moderate Microcytosis 2+ moderate Macrocytosis 1+ slight RBC Morph Comment Not Reportable Sodium (136-145) mEq/L Potassium (3.5-5.1) mEq/L Chloride (98-107) mEq/L Carbon Dioxide (21-32) mEq/L Anion Gap (5-15) BUN (7-18) mg/dL Creatinine (0.7-1.3) mg/dL Est Cr Clr Drug Dosing mL/min Estimated GFR (MDRD) (>60) mL/min BUN/Creatinine Ratio (14-18) Glucose (74-106) mg/dL Calcium (8.5-10.1) mg/dL Magnesium (1.8-2.4) mg/dl C-Reactive Protein (<1.0) mg/dL Blood Type Gel Antibody Screen Crossmatch [place] Results Last 24 Hours: Microbiology 10/13/18 21:37 Aerobic Blood Culture - Preliminary Blood - Venous NO GROWTH AFTER 2 DAYS Anaerobic Blood Culture - Final 10/13/18 21:55 Aerobic Blood Culture - Preliminary Blood - Venous - Lab Draw NO GROWTH AFTER 2 DAYS Anaerobic Blood Culture - Preliminary NO GROWTH AFTER 2 DAYS 10/15/18 09:54 Occult Blood - Final Stool / Feces 10/13/18 20:40 Urine Culture - Preliminary Urine, Clean Catch Escherichia Coli Gram Positive Cocci Med Orders - Current: Current Medications Acetaminophen (Tylenol) 650 mg PO Q6H PRN PRN Reason: Pain/Fever Atenolol (Tenormin) 25 mg PO DAILY [facility] Last Admin: 02/13/19 09:01 Dose: 25 mg Calcium Carbonate/Glycine (Tums) 500 mg PO Q2H PRN PRN Reason: Heartburn Last Admin: 10/16/18 03:19 Dose: 500 mg Cilostazol (Pletal) 100 mg PO BID [facility] Last Admin: 10/16/18 08:59 Dose: 100 mg Flunisolide (Nasalide Nasal [place]) 0 ml NASBOTH Q12H PRN PRN Reason: CONGESTION Ceftriaxone Sodium 2 gm/ (Sodium Chloride) 100 mls @ 200 mls/hr IV Q24H [facility] Last Admin: 10/15/18 23:01 Dose: 200 mls/hr Sodium Chloride (Normal Saline) 250 mls @ 100 mls/hr IV ASDIRECTED [facility] Stop: 10/16/18 16:00 Latanoprost (Xalatan 0.005% [facility]) 0 ml EYEBOTH BEDTIME [facility] Last Admin: 10/15/18 22:21 Dose: 1 drop Mycophenolate Mofetil (Cellcept) 1,000 mg PO BID [facility] Last Admin: 10/16/18 08:59 Dose: 1,000 mg Ondansetron HCl (Zofran) 4 mg IVPUSH Q8H PRN PRN Reason: Nausea/Vomiting Pantoprazole Sodium (Protonix) 40 mg PO DAILY@0700 [facility] Last Admin: 10/16/18 08:59 Dose: 40 mg Tacrolimus (Prograf) 1 mg PO BID [facility] Last Admin: 10/16/18 08:59 Dose: 1 mg Temazepam (Restoril) 7.5 mg PO BEDTIME PRN PRN Reason: Insomnia Tramadol HCl (Ultram) 50 mg PO Q6H PRN PRN Reason: PAIN Discontinued Medications Atenolol (Tenormin) 50 mg PO DAILY [facility] Last Admin: 10/15/18 10:16 Dose: Not Given Furosemide (Lasix) 40 mg IVPUSH NOW ONE Stop: 10/13/18 21:14 Last Admin: 10/13/18 22:42 Dose: 40 mg Sodium Chloride (Normal Saline) 1,000 mls @ 150 mls/hr IV ASDIRECTED [facility] Last Admin: 10/13/18 17:21 Dose: 150 mls/hr Sodium Chloride (Normal Saline) 1,000 mls @ 999 mls/hr IV ONETIME ONE Stop: 10/13/18 18:30 Last Admin: 10/13/18 23:28 Dose: Not Given Magnesium Sulfate 2 gm/ Premix 50 mls @ 50 mls/hr IV ONETIME ONE Stop: 10/13/18 19:17 Last Admin: 10/13/18 18:48 Dose: 50 mls/hr Magnesium Sulfate 2 gm/ Premix 50 mls @ 25 mls/hr IV ONETIME ONE Stop: 10/13/18 23:09 Last Admin: 10/13/18 23:24 Dose: 25 mls/hr Potassium Chloride 10 meq/ (Premix) 100 mls @ 100 mls/hr IV Q1H [facility] Stop: 10/15/18 10:44 Last Admin: 10/15/18 07:57 Dose: Not Given Sodium Chloride (Normal Saline) 500 mls @ 999 mls/hr IV ONETIME ONE Stop: 10/15/18 22:15 Last Admin: 10/15/18 22:22 Dose: 999 mls/hr Latanoprost (Xalatan 0.005% [facility]) 0 ml EYEBOTH ONETIME ONE Stop: 10/14/18 13:16 Last Admin: 10/14/18 13:45 Dose: 1 drop Potassium Chloride (Klor-Con M20) 40 meq PO BID [facility] Stop: 10/15/18 09:01 Last Admin: 10/15/18 09:14 Dose: 40 meq Tramadol HCl (Ultram) 50 mg PO Q6H [facility] Last Admin: 10/14/18 05:48 Dose: Not Given - Exam Quality Assessment: DVT Prophylaxis General: Alert, Oriented, Cooperative, No Acute Distress HEENT: Pupils Equal, Pupils Reactive, EOMI, Mucous Membr. Moist/[place] Neck: Supple, Trachea Midline, No JVD Lungs: Clear to Auscultation, Normal Respiratory Effort Cardiovascular: Regular Rhythm, Bradycardia GI/Abdominal Exam: Normal Bowel Sounds, Soft, Non-Tender, No Distention, No Abnormal Bruit (Male) Exam: Deferred Back Exam: Normal Inspection, Full Range of Motion Extremities: Normal Inspection, Normal Range of Motion, Non-Tender, No Pedal Edema, Normal Capillary Refill Peripheral Pulses: 2+: Radial (L), Radial (R), Dorsalis Pedis (L), Dorsalis Pedis (R) Skin: Warm, Dry, Intact Neurological: No New Focal Deficit Psy/Mental Status: Alert, Normal Affect, Normal Mood - Problem List & Annotations (1) Anemia SNOMED Code(s): 337127789 Code(s): D64.9 - ANEMIA, UNSPECIFIED Status: Acute Current Visit: Yes Qualifiers: Anemia type: unspecified type Qualified Code(s): D64.9 - Anemia, unspecified (2) Chronic renal insufficiency SNOMED Code(s): 773955567 Code(s): N18.9 - CHRONIC KIDNEY DISEASE, UNSPECIFIED Status: Acute Current Visit: Yes (3) Hypokalemia SNOMED Code(s): 14771666 Code(s): E87.6 - HYPOKALEMIA Status: Resolved Current Visit: Yes (4) Hypomagnesemia SNOMED Code(s): 244722993 Code(s): E83.42 - HYPOMAGNESEMIA Status: Acute Current Visit: Yes (5) Orthostasis SNOMED Code(s): 89281466 Code(s): I95.1 - ORTHOSTATIC HYPOTENSION Status: Acute Current Visit: Yes (6) Dehydration SNOMED Code(s): 23898114 Code(s): E86.0 - DEHYDRATION Status: Acute Current Visit: No (7) UTI (urinary tract infection) SNOMED Code(s): 51122253 Code(s): N39.0 - URINARY TRACT INFECTION, SITE NOT SPECIFIED Status: Acute Priority: High Current Visit: Yes Qualifiers: Urinary tract infection type: site unspecified Hematuria presence: without hematuria Qualified Code(s): N39.0 - Urinary tract infection, site not specified - Problem List Review Problem List Initiated/Reviewed/Updated: Yes - My Orders Last 24 Hours: My Active Orders 10/16/18 07:00 Pantoprazole [ProTONIX] 40 mg PO DAILY@0700 10/16/18 09:00 Atenolol [Tenormin] 25 mg PO DAILY 10/16/18 10:02 Transfuse Red Blood Cells [COMM] Routine 10/16/18 Breakfast Regular Diet [DIET] 10/17/18 05:11 CBC WITH AUTO DIFF [HEME] AM 10/18/18 05:11 CBC WITH AUTO DIFF [HEME] AM - Plan Plan:: I/P: Acute: Anemia -Acute on chronic -Reports history of blood transfusions in past - states this has been ongoing for many years -Prior H/H on 09/04/18 was 7.0/23.4 and on 08/18/18 was 8.0/23.9 -Hgb 7.0-->10.6-->10.1-->9.1-->8.8-->8.7 -Hct 23.4-->32-->31.7-->29-->28.8-->28.3 -Orthostatic in ED -1L fluid bolus given in ED -Transfused 2 units in ED -Transfuse 2 units on floor -Occult blood Negative -No known melena or hematochezia from both patient and nursing -Consider surgical consult if apparent GI loss -Continue to monitor -Reticulocyte count low (0.34) -Iron Panel: Iron 76, TIBC 95, % saturation 80, Transferrin 76 -Suggest heme/oncology and nephrology consult after discharge -Erythropoietin level ordered -Has not seen transplant team in some time - will attempt to schedule with them for follow-up UTI -UA noted cloudy urine with 1+ protein, Trace-intact occult blood, Positive nitrite, 3+ leukocyte esterase, 40-50 WBCs, many bacteria -Rocephin 2gm started -IV fluids as ordered -Urine culture: Gram negative rods so far -No leukocytosis -CRP 8.9-->7.4-->4.3 Resolved: Hypomagnesemia -Magnesium 1.5-->2.1 -Supplemented in ED Hypokalemia -Potassium 3.2-->2.9-->3.0-->3.5 -Supplementation ordered -Repeat at 1700 today Chronic: Left eye blindness CAD GERD 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 Metz; Supervisor Graphite: Dr. Goddard LOS>96 HRs with further anemia workup, need for second blood transfusion.
[2018-10-16] MEDS: cefTRIAXone 2 GM in Sodium Chloride 0.9% 100 ML IV SCH (21:50)
[2018-10-16] MEDS: Latanoprost 0.005% Ophth Soln 2.5 ML Bottle EYEBOTH SCH (21:50)
[2018-10-17] MEDS: Pantoprazole 40 MG Tab.CR PO SCH (06:15)
[2018-10-17] MEDS: Mycophenolate Mofetil 250 MG Cap PO SCH ×2 (09:08→21:36)
[2018-10-17] MEDS: Tacrolimus 1 MG Cap PO SCH ×2 (09:08→21:35)
[2018-10-17] MEDS ORDERED: Magnesium Sulfate/Water 4 GM in Premix Bag 1 BAG IV ONE (09:15)
[2018-10-17] MEDS: Atenolol 25 MG Tab PO SCH (09:22)
[2018-10-17] MEDS: Calcium Carbonate 500 MG Tab.Chew PO PRN ×2 (10:59→19:41)
--- NOTE | 2018-10-17 11:06 | PCM.DCSUM1 ---
Discharge Summary - Hospital Course HPI Initial Comments: Reymundo Rocha is a 62 yo male who presents to our ED the evening of 10/13/2018 with malaise. He is type I diabetic and is status post kidney and pancreatic transplant in 2004. He reports he had a decreased appetite over the past for 5 days but has been trying to drink fluids. Reports mild left upper quadrant point tenderness and recurrent watery diarrhea. Denies any fever, nausea, vomiting, urinary symptoms, chest pain, palpitations, or dyspnea. Reports he believes he is dehydrated and has been on several previous occasions. He is quite upset that this is continuing to be reoccurring. He was in our ED on 03/26 and 08/18/18 with dehydration. On the first mention prior visit his sodium was normal at 140 but his BUN and creatinine were elevated at 35 and 3.3 respectively. On the latter visit his sodium was normal at 138 but is even and creatinine were elevated at 51 and 2.0 respectively. He reports he has a 30 pound unintentional weight loss over the past 2 years. In the ED twelve-lead EKG was obtained showing sinus rhythm at 65 bpm with left axis deviation and large P wave and a left bundle branch block. QTC was noted to be 494. No significant change from 03/28/2017. Temp was 37.1C. Pulse 65. Respirations 16. Blood pressure 127/69. Pulse ox 99%. Orthostatic blood pressures were positive. Labs are obtained: WBC is 6.69. Hemoglobin very low at 7.0. Hematocrit 23.4. He is macrocytic. Platelet good at 227,000. Neutrophils were elevated at 95. There is no bandemia. Sodium is 142. Potassium 3.2. Chloride 108. Carbon dioxide 22. Anion gap 15.2. BUN is 39. Creatinine 1.5. EGFR is 48. Glucose 13. Calcium 8.0. Magnesium 1.5. Therapy 0.5. AST is 80, ALT 14, alkaline phosphatase 71. Troponin 0.021. Protein 6.1. Albumin is low at 2.6. Lipase is 97. TSH is good at 3.262. He is given 2 g of magnesium and 1 L fluid bolus. He started on MS 150 mils an hour. ED provider does note that he has a history of low hemoglobin being 9.2 on 09/04/2018 and 8.0 on 08/18/2018. He reportedly has had a blood transfusion in August in [place] but does not recall how many units. Chest x-ray is obtained showing incidental findings and nothing acute. 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 He is a former smoker. His PCP is Dr. Metz. And his furnace puncher is Dr. Goddard. Diagnosis: Stroke: No - Discharge Data Discharge Date: 10/18/18 (Admit date: 10/13/18) Discharge Disposition: Home, W Home Health Agency 06 Condition: Good - Discharge Diagnosis/Problem(s) (1) Anemia SNOMED Code(s): 263241511 ICD Code: D64.9 - ANEMIA, UNSPECIFIED Status: Acute Current Visit: Yes Qualifiers: Anemia type: unspecified type Qualified Code(s): D64.9 - Anemia, unspecified (2) Chronic renal insufficiency SNOMED Code(s): 330682602 ICD Code: N18.9 - CHRONIC KIDNEY DISEASE, UNSPECIFIED Status: Acute Priority: Medium Current Visit: Yes Qualifiers: Chronic kidney disease stage: unspecified stage Qualified Code(s): N18.9 - Chronic kidney disease, unspecified (3) Hypokalemia SNOMED Code(s): 70835880 ICD Code: E87.6 - HYPOKALEMIA Status: Resolved Priority: Medium Current Visit: Yes (4) Hypomagnesemia SNOMED Code(s): 047494628 ICD Code: E83.42 - HYPOMAGNESEMIA Status: Acute Priority: Medium Current Visit: Yes (5) Orthostasis SNOMED Code(s): 18530730 ICD Code: I95.1 - ORTHOSTATIC HYPOTENSION Status: Resolved Priority: High Current Visit: Yes (6) Dehydration SNOMED Code(s): 73028633 ICD Code: E86.0 - DEHYDRATION Status: Resolved Priority: High Current Visit: Yes (7) UTI (urinary tract infection) SNOMED Code(s): 95179570 ICD Code: N39.0 - URINARY TRACT INFECTION, SITE NOT SPECIFIED Status: Acute Priority: High Current Visit: Yes Qualifiers: Urinary tract infection type: site unspecified Hematuria presence: without hematuria Qualified Code(s): N39.0 - Urinary tract infection, site not specified - Patient Summary/Data Consults: Consultations 10/14/18 13:31 Consult to Case Management/Educational Therapy Teacher [CONS] Routine OT Evaluation and Treatment [CONS] Routine PT Evaluation and Treatment [CONS] Routine 10/14/18 14:32 Consult to Pug Mill Operator Helper [CONS] Routine Consult to Spiritual Care [CONS] Routine Labs Pending at D/C: Erythropoietin Recommended Follow-up Testing/Procedures: Follow-up with PCP within 7-10 days, sooner if needed. Repeat CBC, type and screen on 10/21/18 with results to PCP. Follow-up with Dr. Goddard, nephrology, and Dr. Edgar, Heme/Oncology, as scheduled. Hospital Course: I/P: Acute: Anemia -Acute on chronic -Reports history of blood transfusions in past - states this has been ongoing for many years -Prior H/H on 09/04/18 was 7.0/23.4 and on 08/18/18 was 8.0/23.9 -Hgb 7.0-->10.6-->10.1-->9.1-->8.8-->8.7-->10.9-->10.6 -Hct 23.4-->32-->31.7-->29-->28.8-->28.3-->35.1-->34.3 -Orthostatic in ED -1L fluid bolus given in ED -Transfused 2 units in ED -Transfuse 2 more units on floor -Occult blood Negative -No known melena or hematochezia from both patient and nursing -Consider surgical consult if apparent GI loss - nothing -Reticulocyte count low (0.34) -Iron Panel: Iron 76, TIBC 95, % saturation 80, Transferrin 76 -Requires heme/oncology and nephrology consult after discharge -Erythropoietin level ordered -Has not seen transplant team in some time - will attempt to schedule with them for follow-up - patient refuses to travel UTI -UA noted cloudy urine with 1+ protein, Trace-intact occult blood, Positive nitrite, 3+ leukocyte esterase, 40-50 WBCs, many bacteria -Rocephin 2gm started -IV fluids as ordered -Urine culture: E. 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 Metz; Retail Coverage Merchandiser: Dr. Goddard Reymundo Rocha presented to our ED with malaise and was found to have a urinary tract infection and anemia with hemoglobin of 7. He was initially given 2 units of blood and his hemoglobin did continue to slowly decrease while here. He was subsequently given 2 more units on the floor the day before discharge. Reticulocyte count was low and erythropoietin level was ordered but is pending. He does have a history of kidney and pancreatic transplant although after discussion with the patient he has not seen his transplant surgeon in some time. He has been following Dr. Goddard to locally for nephrology. His PCP has reportedly scheduled him the past for hematology/oncology follow-up and the patient has no showed. It is believed his anemia stems from a bone marrow issue and not GI loss as his occult stool was negative. He is quite thin and does have a very flat affect. Dietitian was ordered to discuss his caloric intake. Electrolytes were supplemented. While here he was also found to have a UTI and Rocephin was started for this. Urine culture grew out E. Coli, Staph Warneri, Staph Haemolyticus and Enterococcus Durans/Hirae. He will be discharged on 4 days of treatment of every 8Hr Keflex 500 mg. This will bring his total days of treatment to 10. He was also noted to be somewhat hypotensive and his atenolol dosing will be changed from 50mg to 25 mg. Appointments were made for Dr. Edgar with hematology oncology and Dr. Goddard with nephrology and multiple people explained to him why it is so important that he attend these appointments. He also has an appointment scheduled next week with his primary care provider, Dr. Metz. We have also scheduled a CBC and type and screen on 10/21/18 with results to PCP. He will be discharged today. Reymundo has difficulty with transportation and ambulation. He is missing several toes and has had continued weakness. He does not have a vehicle and relies on others to transport him. He also has left eye blindness and difficulty with seeing. Because of all these factors we feel he will be homebound. We are recommending home health PT/OT for strengthening, ADL assessment and improvement with ambulation, and a home safety evaluation. These services can be monitored and adjusted as necessary by the patients PCP, Dr. Metz. - Patient Instructions Diet: Usual Diet as Tolerated Activity: As Tolerated Driving: Do Not Drive Showering/Bathing: May Shower Notify Provider of: Fever, Increased Pain, Nausea and/or Vomiting - Discharge Plan *PRESCRIPTION DRUG MONITORING PROGRAM REVIEWED*: No *COPY OF PRESCRIPTION DRUG MONITORING REPORT IN PATIENT FELICIANO: No Prescriptions/Med Rec: Atenolol [Tenormin] 25 mg PO DAILY #20 tablet Cephalexin [Keflex] 500 mg PO Q8H #13 capsule Home Medications: Home Meds Cilostazol [Pletal] 100 mg PO BID 12/10/13 [History] Mycophenolate Mofetil [Cellcept] 500 mg PO QID 12/10/13 [History] Omeprazole [Prilosec] 20 mg PO ACBREAKFAST 12/10/13 [History] Tacrolimus [Prograf] 1 mg PO BID 12/10/13 [History] Travoprost [Travatan Z] 2 drop EYEBOTH BEDTIME 11/09/16 [History] Cyanocobalamin (Vitamin B-12) [Vitamin B-12] 1,000 mcg IM Q60D 03/30/18 [History ] Fluticasone Propionate [Flonase] 1 spray NASBOTH DAILY PRN 03/30/18 [History] traMADol [Ultram] 50 mg PO Q6H PRN 03/30/18 [History] Atenolol [Tenormin] 25 mg PO DAILY #20 tablet 10/17/18 [Rx] Cephalexin [Keflex] 500 mg PO Q8H #13 capsule 10/18/18 [Rx] Oxygen Therapy Mode: Room Air Patient Handouts: Anemia, Urinary Tract Infection, Adult, [id number] Referrals: Vicente Metz MD [Primary Care Provider] - 10/23/18 8:30 am (Please follow- up with Dr. Metz on October 23 at 0830am. Please check in at 8 :00am.) Garland Goddard MD [Ordering Only Provider] - 10/23/18 1:15 pm (This appt. is in [place], with Dr. Goddard furnace puncher on SundayOctober 23 at 1: 15pm.) Jeff Edgar MD [Ordering Only Provider] - 10/29/18 11:15 am (You are being referred to Dr Edgar for recurring anemia. This appt. is on SundayOctober 29 at 11:15 am in [facility] [place].) - Discharge Summary/Plan Comment DC Time >30 min.: Yes (45 mins ) - General Info Date of Service: 10/17/18 Admission Dx/Problem (Free Text: Admission Diagnosis/Problem Admission Diagnosis/Problem Anemia Subjective Update: In to see Reymundo. He has no concerns currently and states he feels pretty good. He reportedly has an appointment next week to see Dr. Michael, his furnace puncher and an appointment the following week to see Dr. Edgar with heme/oncology. We have explained to him how imperative it is that he follow-up as directed. Otherwise no patient or nursing concerns. He will be discharged today. Functional Status: Reports: Pain Controlled, Tolerating Diet, Ambulating, Urinating. Denies: New Symptoms - Review of Systems General: Reports: Weakness (improving ). Denies: Fever, Fatigue, Malaise, Chills HEENT: Reports: No Symptoms. Denies: Headaches, Sore Throat Pulmonary: Reports: No Symptoms. Denies: Shortness of Breath, Pleuritic Chest Pain, Cough, Sputum, Hemoptysis, Wheezing Cardiovascular: Reports: No Symptoms. Denies: Chest Pain, Palpitations, Dyspnea on Exertion, Edema, Lightheadedness Gastrointestinal: Reports: Decreased Appetite. Denies: Abdominal Pain, Constipation, Diarrhea, Nausea, Vomiting Genitourinary: Reports: No Symptoms. Denies: Pain Musculoskeletal: Reports: No Symptoms Skin: Reports: No Symptoms Neurological: Reports: No Symptoms. Denies: Confusion Psychiatric: Reports: No Symptoms - Patient Data Vitals - Most Recent: Last Vital Signs Temp 98.1 F 10/17/18 08:15 Pulse 59 L 10/17/18 09:07 Resp 17 10/17/18 09:00 BP 107/54 L 10/17/18 09:07 Pulse Ox 99 10/17/18 09:07 Orthostatic Blood Pressure [ 96/55 Standing] Orthostatic Blood Pressure [ 142/63 Supine] Weight - Most Recent: 111 lb 11.2 oz I&O - Last 24 hours: Intake & Output 10/16/18 10/17/18 10/17/18 22:59 06:59 14:59 Intake Total 1764 550 Output Total 650 300 Balance 1114 250 Lab Results - Last 24 hrs: Laboratory Results - last 24 hr 10/13/18 10/17/18 10/17/18 Range/Units 17:30 06:25 06:25 WBC 4.20 L (4.23-9.07) K/mm3 RBC 3.79 L (4.63-6.08) M/mm3 Hgb 10.9 L (13.7-17.5) gm/L Hct 35.1 L (40.1-51.0) % MCV 92.6 H (79.0-92.2) fl MCH 28.8 (25.7-32.2) pg MCHC 31.1 L (32.2-35.5) g/dl RDW Std Deviation 63.9 H (35.1-43.9) fL Plt Count 135 L (163-337) K/mm3 MPV 11.2 (9.4-12.3) fl Neut % (Auto) 81.0 H (34.0-67.9) % Lymph % (Auto) 10.0 L (21.8-53.1) % [place] % (Auto) 7.1 (5.3-12.2) % Eos % (Auto) 1.4 (0.8-7.0) Baso % (Auto) 0.0 L (0.1-1.2) % Neut # (Auto) 3.40 (1.78-5.38) K/mm3 Lymph # (Auto) 0.42 L (1.32-3.57) K/mm3 [place] # (Auto) 0.30 (0.30-0.82) K/mm3 Eos # (Auto) 0.06 (0.04-0.54) K/mm3 Baso # (Auto) 0.00 L (0.01-0.08) K/mm3 Sodium 144 (136-145) mEq/L Potassium 3.7 (3.5-5.1) mEq/L Chloride 113 H (98-107) mEq/L Carbon Dioxide 21 (21-32) mEq/L Anion Gap 13.7 (5-15) BUN 30 H (7-18) mg/dL Creatinine 1.2 (0.7-1.3) mg/dL Est Cr Clr Drug Dosing 46.91 mL/min Estimated GFR (MDRD) > 60 (>60) mL/min BUN/Creatinine Ratio 25.0 H (14-18) Glucose 94 (74-106) mg/dL Calcium 8.1 L (8.5-10.1) mg/dL Magnesium 1.7 L (1.8-2.4) mg/dl C-Reactive Protein 2.4 H* (<1.0) mg/dL Blood Type O POSITIVE Gel Antibody Screen Negative Crossmatch See Detail FABRIZIO Results - Last 24 hrs: Microbiology 10/13/18 21:37 Aerobic Blood Culture - Preliminary Blood - Venous NO GROWTH AFTER 3 DAYS Anaerobic Blood Culture - Final 10/13/18 21:55 Aerobic Blood Culture - Preliminary Blood - Venous - Lab Draw NO GROWTH AFTER 3 DAYS Anaerobic Blood Culture - Preliminary NO GROWTH AFTER 3 DAYS Med Orders - Current: Current Medications Acetaminophen (Tylenol) 650 mg PO Q6H PRN PRN Reason: Pain/Fever Atenolol (Tenormin) 25 mg PO DAILY [facility] Last Admin: 10/17/18 09:22 Dose: Not Given Calcium Carbonate/Glycine (Tums) 500 mg PO Q2H PRN PRN Reason: Heartburn Last Admin: 10/17/18 10:59 Dose: 500 mg Cilostazol (Pletal) 100 mg PO BID [facility] Last Admin: 10/17/18 09:05 Dose: 100 mg Flunisolide (Nasalide Nasal [place]) 0 ml NASBOTH Q12H PRN PRN Reason: CONGESTION Ceftriaxone Sodium 2 gm/ (Sodium Chloride) 100 mls @ 200 mls/hr IV Q24H [facility] Last Admin: 10/16/18 21:50 Dose: 200 mls/hr Latanoprost (Xalatan 0.005% Ophth Soln) 0 ml EYEBOTH BEDTIME [facility] Last Admin: 10/16/18 21:50 Dose: 1 drop Mycophenolate Mofetil (Cellcept) 1,000 mg PO BID [facility] Last Admin: 10/17/18 09:08 Dose: 1,000 mg Ondansetron HCl (Zofran) 4 mg IVPUSH Q8H PRN PRN Reason: Nausea/Vomiting Pantoprazole Sodium (Protonix) 40 mg PO DAILY@0700 [facility] Last Admin: 10/17/18 06:15 Dose: 40 mg Tacrolimus (Prograf) 1 mg PO BID [facility] Last Admin: 10/17/18 09:08 Dose: 1 mg Temazepam (Restoril) 7.5 mg PO BEDTIME PRN PRN Reason: Insomnia Tramadol HCl (Ultram) 50 mg PO Q6H PRN PRN Reason: PAIN Discontinued Medications Atenolol (Tenormin) 50 mg PO DAILY [facility] Last Admin: 10/15/18 10:16 Dose: Not Given Furosemide (Lasix) 40 mg IVPUSH NOW ONE Stop: 10/13/18 21:14 Last Admin: 10/13/18 22:42 Dose: 40 mg Sodium Chloride (Normal Saline) 1,000 mls @ 150 mls/hr IV ASDIRECTED [facility] Last Admin: 10/13/18 17:21 Dose: 150 mls/hr Sodium Chloride (Normal Saline) 1,000 mls @ 999 mls/hr IV ONETIME ONE Stop: 10/13/18 18:30 Last Admin: 10/13/18 23:28 Dose: Not Given Magnesium Sulfate 2 gm/ Premix 50 mls @ 50 mls/hr IV ONETIME ONE Stop: 10/13/18 19:17 Last Admin: 10/13/18 18:48 Dose: 50 mls/hr Magnesium Sulfate 2 gm/ Premix 50 mls @ 25 mls/hr IV ONETIME ONE Stop: 10/13/18 23:09 Last Admin: 10/13/18 23:24 Dose: 25 mls/hr Potassium Chloride 10 meq/ (Premix) 100 mls @ 100 mls/hr IV Q1H [facility] Stop: 10/15/18 10:44 Last Admin: 10/15/18 07:57 Dose: Not Given Sodium Chloride (Normal Saline) 500 mls @ 999 mls/hr IV ONETIME ONE Stop: 10/15/18 22:15 Last Admin: 10/15/18 22:22 Dose: 999 mls/hr Sodium Chloride (Normal Saline) 250 mls @ 100 mls/hr IV ASDIRECTED [facility] Stop: 10/16/18 16:00 Last Admin: 10/16/18 16:38 Dose: 100 mls/hr Magnesium Sulfate 4 gm/ Premix 100 mls @ 25 mls/hr IV ONETIME ONE Stop: 10/17/18 09:16 Last Admin: 10/17/18 10:47 Dose: 25 mls/hr Latanoprost (Xalatan 0.005% Ophth Soln) 0 ml EYEBOTH ONETIME ONE Stop: 10/14/18 13:16 Last Admin: 10/14/18 13:45 Dose: 1 drop Potassium Chloride (Klor-Con M20) 40 meq PO BID [facility] Stop: 10/15/18 09:01 Last Admin: 10/15/18 09:14 Dose: 40 meq Tramadol HCl (Ultram) 50 mg PO Q6H [facility] Last Admin: 10/14/18 05:48 Dose: Not Given - Exam Quality Assessment: Reports: DVT Prophylaxis General: Reports: Alert, Oriented, Cooperative, No Acute Distress HEENT: Reports: Pupils Equal, Pupils Reactive, EOMI, Mucous Membr. Moist/Cody Neck: Reports: Supple, Trachea Midline, No JVD Lungs: Reports: Clear to Auscultation, Normal Respiratory Effort Cardiovascular: Reports: Regular Rate, Regular Rhythm GI/Abdominal Exam: Normal Bowel Sounds, Soft, Non-Tender, No Distention, No Abnormal Bruit (Male) Exam: Deferred Rectal (Males) Exam: Deferred Back Exam: Reports: Normal Inspection, Full Range of Motion Extremities: Normal Inspection, Normal Range of Motion, Non-Tender, No Pedal Edema, Normal Capillary Refill Skin: Reports: Warm, Dry, Intact Neurological: Reports: No New Focal Deficit Psy/Mental Status: Reports: Alert, Normal Affect, Normal Mood
--- NOTE | 2018-10-17 14:28 | PCM.PN ---
- General Info Date of Service: 10/17/18 Admission Dx/Problem (Free Text): Admission Diagnosis/Problem Admission Diagnosis/Problem Anemia Subjective Update: In to see Reymundo. He has no concerns currently and states he feels pretty good. 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 We have contacted hematology/oncology and they will be contacting him to set up an appointment. We have explained to him how imperative it is that he follow-up as directed. Otherwise no patient or nursing concerns. His magnesium was low today and was supplemented. We are still awaiting sensitivities on one last urinary organism. Will likely discharge tomorrow. Functional Status: Reports: Pain Controlled, Tolerating Diet, Ambulating, Urinating. Denies: New Symptoms - Review of Systems General: Reports: Weakness (improving ), Fatigue (improving ). Denies: Fever HEENT: Reports: No Symptoms. Denies: Headaches, Sore Throat, Visual Changes Pulmonary: Reports: No Symptoms. Denies: Shortness of Breath, Cough, Sputum, Wheezing Cardiovascular: Reports: No Symptoms. Denies: Chest Pain, Palpitations, Dyspnea on Exertion, Edema Gastrointestinal: Reports: No Symptoms. Denies: Abdominal Pain, Constipation, Diarrhea, Nausea, Vomiting Genitourinary: Reports: No Symptoms. Denies: Pain Musculoskeletal: Reports: No Symptoms Skin: Reports: No Symptoms. Denies: Cyanosis Neurological: Reports: No Symptoms. Denies: Confusion Psychiatric: Reports: No Symptoms. Denies: Confusion - Patient Data Vitals - Most Recent: Last Vital Signs Temp 98.1 F 10/17/18 08:15 Pulse 59 L 10/17/18 09:07 Resp 17 10/17/18 09:00 BP 107/54 L 10/17/18 09:07 Pulse Ox 99 10/17/18 09:07 Orthostatic Blood Pressure [ 96/55 Standing] Orthostatic Blood Pressure [ 142/63 Supine] Weight - Most Recent: 111 lb 11.2 oz I&O - Last 24 Hours: Intake & Output 10/16/18 10/17/18 10/17/18 22:59 06:59 14:59 Intake Total 1764 550 Output Total 650 300 Balance 1114 250 Lab Results Last 24 Hours: Laboratory Results - last 24 hr 10/13/18 10/17/18 10/17/18 Range/Units 17:30 06:25 06:25 WBC 4.20 L (4.23-9.07) K/mm3 RBC 3.79 L (4.63-6.08) M/mm3 Hgb 10.9 L (13.7-17.5) gm/L Hct 35.1 L (40.1-51.0) % MCV 92.6 H (79.0-92.2) fl MCH 28.8 (25.7-32.2) pg MCHC 31.1 L (32.2-35.5) g/dl RDW Std Deviation 63.9 H (35.1-43.9) fL Plt Count 135 L (163-337) K/mm3 MPV 11.2 (9.4-12.3) fl Neut % (Auto) 81.0 H (34.0-67.9) % Lymph % (Auto) 10.0 L (21.8-53.1) % Harris % (Auto) 7.1 (5.3-12.2) % Eos % (Auto) 1.4 (0.8-7.0) Baso % (Auto) 0.0 L (0.1-1.2) % Neut # (Auto) 3.40 (1.78-5.38) K/mm3 Lymph # (Auto) 0.42 L (1.32-3.57) K/mm3 Harris # (Auto) 0.30 (0.30-0.82) K/mm3 Eos # (Auto) 0.06 (0.04-0.54) K/mm3 Baso # (Auto) 0.00 L (0.01-0.08) K/mm3 Sodium 144 (136-145) mEq/L Potassium 3.7 (3.5-5.1) mEq/L Chloride 113 H (98-107) mEq/L Carbon Dioxide 21 (21-32) mEq/L Anion Gap 13.7 (5-15) BUN 30 H (7-18) mg/dL Creatinine 1.2 (0.7-1.3) mg/dL Est Cr Clr Drug Dosing 46.91 mL/min Estimated GFR (MDRD) > 60 (>60) mL/min BUN/Creatinine Ratio 25.0 H (14-18) Glucose 94 (74-106) mg/dL Calcium 8.1 L (8.5-10.1) mg/dL Magnesium 1.7 L (1.8-2.4) mg/dl C-Reactive Protein 2.4 H* (<1.0) mg/dL Blood Type O POSITIVE Gel Antibody Screen Negative Crossmatch See Detail [place] Results Last 24 Hours: Microbiology 10/13/18 20:40 Urine Culture - Final Urine, Clean Catch Escherichia Coli Staphylococcus Warneri Staphylococcus Haemolyticus Enterococcus Durans/Hirae 10/13/18 21:37 Aerobic Blood Culture - Preliminary Blood - Venous NO GROWTH AFTER 3 DAYS Anaerobic Blood Culture - Final 10/13/18 21:55 Aerobic Blood Culture - Preliminary Blood - Venous - Lab Draw NO GROWTH AFTER 3 DAYS Anaerobic Blood Culture - Preliminary NO GROWTH AFTER 3 DAYS Med Orders - Current: Current Medications Acetaminophen (Tylenol) 650 mg PO Q6H PRN PRN Reason: Pain/Fever Atenolol (Tenormin) 25 mg PO DAILY [facility] Last Admin: 10/17/18 09:22 Dose: Not Given Calcium Carbonate/Glycine (Tums) 500 mg PO Q2H PRN PRN Reason: Heartburn Last Admin: 10/17/18 10:59 Dose: 500 mg Cilostazol (Pletal) 100 mg PO BID [facility] Last Admin: 10/17/18 09:05 Dose: 100 mg Flunisolide (Nasalide Nasal [place]) 0 ml NASBOTH Q12H PRN PRN Reason: CONGESTION Ceftriaxone Sodium 2 gm/ (Sodium Chloride) 100 mls @ 200 mls/hr IV Q24H [facility] Latanoprost (Xalatan 0.005% Ophth Soln) 0 ml EYEBOTH BEDTIME [facility] Last Admin: 10/16/18 21:50 Dose: 1 drop Mycophenolate Mofetil (Cellcept) 1,000 mg PO BID [facility] Last Admin: 10/17/18 09:08 Dose: 1,000 mg Ondansetron HCl (Zofran) 4 mg IVPUSH Q8H PRN PRN Reason: Nausea/Vomiting Pantoprazole Sodium (Protonix) 40 mg PO DAILY@0700 [facility] Last Admin: 10/17/18 06:15 Dose: 40 mg Tacrolimus (Prograf) 1 mg PO BID [facility] Last Admin: 10/17/18 09:08 Dose: 1 mg Temazepam (Restoril) 7.5 mg PO BEDTIME PRN PRN Reason: Insomnia Tramadol HCl (Ultram) 50 mg PO Q6H PRN PRN Reason: PAIN Discontinued Medications Atenolol (Tenormin) 50 mg PO DAILY [facility] Last Admin: 10/15/18 10:16 Dose: Not Given Furosemide (Lasix) 40 mg IVPUSH NOW ONE Stop: 10/13/18 21:14 Last Admin: 10/13/18 22:42 Dose: 40 mg Sodium Chloride (Normal Saline) 1,000 mls @ 150 mls/hr IV ASDIRECTED [facility] Last Admin: 10/13/18 17:21 Dose: 150 mls/hr Sodium Chloride (Normal Saline) 1,000 mls @ 999 mls/hr IV ONETIME ONE Stop: 10/13/18 18:30 Last Admin: 10/13/18 23:28 Dose: Not Given Magnesium Sulfate 2 gm/ Premix 50 mls @ 50 mls/hr IV ONETIME ONE Stop: 10/13/18 19:17 Last Admin: 10/13/18 18:48 Dose: 50 mls/hr Magnesium Sulfate 2 gm/ Premix 50 mls @ 25 mls/hr IV ONETIME ONE Stop: 10/13/18 23:09 Last Admin: 10/13/18 23:24 Dose: 25 mls/hr Ceftriaxone Sodium 2 gm/ (Sodium Chloride) 100 mls @ 200 mls/hr IV Q24H [facility] Last Admin: 10/16/18 21:50 Dose: 200 mls/hr Potassium Chloride 10 meq/ (Premix) 100 mls @ 100 mls/hr IV Q1H [facility] Stop: 10/15/18 10:44 Last Admin: 10/15/18 07:57 Dose: Not Given Sodium Chloride (Normal Saline) 500 mls @ 999 mls/hr IV ONETIME ONE Stop: 10/15/18 22:15 Last Admin: 10/15/18 22:22 Dose: 999 mls/hr Sodium Chloride (Normal Saline) 250 mls @ 100 mls/hr IV ASDIRECTED [facility] Stop: 10/16/18 16:00 Last Admin: 10/16/18 16:38 Dose: 100 mls/hr Magnesium Sulfate 4 gm/ Premix 100 mls @ 25 mls/hr IV ONETIME ONE Stop: 10/17/18 09:16 Last Admin: 10/17/18 10:47 Dose: 25 mls/hr Ceftriaxone Sodium 2 gm/ (Sodium Chloride) 100 mls @ 200 mls/hr IV ONETIME [facility] Stop: 10/17/18 20:29 Latanoprost (Xalatan 0.005% Ophth Soln) 0 ml EYEBOTH ONETIME ONE Stop: 10/14/18 13:16 Last Admin: 10/14/18 13:45 Dose: 1 drop Potassium Chloride (Klor-Con M20) 40 meq PO BID [facility] Stop: 10/15/18 09:01 Last Admin: 10/15/18 09:14 Dose: 40 meq Tramadol HCl (Ultram) 50 mg PO Q6H [facility] Last Admin: 10/14/18 05:48 Dose: Not Given - Exam Quality Assessment: DVT Prophylaxis General: Alert, Oriented, Cooperative, No Acute Distress HEENT: Pupils Equal, Pupils Reactive, EOMI, Mucous Membr. Moist/[place] Neck: Supple, Trachea Midline, No JVD Lungs: Clear to Auscultation, Normal Respiratory Effort Cardiovascular: Regular Rate, Regular Rhythm GI/Abdominal Exam: Normal Bowel Sounds, Soft, Non-Tender, No Distention, No Abnormal Bruit (Male) Exam: Deferred Back Exam: Normal Inspection, Full Range of Motion Extremities: Normal Inspection, Normal Range of Motion, Non-Tender, No Pedal Edema, Normal Capillary Refill Peripheral Pulses: 2+: Radial (L), Radial (R), Dorsalis Pedis (L), Dorsalis Pedis (R) Skin: Warm, Dry, Intact Neurological: No New Focal Deficit Psy/Mental Status: Alert, Other (flat affect ) - Problem List & Annotations (1) Anemia SNOMED Code(s): 003810536 Code(s): D64.9 - ANEMIA, UNSPECIFIED Status: Acute Current Visit: Yes Qualifiers: Anemia type: unspecified type Qualified Code(s): D64.9 - Anemia, unspecified (2) Chronic renal insufficiency SNOMED Code(s): 005800124 Code(s): N18.9 - CHRONIC KIDNEY DISEASE, UNSPECIFIED Status: Acute Priority: Medium Current Visit: Yes Qualifiers: Chronic kidney disease stage: unspecified stage Qualified Code(s): N18.9 - Chronic kidney disease, unspecified (3) Hypokalemia SNOMED Code(s): 28898455 Code(s): E87.6 - HYPOKALEMIA Status: Resolved Priority: Medium Current Visit: Yes (4) Hypomagnesemia SNOMED Code(s): 618062064 Code(s): E83.42 - HYPOMAGNESEMIA Status: Acute Priority: Medium Current Visit: Yes (5) Orthostasis SNOMED Code(s): 76611963 Code(s): I95.1 - ORTHOSTATIC HYPOTENSION Status: Resolved Priority: High Current Visit: Yes (6) Dehydration SNOMED Code(s): 22758791 Code(s): E86.0 - DEHYDRATION Status: Resolved Priority: High Current Visit: Yes (7) UTI (urinary tract infection) SNOMED Code(s): 62986141 Code(s): N39.0 - URINARY TRACT INFECTION, SITE NOT SPECIFIED Status: Acute Priority: High Current Visit: Yes Qualifiers: Urinary tract infection type: site unspecified Hematuria presence: without hematuria Qualified Code(s): N39.0 - Urinary tract infection, site not specified - Problem List Review Problem List Initiated/Reviewed/Updated: Yes - My Orders Last 24 Hours: My Active Orders 10/17/18 12:05 Ready for Discharge [RC] PER UNIT ROUTINE 10/17/18 21:30 cefTRIAXone [Rocephin] 2 gm Sodium Chloride 0.9% [Normal Saline] 100 ml IV Q24H 10/18/18 05:11 CBC WITH AUTO DIFF [HEME] AM - Plan Plan:: I/P: Acute: Anemia -Acute on chronic -Reports history of blood transfusions in past - states this has been ongoing for many years -Prior H/H on 09/04/18 was 7.0/23.4 and on 08/18/18 was 8.0/23.9 -Hgb 7.0-->10.6-->10.1-->9.1-->8.8-->8.7 -Hct 23.4-->32-->31.7-->29-->28.8-->28.3 -Orthostatic in ED -1L fluid bolus given in ED -Transfused 2 units in ED -Transfuse 2 more units on floor -Occult blood Negative -No known melena or hematochezia from both patient and nursing -Consider surgical consult if apparent GI loss - nothing -Reticulocyte count low (0.34) -Iron Panel: Iron 76, TIBC 95, % saturation 80, Transferrin 76 -Requires heme/oncology and nephrology consult after discharge -Erythropoietin level ordered -Has not seen transplant team in some time - will attempt to schedule with them for follow-up - patient refuses to travel UTI -UA noted cloudy urine with 1+ protein, Trace-intact occult blood, Positive nitrite, 3+ leukocyte esterase, 40-50 WBCs, many bacteria -Rocephin 2gm started -IV fluids as ordered -Urine culture: E. 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 Metz; Reinsurance Claim Analyst: Dr. Goddard LOS>96 HRs with further anemia workup, need for second blood transfusion. Likely discharge tomorrow.
[2018-10-17] MEDS ORDERED: cefTRIAXone 2 GM in Sodium Chloride 0.9% 100 ML IV SCH ×2 (20:00→21:30)
[2018-10-17] MEDS: Latanoprost 0.005% Ophth Soln 2.5 ML Bottle EYEBOTH SCH (21:46)
[2018-10-18] MEDS: Pantoprazole 40 MG Tab.CR PO SCH (06:23)
[2018-10-18] MEDS: Calcium Carbonate 500 MG Tab.Chew PO PRN ×2 (08:33→12:53)
[2018-10-18] MEDS: Atenolol 25 MG Tab PO SCH (08:33)
[2018-10-18 08:34] VITALS: BP 122/53
[2018-10-18] MEDS: Tacrolimus 1 MG Cap PO SCH (08:34)
[2018-10-18] MEDS: Mycophenolate Mofetil 250 MG Cap PO SCH (08:34)
[2018-10-18] MEDS ORDERED: Bacitracin Oint 15 GM Tube TOP SCH (09:15)
== END 2018-10-18 15:10 | disposition home health service (06) | DRG 812 ==
LOC: JD.ED 16:35 → JD.MS 19:33
PROVIDERS: ADMIT Internal Medicine Cardiovascular Disease; ATTEND Internal Medicine Cardiovascular Disease
PROC: 30233N1 Transfusion of Nonautologous Red Blood Cells into Peripheral Vein, Percutaneous Approach (ICD-10-PCS; principal; 2018-10-13)
DX: D64.9 Anemia, unspecified (principal); K59.39 Other megacolon; Z94.0 Kidney transplant status; Z94.83 Pancreas transplant status; N39.0 Urinary tract infection, site not specified; E86.0 Dehydration; I95.1 Orthostatic hypotension; B96.20 Unspecified Escherichia coli [E. coli] as the cause of diseases classified elsewhere; B95.7 Other staphylococcus as the cause of diseases classified elsewhere; B95.2 Enterococcus as the cause of diseases classified elsewhere; N18.9 Chronic kidney disease, unspecified; E83.42 Hypomagnesemia; E87.6 Hypokalemia; R62.7 Adult failure to thrive; I25.10 Atherosclerotic heart disease of native coronary artery without angina pectoris; K21.9 Gastro-esophageal reflux disease without esophagitis; H54.7 Unspecified visual loss; R10.9 Unspecified abdominal pain; R53.81 Other malaise; R19.7 Diarrhea, unspecified; R63.4 Abnormal weight loss; Z95.1 Presence of aortocoronary bypass graft; Z89.411 Acquired absence of right great toe; Z89.421 Acquired absence of other right toe(s); Z89.422 Acquired absence of other left toe(s); Z87.891 Personal history of nicotine dependence
CPT/HCPCS: 36415; 36430; 74018; 80053; 81001; 83690; 83735; 84443; 84484; 85007; 85027; 86850; 86900; 86901; 86922 ×2; 93005; 96365; 96366; 99285; J3475; J7040; P9016; 71046; 71046-26; 80048; 82270; 82668; 83540; 83605; 84132; 84466; 85014; 85018; 85025; 85045; 86140; 86738; 87040; 87077; 87086; 87088; 87186; 87486; 87581; 87632; 87798; 87804; 87899; 93010; 97110-GP; 97116-GP; 97161-GP; 97166-GO; 97530-GO; 97530-GP; A9270-GY; J0696; J1940; J7030; J7050

== ENCOUNTER 2021-01-24 12:10 | Emergency (ER) | payer MEDICARE, MEDICAID ==
[2021-01-24 12:53] VITALS: BP 197/85; PULSE 69
--- NOTE | 2021-01-24 13:15 | EDM.PDOC ---
ED HPI GENERAL MEDICAL PROBLEM - General Chief Complaint: General Stated Complaint: KIDNEY REJECTION/TRANSPLATE PT Time Seen by Provider: 01/24/21 12:29 Source of Information: Reports: Patient - History of Present Illness INITIAL COMMENTS - FREE TEXT/NARRATIVE: Patient presents for ride to go to the hospital in [place]. He is followed closely by Dr. Goddard the c architect and has had a kidney transplant 2004. He has been having a flareup of possible rejection and is needing kidney biopsy. He is post to try to get a ride there but has not had any success and therefore comes in the hospital. Currently is not really complaining of any headaches runny nose sore throat coughing cold symptoms chest pain shortness of breath or breathing problems no nausea or vomiting. Still makes urine. No increasing swelling to lower extremities no double vision or blurry vision. - Related Data Allergies Allergy/AdvReac Type Severity Reaction Status Date / Time No Known Allergies Allergy Verified 01/24/21 12:44 Home Meds: Home Meds Cilostazol [Pletal] 100 mg PO BID 12/10/13 [History] Omeprazole [Prilosec] 20 mg PO ACBREAKFAST 12/10/13 [History] Tacrolimus [Prograf] 1 mg PO BID 12/10/13 [History] mycophenolate mofetiL [Cellcept] 500 mg PO QID 12/10/13 [History] Travoprost [Travatan Z] 2 drop EYEBOTH BEDTIME 11/09/16 [History] Cyanocobalamin (Vitamin B-12) [Vitamin B-12] 1,000 mcg IM Q60D 03/30/18 [History] Fluticasone Propionate [Flonase] 1 spray NASBOTH DAILY PRN 03/30/18 [History] traMADol [Ultram] 50 mg PO Q6H PRN 03/30/18 [History] atenoloL [Tenormin] 25 mg PO DAILY #20 tablet 10/17/18 [Rx] cephALEXin [Keflex] 500 mg PO Q8H #13 capsule 10/18/18 [Rx] Past Medical History HEENT History: Reports: Impaired Vision, Other (See Below) Other HEENT History: blind in the left eye, wears glasses Cardiovascular History: Reports: CAD Other Cardiovascular History: unsure if he has had stents; double bypass 1999 Respiratory History: Reports: None Gastrointestinal History: Reports: GERD Genitourinary History: Reports: Acute Renal Failure Other Genitourinary History: kidney transplant; pancreas transplant 2004 [employer]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 [employer] History: Reports: None Musculoskeletal History: Reports: Amputation Other Musculoskeletal History: toes bilaterally Neurological History: Reports: None Psychiatric History: Reports: None Endocrine/Metabolic History: Reports: Diabetes, Type I Hematologic History: Reports: Anemia Immunologic History: Reports: Solid Organ Transplant Other Immunologic History: Kidney transplant Oncologic (Cancer) History: Reports: None Dermatologic History: Reports: None Other Dermatologic History: skin graft - Infectious Disease History Infectious Disease History: Reports: Chicken Pox, Influenza, Measles, Shingles - Past Surgical History Head Surgeries/Procedures: Reports: None HEENT Surgical History: Reports: Oral Surgery, Radial Keratotomy Other HEENT Surgeries/Procedures: PTK to left eye, laser to B numerous times Cardiovascular Surgical History: Reports: Coronary Artery Bypass Respiratory Surgical History: Reports: None GI Surgical History: Reports: Colonoscopy, Other (See Below) Other GI Surgeries/Procedures: Colonoscopy - 2016, pancreas and kidney trans plant Male Surgical History: Reports: Other (See Below) Other Male Surgeries/Procedures: Kidney and Pancreas Transplant. Endocrine Surgical History: Reports: None Neurological Surgical History: Reports: None Musculoskeletal Surgical History: Reports: Amputation Other Musculoskeletal Surgeries/Procedures:: toe removal starting in 2005; no toes remain on right and 3 remain on left Oncologic Surgical History: Reports: None Dermatological Surgical History: Reports: Skin Graft Social & Family History - Family History Family Medical History: No Pertinent Family History HEENT: Reports: Impaired Vision Cardiac: Reports: Other (See Below) Other Cardiac Family History: Possibly something with mom's heart. Pt unsure. Respiratory: Reports: None GI: Reports: None : Reports: Other (See Below) Other Family History: Gallbladder removal appendectomy - father. Musculoskeletal: Reports: Arthritis Neurological: Reports: Cerebral Aneurysms, Neuropathy, Diabetic Other Neurological Family History: Dad of hematoma in head. Mother - neuropathy. Endocrine/Metabolic: Reports: Diabetes, Type I Oncologic: Reports: Lymphoma - Caffeine Use Caffeine Use: Reports: Soda Other Caffeine Use: pt reports that he drinks one can of mountain dew daily and does not drink any other form of caffeine. - Living Situation & Occupation Living situation: Reports: Single, Alone Occupation: Unemployed ED ROS GENERAL - Review of Systems Review Of Systems: See Below Constitutional: Denies: Fever, Chills, Night Sweats HEENT: Denies: Rhinitis Respiratory: Denies: Shortness of Breath, Cough Cardiovascular: Denies: Chest Pain, Dyspnea on Exertion GI/Abdominal: Denies: Abdominal Pain, Diarrhea, Nausea, Vomiting : Denies: Flank Pain Musculoskeletal: Denies: Back Pain Skin: Reports: No Symptoms Neurological: Reports: No Symptoms Psychiatric: Reports: No Symptoms ED EXAM, GENERAL - Physical Exam Exam: See Below Exam Limited By: No Limitations General Appearance: Alert, WD/WN, Moderate Distress Respiratory/Chest: No Respiratory Distress, Lungs Clear Cardiovascular: Normal Peripheral Pulses, Regular Rate, Rhythm Peripheral Pulses: 2+: Radial (L), Radial (R) GI/Abdominal: Normal Bowel Sounds, Non-Tender Back Exam: No: CVA Tenderness (L), CVA Tenderness (R) Extremities: Normal Inspection Psychiatric: Normal Affect #1 Interpretation EKG Interpretation Comments: Prior to EKG with 1 from 2018 unchanged Course - Vital Signs Text/Narrative:: Patient states that he needs ambulance transfer to the [facility] to see Dr. Goddard for a kidney biopsy. He had a kidney transplant back in 2004 and apparently has had possible rejection problems and has been getting IV infusions of steroids followed by some oral steroids. He apparently is talked to Dr. Goddard's nurse Michelle and is supposed to get evaluated. Patient otherwise not having any complaints right now. I am on the phone right now waiting for Dr. Goddard to to discuss disposition plans. Last Recorded V/S: Last Vital Signs Temp 98.2 F 01/24/21 12:51 Pulse 69 01/24/21 12:51 Resp 16 01/24/21 12:51 BP 197/85 H 01/24/21 12:51 Pulse Ox 98 01/24/21 12:51 - Orders/Labs/Meds Orders: Active Orders 24 hr Category Date Time Status EKG Documentation Completion [RC] ASDIRECTED Care 01/24/21 13:28 Active EKG 12 Lead [EK] Stat Ther 01/24/21 13:28 Ordered Patient will agree to labs, it sounds like patient will be accepted by Dr. Kumar, hospitalist at [facility] but will need to make sure his blood pressure and vital signs are otherwise stable. Labs: Laboratory Tests 05/01/24/21 01/24/21 Range/Units 13:38 13:38 14:25 WBC 7.23 (4.23-9.07) K/mm3 RBC 3.38 L (4.63-6.08) M/mm3 Hgb 9.8 L (13.7-17.5) gm/dl Hct 32.0 L (40.1-51.0) % MCV 94.7 H (79.0-92.2) fl MCH 29.0 (25.7-32.2) pg MCHC 30.6 L (32.2-35.5) g/dl RDW Std Deviation 47.2 H (35.1-43.9) fL Plt Count 221 (163-337) K/mm3 MPV 9.5 (9.4-12.3) fl Neut % (Auto) 81.2 H (34.0-67.9) % Lymph % (Auto) 11.3 L (21.8-53.1) % [place] % (Auto) 5.8 (5.3-12.2) % Eos % (Auto) 0.3 L (0.8-7.0) Baso % (Auto) 0.0 L (0.1-1.2) % Neut # (Auto) 5.87 H (1.78-5.38) K/mm3 Lymph # (Auto) 0.82 L (1.32-3.57) K/mm3 [place] # (Auto) 0.42 (0.30-0.82) K/mm3 Eos # (Auto) 0.02 L (0.04-0.54) K/mm3 Baso # (Auto) 0.00 L (0.01-0.08) K/mm3 Sodium 140 (136-145) mEq/L Potassium 5.0 (3.5-5.1) mEq/L Chloride 110 H (98-107) mEq/L Carbon Dioxide 18 L (21-32) mEq/L Anion Gap 17.0 H (5-15) BUN 54 H (7-18) mg/dL Creatinine 2.4 H (0.7-1.3) mg/dL Est Cr Clr Drug Dosing 27.89 mL/min Estimated GFR (MDRD) 27 (>60) mL/min BUN/Creatinine Ratio 22.5 H (14-18) Glucose 102 H (70-99) mg/dL Calcium 8.2 L (8.5-10.1) mg/dL Total Bilirubin 0.2 (0.2-1.0) mg/dL AST 10 L (15-37) U/L ALT 17 (16-63) U/L Alkaline Phosphatase 99 (46-116) U/L C-Reactive Protein 1.2 H* (<1.0) mg/dL Total Protein 6.5 (6.4-8.2) g/dl Albumin 2.9 L (3.4-5.0) g/dl Globulin 3.6 gm/dL Albumin/Globulin Ratio 0.8 L (1-2) Urine Color Yellow (Yellow) Urine Appearance Clear (Clear) Urine pH 6.5 (5.0-8.0) Ur Specific [place] 1.020 (1.005-1.030) Urine Protein 2+ H (Negative) Urine Glucose (UA) Negative (Negative) Urine Ketones Negative (Negative) Urine Occult Blood Trace-lysed H (Negative) Urine Nitrite Negative (Negative) Urine Bilirubin Negative (Negative) Urine Urobilinogen 0.2 (0.2-1.0) Ur Leukocyte Esterase Negative (Negative) Urine RBC 5-10 H (0-5) /hpf Urine WBC 0-5 (0-5) /hpf Ur Squamous Epith Cells 0-5 (0-5) /hpf Urine Bacteria Few (FEW) /hpf Urine Mucus Rare (FEW) /hpf - Re-Assessments/Exams Free Text/Narrative Re-Assessment/Exam: 01/24/21 15:19 White count is 7.2 hemoglobin 9 point hematocrit 32 platelet count is 2 and 21,000 sodium 140 potassium 5 chloride 110 CO2 is 18 BUN 54 creatinine 2.4 blood sugar 102 calcium 8.2 LFTs are normal C-reactive protein 1.2 urinalysis shows 2+ protein 5-10 red blood cells Filled out is negative. Patient's blood pressure is more stabilized and I made a phone call back to [facility] in [place] and [facility] for the patient to get transferred by ambulance however there is no real good clinical indication for ambulance transfer based on medical necessity certification and I described that to the patient and would be $2500 for the trip he declined and is going to be able to try to get someone to help him get up there in 2 days. He does not want to wake up early to take the bus based on having a cat he has to take care of. Departure - Departure Time of Disposition: 15:30 Disposition: Home, Self-Care 01 Condition: Fair Clinical Impression: Renal failure (ARF), acute on chronic Qualifiers: Acute renal failure type: unspecified Chronic kidney disease stage: unspecified stage Qualified Code(s): N17.9 - Acute kidney failure, unspecified; N18.9 - Chronic kidney disease, unspecified - Discharge Information Instructions: Chronic Kidney Disease, Adult, [id number] Referrals: Vicente Metz MD [Primary Care Provider] - Forms: ED Department Discharge Additional Instructions: Follow-up with Dr. Goddard and call and arrange in a follow-up appointment. Return however to the emergency room for any fevers chills coughing abdominal pain unable to urinate flank pain unable to urinate or worsening condition Sepsis Event Note (ED) - Evaluation Sepsis Screening Result: No Definite Risk - Focused Exam Vital Signs: Vital Signs Temp Pulse Resp BP Pulse Ox 01/24/21 12:51 98.2 F 69 16 197/85 H 98 - My Orders Last 24 Hours: My Active Orders 01/24/21 13:28 EKG Documentation Completion [RC] ASDIRECTED EKG 12 Lead [EK] Stat - Assessment/Plan Last 24 Hours: My Active Orders 01/24/21 13:28 EKG Documentation Completion [RC] ASDIRECTED EKG 12 Lead [EK] Stat
== END 2021-01-24 15:40 | disposition home or self-care (01) ==
LOC: JD.ED 12:10
DX: N17.9 Acute kidney failure, unspecified (principal); E10.22 Type 1 diabetes mellitus with diabetic chronic kidney disease; N18.9 Chronic kidney disease, unspecified; I25.10 Atherosclerotic heart disease of native coronary artery without angina pectoris; K21.9 Gastro-esophageal reflux disease without esophagitis; Z95.1 Presence of aortocoronary bypass graft
CPT/HCPCS: 36415; 80053; 81001; 85025; 86140; 93005; 99283; 99283-25

== ENCOUNTER 2021-07-12 16:59 | Emergency (ER) | payer MEDICARE, MEDICAID ==
--- NOTE | 2021-07-12 19:26 | EDM.PDOC ---
ED HPI GENERAL MEDICAL PROBLEM - General Chief Complaint: General Stated Complaint: LOW HEMOGLOBIN Time Seen by Provider: 07/12/21 18:59 Source of Information: Reports: Patient History Limitations: Reports: Uncooperative (Patient reluctant to answer questions) - History of Present Illness INITIAL COMMENTS - FREE TEXT/NARRATIVE: Mr. Rocha is a 65-year-old man who now presents to the ED for a blood transfusion. He states that he had a kidney and pancreas transplant in 2004, and that his Transplant Surgeon checks his blood work every other month, most recently earlier today. He states that he was then called from someone from his surgeon's office, telling him that his hemoglobin was 6.6, and instructing him to come to the ED for a blood transfusion. The patient acknowledges that he has required blood transfusions in the past. Checking blood work that was performed earlier today, I see that the patient's H/H was 6.6/23.0, a macrocytic, normochromic anemia, with the remainder of his CBC being unremarkable. His BMP was remarkable for a bicarbonate modestly depressed at 20 with an anion gap slightly elevated at 16.0, and a BUN/Cr elevated at 39/3.4, with mild hyperglycemia of 117. Reviewing prior labs, I see that the patient's BUN/Cr were 37/3.0 on 05/10/2021. Here in the ED tonight, the patient's initial BP is found to be mildly elevated at 148/73, otherwise, he is hemodynamically stable, afebrile, saturating 100% on room air. He appears to be comfortable, in no acute distress. The patient denies having a recent fever, chills, sore throat, ear pain, nasal or sinus congestion, cough, dyspnea, chest pain, palpitations, nausea, vomiting, constipation, diarrhea, abdominal pain, urinary symptoms, recent weight gain or weight loss, recent bloody bowel movements or black bowel movements, recent joint aches, headaches, or rashes. I reviewed the PMHx/PSHx/SocHx, which was reviewed with the patient by the RN. The patient's PCP is Dr. Vicente Metz. His Transplant Surgeon is Dr. Mo Camarena, at the [facility]. His Judge is Dr. Garland Goddard. He has not received a COVID vaccination, nor an influenza vaccination this season. - Related Data Allergies Allergy/AdvReac Type Severity Reaction Status Date / Time No Known Allergies Allergy Verified 01/24/21 12:44 Home Meds: Home Meds Cilostazol [Pletal] 100 mg PO BID 12/10/13 [History] Omeprazole [Prilosec] 20 mg PO ACBREAKFAST 12/10/13 [History] Tacrolimus [Prograf] 1 mg PO BID 12/10/13 [History] mycophenolate mofetiL [Cellcept] 500 mg PO QID 12/10/13 [History] Travoprost [Travatan Z] 2 drop EYEBOTH BEDTIME 11/09/16 [History] Cyanocobalamin (Vitamin B-12) [Vitamin B-12] 1,000 mcg IM Q60D 03/30/18 [History] Fluticasone Propionate [Flonase] 1 spray NASBOTH DAILY PRN 03/30/18 [History] traMADol [Ultram] 50 mg PO Q6H PRN 03/30/18 [History] atenoloL [Tenormin] 25 mg PO DAILY #20 tablet 10/17/18 [Rx] cephALEXin [Keflex] 500 mg PO Q8H #13 capsule 10/18/18 [Rx] Past Medical History HEENT History: Reports: Impaired Vision, Other (See Below) Other HEENT History: blind in the left eye, wears glasses Cardiovascular History: Reports: CAD Other Cardiovascular History: unsure if he has had stents; double bypass 1999 Respiratory History: Reports: None Gastrointestinal History: Reports: GERD Genitourinary History: Reports: Acute Renal Failure Other Genitourinary History: kidney transplant; pancreas transplant 2004 [employer] History: Reports: None Musculoskeletal History: Reports: Amputation Other Musculoskeletal History: toes bilaterally Neurological History: Reports: None Psychiatric History: Reports: None Endocrine/Metabolic History: Reports: Diabetes, Type I Hematologic History: Reports: Anemia Immunologic History: Reports: Solid Organ Transplant Other Immunologic History: Kidney transplant Oncologic (Cancer) History: Reports: None Dermatologic History: Reports: None Other Dermatologic History: skin graft - Infectious Disease History Infectious Disease History: Reports: Chicken Pox, Influenza, Measles, Shingles - Past Surgical History Head Surgeries/Procedures: Reports: None HEENT Surgical History: Reports: Oral Surgery, Radial Keratotomy Other HEENT Surgeries/Procedures: PTK to left eye, laser to B numerous times Cardiovascular Surgical History: Reports: Coronary Artery Bypass Respiratory Surgical History: Reports: None GI Surgical History: Reports: Colonoscopy, Other (See Below) Other GI Surgeries/Procedures: Colonoscopy - 2016, pancreas and kidney transplant Male Surgical History: Reports: Other (See Below) Other Male Surgeries/Procedures: Kidney and Pancreas Transplant. Endocrine Surgical History: Reports: None Neurological Surgical History: Reports: None Musculoskeletal Surgical History: Reports: Amputation Other Musculoskeletal Surgeries/Procedures:: toe removal starting in 2005; no toes remain on right and 3 remain on left Oncologic Surgical History: Reports: None Dermatological Surgical History: Reports: Skin Graft Social & Family History - Family History Family Medical History: No Pertinent Family History HEENT: Reports: Impaired Vision Cardiac: Reports: Other (See Below) Other Cardiac Family History: Possibly something with mom's heart. Pt unsure. Respiratory: Reports: None GI: Reports: None : Reports: Other (See Below) Other Family History: Gallbladder removal appendectomy - father. Musculoskeletal: Reports: Arthritis Neurological: Reports: Cerebral Aneurysms, Neuropathy, Diabetic Other Neurological Family History: Dad of hematoma in head. Mother - neuropathy. Endocrine/Metabolic: Reports: Diabetes, Type I Oncologic: Reports: Lymphoma - Tobacco Use Tobacco Use Status *Q: Former Tobacco User Years of Tobacco use: 54 Packs/Tins Daily: 1 Used Tobacco, but Quit: No - Caffeine Use Caffeine Use: Reports: Tea Other Caffeine Use: pt reports that he drinks one can of mountain dew daily and does not drink any other form of caffeine. - Recreational Drug Use Recreational Drug Use: No - Living Situation & Occupation Living situation: Reports: Single, Alone Occupation: Unemployed ED ROS GENERAL - Review of Systems Review Of Systems: Comprehensive ROS is negative, except as noted in HPI. ED EXAM, GENERAL - Physical Exam Exam: See Below Exam Limited By: No Limitations General Appearance: Alert, No Apparent Distress, Thin, Other (Disheveled) Eye Exam: Bilateral Eye: EOMI, Normal Inspection Ears: Normal External Exam, Hearing Grossly Normal Nose: Normal Inspection Throat/Mouth: Normal Inspection, Normal Lips, Normal Voice, No Airway Compromise Head: Atraumatic, Normocephalic Neck: Normal Inspection, Full Range of Motion Respiratory/Chest: No Respiratory Distress, Lungs Clear, Normal Breath Sounds, No Accessory Muscle Use Cardiovascular: Normal Peripheral Pulses, Regular Rate, Rhythm, No Edema, No Gallop, No JVD, No Murmur, No Rub Peripheral Pulses: 3+: Radial (L), Radial (R) GI/Abdominal: Normal Bowel Sounds, Soft, Non-Tender, No Organomegaly, No Distention, No Abnormal Bruit, No Mass Rectal (Males) Exam: Normal Exam, Normal Rectal Tone, Heme - Stool Back Exam: Normal Inspection, Full Range of Motion, NT Extremities: Normal Inspection, Normal Range of Motion, No Pedal Edema, Normal Capillary Refill Neurological: Alert, Oriented, Normal Cognition, No Motor/Sensory Deficits Psychiatric: Normal Affect Skin Exam: Warm, Dry, Intact, Normal Color, No Rash Course - Vital Signs Last Recorded V/S: Last Vital Signs Temp 36.9 C 07/13/21 04:50 Pulse 71 07/13/21 04:50 Resp 15 07/12/21 22:06 BP 155/61 H 07/13/21 04:50 Pulse Ox 97 07/13/21 04:00 - Orders/Labs/Meds Orders: Active Orders 24 hr Category Date Time Status Sodium Chloride 0.9% [Normal Saline] 250 ml Med 07/12/21 21:30 Active IV ASDIRECTED Transfuse PRBC [Transfuse Red Blood Cells] [COMM] Stat Oth 07/12/21 19:16 Ordered Medication Orders Sodium Chloride (Normal Saline) 250 mls @ 75 mls/hr IV ASDIRECTED [facility] Labs: Laboratory Tests 07/12/21 07/12/21 Range/Units 12:52 19:37 Total Bilirubin 0.3 (0.2-1.0) mg/dL Blood Type O POSITIVE Gel Antibody Screen Negative Crossmatch See Detail Meds: Medications Generic Name Dose Route Start Last Admin Trade Name Teagan PRN Reason Stop Dose Admin Sodium Chloride 250 mls @ 75 mls/hr 07/12/21 21:30 Normal Saline IV ASDIRECTED [facility] - Re-Assessments/Exams Free Text/Narrative Re-Assessment/Exam: 07/12/21 19:25 Heme negative rectal exam. I placed an order to transfuse 2 units of PRBCs and 2 units of FFP. Even though the patient does not appear to be jaundiced to me, because the triage note indicated jaundice, I also ordered a TBil. 07/12/21 20:36 The patient's TBil is 0.3. 07/13/21 07:12 The patient received 2 units of PRBCs and 2 units of FFP without incident. I will discharge him home. Departure - Departure Time of Disposition: 07:12 Disposition: Home, Self-Care 01 Condition: Good Clinical Impression: Anemia Qualifiers: Anemia type: unspecified type Qualified Code(s): D64.9 - Anemia, unspecified Chronic renal insufficiency Qualifiers: Chronic kidney disease stage: unspecified stage Qualified Code(s): N18.9 - Chronic kidney disease, unspecified - Discharge Information *PRESCRIPTION DRUG MONITORING PROGRAM REVIEWED*: Not Applicable *COPY OF PRESCRIPTION DRUG MONITORING REPORT IN PATIENT FELICIANO: Not Applicable Referrals: Vicente Metz MD [Primary Care Provider] - Garland Goddard MD [Ordering Only Provider] - Mo Camarena MD [Ordering Only Provider] - Forms: ED Department Discharge Additional Instructions: You were seen in the emergency room after routine blood work found your blood count to be low. You were transfused 2 units of packed red blood cells and 2 units of fresh frozen plasma in the ER. Please follow-up with your Judge, Dr. Garland Goddard, at the next available appointment. If any other problems, please do not hesitate to return to the ER. Sepsis Event Note (ED) - Focused Exam Vital Signs: Vital Signs Temp Pulse Resp BP Pulse Ox 07/13/21 04:50 36.9 C 71 155/61 H 07/13/21 04:00 68 157/61 H 97 07/13/21 02:57 36.8 C 66 187/81 H 07/13/21 02:40 36.8 C 63 179/78 H 07/13/21 00:10 36.3 C 65 178/78 H 07/13/21 00:00 67 163/81 H 100 07/12/21 22:45 65 154/64 H 99 07/12/21 22:21 36.9 C 99 159/62 H 07/12/21 22:06 36.9 C 67 15 160/61 H - My Orders Last 24 Hours: My Active Orders 07/12/21 19:16 Transfuse PRBC [Transfuse Red Blood Cells] [COMM] Stat 07/12/21 21:30 Sodium Chloride 0.9% [Normal Saline] 250 ml IV ASDIRECTED - Assessment/Plan Last 24 Hours: My Active Orders 07/12/21 19:16 Transfuse PRBC [Transfuse Red Blood Cells] [COMM] Stat 07/12/21 21:30 Sodium Chloride 0.9% [Normal Saline] 250 ml IV ASDIRECTED
[2021-07-12] MEDS ORDERED: Sodium Chloride 0.9% 250 ML IV SCH (21:30)
[2021-07-13 08:49] VITALS: BP 161/65; PULSE 73
== END 2021-07-13 08:30 | disposition home or self-care (01) ==
LOC: JD.ED 16:59
DX: E10.22 Type 1 diabetes mellitus with diabetic chronic kidney disease (principal); N18.9 Chronic kidney disease, unspecified; D63.1 Anemia in chronic kidney disease; K21.9 Gastro-esophageal reflux disease without esophagitis; Z79.899 Other long term (current) drug therapy; Z48.288 Encounter for aftercare following multiple organ transplant; Z94.0 Kidney transplant status; Z94.83 Pancreas transplant status
CPT/HCPCS: 36415; 36430; 80048; 82150; 82247; 83690; 85025; 86850; 86900; 86901; 86922; 99284; P9016; P9017